=== PATIENT | female | born 1970 | race Caucasian/White ===

== ENCOUNTER 2024-05-03 13:32 | Outpatient (REF) | payer BC, SELFPAY ==
[2024-05-03 13:59] LABS: Internal Control Within Normal Limits; SARS-CoV-2 Ag POSITIVE (NEGATIVE)
== END 2024-05-03 13:33 | disposition home or self-care (01) ==
LOC: LAB 13:32
PROVIDERS: PCP Nurse Practitioner Family; Visit Provider Nurse Practitioner Family
DX: B34.9 Viral infection, unspecified (principal)
CPT/HCPCS: 87811

== ENCOUNTER 2025-07-26 11:32 | Outpatient (OUT) | payer BC, SELFPAY ==
--- OUTSIDE RECORDS SUMMARY | 2024-06-18 10:45 | XMS_ITS ---
Author Organization The [facility] in [place] Address [address] [place] [address] Care Team Providers Care Pneumatic Drum Sander Name Role Phone Patricia Burton Primary Care Provider [phone] REASON FOR VISIT Annual Wellness Encounters Encounter Location Date Provider Diagnosis [facility] [address] [facility] [place] [address] 06/18/2024 Patricia Burton Plan Of Treatment No Information Progress Notes * Ana Rosa CARRILLO LDOB:05/1970 (55 yo F)Acc No.[id number]:06/18/2024 UNLOCKED PROGRESS NOTE Progress Note Patient: Ele MCGOVERNnntriny Stroud :?Patricia Burton (TTC) CNPDOB:1970 ???Age:53 Y???Sex:FemaleDate:4Phone:[phone]:[address] [id number] Subjective: * Chief Complaints: * 1 . Annual Wellness. * Medical History: Objective: * Vitals: Assessment: Plan: * Treatment: * * Electronic signature of Patricia Burton NP, WORKS MANAGER.ASMITA.[id number] on 07/26/2025 at 11:35 AM EDTSign off status: PendingVisit Status:?N/S N/C (No Show/No Charge) * Provider: Wanda SAUCEDO), RIPPLER Date: 0 06/18/2024 Generated for Printing/Faxing/eTransmitting on:?07/26/2025 11:35 AM EDT
--- OUTSIDE RECORDS SUMMARY | 2024-06-18 10:45 | XMS_ITS ---
Author Organization The [facility] in [place] Address [address] [place] [address] Care Team Providers Care Loss Prevention Agent Name Role Phone Patricia Burton Primary Care Provider REASON FOR VISIT Annual Wellness Encounters Encounter Location Date Provider Diagnosis [facility] [address] [facility] [place] [address] 06/18/2024 Patricia Burton Plan Of Treatment No Information Progress Notes * Ana Rosa CARRILLO LDOB:05/1970 (55 yo F)Acc No.[id number]:06/18/2024 UNLOCKED PROGRESS NOTE Progress Note Patient: Ele MCGOVERNnntriny Stroud :?Patricia Burton (TTC) CNPDOB:1970 ???Age:53 Y???Sex:FemaleDate:4Phone:[phone]:[address] [id number] Subjective: * Chief Complaints: * 1 . Annual Wellness. * Medical History: Objective: * Vitals: Assessment: Plan: * Treatment: * * Electronic signature of Patricia Burton NP, RN REVIEW.[id number] on 07/25/2025 at 02:36 PM EDTSign off status: PendingVisit Status:?N/S N/C (No Show/No Charge) * Provider: Wanda SAUCEDO), SYRUP MIXER HELPER Date: 0 06/18/2024 Generated for Printing/Faxing/eTransmitting on:?07/25/2025 02:36 PM EDT
--- OUTSIDE RECORDS SUMMARY | 2025-07-18 10:00 | XMS_ITS ---
Author Organization The [facility] in [place] Address [address] [place] [address] Care Team Providers Care Conservation Worker Name Role Phone Patricia Burton Primary Care Provider Allergies No Known Allergies REASON FOR VISIT BP Issues- has been high over the past two weeks- monitoring at home as well and high there, First BP left arm 122/80, second BP right arm 122/84, Patient stopped all meds- also address PHQ Medications Medication SIG (Take, Route, Frequency, Duration) Notes Start Date End Date Status Effexor XR 37.5 MG 1 capsule with food Orally On ce a day; Duration: 30 days 01/09/2023ctiveStiolto Respimat 2.5-2.5 MCG/ACT2 puffs Inhalation Once a day; Duration: 30 days03/02/2023ctive Social History Tobacco Use: Social History Observation Description Date Details (start date - stop date) Current Smoker NA - NA Tobacco Use/Smoking Question Answer Notes Patient is a current every day smoker Vital Signs Weight 100.4 lbs 07/18/2025 Height 58.5 in 07/18/2025 Blood pressure systolic 122 mm Hg 07/18/20 25 Blood pressure diastolic 84 mm Hg 025 BMI 20.62 kg/m2 07/18/2025 Encounters Encounter Location Date Provider Diagnosis [facility] [address] [facility] [place] [address] 07/18/2025 Patricia Burton Depression with anxiety F41.8 and Current smoker F17.200 Assessments Encounter Date Diagnosis (ICD Code) Assessment Notes Treatment Notes Treatment Clinical Notes Section Notes 07/18/2025 Depression with anxiety (ICD-10 - F41.8) job stress working 70 hrs week moved into parents house, finances better 07/18/2025urrent smoker (ICD-10 - F17.200)encouraged lmyjysbwm51/17/2025Other continue monitor bp, can stop here for bp check if needed Plan Of Treatment Medication Medication Name Sig Start Date Stop Date Notes Effexor XR 37.5 MG 1 capsule with food Orally Once a day; Duration: 30 days 01/09/2023 Stiolto Respimat 2.5-2.5 MCG/ACT2 puffs Inhalation Once a day; Duration: 30 days 03/02/2023Treatment Notes Assessment Notes Depression with anxiety job stress working 70 hrs week moved into parents house, finances better Current smoker encouraged cessation Other continue monitor bp, can stop here for bp check if needed Next Appt Details Follow Up: prn,6 Months, Alethea son: Progress Notes * Ana Rosa CARRILLO LDOB:05/1970 (55 yo F)Acc No.[id number]:07/18/2025 Progress Note Patient: Tod Ana Rosa RUBIO Luanne :?Patricia Burton ([facility]), CNPDOB:1970 ???Age:55 Y???Sex:FemaleDate:07/18/2025Phone:[phone]:[address], [place], [id number] In:01:44 PM ESTCheck Out:02:08 PM EST Subjective: * Chief Complaints: * 1 . BP Issues- has been high over the past two weeks- monitoring at home as well and high there. 2. First BP left arm 122/80, second BP right arm 122/84. 3. Patient stopped all meds- also address PHQ. * HPI: ???Depression Screening:?PHQ-9?Little interest or pleasure in doing things Nearly every day ?Feeling down, depressed, or hopeless?More than half the days ?Trouble falling or staying asleep, or sleeping too much?Nearly every day ?Feeling tired or having little energy?Nearly every day ?Poor appetite or overeating?Several days ?Feeling bad about yourself or that you are a failure, or have let yourself or your family down?Several days ?Trouble concentrating on things, such as reading the newspaper or watching television?More than half the days ?Moving or speaking so slowly that other people could have noticed; or the opposite, being so fidgety or restless that you have been moving arounda lot more than usual?More than half the days ?Thoughts that you would be better off orof hurting yourself in some way?Several days (Consider Suicide Assessment Risk) ?Total Score?18 ?Interpretation?Moderately Severe Depression ???General:?taking inhaler thats all anxiety and depression admits to worried about bp watch was alarming that Bp high has been under a lot stress at work no other concerns. * ROS: ???General/Constitutional:?Anxiety?admits.?Depression?admits.?Fever?denies.?Headache?denies.?Weight loss?denies.?Ophthalmologic:?Discharge?denies.?Eye Pain?denies.?Itching and redness?denies.?ENT:?Nasal discharge?denies.?Nasal congestion?denies. Sore throat?denies.?Cardiovascular:?Chest tightness/ heavy pressure?denies.?Rapid heart rate?denies.?Swelling of extremities?denies.?Chest pain?denies.?Respiratory:?Productive cough?denies.?Chest pain?denies.?Cough?denies.?Shortness of breath?admits, with activity, chronic.?Wheezing?denies.?Gastrointestinal:?Abdominal pain?denies.?Constipation?denies.?Decreased appetite?denies.?Diarrhea?denies.?Nausea?denies.?Vomiting denies.?Genitourinary:?Urinary incontinence?denies.?Painful urination?denies.?Musculoskeletal:?Back pain?denies.?Neck pain?denies.?Muscle aches?denies.?Skin:?Rash?denies.?Skin lesion(s)?denies.? * Active Problem List K31.[address] omach and duodenum Modified On:01/31/2023 Status:kzdpaulxzU76.0Pain in throat Modified On:01/31/2023 Status:movlzkyxoT81.10CAD (coronary artery disease) Modified On:01/31/2023 Status:zzvacwtcdX46.9Anxiety Modified On:01/31/2023 Status:whoazraznP91.09Dyspnea on exertion Modified On:01/31/2023 Status:rwkjoomrcM69.9Hyperglycemia Modified On:01/31/2023 Status:ormhbbnssZ31.90Arthritis Modified On:01/31/2023 Status:cknrjzsieC78.00Insomnia Modified On:01/31/2023 Status:sbehbdcmdU73.9Irritable bowel syndrome Modified On:01/31/2023 Status:edpduwmffR39.8Depression with anxiety Modified On:01/31/2023 Status:ctwwcrhqdJ33.9Flank pain Modified On:01/31/2023 Status:ygqucweluF83.9Tachycardia, paroxysmal Modified On:01/31/2023 Status:wnutnckkeB59.200Current smoker Modified On:01/31/2023 Status:dpxxrsicvX74.1Gastric outlet obstruction Modified On:01/31/2023/U Status:bwewfalllU74.00Wellness examination Modified On:01/31/2023U Status:gjqmhgpymB10.9Gastro-esophageal reflux disease Modified On:01/31/2023U Status:yrwszoypdB43.1Pyloric stricture Modified On:01/31/2023U Status:confirmed * Medical History: F lank pain, Anxiety, Abdominal pain, LLQ, Abdominal pain, RLQ, Pain in throat, Diarrhea, Nausea & vomiting, Otalgia, left, Pharyngitis, Contact with and (suspected) exposure to other viral communicable diseases, Dyspnea on exertion, Cough, unspecified type, Chest congestion, Hyperglycemia, CAD (coronary artery disease), Acute hypoxemic respiratory failure, Depression with anxiety, Other cough, Other diseases of stomach and duodenum, Pneumonia, Tachycardia, paroxysmal, Gastric outlet obstruction, Pyloric stricture, Insomnia, Arthritis, Wellness examination, Irritable bowel syndrome, Current smoker, Gastro-esophageal reflux disease, Constipation. * Surgical History: T onsillectomy , Cholecystectomy , Hernia repar , Hysterectomy , Partial Stomach Removal- Dr. Camarillo 10/22. * Hospitalization/Major Diagno stic Procedure: D enies Past Hospitalization. * Family History: F ather: alive, diagnosed with Heart Disease. M other: alive, CHF, diagnosed with Heart Disease. 1 brother(s) , 1 sister(s) - healthy. . * Social History: ???Tobacco Use:?Tobacco Use/Smoking?Patient is a?current every day smoker * Medications: T aking Stiolto Respimat(Tiotropium [place]-Olodaterol) 2.5-2.5 MCG/ACT Aerosol Solution 2 puffs Inhalation Once a day , Discontinued Atorvastatin Calcium 40 MG Tablet 1 tablet Orally Once a day , Discontinued Azithromycin 250 MG Tablet as directed Orally daily , Notes to Pharmacist: take two tablets po on first day than one tablet po days 2-5, Discontinued Carafate(Sucralfate) 1 GM Tablet 1 tablet on an empty stomach Orally once daily , Discontinued Effexor XR(Venlafaxine HCl ER) 37.5 MG Capsule Extended Release 24 Hour 1 capsule with food Orally Once a day , Discontinued Linzess(linaCLOtide) 145 MCG Capsule 1 capsule at least 30 minutes before the first meal of the day on an empty stomach Orally Once a day as needed , Discontinued Omeprazole 40 MG Capsule Delayed Release 1 capsule 30 minutes before morning meal Orally Once a day , Discontinued predniSONE 20 MG Tablet 2 tablet Orally Once a day , Discontinued Restoril(Temazepam) 7.5 MG Capsule 1 capsule Orally at bedtime , Discontinued Ventolin HFA(Albuterol Sulfate HFA) 108 (90 Base) MCG/ACT Aerosol Solution 1 puff as needed Inhalation every 4 hrs , Medication List reviewed and reconciled with the patient * Allergies: N .K.D.A. Objective: * Vitals: W t:100.4lbs, Ht: 58.5 in, BP: sittin/80 mm Hg,sittin/84mm Hg, BMI:20.62Index, Ht-cm: 148.59 cm, Wt-k.54 kg. * Examination: ???General Examinations: ?GENERAL APPEARANCE:?alert and oriented,?in no acute distress, anxious.?EYES:?conjunctiva normal, sclera non-icteric.?NOSE:?normal external appearance.?LUNGS:?diminished breath sounds in the bases.?CARDIO:?regular rate and rhythm, S1, S2 normal.?MUSCULOSKELETAL:?Gait and station normal.?SKIN:?warm and dry.? Assessment: * Assessment: 1.?Depression with anxiety - F41.8 (Primary)???2.?Current smoker - F17.200& #160;?? Plan: * Treatment: Refill Effexor XR Capsule Extended Release 24 Hour, 37.5 MG, 1 capsule with food, Orally, Once a day, 30 days, 30, Refills 11.?? Notes: job stress working 70 hrs week moved into parents house, finances better??2.?Current smoker? Refill Stiolto Respimat Aerosol Solution, 2.5-2.5 MCG/ACT, 2 puffs, Inhalation, Once a day, 30 days, 1, Refills 11.?? Notes: encouraged cessation??3.?Others? Notes: continue monitor bp, can stop here for bp check if needed?? * Preventive Medicine: ??Screenings/Counseling:?TOBACCO ACTION PLAN?Patient counselled on the dangers of tobacco use and urged to quit.? 07/18/2025 . * Follow Up: p radha,6 Months * * Electronically signed by Patricia Burton NP, PROJECT MANAGEMENT PROFESSOR.HEALTH CARE RECRUITER.[id number] on 07/21/2025 at 02:16 PM EDTSign off status: CompletedVisit Status:?CHK (Check Out) true * Provider: Wanda Burton ([facility]), HEALTH CARE RECRUITER Date: 1 Generated for Printing/FaAcademizeg/eTransmitting on:?07/25/2025 02:36 PM EDT History and Physical Notes * HPI (History of Present Illness) CategorySub-CategoryDetailNotesCategory NotesDepression ScreeningPHQ-9Little interest or pleasure in doing things: Nearly every dayFeeling down, depressed, or hopeless: More than half the daysTrouble falling or staying asleep, or sleeping too much: Nearly every dayFeeling tired or having little energy: Nearly every dayPoor appetite or overeating: Several daysFeeling bad about yourself or that you are a failure, or have let yourself or your family down: Several days Trouble concentrating on things, such as reading the newspaper or watching television: More than half the daysMoving or speaking so slowly that other people could have noticed; or the opposite, being so fidgety or restless that you have been moving around a lot more than usual: More than half the days Thoughts that you would be better off or of hurting yourself in some way: Several days (Consider Suicide Assessment Risk)Total Score: 18Interpretation: Moderately Severe DepressionGeneral taking inhaler thats all anxiety and depression admits to worried about bp watch was alarming that Bp high has been under a lot stress at work no other concerns Examination CategorySub-CategoryDetailNotesCategory NotesGeneral ExaminationsGENERAL APPEARANCE:alert and oriented, in no acute distress, anxiousEYES:conjunctiva normal, sclera non-ictericEARS:NOSE:normal external appearanceTHROAT:CARDIO: regular rate and rhythm, S1, S2 normalLUNGS:diminished breath sounds in the basesABDOMEN:SKIN:warm and dryBACK:MUSCULOSKELETAL:Gait and station normalLYMPH NODES:
--- OUTSIDE RECORDS SUMMARY | 2025-07-18 10:00 | XMS_ITS ---
Author Organization [facility] in [place] Address [address] [place] [address] Care Team Providers Care Lifter/Driver Name Role Phone Patricia Burton Primary Care [...] 07/18/2025 Encounters Encounter Location Date Provider Diagnosis [facility] [address] [facility] [place] [address] 07/18/2025 Patricia Burton Depression with anxiety F41.8 and Current smoker F17.200 Assessments Encounter Date Diagnosis (ICD Code) Assessment Notes Treatment Notes Treatment Clinical Notes Section Notes 07/18/2025 Depression with anxiety (ICD-10 - F41.8) job stress working 70 hrs week moved into parents house, finances better 07/18/2025urrent smoker (ICD-10 - F17.200)encouraged /17/2025Other continue monitor bp, can stop here for [...] Next Appt Details Follow Up: prn,6 Months, Alethae son: Progress Notes * Ana Rosa CARRILLO LDOB:05/1970 (55 yo F)Acc No.[id number]:07/18/2025 Progress Note Patient: Tod Ana Rosa RUBIO Luanne :?Patricia Burton ([facility]), CNPDOB:1970 ???Age:55 Y???Sex:FemaleDate:07/18/2025Phone:[phone]:[address], [place], [id number] In:01:44 PM ESTCheck Out:02:08 PM EST Subjective: [...] of st omach and duodenum Modified On:01/31/2023 Status:gbxehnsaqT35.0Pain in throat Modified On:01/31/2023 Status:tdhmylrgmE69.10CAD (coronary artery disease) Modified On:01/31/2023 Status:qestclvuuF71.9Anxiety Modified On:01/31/2023 Status:xbqpelejgO42.09Dyspnea on exertion Modified On:01/31/2023 Status:ocdiptbujZ80.9Hyperglycemia Modified On:01/31/2023 Status:yjmsqouqtI73.90Arthritis Modified On:01/31/2023 Status:ykoakyqrnX72.00Insomnia Modified On:01/31/2023 Status:tvbyymwxbM22.9Irritable bowel syndrome Modified On:01/31/2023 Status:pnrkrkmwfW41.8Depression with anxiety Modified On:01/31/2023 Status:qurcnwbprN45.9Flank pain Modified On:01/31/2023 Status:ntntqyoivP37.9Tachycardia, paroxysmal Modified On:01/31/2023 Status:jtmtpzwysS16.200Current smoker Modified On:01/31/2023 Status:goxczhqhzN64.1Gastric outlet obstruction Modified On:01/31/2023/U Status:kqigiosjcW52.00Wellness examination Modified On:01/31/2023U Status:tnkxxhkgjA51.9Gastro-esophageal reflux disease Modified On:01/31/2023U Status:lvchubungK81.1Pyloric stricture Modified On:01/31/2023U Status:confirmed * Medical History: [...] smoker * Medications: T aking Stiolto Respimat(Tiotropium [place]-Olodaterol) 2.5-2.5 MCG/ACT Aerosol Solution 2 puffs Inhalation [...] * Electronically signed by Patricia Burton NP, SKIP HOIST OPERATOR.THERAPEUTIC CONSULTANT.[id number] on 07/21/2025 at 02:16 PM EDTSign off status: CompletedVisit Status:?CHK (Check Out) true * Provider: Wanda Burton ([facility]), THERAPEUTIC CONSULTANT Date: 1 Generated for Printing/FaDataRobotg/eTransmitting on:?07/26/2025 11:36 AM EDT History and Physical Notes * HPI [...]
--- OUTSIDE RECORDS SUMMARY | 2025-07-24 11:00 | XMS_ITS ---
Author Organization [facility] in [place] Address [address] [place] [address] Care Team Providers Care Jail Manager Name Role Phone Patricia Burton Primary Care Provider Allergies No Known Allergies Results Component Value Reference Range Notes UA (Urinalysis, Dipstix only - w/o micro) Reviewed date:07/24/2025 03:07:45 PM Interpretation: Performing Lab: Notes/Report: COLOR yellow Yellow - Fern - CLARITYclearClear - ClearGLUCOSE-0 - 133 MG/DLALBUMIN-NEG - NEG MG/DLBILIRUBIN- NEG - NEG MG/DLSPECIFIC GRAVITY1.0151.001 - 1.035KETONES+NEG - NEG MG/DLBLOOD, UR+PH, UR6.05 - 9UROBILNOGEN-0.2 - 1 MG/DLNITRITE-NEG - NEGESTERASE (DAVE)-NEG - NEG MG/DL REASON FOR VISIT BACK PAIN, FEELS LIKE PASSING OUT, tunnwl vision, almost fell at work, bCK Pain lower back Medications Medication SIG (Take, Route, Frequency, Duration) Notes Start Date End Date Status Effexor XR 37.5 MG 1 capsule with food Orally On ce a day; Duration: 30 days 3ActiveCipro 500 MG1 tablet Orally every 12 hrs; Duration: 10 days 5ActiveStiolto Respimat 2.5-2.5 MCG/ACT2 puffs Inhalation Once a day; Duration: 30 daysActive Social History Tobacco Use: Social History Observation Description Date Details (start date - stop date) Current Smoker NA - NA Tobacco Use/Smoking Question Answer Notes Patient is a current every day smoker Vital Signs Weight 95.4 lbs 07/24/2025 Height 58.5 in 07/24/2025 Blood pressure systolic 118 mm Hg 07/24/20 25 Blood pressure diastolic 80 mm Hg 025 BMI 19.6 kg/m2 07/24/2025 Encounters Encounter Location Date Provider Diagnosis [facility] [address] [place] [address] 07/24/2025 Patricia Burton Flank pain R10.9 and Lightheaded R42 Assessments Encounter Date Diagnosis (ICD Code) Assessment Notes Treatment Notes Treatment Clinical Notes Section Notes 07/24/2025 Flank pain (ICD-10 - R10.9) 07/24/2025Lightheaded (ICD-10 - R42) increase fluids, electrolytes rest Plan Of Treatment Medication Medication Name Sig Start Date Stop Date Notes Cipro 500 MG 1 tablet Orally every 12 hrs; Duration: 1 0 days 07/24/2025 Treatment Notes Assessment Notes Lightheaded increase fluids, electrolytes rest Pending Test Test Name Order Date UA (URINALYSIS, COMPLETE) 07/24/2025 HEMOGLOBIN A1C (GLYCO) 07/24/2025 IRON, TOTAL 07/24/2025 LIPID PANEL (CHOL/TRIG/HDL/LDL) 07/24/20 25 VITAMIN D, 25 LEVEL (TOTAL) 07/24/2025 Urine Culture 07/24/2025 Insulin Level 07/24/2025 THYROID PANEL (T4/TSH/FREE T3) CMP (COMP MET CABRERA) w/eGFR CKD-EPI 2024 CBC WITH DIFF 07/24/2025 Next Appt Details Follow Up: prn, Reason: Progress Notes * Ana Rosa CARRILLO LDOB:05/1970 (55 yo F)Acc No.[id number]:07/24/2025 UNLOCKED PROGRESS NOTE Progress Note Patient: Tod JOANNE Ana Rosa Stroud :?Patricia Baron Josephine ([facility]), CNPDOB:1970 ???Age:55 Y???Sex:FemaleDate:07/24/2025Phone:[phone]:[address], [place], [id number] In:02:35 PM ESTCheck Out:03:10 PM EST Subjective: * Chief Complaints: * 1 . BACK PAIN, FEELS LIKE PASSING OUT. 2. Tunnwl vision. 3. Almost fell at work. 4. bCK Pain lower back. * HPI: ???General:? urgency with urination couple weeks back pain for couple weeks some chills feels like when urine backing up into kidneys in past had sx on ureters hx kidney stone, doesnt feel like this. * ROS: ???General/Constitutional:?Dizziness?Admits.?Feeling Poorly?admits .?Fever?denies.?Headache?denies.?Weight loss?denies.?Ophthalmologic:?Discharge?denies.?Eye Pain?denies.?Itching and redness?denies.?ENT:?Nasal discharge?denies.?Nasal congestion?denies. Sore throat?denies.?Cardiovascular:?Chest tightness/ heavy pressure?denies.?Rapid heart rate?denies.?Swelling of extremities?denies.?Chest pain?denies.?Respiratory:?Productive cough?denies.?Chest pain?denies.?Cough?denies.?Shortness of breath?denies.?Wheezing?denies.?Gastrointestinal:?Abdominal pain?denies.?Constipation?denies.?Decreased appetite?denies.?Diarrhea?denies.?Nausea?denies.?Vomiting denies.?Genitourinary:?Urinary incontinence?denies.?Flank Pain?admits and urgency.?Painful urination?denies.?Musculoskeletal:?Back pain?denies.?Neck pain?denies.?Muscle aches?denies.?Skin:?Rash?denies.?Skin lesion(s)?denies.? * Medical History: F lank pain, Anxiety, [...] [place] 10/22. * Hospitalization/Major Diagno stic Procedure: Eveline raymundo Past Hospitalization. * Family History: F ather: alive, diagnosed with Heart Disease. M other: alive, CHF, diagnosed with Heart Disease. 1 brother(s) , 1 sister(s) - healthy. . * Social History: ???Tobacco Use:?Tobacco Use/Smoking?Patient is a?current every day smoker * Medications: T aking Effexor XR(Venlafaxine HCl ER) 37.5 MG Capsule Extended Release 24 Hour 1 capsule with food Orally Once a day , Taking Stiolto Respimat(Tiotropium [place]-Olodaterol) 2.5-2.5 MCG/ACT Aerosol Solution 2 puffs Inhalation Once a day , Medication List reviewed and reconciled with the patient * Allergies: N .K.D.A. Objective: * Vitals: W t:95.4lbs, Ht: 58.5 in, BP:118/80mm Hg, BMI:19.6Index, Ht-cm: 148.59 cm, Wt-k.27 kg. * Examination: ???General Examinations: ?GENERAL APPEARANCE:?alert and oriented,?in no acute distress, appears stressed.?EYES:?conjunctiva normal, sclera non-icteric.?NOSE:?normal external appearance.?LUNGS:?diminished breath sounds in the bases.?CARDIO:?regular rate and rhythm, S1, S2 normal.?ABDOMEN:?soft, nontender.?MUSCULOSKELETAL:?Gait and station normal, CVA tenderness BL.?SKIN:?warm and dry.? Assessment: * Assessment: 1.?Flank pain - R10.9 (Primary)???2.?Lightheaded - R42??? Plan: * Treatment: Start Cipro Tablet, 500 MG, 1 tablet, Orally, every 12 hrs, 10 days, 20 Tablet, Refills 0.?LAB: UA (URINALYSIS, COMPLETE) ?LAB: Urine Culture ?LAB: UA (Urinalysis, Dipstix only - w/o micro) (Collection Date & Time - 07/24/2025)2.?Lightheaded?LAB: HEMOGLOBIN A1C (GLYCO) ?LAB: IRON, TOTAL ?LAB: LIPID PANEL (CHOL/TRIG/HDL/LDL) ?LAB: VITAMIN D, 25 LEVEL (TOTAL) ?LAB: Insulin Level ?LAB: THYROID PANEL (T4/TSH/FREE T3) ?LAB: CMP (COMP MET CABRERA) w/eGFR CKD-EPI ?LAB: CBC WITH DIFF Notes: increase fluids, electrolytes rest?? * Labs: * L ab: UA (Urinalysis, Dipstix only - w/o micro) (Collection Date & Time - 07/24/2025) ?ValueReference Range?COLORyellowYellow - Fern - * C LARITY clear Clear - Clear * G LUCOSE - 0 - 133 MG/DL * A LBUMIN - NEG - NEG MG/DL * B ILIRUBIN - NEG - NEG MG/DL * S PECIFIC GRAVITY 1.015 1.001 - 1.035 * K ETONES + NEG - NEG MG/DL * B LOOD, UR + * P H, UR 6.0 5 - 9 * U ROBILNOGEN - 0.2 - 1 MG/DL * N ITRITE - NEG - NEG * E STERASE (DAVE) - NEG - NEG MG/DL * Procedure Codes: 8 1002 URINALYSIS WO MICRO * Preventive Medicine: ??Screenings/Counseling:?TOBACCO ACTION PLAN?Patient counselled on the dangers of tobacco use and urged to quit.? 07/24/2025 . ?BMI ACTION PLAN?Below Normal BMI Follow-up?Dietary management education, guidance, and counseling * Follow Up: p rn * * Electronic signature of Patricia Burton NP, MATRIX WORKER.ALMOND CUTTING MACHINE TENDER.[id number] on 07/25/2025 at 02:37 PM EDTSign off status: PendingVisit Status:?CHK (Check Out) * Provider: Wanda Burton ([facility]), ALMOND CUTTING MACHINE TENDER Date: Generated for Printing/Faxing/eTransmitting on:?07/25/2025 02:37 PM EDT History and Physical Notes * HPI (History of Present Illness) CategorySub-CategoryDetailNotesCategory NotesGeneral urgency with urination couple weeks back pain for couple weeks some chills feels like when urine backing up into kidneys in past had sx on ureters hx kidney stone, doesnt feel like this Examination CategorySub-CategoryDetailNotesCategory NotesGeneral ExaminationsGENERAL APPEARANCE:alert and oriented, in no acute distress, appears stressedEYES: conjunctiva normal, sclera non-ictericEARS:NOSE:normal external appearance THROAT:CARDIO:regular rate and rhythm, S1, S2 normalLUNGS:diminished breath sounds in the basesABDOMEN:soft, nontenderSKIN:warm and dryBACK:MUSCULOSKELETAL: Gait and station normal, CVA tenderness BLLYMPH NODES:
--- OUTSIDE RECORDS SUMMARY | 2025-07-24 11:00 | XMS_ITS ---
Author Organization [facility] in [place] Address [address] [place] [address] Care Team Providers Care Info Print Press Operator Name Role Phone Patricia Burton Primary Care [...] 07/24/2025 Encounters Encounter Location Date Provider Diagnosis [facility] [address] [place] [address] 07/24/2025 Patricia Burton Flank pain R10.9 and [...] Ana Rosa CARRILLO LDOB:05/1970 (55 yo F)Acc No.[id number]:07/24/2025 UNLOCKED PROGRESS NOTE Progress Note Patient: Tod JOANNE Ana Rosa Stroud :?Patricia Baron Josephine ([facility]), CNPDOB:1970 ???Age:55 Y???Sex:FemaleDate:07/24/2025Phone:[phone]:[address], [place], [id number] In:02:35 PM ESTCheck Out:03:10 PM EST Subjective: [...] , Hysterectomy , Partial Stomach Removal- Dr. Camarilol 10/22. * Hospitalization/Major Diagno stic Procedure: Eveline [...] Once a day , Taking Stiolto Respimat(Tiotropium [place]-Olodaterol) 2.5-2.5 MCG/ACT Aerosol Solution 2 puffs Inhalation [...] * Electronic signature of Patricia Burton NP, RETAIL GREETER.LATHE SET UP PERSON.[id number] on 07/26/2025 at 11:36 AM EDTSign off status: PendingVisit Status:?CHK (Check Out) * Provider: Wanda Burton ([facility]), LATHE SET UP PERSON Date: Generated for Printing/Faxing/eTransmitting on:?07/26/2025 11:36 AM EDT History and Physical [...]
--- OUTSIDE RECORDS SUMMARY | 2025-07-25 14:36 | XMS_ITS | Clinical Summary ---
Author Organization The [facility] Address [address] [place] [address] Care Team Providers Care Journalism Instructor Name Role Phone Unavailable Primary Care Provider Unavailabl e Social History Tobacco UseTypesPacks/DayYears UsedDateSmoking Tobacco: Never AssessedUT Safety & EnvironmentAnswerDate RecordedFear of Current or Ex-PartnerNot on file 11/23/2023Emotionally AbusedNot on file11/23/2023hysically AbusedNot on file 11/23/2023Sexually AbusedNot on file11/23/2023hysically or Sexually AbusedNot on file11/23/2023CommentsUnknownSex and Gender InformationValueDate RecordedSex Assigned at BirthNot on fileLegal ZjnXmngbp85/29/2022 10:13 PM EDT Gender IdentityNot on fileSexual OrientationNot on file Last Filed Vital Signs Vital SignReadingTime TakenCommentsBlood Whzjpqfm031/8406 2:07 PM EDT Esszg621503/16/2022 2:07 PM IDLWlssczpufve96 ??C (98.6 ??F)03/16/2022 2:06 PM EDT Respiratory Xwav602611/09/2019 3:12 PM ESTOxygen Vexqddxhyj05%04/19/2021 3:02 PM EDTInhaled Oxygen Concentration--Zxequz91 kg (101 lb 6.4 oz)03/16/2022 2:03 PM CKFYuwyzt261.3 cm (4' 10 )03/16/2022 2:02 PM EDTBody Mass Index21.19003/16/2022 2:02 PM EDT Plan of Treatment Health MaintenanceDue DateLast DoneCommentsCT Dxwpqsryexro1970Colonoscopy 1970Colorectal Cancer Zfnogrroq1970FIT-DNA1970FIT1970 FOBT1970 6414Jptkxkqylvuqk1970Depression Cawnjjoew63/08/1982Hepatitis B Vaccines (1 of 3 - 19+ 3-dose series)1989Pap Smear1991Adult Tetanus 1992Cervical Cancer Gvbzxhbux47/08/2000HPV/Iknliv2507/09/2000Mammogram 2010Zoster Vaccines (1 of 2)2020Pneumococcal Vaccine: Pediatrics (0 to 5 Years) and At-Risk Patients (6 to 64 Years) (2 of 2 - PCV)10/10/2021 10/10/2020OVID-19 Vaccine (1 - 2024- season)2025Influenza Vaccine (#1) 501/06/2021HIB VaccinesAged OutNo longer eligible based on patient's age to complete this topicHPV VaccinesAged OutNo longer eligible based on patient's age to complete this topicIPV VaccinesAged OutNo longer eligible based on patient's age to complete this topicMeningococcal B VaccineAged OutNo longer eligible based on patient's age to complete this topicMeningococcal VaccineAged OutNo longer eligible based on patient's age to complete this topicRotavirus VaccinesAged OutNo longer eligible based on patient's age to complete this topic Insurance
--- OUTSIDE RECORDS SUMMARY | 2025-07-25 14:36 | XMS_ITS | Patient Health Record ---
Author Organization [facility] in [place] Address [address] [place] [address] Care Team Providers Care Nanofabrication Specialist Name Role Phone Patricia Burton Primary Care [...] 1 MG/DLNITRITE-NEG - NEGESTERASE (DAVE)-NEG - NEG MG/DLCOVID-19, Flu A+B IH Reviewed date:11/22/2024 11:42:02 AM Interpretation: Performing Lab: Notes/Report: COVID-FLU A-FLU B-Control+ Reason For Referral No Information Medications Medication SIG (Take, Route, Frequency, Duration) [...] Patient is a current every day smoker Problems Problem Type SNOMED Code ICD Code Onset Dates Problem Status W/U Status Risk Notes Problem disorder of stomach (31491696) O ther diseases of stomach and duodenum (K31.89) ActiveconfirmedProblemPain in throat (365658956)Pain in throat (R07.0)Active confirmedProblemCoronary artery disease (79862283)CAD (coronary artery disease) (I25.10)ActiveconfirmedProblemAnxiety (98957654)Anxiety (F41.9)Activeconfirmed ProblemDyspnea on exertion (93598109)Dyspnea on exertion (R06.09)Activeconfirmed ProblemHyperglycemia (80510403)Hyperglycemia (R73.9)ActiveconfirmedProblem Arthritis (3497127)Arthritis (M19.90)ActiveconfirmedProblemInsomnia (658265648) Insomnia (G47.00)ActiveconfirmedProblemIrritable bowel syndrome (76225982) Irritable bowel syndrome (K58.9)ActiveconfirmedProblemMixed anxiety and depressive disorder (290726580)Depression with anxiety (F41.8)Activeconfirmed ProblemFlank pain (026764476)Flank pain (R10.9)ActiveconfirmedProblemParoxysmal tachycardia (26405036)Tachycardia, paroxysmal (I47.9)ActiveconfirmedProblem Current smoker (10570311)Current smoker (F17.200)ActiveconfirmedProblemAcquired hypertrophic pyloric stenosis (45897827)Gastric outlet obstruction (K31.1)Active confirmedProblemAnnual wellness visit (337588236867953)Wellness examination (Z00.00)ActiveconfirmedProblemGastro-esophageal reflux disease (525072430) Gastro-esophageal reflux disease (K21.9)ActiveconfirmedProblemAcquired hypertrophic pyloric stenosis (64937993)Pyloric stricture (K31.1)Activeconfirmed Vital Signs Heart Rate 100 /min 11/22/2024 Lhpecbxjkgu93.3 degrees Renjeekjdi90/21/0689Svloqztv29 %11/22/2024lood pressure opuolblwr43 mm Hg07/24/20253690Kayeit97.5 in07/24/2025lood pressure lclydocm291 mm Hg07/24/20251391Xwjblg38.4 lbs1MI19.6 kg/m207/24/2025 Encounters Encounter Location Date Provider Diagnosis [address] [address] 11/22/2024 Patricia Burton Viral illness B34.9 [facility] [address] [place] [address] 11/22/2024 Patricia Burton [address] [address] 01/15/2025Pafarideha Josephine[address] [address]/21/2025Pamela CramerCough R05.9 and Wellness examination Z00.[address] [address]/17/2025Pamela CramerDepression with anxiety F41.8 and Current smoker F17.[address] [address]/23/2025Pamela CramerFlank pain R10.9 and Lightheaded R42 Assessments Encounter Date Diagnosis (ICD Code) Assessment Notes Treatment Notes Treatment Clinical Notes Section Notes 11/22/2024 Cough (ICD-10 - R05.9) COVID and flu neg smoker 11/22/2024Wellness examination (ICD-10 - Z00.00)resarting meds including effexor for mood07/18/2025Depression with anxiety (ICD-10 - F41.8) job stress working 70 hrs week moved into [facility], finances better 07/24/2025Flank pain (ICD-10 - R10.9)07/24/2025Lightheaded (ICD-10 - R42) increase fluids, electrolytes rest 11/22/2024Viral illness (ICD-10 - B34.9)07/18/2025urrent smoker (ICD-10 - F17.200)encouraged xgyupxbpw01/17/2025Othercontinue monitor bp, can stop here for bp check if needed Plan Of Treatment Pending Test Test Name Order Date UA (URINALYSIS, COMPLETE) 07/24/2025 HEMOGLOBIN A1C (GLYCO) 07/24/2025 HEMOGLOBIN A1C (GLYCO) 11/22/2024 IRON, TOTAL 11/22/2024 IRON, TOTAL 07/24/2025 LIPID PANEL (CHOL/TRIG/HDL/LDL) 07/24/20 25 LIPID PANEL (CHOL/TRIG/HDL/LDL) 11/22/19 25 CBC WITH DIFF 11/22/2024 VITAMIN D, 25 LEVEL (TOTAL) 07/24/2025 VITAMIN D, 25 LEVEL (TOTAL) 11/22/2024 Urine Culture 07/24/2025 Insulin Level 11/22/2024 Insulin Level 07/24/2025 Covid-19 PCR (CVDTBH) 05/03/2024 THYROID PANEL (T4/TSH/FREE T3) THYROID PANEL (T4/TSH/FREE T3) CMP (COMP MET CABRERA) w/eGFR CKD-EPI 2024 CMP (COMP MET CABRERA) w/eGFR CKD-EPI 2024 CBC WITH DIFF 07/24/2025 Insurance Providers Payer Name Payer Address Payer Phone Subscriber Number Group Number Insured Name Patient Relationship to Insured Coverage Start Date Coverage End Date [employer] PPO PLUS LOCAL PLAN [address] [place] [address] [id number] Ana Rosa Brito Self - patient is the insured Medical (General) History Medical History History ICD Code Flank pain R10.9 Anxiety F41.9 Abdominal pain, LLQ R10.32 Abdominal pain, RLQ R10.31 Pain in throat R07.0 Diarrhea R19.7 Nausea & vomiting R11.2 Otalgia, left H92.02 Pharyngitis J02.9 Contact with and (suspected) exposure to other viral communicable diseases Z20.828 Dyspnea on exertion R06.09 Cough, unspecified type R05.9 Chest congestion R09.89 Hyperglycemia R73.9 CAD (coronary artery disease) I25.10 Acute hypoxemic respiratory failure J96. 01 Depression with anxiety F41.8 Other cough R05.8 Other diseases of stomach and duodenum K 31.89 Pneumonia J18.9 Tachycardia, paroxysmal I47.9 Gastric outlet obstruction K31.1 Pyloric stricture K31.1 Insomnia G47.00 Arthritis M19.90 Wellness examination Z00.00 Irritable bowel syndrome K58.9 Current smoker F17.200 Gastro-esophageal reflux disease K21.9 Constipation K59.00 Surgical History Surgery Date(Month/Year) Partial Stomach Removal- Dr. Camarillo 10/22 Hysterectomy TonsillectomyCholecystectomyHernia repar
--- OUTSIDE RECORDS SUMMARY | 2025-07-25 14:36 | XMS_ITS | CCD ---
Author Organization [facility] Care Team Providers Care Window Trimmer Apprentice Name Role Phone TRINIDAD ERNSTN C Unavailable Unavailable HOUSE SR, DEONTE RIVERA Unavailable Freddie Mcfarlane Unavailable Unavailable BRITTANIE, SEMAJ C Unavailable Unavailable HOY, YEU Primary Care Unavailable HOY, YUE Referring Unavailable REN JIANLIN Admitting Unavailable REN JIANLIN Attending Unavailable VT Procedure Practitioner Unavailab le REN JIANLIN Surgeon Unavailable AMAN VEGAS Admitting Unavailable VT Procedure Practitioner Unavailab le HOY, YUE Primary Care Unavailable ABEL HUTCHINSONB Attending Unavailable PIEDAD Referring Unavailable ELTATRACY MATOS Surgeon Unavailable VT Procedure Practitioner Unavailab le UNKNOWN, PROVIDER Surgeon Unavailable [place] Procedure Practitioner Unavailab EDWIN Garcia Surgeon Unavailable VT Procedure Practitioner Unavailab LILA Mancia Surgeon Unavailable VT Procedure Practitioner Unavailab le GUMARO HUTCHINSONHAIB Surgeon Unavailable MCCLURE, JIANLIN Admitting Unavailable HOY, YUE Primary Care Unavailable SELF, REFERRED Referring Unavailable REN JIANLIN Attending Unavailable VT Procedure Practitioner Unavailab le REN JIANLIN Surgeon Unavailable JADA RICHMOND Surgeon Unavailable VT Procedure Practitioner Unavailab le DEEPIKA MOON Admitting Unavailable DEEPIKA, MOON Primary Care Unavailable DR KEVEN CHAU Consulting Unavailable MOON POE Attending Unavailable DEEPIKA MOON Consulting Unavailable DEEPIKA, MOON Attending Unavailable DEEPIKA, MOON Admitting Unavailable DEEPIKA, MOON Primary Care Unavailable DEEPIKA, MOON Admitting Unavailable DEEPIKA, MOON Primary Care Unavailable DEEPIKA, MOON Attending Unavailable DEEPIKA, MOON Attending Unavailable DEEPIKA, MOON Admitting Unavailable DEEPIKA, MONO Primary Care Unavailable DEEPIKA, MOON Consulting Unavailable DEEPIKA, MOON Admitting Unavailable DEEPIKA, MOON Primary Care Unavailable DR KEVEN CHAU Consulting Unavailable MOON POE Attending Unavailable MOON POE Consulting Unavailable Problems Active Problems Problem ClassificationProblemDateDocumented DateEpisodic/ChronicAbdominal pain (9 sources)Unspecified abdominal pain; Translations: [Left lower quadrant pain] Onset: 04-96-7238VhbkfbtgLhqbqxnvykgb (1 source)Unknown / UNK(Unknown)Onset: 07-61-7472Ygjqgdllophb (1 source)CONTACT W/AND (SUSP) EXPOS COVID-19; Translations: [CONTACT W/AND (SUSP) EXPOS COVID-19]Onset: 01-17-2022 Past or Other Problems Problem ClassificationProblemDateDocumented DateEpisodic/ChronicNausea and vomiting (4 sources)Nausea with vomiting, unspecified; Translations: [NAUSEA WITH VOMITING UNSPECIFIED]Onset: 95-66-5611XidtvyvePaemk ear and sense organ disorders (1 source)Otalgia, left ear; Translations: [OTALGIA LEFT EAR]Onset: 01-17-2022 EpisodicOther upper respiratory infections (1 source)Acute pharyngitis, unspecified; Translations: [ACUTE PHARYNGITIS UNSPECIFIED]Onset: 29-03-3059Rexmkrzd Results Test NameValueInterpretationReference RangeFacilityCULTURE URINEon 12-09-2022 CULTURE URINECulture Observations: LIGHT GROWTH OF MIXED GENITAL MYKE. NO POTENTIAL PATHOGENS SEEN.NormalJoint Township District Memorial HospitalComment on above:Performed By: #### URCX #### [facility] [address] [address] [address] Jed Carrera RANDOM W/MICROSCOPICon [id number] SEENNormalNONE SEENJoint Township District Memorial HospitalComment on above:Performed By: #### UAMIC #### [facility] [address] [address] [address] Jed Gabrielirubin Ql (U)NegativeNormalNEGATIVEThe [facility] Comment on above:Performed By: #### UAMIC #### [facility] [address] [address] [address] Jed LeoCASTNONE SEENNormalNONE SEENJoint Township District Memorial HospitalComment on above:Performed By: #### UAMIC #### [facility] [address] [address] [address] Jed LeoClarity (U)CLEARNormalCLEARJoint Township District Memorial HospitalComscheurer hospital on above: Performed By: #### UAMIC #### [facility] [address] [address] [address] Jed Bearlor (U)YELLOWNormalYELLOWJoint Township District Memorial HospitalComment on above: Performed By: #### UAMIC #### [facility] [address] [address] [address] Jed LeoCrystals LM Nom (Urine sed)NONE SEENNormalNONE SEENJoint Township District Memorial HospitalComscheurer hospital on above:Performed By: #### UAMIC #### [facility] [address] [place] [address] Dr. Jed De La Torrepithelial cells LM Ql (Urine sed)MODERATEAbnormalNONE SEEN /RARE The [facility] HospitalComscheurer hospital on above:Performed By: #### UAMIC #### [facility] [address] [address] [address] Jed LeoGlucose Ql (U)NegativeNormalNEGATIVEJoint Township District Memorial HospitalComscheurer hospital on above:Performed By: #### UAMIC #### [facility] [address] [place] [address] Dr. Jed LeoHemoglobin Ql (U)TRACE-INTACTAbnormalNEGATIVEJoint Township District Memorial HospitalComscheurer hospital on above:Performed By: #### UAMIC #### [facility] [address] [address] [address] Jed LeoKetones Ql (U)NegativeNormalNEGATIVEJoint Township District Memorial HospitalComscheurer hospital on above:Performed By: #### UAMIC #### [facility] [address] [place] [address] Dr. Jed LeoLEUKOCYTESNegativeNormalNEGATIVEJoint Township District Memorial HospitalComscheurer hospital on above:Performed By: #### UAMIC #### [facility] [address] [address] [address] Jed LeoMUCOUSNONE SEENNormalNONE SEENThe [facility] HospitalComment on above:Performed By: #### UAMIC #### [facility] [address] [place] [address] Dr. Jed Duncan Ql (U)NegativeNormalNEGATIVEThe [facility] HospitalComment on above:Performed By: #### UAMIC #### [facility] [address] [place] [address] Dr. Jed LeopH (U)5.0 [pH]Normal5-9The [facility] HospitalComment on above: Performed By: #### UAMIC #### [facility] [address] [place] [address] Dr. Jde LeoQixpmWAP6-6Nntftrys3-0Kcl [facility] HospitalComment on above:Performed By: #### UAMIC #### [facility] [address] [place] [address] Dr. Jed LeoSPEC GRAVITY>=1.832Fxsulalw6.005-<=1.025The [facility] Comment on above:Performed By: #### UAMIC #### [facility] [address] [place] [address] Dr. Jed LeoUA PROTEINNegativeNormalNEGATIVE/ TRACEThe [facility] Comment on above:Performed By: #### UAMIC #### [facility] [address] [place] [address] Dr. Jed Frostbilbhaskar Qn (U)0.2 {Issac'U}/dLNormal0.2 - 1.0The [facility] HospitalComment on above:Performed By: #### UAMIC #### [facility] [address] [place] [address] Dr. Jed LeoWBCNONE SEENNormalNONE SEENJoint Township District Memorial HospitalComment on above: Performed By: #### UAMIC #### [facility] [address] [place] [address] Dr. Jed LeoXR KUB 1 VIEWon [id number] KUB 1 VIEWEXAMINATION: XR KUB 1 VIEW HISTORY: Right flank pain COMPARISON: CT abdomen pelvis 03/17/2022 FINDINGS: KIDNEY/URETER - RIGHT: No visible renal or ureteral calcifications. KIDNEY/URETER - LEFT: No visible renal or ureteral calcifications. PELVIS: Numerous pelvic calcifications favoring phleboliths. BOWEL: Prior gastric surgery. No bowel obstruction. BONES: No acute abnormality. OTHER: Right upper quadrant surgical clips and numerous surgical anchors projecting over midline upper pelvis. IMPRESSION: 1. No appreciable urinary tract calculi. Evaluation is limited by dense overlying bowel content. Electronically authenticated by: KEVEN CHAU Date: 2022-12-09 13:05[facility] HospitalCT ABD/PELV W CONon [id number] ABD/PELV W CONEXAMINATION: CT ABD/PELV W CON HISTORY: Left lower quadrant pain , acute right upper quadrant pain COMPARISON: CT abdomen and pelvis 11/06/2020 TECHNIQUE: Axial, Coronal, and Sagittal images were created with IV contrast. Dose reduction techniques were achieved by using automated exposure control and/or adjustment of mA and/or kV according to patient size and/or use of iterative reconstruction technique. FINDINGS: LUNG BASES: No visible pulmonary or pleural disease. LIVER: No enlargement, atrophy, suspicious density, or significant focal lesion. BILIARY: Cholecystectomy. PANCREAS: No lesion, fluid collection, or abnormal duct dilatation. SPLEEN: No enlargement or focal lesion. ADRENALS: No mass or enlargement. KIDNEYS: Nonobstructing 2 mm stone within right and left kidney. Unremarkable ureters. BOWEL/MESENTERY: Prior gastric surgery. No visible mass, obstruction, or bowel wall thickening. AORTA/VASCULAR: No aneurysm or dissection. RETROPERITONEUM: No mass or adenopathy. LYMPH NODES: No adenopathy. URINARY BLADDER: No visible focal wall thickening, lesion, or calculus. PELVIC ORGANS: Hysterectomy. ABDOMINAL WALL: Multiple surgical anchors within the anterior abdominal wall from prior surgery. Mild eventration of the paraumbilical midline abdominal wall; no significant hernia. BONES: No bony lesion or fracture. OTHER: Negative. IMPRESSION: 1. No acute or suspicious findings to account for patient's symptoms. 2. Nonobstructing bilateral nephrolithiasis. 3. Prior gastric surgery; no acute findings. Electronically authenticated by: KEVEN CHAU Date: 2022-03-17 16:58[facility] HospitalCovid-19 PCR (CVDTB)on [id number]-CoV-2 (COVID-19) RNA KYLEIGH+probe Ql (Unsp spec)Not detectedNormalNOT DETECTEDThe [facility] Comment on above:Result Comment: This test is not yet approved or cleared by the [place] FDA. When there are no FDA-approved or cleared tests available, and other criteria are met, FDA can make tests available under an emergency access mechanism called an Emergency Use Authorization (EUA). The EUA for this test is supported by the [place] of Health and Human Service's (HHS's) declaration that circumstances exist to justify the emergency use of in vitro diagnostics for the detection and/or diagnosis of the virus that causes COVID- 19. This EUA will remain in effect (meaning this test can be used) for the duration of the COVID-19 declaration justifying emergency of IVDs, unless it is terminated or revoked by FDA (after which the test may no longer be used). When diagnostic testing is negative, the possibility of a false negative should be considered in the context of a patient's recent exposures and the presence of clinical signs and symptoms consistent with SARS-CoV-2.Performed By: #### CVDTBH #### [facility] [address] [place] [address] Dr. Jed LeoGROUP A STREP CULTUREon 01-12-2022. pyogenes Ag Ql (Unsp spec) Culture Observations: NEGATIVE FOR GROUP A STREPTOCOCCUS.NormalJoint Township District Memorial HospitalComment on above: Performed By: #### SSCRN, GRASTCX #### [facility] [address] [place] [address] Dr. Jed LeoINFLUENZA A AND B AGon [id number] BELOWMemorial Health System Marietta Memorial HospitalComment on above:Result Comment: Negative for Flu A protein angiten. Infection due to Flu A cannot be ruled out. FluA angiten in the sample may be below the detection limit of the test.Performed By: #### INFLUAB #### [facility] [address] [place] [address] Dr. Jed LeoINFLUBNEGHSEE Memorial Health SystemComment on above: Result Comment: Negative for Flu B protein antigen. Infection due to Flu B cannot be ruled out. FluB antigen in the sample may be below the detection limit of the test.Performed By: #### INFLUAB #### [facility] [address] [place] [address] Dr. Jed Whipple AGNegativeNormalNEGATIVE SEE COMMENTThe [facility] HospitalComment on above:Performed By: #### INFLUAB #### [facility] [address] [place] [address] Dr. Jed Carmona AGNegativeNormalNEGATIVE SEE COMMENTThe [facility] HospitalComment on above:Performed By: #### INFLUAB #### [facility] [address] [place] [address] Dr. Jed LeoINTERNAL CONTROLSWithin Normal LimitsNormalWithin Normal Limits The [facility] HospitalComment on above:Performed By: #### INFLUAB #### [facility] [address] [place] [address] Dr. Jed Aguilera SCREENon [id number] SCREEN ANegativeNormalNEGATIVEThe [facility] HospitalComment on above:Performed By: #### SSCRN, GRASTCX #### [facility] [address] [place] [address] Dr. Jed Jerome PNEU I - [id number] 01-26-2021 FUMIGATUS #1AB, PRECIPITIN Not detectedNormalNone DetectedThe Good Samaritan HospitalComment on above:Order Comment: Yes: Add to Previous draw if ableResult Comment: Performed By: [facility] [address] [place], [place] [address]L FUMIGATUS #6 AB, PRECIPITINNot detectedNormalNone DetectedThe [facility]aritan HospitalComment on above:Order Comment: Yes: Add to Previous draw if ableResult Comment: Performed By: [facility] [address] [place], [place] [address]C PULLULANS AB, PRECIPITINNot detectedNormalNone DetectedThe [facility]aritan HospitalComment on above:Order Comment: Yes: Add to Previous draw if ableResult Comment: Performed By: [facility] [address] [facility], [place] [address]Z FAENI AB, PRECIPITINNot detectedNormalNone DetectedThe [facility]aritan HospitalComment on above:Order Comment: Yes: Add to Previous draw if ableResult Comment: Performed By: [facility] [address] [facility], [place] [address]FWJNLI SERUM AB, PRECIPITINNot detectedNormalNone DetectedThe [facility]itan HospitalComscheurer hospital on above:Order Comment: Yes: Add to Previous draw if ableResult Comment: Performed By: [facility] [address] [facility], [place] [address]I VULGARIS #1 AB, PRECIPITINNot detectedNormalNone DetectedThe [facility]itan HospitalComscheurer hospital on above:Order Comment: Yes: Add to Previous draw if ableResult Comment: Testing includes antibodies directed at Aureobasidium pullulans, Aspergillus fumigatus #1, Aspergillus fumigatus #6, Micropolyspora faeni, Phillips Serum and Thermoactinomyces vulgaris #1. Performed By: [address] [address]SAMGWOHME EU 2 - [id number] 01-26-2021 FLAVUS AB, PRECIPITINNot detectedNormalNone DetectedThe [facility] Comment on above:Order Comment: Yes: Add to Previous draw if ableResult Comment: Performed By: [facility] [address] [facility], [place] [address]J FUMIGATUS #2 AB, PRECIPITINNot detectedNormalNone DetectedThe [facility]aritan HospitalComscheurer hospital on above:Order Comment: Yes: Add to Previous draw if ableResult Comment: Performed By: [facility] [address] [place], [place] [address] FUMIGATUS #3 AB, PRECIPITINNot detectedNormalNone DetectedThe [facility]itan HospitalComscheurer hospital on above:Order Comment: Yes: Add to Previous draw if ableResult Comment: Performed By: [facility] [address] [facility], [place] [address]Q VIRIDIS AB, PRECIPITINNot detectedNormalNone Detected The [facility] HospitalComscheurer hospital on above:Order Comment: Yes: Add to Previous draw if ableResult Comment: Performed By: [facility] [address] [facility], [place] [address]N CANDIDUS AB, PRECIPITINNot detectedNormalNone Detected The [facility] HospitalComscheurer hospital on above:Order Comment: Yes: Add to Previous draw if ableResult Comment: Testing includes antibodies directed at Aspergillus flavus, Aspergillus fumigatus #2, Aspergillus fumigatus #3, Saccharomonospora viridis, and Thermoactinomyces candidus. Performed By: [facility] [address] [place], [place] [address]ZIRPX CELL COUNTon [id number]/100 WBC (Bld)2 %NormalThe [facility]aritan HospitalComment on above:Order Comment: RMLPerformed By: #### [id number] ####[facility] [facility] [place] [address], [id number] %NormalThe [facility]itan HospitalComment on above:Order Comment: RMLPerformed By: #### [id number] ####[facility] [facility] [place] [address], [facility] OTHER F1Diff done by [facility] Comment on above:Order Comment: RMLPerformed By: #### [id number] ####[facility] [facility] [place] [address], [facility]ASOTHER E3Ncjvpcc by Kirera Gan M.D.NormalCleveland Clinic Children's Hospital for RehabilitationComment on above:Order Comment: RMLResult Comment: Result changed by JAQUELIN on 01/27/2021 07:06. The previous value was Preliminary report; verified report to follow.Performed By: #### [id number] ####[facility] [facility] [place] [address], [facility] RBC9 RBC/[facility] Medical CenterComment on above:Order Comment: RMLPerformed By: #### [id number] ####[facility] [facility] [place] [address], [facility] AT L[facility]ASSEGS3 %NormalThe [facility]itan HospitalComment on above:Order Comment: RMLPerformed By: #### [id number] ####[facility] [facility] [place] [address], [facility] SOURCEBAL - RMLNormalCleveland Clinic Children's Hospital for RehabilitationComment on above: Order Comment: RMLPerformed By: #### [id number] ####[facility] [place] [place] [address], USATOTAL [id number] mLNormalCleveland Clinic Children's Hospital for RehabilitationComment on above:Order Comment: RMLPerformed By: #### [id number] ####[facility]ITAL[address] [place] [address], [id number] WBC/[facility] Medical CenterComment on above:Order Comment: RMLResult Comment: Some reference interval(s) and other method performance specifications have not been established for analytes on this body fluid. The test result must be integrated into the clinical context for interpretation.Performed By: #### [id number] ####[facility] [facility]ITAL[address] [place] [address], USAFLUORO FOR BRONCHOSCOPYon [id number] FOR BRONCHOSCOPYUnUniversity Hospitals [facility] Department of Radiology [address] [place] [id number] Patient Name: SHELIA BRITO : 1970 Sex: F Age: Race: White Pt. Location: [address] [place] [address] Patient Status: I Ordered Date: 01/25/2021 10:05:00 AM Completed Date: 01/25/2021 04:21 PM Requesting Provider: JAZZ REYNOLDS Attending Provider: BLANCA HUTCHINSON Report Copy To: Signs & Symptoms: Bronchoscopy with cryobiopsy History: Comments: Bronchoscopy with cryobiopsy Exam: FLUORO FOR BRONCHOSCOPY FLUORO FOR BRONCHOSCOPY 01/25/2021 4:21 PM CLINICAL INDICATIONS: Bronchoscopy with cryobiopsy TECHNOLOGIST COMMENTS: Intra op. Right Sided Bronchoscopy. Dr Kirby used 6 min 10 sec of fluoro. IMPRESSION: Intraoperative fluoroscopy provided for the clinical service during bronchoscopy. 2 images acquired. 6 minutes 10 seconds fluoroscopy time used. Electronically signed: Nicholas Navarro. Transcribed by: [email or web address], User Resident: Electronically Signed by: NICHOLAS NAVARRO @ 01/25/2021 11:22 PMNormalThe [facility]itan HospitalComment on above:Order Comment: Yes: Add to Previous draw if ableOperative Reporton [id number] ReportMR#: [id number] I [facility] Pt. Name: Shelia Brito Room #: 3AB [id number] Discharge Date: Birthdate: 1970 OPERATIVE REPORT DATE OF SURGERY: 01/25/2021 SURGEON: Lila Kirby MD PROCEDURE: Rigid bronchoscopy + RML BAL + Transbronchial Cryobiopsy OPERTAOR: Lila Kirby MD FELLOW: Joanne Rebolledo MD PREPROCEDURE DIAGNOSIS: Acute respiratory failure/multifocal infiltrates noted on CT chest/concern for ILD POSTOPERATIVE DIAGNOSIS: Acute respiratory failure/multifocal infiltrates noted on CT chest/concern for ILD INDICATION: Acute respiratory failure/multifocal infiltrates noted on CT chest/concern for ILD CONSENT: Consent was obtained from patient after discussing risks, benefits, side effects, complications and alternatives in detail. ANESTHESIA: General anesthesia per anesthesia team TIME-OUT: Time-out was called and correct patient procedure identified. PROCEDURE IN DETAIL: Procedure was performed in OR. Time-out was called. The correct patient was identified. The patient was placed in appropriate position. She was continuously monitored by nursing staff. The procedure was verified as Rigid bronchoscopy + BAL + Airway survey+ Cryobiopsy . Initially patient was intubated using a STORZ 12mm rigid tracheal scope. Following rigid bronchoscopy a flexible bronchoscope was inserted through the rigid scope and advanced into the trachea. Trachea appeared normal. Subsequently scope was advanced to the gabriela.Gabriela appeared sharp and normal. No mucopurulent secretions noted. Subsequently, the bronchoscope was advanced into the right side and a complete examination was done on the right side. There were no endobronchial lesions, no extrinsic or intrinsic compression noted .Airways were patent .Subsequently, the bronchoscope was withdrawn back and advanced into the Left mainstem. Complete examination of the Left side was done. There were no endobronchial lesions, no extrinsic or intrinsic compression noted. Airways were patent .No mucopurulent secretions noted. RML BAL was done, 90 cc instilled and 25 cc retrieved. Bronchoscope was withdrawn out . Following this using cryoprobe 1.1mm, 5 Transbronchial cryobiopsies were performed in the right lower lobe under fluoroscopy guidance. Balloon of the keith was prophylactically inflated in between biopsies. Rigid bronchoscope was removed and patient was moved to recovery. COMPLICATIONS: No immediate complications noted. Postprocedure chest x-ray ordered and is pending at the moment of this dictation. ESTIMATED BLOOD LOSS: Minimal. Recommendations: Can be discharged tomorrow on prednisone. To follow up with Dr. [facility] for the Biopsy results. Lila Kirby MD Interventional Pulmonary Medicine Electronically Signed by: Lila Kirby MD 01/25/2021 05:02 P Llia Kirby MD I was present for the entire procedure. Date Dict: 01/25/2021/04:35 P/Joanne Rebolledo MD Date Trans: 01/25/2021 04:35 P/ ЮЛИЯ_JN:[id number] cc: Yue Funez M.D. [id number] [facility] [place] [id number] Health Defiance Hospital SARS COV2 ANTIGEN NEGATIVEon [id number] SARS COV2 ANTIGEN NEGNegativeNormalNEGATIVEThe [facility]itan HospitalComment on above:Result Comment: Negative Results are presumptive and confirmation with a molecular assay, if necessary, for patient management may be performed. Negative results do not rule out SARS-CoV-2 infection and should not be used as the sole basis for treatment or patient management decisions, including infection control decisions. Negative results should be considered in the context of a patient?s recent exposures, history and the presence of clinical signs and symptoms consistent with COVID-19. The [employer] COVID-19 Antigen test is a lateral flow immunochromatographic assay intended for the qualitative detection of the nucleocapsid protein antigen from SARS-CoV-2 in nasopharyngeal or anterior nasal swab specimens directly collected from individuals suspected of COVID-19 by their healthcare provider within five days of symptom onset. Testing is limited to laboratories certified under the Clinical Laboratory Improvement Amendments of 1988 (CLIA), 42 U.S.C. ???262a, that meet the requirements to perform moderate, high or waved complexity tests. This test is authorized for use at the Point of Care (POC), i.e., in patient care settings operating under a CLIA Certificate of Waiver, Certificate of Compliance, or Certificate of Accreditation.Performed By: #### [id number], [id number], 55752, 04715, 89621 #### [address] [place] [address], USAPORTABLE CHEST 1 VIEWon [id number] CHEST 1 VIEW [facility] Department of Radiology [address] [place] [id number] Patient Name: SHELIA BRITO : 1970 Sex: F Age: Race: White Pt. Location: [id number] Patient Status: I Ordered Date: 01/25/2021 4:30:00 PM Completed Date: 01/25/2021 04:56 PM Requesting Provider: LILA KIRBY Attending Provider: BLANCA HUTCHINSON Report Copy To: Signs & Symptoms: Pneumo Thorax History: Comments: Evaluate for Pneumothorax Exam: PORTABLE CHEST 1 VIEW PORTABLE CHEST 1 VIEW 01/25/2021 4:56 PM CLINICAL INDICATIONS: Pneumo Thorax TECHNOLOGIST COMMENTS: shortness of breath and cough. s/p bronch QUESTION FOR THE RADIOLOGIST: Evaluate for Pneumothorax PROTOCOL: AP(PA) view was obtained. COMPARISON: January 25 at 721 FINDINGS: Current film is 1627 Lung volumes looks slightly decreased The heart size looks prominent Vessels look congested There is increased granular and interstitial opacity bilaterally There is asymmetric right perihilar and peripheral right basilar opacity without lobar consolidation There is no significant pleural effusion There is no apical pneumothorax or cavitary process IMPRESSION: Decreased lung volumes with increased bilateral granular opacities and more confluent patchy opacities in the right perihilar and lung base region Pattern could be seen with edema, aspiration pneumonitis, hemorrhage or infection including possible Covid infection Recommend close clinical follow-up and progress imaging to document clearing and normalization when appropriate Electronically signed: Cristine Armenta. Transcribed by: [id number], User Resident: Electronically Signed by: CRISTINE ARMENTA @ 01/25/2021 05:03 PMNormalThe Good Samaritan HospitalComment on above:Order Comment: Yes: Add to Previous draw if ablePORTABLE CHEST 1 VIEWUnUniversity [facility]als [facility] Department of Radiology [address] [place] [id number] Patient Name: SHELIA BRITO : 1970 Sex: F Age: Race: White Pt. Location: [id number] Patient Status: I Ordered Date: 01/25/2021 7:00:00 AM Completed Date: 01/25/2021 07:34 AM Requesting Provider: JAZZ REYNOLDS Attending Provider: BLANCA HUTCHINSON Report Copy To: Signs & Symptoms: O2 Desaturation History: Comments: evaluate for Pulmonary Edema Exam: PORTABLE CHEST 1 VIEW PORTABLE CHEST 1 VIEW 01/25/2021 7:34 AM CLINICAL INDICATIONS: O2 Desaturation TECHNOLOGIST COMMENTS: shortness of breath QUESTION FOR THE RADIOLOGIST: evaluate for Pulmonary Edema PROTOCOL: AP(PA) view was obtained. COMPARISON: None FINDINGS: Diffuse bilateral lung opacity present on prior studies shows significant interval improvement. No effusion or pneumothorax is identified. The heart and mediastinum appear within normal limits. The trachea is in midline. IMPRESSION: Significant interval improvement of previously described bilateral lung opacities. Electronically signed: Agnes Littlejohn. Transcribed by: [id number], User Resident: Electronically Signed by: AGNES LITTLEJOHN @ 01/25/2021 08:00 AMNormalThe Good Samaritan HospitalComment on above:Order Comment: Yes: Add to Previous draw if ablePROTHROMBIN TIMEon 97-53-1853MKL Coag (PPP) [Relative time] 0.95 {INR}Normal0.91-1.16The [facility] Samaritan HospitalComment on above:Order Comment: No: Do not add to previous drawResult Comment: ACCCP RECOMMENDED INR FOR WARFARIN THERAPY ------- CONDITION INR PROPHYLAXIS OF VENOUS THROMBOSIS 2-3 (HIGH-RISK SURGERY) TREATMENT OF VENOUS THROMBOSIS 2-3 TREATMENT OF PULMONARY EMBOLISM 2-3 PREVENTION OF SYSTEMIC EMBOLISM: 2-3 ACUTE MYOCARDIAL INFARCTION TISSUE HEART VALVES VALVULAR HEART DISEASE ATRIAL FIBRILLATION RECURRENT SYSTEMIC EMBOLISM MECHANICAL HEART VALVE 2.5-3.5 FROM: ORAL ANTICOAGULANTS. MECHANISM OF ACTION, CLINICAL EFFECTIVENESS, AND OPTIMAL THERAPEUTIC RANGE. CHEST 1995;108:231S-246S.Performed By: #### [id number] ####[facility] [place] [address], USAPT Coag (PPP) [Time]12.7 sNormal 12.3-14.8The Good Samaritan HospitalComment on above:Order Comment: No: Do not add to previous drawResult Comment: ALL RESULTS MUST BE INTERPRETED WITH RESPECT TO BLOOD DRAWING ARTIFACT OR DILUTION ERROR OF ANTICOAGULANT AT THE TIME OF SAMPLING.Performed By: #### [id number] ####[facility] [place] [address], USABASIC METABOLIC PANELon 15-32-0881Jbtcyko [Mass/Vol]8.3 mg/dLLow 8.6-10.3The [facility] Samaritan HospitalComment on above:Order Comment: PT NOT IN ROOM YETPerformed By: #### [id number] #### [facility] [address] [place] [address], USAChloride [Moles/Vol]103 mmol/KMhmvjs86-975Nsu [facility]itan HospitalComment on above:Order Comment: PT NOT IN ROOM YET Performed By: #### [id number] #### [facility] [address] [place] [address], USACO2 [Moles/Vol]29 mmol/FQbricl94-49Eby [facility] HospitalComment on above:Order Comment: PT NOT IN ROOM YETPerformed By: #### [id number] #### [facility] [address] [place] [address], USACreatinine [Mass/Vol]0.45 mg/dLLow0.60-1.20The [facility]itan HospitalComment on above:Order Comment: PT NOT IN ROOM YET Performed By: #### [id number] #### [facility] [address] [place] [address], USAGFR/1.73 sq M.predicted among blacks MDRD (S/P/Bld) [Vol rate/Area]mL/min/{1.73_m2}Normal>60The [facility] Comment on above:Order Comment: PT NOT IN ROOM YETPerformed By: #### [id number] #### [facility] [address] [place] [address], USAGFR/1.73 sq M.predicted among non-blacks MDRD (S/P/Bld) [Vol rate/Area]mL/min/{1.73_m2}Normal>60The [facility] Comment on above:Order Comment: PT NOT IN ROOM YETPerformed By: #### [id number] #### [facility] [address] [place] [address], USAGlucose [Mass/Vol]89 mg/mUXgsjla22-259Bgu [facility]itan HospitalComment on above:Order Comment: PT NOT IN ROOM YETPerformed By: #### [id number] #### [facility] [address] [place] [address], USAPotassium [Moles/Vol]3.6 mmol/LNormal3.5-5.1The [facility]aritan HospitalComment on above:Order Comment: PT NOT IN ROOM YET Performed By: #### [id number] #### [facility] [address] [place] [address], USASodium [Moles/Vol]140 mmol/ZWghboj433-097Mlh [facility] HospitalComment on above:Order Comment: PT NOT IN ROOM YETPerformed By: #### [id number] #### [facility] [address] [place] [address], USAUrea nitrogen [Mass/Vol]14 mg/dLNormal7-25The [facility]aritan HospitalComment on above:Order Comment: PT NOT IN ROOM YET Performed By: #### [id number] #### [facility] [address] [facility] [place] [address], USACBC COMPLETE BLOOD COUNTon 90-77-7823Iyimgfoneku distribution width (RBC) [Ratio]17.8 %High11.5-15.0The [facility] Samaritan HospitalComment on above:Order Comment: No: Do not add to previous draw Performed By: #### [id number] ####[facility] [facility] [place] [address], [facility]STITUTE AT LAS VEGASHematocrit (Bld) [Volume fraction]31.8 %Low36.0-45.0The [facility] Samaritan HospitalComment on above:Order Comment: No: Do not add to previous drawPerformed By: #### [id number] ####[facility] [facility] [place] [address], [facility] AT L[facility] VEGASHemoglobin (Bld) [Mass/Vol]9.5 g/dLLow12.0-15.0The [facility]itan HospitalComment on above:Order Comment: No: Do not add to previous drawPerformed By: #### [id number] ####[facility] [facility] [place] [address], [facility]STITUTE AT LAS VEGASMCH (RBC) [Entitic mass]24.8 pgLow27.0-33.0The [facility]aritan HospitalComment on above:Order Comment: No: Do not add to previous drawPerformed By: #### [id number] ####[facility] [facility] [place] [address], [place] MCHC (RBC) [Mass/Vol]29.9 g/dLLow32.0-35.0The [facility]itan HospitalComment on above:Order Comment: No: Do not add to previous drawPerformed By: #### [id number] ####[facility] [facility] [place] [address], [facility] INSTITUTE AT L[facility] VEGASMCV (RBC) [Entitic vol]83.0 eURqbgax37.0-98.0The [facility] HospitalComment on above:Order Comment: No: Do not add to previous drawPerformed By: #### [id number] ####[facility] [place] [address], [facility]STITUTE AT LAS VEGASNucleated RBC/100 WBC (Bld) [Ratio]0 %Normal 0-0The [facility]itan HospitalComment on above:Order Comment: No: Do not add to previous drawPerformed By: #### [id number] ####[facility] [facility] [place] [address], USAPLAT PAO238 10*3/uLHigh 150-400The [facility]itan HospitalComment on above:Order Comment: No: Do not add to previous drawPerformed By: #### [id number] ####[facility] [facility] [place] [address], [facility]ALTH INSTITUTE AT LAS VEGASRBC (Bld) [#/Vol]3.83 10*6/uLNormal3.80-5.00The [facility]itan HospitalComment on above: Order Comment: No: Do not add to previous drawPerformed By: #### [id number] ####[facility] [facility] [place] [address], [facility] WBC (Bld) [#/Vol]7.94 10*3/uLNormal4.00-10.60The [facility] HospitalComment on above:Order Comment: No: Do not add to previous drawPerformed By: #### 31408 ####[facility] [facility] [place] [address], [facility] AT L[facility] VEGASMAGNESIUM BLOODon 89-68-9250Axaijfofy [Mass/Vol]2.0 mg/dLNormal 1.9-2.7The [facility]itan HospitalComment on above:Order Comment: PT NOT IN ROOM YETPerformed By: #### 31056 #### [facility] [address] [place] [address], [place]*[employer], URINEon 92-57-5194LZMwnvweCcpKettering Health MiamisburgComment on above:Order Comment: No: Do not add to previous drawResult Comment: Test Performed by [employer] [address] [place] [id number] - Durrosft 01/22/2021 06:23LEGIONELLA AG, [facility] HospitalComment on above:Order Comment: No: Do not add to previous drawResult Comment: NEGATIVE L. pneumophila serogroup 1 antigen not detected. A negative result does not exclude infection with Leginella pnemophila serogroup 1 nor does it rule out other microbial-caused respiratory infections of disease caused by other serogroups of Legionella pneumophila.BASIC METABOLIC PANELon 64-35-9976Rnnlxbv [Mass/Vol]8.0 mg/dLLow 8.6-10.3The [facility]itan HospitalComment on above:Order Comment: No: Do not add to previous drawPerformed By: #### 72029 #### [facility] [address] [place] [address], USAChloride [Moles/Vol]103 mmol/UMnwbjv73-922Gsx [facility] HospitalComment on above:Order Comment: No: Do not add to previous drawPerformed By: #### 96400 #### [facility] [address] [place] [address], USACO2 [Moles/Vol]27 mmol/CIhpnrv89-68Plh [facility] HospitalComment on above:Order Comment: No: Do not add to previous draw Performed By: #### 21274 #### [facility] [address] [place] [address], USACreatinine [Mass/Vol]0.42 mg/dLLow0.60-1.20The [facility] HospitalComment on above:Order Comment: No: Do not add to previous drawPerformed By: #### 50911 #### [facility] [address] [place] [address], USAGFR/1.73 sq M.predicted among blacks MDRD (S/P/Bld) [Vol rate/Area]mL/min/{1.73_m2}Normal>60The [facility] Comment on above:Order Comment: No: Do not add to previous drawPerformed By: #### 50117 #### [facility] [address] [place] [address], USAGFR/1.73 sq M.predicted among non-blacks MDRD (S/P/Bld) [Vol rate/Area]mL/min/{1.73_m2}Normal>60The [facility] Comment on above:Order Comment: No: Do not add to previous drawPerformed By: #### 12111 #### [facility] [address] [place] [address], USAGlucose [Mass/Vol]107 mg/eXAeuk46-987Fzx [facility] HospitalComment on above:Order Comment: No: Do not add to previous drawPerformed By: #### 33359 #### [facility] [address] [place] [address], USAPotassium [Moles/Vol]3.8 mmol/LNormal3.5-5.1The [facility] HospitalComment on above:Order Comment: No: Do not add to previous drawPerformed By: #### 40977 #### [facility] [address] [place] [address], USASodium [Moles/Vol]138 mmol/OEvrpzb046-281Cal [facility] HospitalComment on above:Order Comment: No: Do not add to previous drawPerformed By: #### 09865 #### [facility] [address] [place] [address], USAUrea nitrogen [Mass/Vol]10 mg/dLNormal7-25The [facility] HospitalComment on above:Order Comment: No: Do not add to previous drawPerformed By: #### 39385 #### [facility] [address] [place] [address], [facility] INSTITUTE AT LAS VEGASCBC COMPLETE BLOOD COUNTon 30-03-6763Tumjxhawcxp distribution width (RBC) [Ratio]17.8 %High11.5-15.0The [facility]itan HospitalComment on above:Order Comment: Yes: Add to Previous draw if able Performed By: #### 44791, 90315, 75753, 48971, 59817 #### [facility] [address] [place] [address], USAHematocrit (Bld) [Volume fraction]27.2 %Low36.0-45.0The [facility]itan HospitalComment on above:Order Comment: Yes: Add to Previous draw if ablePerformed By: #### 63528, 70738, 95344, 76398, 42127 #### [facility] [address] [place] [address], [facility] AT L[facility] VEGASHemoglobin (Bld) [Mass/Vol]8.3 g/dLLow12.0-15.0The [facility] HospitalComment on above:Order Comment: Yes: Add to Previous draw if ablePerformed By: #### 74364, 48360, 57478, 19673, 63232 #### [facility] [address] [place] [address], [facility] – CORDELLH (RBC) [Entitic mass]24.9 pgLow27.0-33.0The [facility]itan HospitalComment on above:Order Comment: Yes: Add to Previous draw if ablePerformed By: #### 17611, 21109, 95318, 52590, 46441 #### [facility] [address] [place] [address], [facility] AT L[facility] VEGASMCHC (RBC) [Mass/Vol]30.5 g/dLLow32.0-35.0The [facility] HospitalComment on above:Order Comment: Yes: Add to Previous draw if ablePerformed By: #### 06407, 56544, 64525, 64184, 60224 #### [facility] [address] [place] [address], [facility] INSTITUTE AT L[facility] VEGASMCV (RBC) [Entitic vol]81.4 fLLow82.0-98.0The [facility] HospitalComment on above:Order Comment: Yes: Add to Previous draw if ablePerformed By: #### 80096, 05291, 77591, 72685, 24257 #### [facility] [address] [place] [address], USANucleated RBC/100 WBC (Bld) [Ratio]0 %Normal0-0The [facility]itan HospitalComment on above:Order Comment: Yes: Add to Previous draw if ablePerformed By: #### 89566, 16939, 92972, 64678, 45282 #### [facility] [address] [place] [address], USAPLAT AIG300 10*3/hWVqailo853-793Xrm [facility] HospitalComment on above:Order Comment: Yes: Add to Previous draw if able Performed By: #### 42402, 13050, 61381, 38177, 45333 #### [facility] [address] [place] [address], [facility]ALTH INSTITUTE AT LAS VEGASRBC (Bld) [#/Vol]3.34 10*6/uLLow3.80-5.00The [facility] HospitalComment on above:Order Comment: Yes: Add to Previous draw if ablePerformed By: #### 56339, 95874, 71509, 30859, 86275 #### [facility] [address] [place] [address], USAWBC (Bld) [#/Vol]5.67 10*3/uLNormal4.00-10.60The [facility] HospitalComment on above:Order Comment: Yes: Add to Previous draw if ablePerformed By: #### 50554, 29259, 74185, 99418, 46992 #### [facility] [address] [place] [address], [facility] L[facility] VEGASCardiovascular Lab Reporton [id number] Lab ReportUnSelect Medical [facility] #: [id number] Physician: Abdias Lopez of [facility] Medicine Service Date: 01/20/2021 Division of Birthdate: 1970 Cardiology Room #: 3AB [id number] Adult Cardiovascular Services [facility] [address] [place], [place] [address] Cardiovascular Laboratory Report INDICATION: The patient is a 50-year-old woman who was admitted with elevated troponin and suggestion of ezv-DS-rajcdpn elevation myocardial infarction. Her echocardiogram showed enlarged right ventricle, which is a new finding compared to the study of October 2020. She underwent coronary angiography yesterday that showed mild coronary artery disease. Today she was referred for right heart catheterization and pulmonary angiogram. PROCEDURES: 1. Access into the right internal jugular vein under ultrasound guidance. 2. Right heart catheterization. 3. Bilateral selective pulmonary arteriogram. METHODS: Procedure was explained to the patient with risks and benefits. She signed informed consent. She was brought to label cutter in a fasting state. The right neck area was prepped and draped in usual fashion. Using ultrasound guidance and micropuncture technique, the right internal jugular vein was accessed and a 6-Colombian x 11 cm sheath was placed. A 6-Colombian Camilo catheter was used for right catheterization with measurement of pressures and calculation of cardiac output using the estimated Maetus method. The Camilo catheter was exchanged over wire to a 6-Colombian angled pigtail catheter, which was directed to the right pulmonary artery and right pulmonary arteriogram was performed using power injection of contrast and digital subtraction imaging. The catheter was then retracted and advanced to the left pulmonary artery and left pulmonary arteriogram was performed with digital subtraction imaging and power injection of contrast. Catheter was removed. Procedure was concluded. Access sheath was removed. Manual compression applied for hemostasis. She tolerated the procedure well. She was transferred back to her room. TOTAL FLUORO TIME: 4.37 minutes. TOTAL AIR KERMA: 46 mGy. TOTAL CONTRAST VOLUME: 40 mL. HEMODYNAMICS: RA 5, RV 41/2, 7. PA 42/6, mean 27. Pulmonary capillary wedge pressure 8. Blood pressure 117/78, mean 94. Cardiac output 4.37, cardiac index 3.1. PA sat 63%, AO sat 98%. PULMONARY ANGIOGRAPHY: Right pulmonary angiogram: This showed patent right pulmonary artery with patent lobar branches. There was no evidence of arterial cutoff. There was excellent blush in the parenchyma with no evidence of thrombi or stenosis or occlusion. Left pulmonary angiogram: This showed a patent left pulmonary artery along with its lobar branches and excellent filling of the distal branches with excellent blush in the parenchyma of the lung and no evidence of abrupt cut off, thrombi, stenosis, or occlusion. SUMMARY OF THE FINDINGS: 1. Normal pulmonary angiogram. 2. Normal filling pressures. 3. Mild pulmonary hypertension. 4. Preserved cardiac output and cardiac index. RECOMMENDATIONS: Further recommendations per Inpatient Cardiology Service. Electronically Signed by: Abdias Linda M.D. 01/24/2021 04:06 P Abdias Linda M.D. Date Dict: 01/20/2021/12:14 P/Abdias Linda M.D. Date Trans: 01/21/2021 08:21 Sarabjit/oliva DN_JN:[id number] cc: Yue Funez M.D. [address] [id number] Citizens HospitalHISTOPLASMA AG URINE [id number] AG EIA, URINENot detectedNormMarymount HospitalComment on above:Order Comment: Yes: Add to Previous draw if ableHISTOPLASMA AG, URINENot detectedNormalNot DetectedThe Good Samaritan HospitalComment on above:Order Comment: Yes: Add to Previous draw if ableResult Comment: INTERPRETIVE DATA: Histoplasma Galactomannan Antigen Quantitative by EIA, Urine Less than 0.4 ng/ml = Not Detected 0.4-3.1 ng/mL = Detected (below the limit of quantification) 3.2-20.0 ng/mL = Detected Greater than 20.0 ng/mL = Detected (above the limit of quantification) The quantitative range of this assay is 3.2-20.0 ng/mL. Antigen concentrations between 0.4-3.1 or >20.0 ng/mL fall outside the linear range of the assay and cannot be accurately quantified. This EIA test should be used in conjunction with other diagnostic procedures, including microbiological culture, histological examination of biopsy samples, and/or radiographic evidence, to aid in the diagnosis of histoplasmosis. This test was developed and its performance characteristics determined by [facility]. It has not been cleared or approved by the [place] Food and Drug Administration. This test was performed in a CLIA certified laboratory and is intended for clinical purposes. Performed By: [facility] [address] [place] [address] Reporting Coordinator: Lisa Calero, MDMAGNESIUM BLOODon [id number] [Mass/Vol]1.9 mg/dLNormal1.9-2.7The [facility]aritan HospitalComment on above:Order Comment: No: Do not add to previous drawPerformed By: #### 64541 #### [address] [place] [address], USAPORTABLE CHEST 1 VIEWon [id number] CHEST 1 VIEW [facility] Department of Radiology [address] [place] [id number] Patient Name: SHELIA BRITO : 1970 Sex: F Age: Race: White Pt. Location: [address] [place] [address] Patient Status: I Ordered Date: 01/21/2021 9:20:00 AM Completed Date: 01/21/2021 09:55 AM Requesting Provider: EDWIN SEGURA Attending Provider: BLANCA HUTCHINSON Report Copy To: Signs & Symptoms: O2 Desaturation History: Comments: Bilateral lung infiltrate. Etiology is unclear. Check progress. Exam: PORTABLE CHEST 1 VIEW PORTABLE CHEST 1 VIEW 01/21/2021 9:55 AM CLINICAL INDICATIONS: O2 Desaturation TECHNOLOGIST COMMENTS: sob QUESTION FOR THE RADIOLOGIST: Bilateral lung infiltrate. Etiology is unclear. Check progress. PROTOCOL: AP(PA) view was obtained. COMPARISON: 01/19/2021 FINDINGS: Diffuse bilateral infiltrates showing no significant change from the study of 2 days ago. No new abnormalities displayed IMPRESSION: Unchanged from 2 days ago Electronically signed: Vadim Altamirano. Transcribed by: [id number], User Resident: Electronically Signed by: VADIM ALTAMIRANO @ 01/21/2021 10:36 AMNormalCleveland Clinic Children's Hospital for RehabilitationComment on above:Order Comment: Yes: Add to Previous draw if ableSTREP PNEUMO ANTIGEN URINEon [id number] PNEUMO ANTIGEN URINEClinical Report: (D) Specimen: URINE Collected: 01/21/2021 17:13 Status: Final Last Updated: 01/22/2021 13:48 (1) No: Do not add to previous draw SPN AG (Final) [facility] HospitalComment on above:Order Comment: Yes: Add to Previous draw if ablePerformed By: #### 01280, 67211, 49669, 25762, 96237 #### [facility] [address] [place] [address], [facility]*AFB CULTUREon 01-20-2021*AFB CULTUREClinical Report: (D) Specimen/Source: RESPIRATORY/BRONCHEAL ALVEOLAR LAVAGE Collected: 01/20/2021 16:26 Status: Final Last Updated: 03/05/2021 12:37 (1) Left lingula BAL. AFB (Final) No Acid Fast Bacilli Seen CULT RES (Final) No growth after 42 days of incubationBarberton Citizens HospitalComment on above:Order Comment: Yes: Add to Previous draw if ablePerformed By: #### 04345, 97993, 28508, 47359, 42371 #### [facility] [address] [facility] [place] [address], [facility]*FUNGAL CULTUREon 01-20-2021*FUNGAL CULTUREClinical Report: (D) Specimen/Source: RESPIRATORY/BRONCHEAL ALVEOLAR LAVAGE Collected: 01/20/2021 16:26 Status: Final Last Updated: 02/22/2021 07:54 (1) Left lingula BAL. FS (Final) No Yeast or Fungal Elements Seen CULT RES (Final) Culture negative for fungusNoMedina HospitalComment on above:Order Comment: Yes: Add to Previous draw if ablePerformed By: #### 99921, 96246, 66024, 35909, 66857 #### [facility] [address] [place] [address], [facility]*RESPIRATORY CULTUREon 01-20-2021*RESPIRATORY CULTURE Clinical Report: (D) Specimen/Source: RESPIRATORY/BRONCHEAL ALVEOLAR LAVAGE Collected: 01/20/2021 16:26 Status: Final Last Updated: 01/24/2021 06:17 (1) Left lingula BAL. GRAM (Final) Few Polys Rare Gram Positive Cocci In Chains CYTOSPUN (Final) This Gram Stain was done on a cytocentrifuged specimen ISO (Final) >10,000 Cfu/mL Colonies Consistent with Upper Respiratory FloraNoMedina HospitalComment on above:Order Comment: Yes: Add to Previous draw if able Performed By: #### 78755, 50883, 08542, 60564, 21795 #### [facility] [address] [facility] [place] [address], [facility]ASANAon [id number] SCREEN<1:40Normal<1:40,1:40The Good Samaritan HospitalComment on above:Order Comment: Yes: Add to Previous draw if ablePerformed By: #### 83681, 18620, 89121, 89568, 80714 #### [facility] [address] [place] [address], USAANTI CENTROMERE ABon [id number] CENT ABNegativeNormal NEGATIVEThe Good Samaritan HospitalComment on above:Order Comment: Yes: Add to Previous draw if ablePerformed By: #### 73307, 05133, 48050, 26440, 19620 #### [facility] [address] [place] [address], USAANTI DNAon [id number] DNA<1:10Normal<1:10The Good Samaritan HospitalComment on above:Order Comment: Yes: Add to Previous draw if ablePerformed By: #### 46539, 25578, 74512, 82823, 81137 #### [facility] [address] [place] [address], USABASIC METABOLIC PANELon 87-98-5656Ceikuab [Mass/Vol]8.0 mg/dLLow8.6-10.3The Good Samaritan HospitalComment on above:Order Comment: PT NOT IN ROOM YETPerformed By: #### 67683 #### [facility] [address] [place] [address], USAChloride [Moles/Vol]108 mmol/FJsgu19-690Pxr [facility]itan HospitalComment on above:Order Comment: PT NOT IN ROOM YETPerformed By: #### 63679 #### [facility] [address] [place] [address], USACO2 [Moles/Vol]25 mmol/TAicnxe81-71Cuv [facility]itan HospitalComment on above:Order Comment: PT NOT IN ROOM YETPerformed By: #### 09392 #### [facility] [address] [place] [address], USACreatinine [Mass/Vol]0.49 mg/dLLow0.60-1.20The [facility] Samaritan HospitalComment on above:Order Comment: PT NOT IN ROOM YET Performed By: #### 75628 #### [facility] [address] [place] [address], USAGFR/1.73 sq M.predicted among blacks MDRD (S/P/Bld) [Vol rate/Area]mL/min/{1.73_m2}Normal>60The [facility] Comment on above:Order Comment: PT NOT IN ROOM YETPerformed By: #### 25491 #### [facility] [address] [place] [address], USAGFR/1.73 sq M.predicted among non-blacks MDRD (S/P/Bld) [Vol rate/Area]mL/min/{1.73_m2}Normal>60The [facility] Comment on above:Order Comment: PT NOT IN ROOM YETPerformed By: #### 07642 #### [facility] [address] [place] [address], USAGlucose [Mass/Vol]101 mg/zGQkqu95-286Bfe [facility]itan HospitalComment on above:Order Comment: PT NOT IN ROOM YETPerformed By: #### 04728 #### [facility] [address] [place] [address], USAPotassium [Moles/Vol]3.6 mmol/LNormal3.5-5.1The [facility] Samaritan HospitalComment on above:Order Comment: PT NOT IN ROOM YET Performed By: #### 90142 #### [facility] [address] [place] [address], USASodium [Moles/Vol]142 mmol/ZNvnssi267-005Arj [facility]itan HospitalComment on above:Order Comment: PT NOT IN ROOM YETPerformed By: #### 87475 #### [facility] [address] [place] [address], USAUrea nitrogen [Mass/Vol]9 mg/dLNormal7-25The [facility]aritan HospitalComment on above:Order Comment: PT NOT IN ROOM YETPerformed By: #### 79119 #### [facility] [address] [place] [address], [facility] L[facility]ASBNP (B-TYPE NATRIURETIC PEPTIDE)on 01-85-2205Zlbrzecorqt peptide B (Bld) [Mass/Vol]769 pg/mLHigh0-100The [facility] Samaritan HospitalComment on above:Order Comment: Yes: Add to Previous draw if ableResult Comment: Given the appropriate clinical setting a BNP result of >100 pg/mL indicates congestive heart failure.Performed By: #### 82409, 38652, 69954, 56758, 39217 #### [facility] [address] [address], [facility] REACTIVE PROTEINon 05-85-9839KNY [Mass/Vol]203.0 mg/LHigh 0.0-7.0The [facility] Samaritan HospitalComment on above:Order Comment: Other, s/p antrectomy with gastrojejunostomy. r/o leak or abscess/fluid collection.Performed By: #### 02943, 81510 ####[facility] [place] [address], [facility] AT L[facility] VEGASCBC COMPLETE BLOOD COUNTon 03-83-5494Oczwvvjpqzp distribution width (RBC) [Ratio]18.2 %High11.5-15.0The [facility]aritan HospitalComment on above:Order Comment: Yes: Add to Previous draw if ablePerformed By: #### 92933, 05590, 92207, 11352, 71067 #### [facility] [address] [place] [address], USAHematocrit (Bld) [Volume fraction]29.4 %Low36.0-45.0The Good Samaritan HospitalComment on above:Order Comment: Yes: Add to Previous draw if ablePerformed By: #### 22992, 95554, 69361, 76136, 95014 #### [facility] [address] [place] [address], [facility]ASHemoglobin (Bld) [Mass/Vol]9.0 g/dLLow12.0-15.0The [facility] Samaritan HospitalComment on above:Order Comment: Yes: Add to Previous draw if ablePerformed By: #### 92789, 31945, 32648, 06467, 93409 #### [facility] [address] [place] [id number], [facility]LLH (RBC) [Entitic mass]25.1 pgLow27.0-33.0The [facility] Samaritan HospitalComment on above:Order Comment: Yes: Add to Previous draw if ablePerformed By: #### 31540, 37226, 94289, 01347, 22477 #### [facility] [address] [place] [id number], [facility] CORDELLHC (RBC) [Mass/Vol]30.6 g/dLLow32.0-35.0The [facility]itan HospitalComment on above:Order Comment: Yes: Add to Previous draw if ablePerformed By: #### 11254, 01338, 45517, 63408, 11123 #### [facility] [address] [place] [id number], [facility] CORDELLV (RBC) [Entitic vol]81.9 fLLow82.0-98.0The [facility]itan HospitalComment on above:Order Comment: Yes: Add to Previous draw if ablePerformed By: #### 96105, 47295, 32036, 77360, 64299 #### [facility] [address] [place] [address], [facility] VE[facility]ASNucleated RBC/100 WBC (Bld) [Ratio]0 %Normal0-0The [facility] Samaritan HospitalComment on above:Order Comment: Yes: Add to Previous draw if ablePerformed By: #### 50810, 20454, 83099, 85314, 13320 #### [facility] [address] [place] [id number], [facility]STITUTE AT L[facility] VEGASPLAT [id number] 10*3/uYYyiwby004-869Qal [facility] HospitalComment on above:Order Comment: Yes: Add to Previous draw if able Performed By: #### 50086, 52292, 16672, 18617, 82770 #### [facility] [address] [place] [address], USARBC (Bld) [#/Vol]3.59 10*6/uLLow3.80-5.00The [facility]itan HospitalComment on above:Order Comment: Yes: Add to Previous draw if ablePerformed By: #### 81190, 31471, 17468, 48795, 94839 #### [facility] [address] [place] [address], USAWBC (Bld) [#/Vol]6.58 10*3/uLNormal4.00-10.60The [facility]itan HospitalComment on above:Order Comment: Yes: Add to Previous draw if ablePerformed By: #### 10449, 99963, 65453, 67912, 51350 #### [facility] [address] [place] [address], [place]AC[place]CL[place]RULLINATED [place]PT[place] [address]se 49-16-7620CHIMUY CIT PEP3 UnitsNormal0-19The [facility] Samaritan HospitalComment on above: Order Comment: Other, s/p antrectomy with gastrojejunostomy. r/o leak or abscess/fluid collection.Result Comment: INTERPRETIVE INFORMATION: Cyclic Citrullinated Peptide Antibody, IgG 19 Units or less ................... Negative 20-39 Units ........................ Weak Positive 40-59 Units ........................ Moderate Positive 60 Units or greater ................ Strong Positive Anti-cyclic citrullinated peptide (anti-CCP), IgG antibodies are present in about 69-83 percent of patients with rheumatoid arthritis (RA) and have specificities of 93-95 percent. These autoantibodies may be present in the preclinical phase of disease, are associated with future RA development, and may predict radiographic joint destruction. Patients with weak positive results should be monitored and testing repeated. Performed By: [facility] [address] [place] [address] Reporting Coordinator: DAVE BernardNASE B ANTIBODY 90775te 45-18-9497KSHZW B AB91 U/mLNormal0-260The [facility] Samaritan HospitalComment on above: Order Comment: Other, s/p antrectomy with gastrojejunostomy. r/o leak or abscess/fluid collection.Result Comment: REFERENCE INTERVAL: DNAse B Antibody Access complete set of age- and/or gender-specific reference intervals for this test in the [facility] Test Directory ([employer]). Performed By: [facility] [address] [place] [address] Reporting Coordinator: Lisa Calero MDFLUID CELL COUNTon 01-20-2021 Eosinophils/100 WBC (Bld)8 %NormalThe Good Samaritan HospitalComment on above:Order Comment: Left lingula BAL.Performed By: #### 63305 ####[facility] [facility] [place] [address], [facility] Lymphocytes/100 WBC (Bld)9 %NormalThe Good Samaritan HospitalComment on above:Order Comment: Left lingula BAL.Performed By: #### 92466 ####[facility] [facility] [place] [address], [facility] IARUVWCJNR17 %NormalThe Good Samaritan HospitalComment on above: Order Comment: Left lingula BAL.Performed By: #### 48984 ####[facility] [facility] [place] [address], [facility] VE[facility]ASOTHER F2Diff done by cytosantonietaNoMedina HospitalComment on above:Order Comment: Left lingula BAL.Performed By: #### 07489 ####[facility] [place] [address], [facility]ASOTHER M0Fhuqinm by Kierra Gan M.D.NormalThe Good Samaritan HospitalComment on above: Order Comment: Left lingula BAL.Result Comment: Result changed by CANDE on 01/22/2021 08:23. The previous value was Preliminary report; verified report to follow.Performed By: #### 27342 ####[facility] [facility] [place] [address], [facility] [id number] RBC/[facility] Pike Medical CenterComment on above: Order Comment: Left lingula BAL.Performed By: #### 27854 ####[facility] [facility] [place] [address], PVLJCFS40 %NormalThe Good Samaritan HospitalComment on above:Order Comment: Left lingula BAL.Performed By: #### 59504 ####[facility] [facility] [place] [address], USASOURCEBAL LINGFIRELANDS REGIONAL MEDICAL CENTER SOUTH CAMPUSNoMedina HospitalComment on above:Order Comment: Left lingula BAL.Performed By: #### 42348 ####[facility] [facility] [place] [address], [facility] AT L[facility] VEGASTOTAL GROVIE84 mLNormalThe [facility]itan Hospital Comment on above:Order Comment: Left lingula BAL.Performed By: #### 80182 ####[facility] [facility] [place] [address], [facility] OGU587 WBC/[facility] Pike Medical CenterComment on above:Order Comment: Left lingula BAL.Result Comment: Some reference interval(s) and other method performance specifications have not been established for analytes on this body fluid. The test result must be integrated into the clinical context for interpretation.Performed By: #### 51176 ####[facility] [place] [address], USAJO-1 ANTIBODY IGG 57973gn 29-80-7798QH-1 AB IGG0 AU/mL Normal0-40The [facility] Samaritan HospitalComment on above:Order Comment: Other, s/p antrectomy with gastrojejunostomy. r/o leak or abscess/fluid collection.Result Comment: INTERPRETIVE INFORMATION: Henny-1 Antibody, IgG 29 AU/mL or less.........Negative 30-40 AU/mL..............Equivocal 41 AU/mL or greater......Positive Presence of Henny-1 (antihistidyl transfer RNA [t-RNA] synthetase) antibody is associated with polymyositis and may also be seen in patients with dermatomyositis. Henny-1 antibody is associated with pulmonary involvement (interstitial lung disease), Raynaud phenomenon, arthritis, and sound equipment mechanic's hands (implicated in antisynthetase syndrome). Performed By: [facility] [address] [place] [address] Reporting Coordinator: Lisa Calero, MDMAGNESIUM BLOODon 99-98-2488Oeskcoqie [Mass/Vol]1.9 mg/dLNormal1.9-2.7The [facility]aritan HospitalComment on above:Order Comment: PT NOT IN ROOM YETPerformed By: #### 73316 #### [facility] [address] [facility]. [address]Operative Reporton [id number] ReportMR#: [id number] I [facility] Pt. Name: Shelia Brito Room #: 3AB [id number] Discharge Date: Birthdate: 1970 OPERATIVE REPORT DATE OF SURGERY: 01/20/2021 SURGEON: Edwin Segura MD Bronchoscopy procedure note Patient: Shelia Brito Date: 01/20/2021 Indication: Diagnostic/therapeutic bronchoscopy Procedure Manager Of Supply Chain: Jazz Reynolds MD Supervising Attending: Edwin Segura MD Preoperative diagnosis: Acute respiratory failure with bilateral infiltrates Postoperative diagnosis: Acute respiratory failure with bilateral traits Procedure type: Flexible fiberoptic bronchoscopy with airway inspection and BAL lingula Anesthesia: Cetacaine spray to posterior oropharynx, 10 cc 1% lidocaine Sedation: 10 mg Versed, 100 mcg fentanyl Support: Video support, BP monitor, telemetry, pulse oximetry Timeout: A timeout was called and the correct patient, procedure, and site was confirmed using previously obtained demographic graphic data. Procedure Summary: The patient was adequately sedated as above. The bronchoscope was passed through the mouth to the posterior oropharynx to the glottis which appeared normal. There was normal abduction and movement of the arytenoids and normal movement of the true vocal cords. The glottis was locally anesthetized. The bronchoscope was passed through the cords to the trachea which was normal in appearance. The scope was then advanced to the level of the gabriela which was noted to be sharp, mobile, and normal in appearance. The gabriela and bilateral mainstem bronchi were locally anesthetized with 1% lidocaine. Examination of the left bronchial tree found normal patent airways with normal mucosa, no endobronchial lesions, no intrinsic narrowing, or extrinsic compression in the apicoposterior (LB1+2) and anterior segments (LB3) of the left upper lobe, the superior (LB4) and inferior (LB5) segments of the lingula, and superior (LB6) and basilar segments (LB7-10) of the left lower lobe. There were no mucopurulent secretions noted. Examination of the right bronchial tree found normal patent airways with normal mucosa, no endobronchial lesions, no intrinsic narrowing, or extrinsic compression in the apical (RB1), posterior (RB2), and anterior (RB3) segments of the right upper lobe, the lateral (RB4) and medial (RB5) segments of the right middle lobe, and superior (RB6) and basilar (RB7-10) segments of the right lower lobe. There were no mucopurulent secretions noted. The bronchoscope was then wedged in the lingula and a BAL was obtained. The bronchoscope was removed and the procedure ended. Specimens Collected: BAL lingula Complications: None Impression: Normal airways Electronically Signed by: Edwin Segura MD 01/21/2021 04:08 P Edwin Segura MD I was present for the entire procedure. Date Dict: 01/20/2021/05:00 P/Jazz Reynolds MD Date Trans: 01/20/2021 05:00 P/ ЮЛИЯ_JN:[id number] cc: Yue Funez M.D. [address] [place] [address]CofqdrQbrAccess Hospital DaytonPROCALCITONIN on 85-11-1493BABOVGCVUOXZE0.07 ng/mLNormal0.00-0.10The [facility]aritan HospitalComment on above:Order Comment: Yes: Add to Previous draw if able Result Comment: Suspected Lower Respiratory Tract Infection: 0.1-0.25ng/mL- Low likelihood for bacterial infection;Antibiotics discouraged.* >0.25ng/mL- Increased likelihood bacterial infection;Antibiotics encouraged. Suspected Sepsis: Strongly consider initiating antibiotics in all unstable patients. 0.1-0.5ng/mL- Low likelihood for sepsis; Antibiotics discouraged.* >0.5ng/mL- Increased likelihood sepsis; Antibiotics encouraged. >2.0ng/mL- High risk of sepsis/septic shock; Antibiotics strongly encouraged. *Recommend retesting PCT within 6-12hours if clinically indicated and initial PCT<0.5ng/mLPerformed By: #### 36299, 09176, 69872, 62651, 59701 #### [facility] [address] [place] [place] [address], USARHEUMATOID FACTOR SERUMon 34-11-5357MT<77Cqudqo6-54Ghl [facility]itan HospitalComment on above:Order Comment: Other, s/p antrectomy with gastrojejunostomy. r/o leak or abscess/fluid collection. Performed By: #### 28140, 24032 ####[facility] [place] [address], USARIBOSOMAL P PROTEIN [place] [address]ha 40-18-5684PRTR P PROT AB0 AU/mLNormal0-40The [facility]itan HospitalComment on above:Order Comment: Other, s/p antrectomy with gastrojejunostomy. r/o leak or abscess/fluid collection.Result Comment: INTERPRETIVE INFORMATION: Ribosomal P Protein Ab, IgG 29 AU/mL or Less ............. Negative 30 - 40 AU/mL ................ Equivocal 41 AU/mL or Greater .......... Positive Autoantibodies reacting with cytoplasmic ribosomes are highly specific for systemic lupus erythematosus (SLE). Ribosomal-P antibodies are found in approximately 12% of patients with SLE and in 90% of patients with lupus psychosis; titers often increase more than five fold during and before active phases of psychosis. Performed By: [facility] [address] [place] [address] Reporting Coordinator: WICHO Bernard 70 [id number] [id number] AB (SCL-70)1 AU/mLNormal0-40The [facility]itan HospitalComment on above:Order Comment: Other, s/p antrectomy with gastrojejunostomy. r/o leak or abscess/fluid collection.Result Comment: INTERPRETIVE INFORMATION: Scleroderma (Scl-70) (KRIS) Ab, IgG 29 AU/mL or Less ............. Negative 30 - 40 AU/mL ................ Equivocal 41 AU/mL or Greater .......... Positive The presence of Scl-70 antibodies (also referred to as topoisomerase I, toñito-I or ROSEMARY) is considered diagnostic for systemic sclerosis (SSc). Scl-70 antibodies alone are detected in about 20 percent of SSc patients and are associated with the diffuse form of the disease, which may include specific organ involvement and poor prognosis. Scl-70 antibodies have also been reported in a varying percentage of patients with systemic lupus erythematosus (SLE). Scl-70 (toñito-1) is a DNA binding protein and anti-DNA/DNA complexes in the sera of SLE patients may bind to toñito-I, leading to a false-positive result. The presence of Scl-70 antibody in sera may also be due to contamination of recombinant Scl-70 with DNA derived from cellular material used in immunoassays. Strong clinical correlation is recommended if both Scl-70 and dsDNA antibodies are detected. Negative results do not necessarily rule out the presence of SSc. If clinical suspicion remains, consider further testing for centromere, RNA polymerase III and U3-FIXED WING AIRCRAFT CREW CHIEF, PM/Scl, or Th/To antibodies. Performed By: [facility] [address] [place] [address] Reporting Coordinator: Lisa Calero, MDSEDIMENTATION RATEon [id number] RATE 104 mm/hrHigh0-20The [facility]itan HospitalComment on above:Order Comment: Yes: Add to Previous draw if ablePerformed By: #### 24527 ####[facility] [facility] [place] [address], [facility] SJOGRENS ANTIBODIESon 10-97-6157OX-ANegativeNormalNEG,NEGATIVE,NegThe Good Samaritan HospitalComment on above:Order Comment: Yes: Add to Previous draw if ablePt went for endo at 1329PT AT ENDOPerformed By: #### 57175, 44375, 21813, 65947, 37164 ####[facility] [place] [address], USASS-BNegativeNormalNEG,NEGATIVE,NegThe Good Samaritan HospitalComment on above:Order Comment: Yes: Add to Previous draw if ablePt went for endo at 1329PT AT ENDOPerformed By: #### 61305, 63419, 69094, 55406, 15014 ####[facility] [place] [address], USASMOOTH MUSCLE ABon [id number] MUSC AB1:40AbnormalNONE DETECTEDThe Good Samaritan HospitalComment on above:Order Comment: Yes: Add to Previous draw if ableResult Comment: NONE DETECTED: LESS THAN 1:20 WEAKLY POSITIVE: 1:20 - 1:40 SUGGESTIVE OF CHRONIC HEPATITIS: 1:80 OR GREATER NOTE: FOR WEAKLY POSITIVE RESULTS, TITER MAY BE PRESENT IN ACUTE VIRAL HEPATITIS, INFECTIOUS MONONUCLEOSIS OR MALIGNANCY.Performed By: #### 22737, 93993, 76571, 63027, 29980 #### [facility] [address] [facility] [place] [address], USATISSUE TRANSGLUTAMINASE IGA 88137rm 42-47-4085HMT IGA<2 Normal0-3The [facility] Samaritan HospitalComment on above:Result Comment: INTERPRETIVE INFORMATION: Tissue Transglutaminase (tTG) Antibody, IgA 3 U/mL or less: Negative 4-10 U/mL: Weak Positive 11 U/mL or greater: Positive Presence of the tissue transglutaminase (tTG) IgA antibody is associated with glutensensitive enteropathies such as celiac disease and dermatitis herpetiformis. tTG IgA antibody concentrations greater than 40 U/mL usually correlate with results of duodenal biopsies consistent with a diagnosis of celiac disease. For antibody concentrations greater or equal to 4 U/mL but less than or equal to 40 U/mL, additional testing for endomysial (GARRY) IgA concentrations may improve the positive predictive value for disease. Performed By: [facility] [address] [place] [address] Reporting Coordinator: VITOR Bernard HEPARIN ASSAYon 01-20-2021 UNFRACTIONATED HEPARIN<0.10Critically low0.30-0.70The [facility] Samaritan HospitalComment on above:Result Comment: Rivaroxaban and Apixaban will interfere with the anti Xa assay used to monitor UFH and LMWH. Results called. Accurately read back by Hallie Parada RN at 1344Performed By: #### 07196 ####[facility] [facility] [place] [address], [facility] VE[facility]ASUNFRACTIONATED HEPARIN0.28 IU/mLLow0.30-0.70The [facility] Samaritan HospitalComment on above:Result Comment: Rivaroxaban and Apixaban will interfere with the anti Xa assay used to monitor UFH and LMWH.Performed By: #### 35560 ####[facility] [facility] [place] [address], [place]*SARS-CoV-2 COVID-19on 01-19-2021 SARS-CoV-2 (COVID-19) RNA KYLEIGH+probe Ql (Unsp spec)Not detectedNormalNot Detected The [facility]aritan HospitalComscheurer hospital on above:Order Comment: Yes: Add to Previous draw if ablePerformed By: #### 38414, 61385, 32809, 53950, 85144 #### [facility] [address] [place] [address], [facility] AT L[facility] VE[facility]ASAPTTon [id number] Coag (Bld) [Time]41.6 sHigh25.0-35.0 The [facility]aritan HospitalComment on above:Order Comment: No: Do not add to previous drawResult Comment: ALL RESULTS MUST BE INTERPRETED WITH RESPECT TO BLOOD DRAWING ARTIFACT OR DILUTION ERROR OF ANTICOAGULANT AT THE TIME OF SAMPLING. THE APTT SHOULD NOT BE USED TO MONITOR UNFRACTIONATED HEPARIN THERAPY, THIS LABORATORY NO LONGER HAS AN ESTABLISHED THERAPEUTIC RANGE BASED ON THE APTT. IT IS RECOMMENDED THAT THE UFH - HEPARIN ASSAY (ANTI-XA ACTIVITY) BE USED FOR THIS PURPOSE.Performed By: #### [id number] ####[facility] [place] [address], [facility] L[facility] VEGASaPTT Coag (Bld) [Time]41.2 sHigh25.0-35.0The [facility]itan HospitalComscheurer hospital on above:Order Comment: No: Do not add to previous drawResult Comment: ALL RESULTS MUST BE INTERPRETED WITH RESPECT TO BLOOD DRAWING ARTIFACT OR DILUTION ERROR OF ANTICOAGULANT AT THE TIME OF SAMPLING. THE APTT SHOULD NOT BE USED TO MONITOR UNFRACTIONATED HEPARIN THERAPY, THIS LABORATORY NO LONGER HAS AN ESTABLISHED THERAPEUTIC RANGE BASED ON THE APTT. IT IS RECOMMENDED THAT THE UFH - HEPARIN ASSAY (ANTI-XA ACTIVITY) BE USED FOR THIS PURPOSE.Performed By: #### [id number], [id number] ####[facility] BASIC METABOLIC PANELon 32-77-5170Msaidnc [Mass/Vol]8.2 mg/dLLow8.6-10.3The [facility]aritan HospitalComment on above:Order Comment: PT NOT IN ROOM YETPerformed By: #### 15096 #### [facility] [address] [place] [address], USAChloride [Moles/Vol]104 mmol/FHaulmt00-039Oym [facility] HospitalComment on above:Order Comment: PT NOT IN ROOM YET Performed By: #### 52530 #### [facility] [address] [place] [address], USACO2 [Moles/Vol]29 mmol/YBhbmkg48-25Lzi [facility] HospitalComment on above:Order Comment: PT NOT IN ROOM YETPerformed By: #### 81877 #### [facility] [address] [place] [address], USACreatinine [Mass/Vol]0.50 mg/dLLow0.60-1.20The [facility]itan HospitalComment on above:Order Comment: PT NOT IN ROOM YET Performed By: #### 50386 #### [facility] [address] [place] [address], USAGFR/1.73 sq M.predicted among blacks MDRD (S/P/Bld) [Vol rate/Area]mL/min/{1.73_m2}Normal>60[facility] Comment on above:Order Comment: PT NOT IN ROOM YETPerformed By: #### [id number] #### [facility] [address] [place] [address], USAGFR/1.73 sq M.predicted among non-blacks MDRD (S/P/Bld) [Vol rate/Area]mL/min/{1.73_m2}Normal>60[facility] Comment on above:Order Comment: PT NOT IN ROOM YETPerformed By: #### [id number] #### [facility] [address] [place] [address], USAGlucose [Mass/Vol]89 mg/rOUvejjr66-399Lkx [facility] HospitalComment on above:Order Comment: PT NOT IN ROOM YETPerformed By: #### [id number] #### [facility] [address] [place] [address], USAPotassium [Moles/Vol]3.4 mmol/LLow3.5-5.1The [facility]itan HospitalComment on above:Order Comment: PT NOT IN ROOM YETPerformed By: #### 85778 #### [facility] [address] [place] [address], USASodium [Moles/Vol]141 mmol/QIklmin914-819Bcw [facility] HospitalComment on above:Order Comment: PT NOT IN ROOM YETPerformed By: #### 78749 #### [facility] [address] [place] [address], USAUrea nitrogen [Mass/Vol]10 mg/dLNormal7-25The [facility] HospitalComment on above:Order Comment: PT NOT IN ROOM YET Performed By: #### [id number] #### [facility] [address] [place] [address], USACBC COMPLETE BLOOD COUNTon 25-39-3634Drrauavwqrg distribution width (RBC) [Ratio]18.0 %High11.5-15.0The [facility]itan HospitalComment on above:Order Comment: No: Do not add to previous draw Performed By: #### 90747 ####[facility] [facility] [place] [address], USAHematocrit (Bld) [Volume fraction]28.3 %Low36.0-45.0The [facility]itan HospitalComment on above:Order Comment: No: Do not add to previous drawPerformed By: #### [id number] ####[facility] [place] [address], USAHemoglobin (Bld) [Mass/Vol]8.8 g/dLLow12.0-15.0The [facility]itan HospitalComment on above:Order Comment: No: Do not add to previous drawPerformed By: #### [id number] ####[facility] [place] [place] [address], [facility] L[facility] VEGASMCH (RBC) [Entitic mass]24.9 pgLow27.0-33.0The [facility]itan HospitalComment on above:Order Comment: No: Do not add to previous drawPerformed By: #### 29105 ####[facility] [facility] [place] [address], [facility] MCHC (RBC) [Mass/Vol]31.1 g/dLLow32.0-35.0The [facility] HospitalComment on above:Order Comment: No: Do not add to previous drawPerformed By: #### [id number] ####[facility] [place] [address], [facility] AT L[facility] VEGASMCV (RBC) [Entitic vol]80.2 fLLow82.0-98.0The [facility]itan HospitalComment on above:Order Comment: No: Do not add to previous draw Performed By: #### [id number] ####[facility] [facility] [place] [address], [facility] L[facility] VEGASNucleated RBC/100 WBC (Bld) [Ratio]0 %Normal0-0The [facility]itan HospitalComment on above:Order Comment: No: Do not add to previous drawPerformed By: #### [id number] ####[facility] [facility] [place] [address], USAPLAT SZT247 10*3/fOTqbhzc753-173 The [facility]itan HospitalComment on above:Order Comment: No: Do not add to previous drawPerformed By: #### 86280 ####[facility] [place] [address].[place] [address], [facility] AT L[facility] VEGASRBC (Bld) [#/Vol]3.53 10*6/uLLow3.80-5.00The [facility]itan HospitalComment on above:Order Comment: No: Do not add to previous drawPerformed By: #### 61159 ####[facility] [place] [address], [facility]STITUTE AT L[facility] VEGASWBC (Bld) [#/Vol]8.11 10*3/uLNormal4.00-10.60[facility] Comment on above:Order Comment: No: Do not add to previous drawPerformed By: #### [id number] ####[facility] [place] [address], [facility] AT L[facility] VEGASCardiovascular Lab Reporton [id number] Lab Report [facility] #: [id number] Department of Physician: Keara Toledo M.D. Division of Service Date: 01/19/2021 Cardiology Birthdate: 1970 Adult Cardiovascular Room #: 3AB [id number] [facility] [address] [place] [address] Cardiovascular Laboratory Report FINAL IMPRESSIONS: 1. Mild 2-vessel coronary artery disease. 2. Normal global left ventricular systolic function by noninvasive imaging. RECOMMENDATIONS: 1. Consider alternate etiologies for the patient's chest pain symptoms which appear pleuritic; likely pulmonary in etiology. 2. Aggressive cardiovascular risk factor modification. 3. Optimization of medical management; given mild coronary artery disease; aspirin, high intensity statin therapy, a beta keith, plus or minus an angiotensin-converting enzyme inhibitor. 4. Further recommendations deferred to the Inpatient Services. PROCEDURES: Limited femoral angiography, bilateral selective coronary angiography, placement of a 5-Colombian MynxGrip closure device. METHODS: After risks, benefits, and alternatives were explained, written informed consent was obtained. The patient was prepped and draped in usual sterile fashion over both groins. Using 1% lidocaine solution, local infiltration anesthesia was achieved. Using a modified Seldinger technique and a micropuncture kit and under ultrasound guidance access to the right common femoral artery was obtained. A 5-Colombian x 11 cm sheath was inserted without difficulty. Limited femoral angiography was performed. Bilateral selective coronary angiography was performed using JL4 and JR4 catheters. After reviewing the images, it was elected to conclude the procedure. A 5-Colombian MynxGrip closure device was deployed per protocol achieving optimal hemostasis. Overall, the patient tolerated the procedure well. There were no overt complications. She was to be transferred to her hospital room in stable condition. FINDINGS: Hemodynamics. AO 100/56. LEFT VENTRICULOGRAPHY: This was not performed. Ejection fraction is normal by echocardiography. CORONARY ARTERIES: Left main coronary artery: This arises from the left coronary cusp. It bifurcates into the left anterior descending and left circumflex coronary arteries. It is free of significant stenosis. Left anterior descending coronary artery: This shows luminal irregularities with a mid vessel 30% stenosis. The diagonals are of small caliber. Left circumflex coronary artery: This shows luminal irregularities with no discrete stenoses. 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 There is a long segment 30% stenosis in the midportion of the vessel. Limited femoral angiography: shows mild plaque and anatomy suitable for closure device. INDICATIONS: Chest pain, abnormal EKG. Electronically Signed by: Tracy Keyes M.D. 01/20/2021 11:09 A Tracy Keyes M.D. Date Dict: 01/19/2021/10:33 Sarabjit/Tracy Keyes M.D. Date Trans: 01/19/2021 03:17 P/oliva DN_JN:[id number] cc: Yue Funez M.D. [address] [facility] [address]ZmmhfyDhqBarberton Citizens HospitalLIPID PROFILE on 43-61-4339Xlmuttjbwkw [Mass/Vol]95 mg/gPYhb819-261KnkCleveland Clinic Children's Hospital for RehabilitationComment on above:Order Comment: No: Do not add to previous draw Result Comment: CHOLESTEROL REFERENCE RANGE: 20 YEARS AND OLDER CARDIOVASCULAR RISK Less than 200 mg/dl Low Risk 200 to 239 mg/dl Borderline Risk 240 mg/dl and greater High RiskPerformed By: #### 61616, 06625, 15791 ####[facility] [place] [address], [place] Cholesterol in HDL [Mass/Vol]9 mg/eGMir50-89Nqv [facility] HospitalComment on above:Order Comment: No: Do not add to previous drawResult Comment: Slight variation in normal range could be due to gender and/or age. HDL CHOLESTEROL REFERENCE RANGE: 20 years and older Cardiovascular Risk > or =60 mg/dL Desirable 40 TO 59 mg/dL Low Risk <40 mg/dL High RiskPerformed By: #### 96341, 96967, 41171 ####[facility] [place] [address], USACholesterol in LDL [Mass/Vol]57 mg/dLNormal0-130The [facility] HospitalComment on above:Order Comment: No: Do not add to previous drawResult Comment: LDL IS A CALCULATION LDL IS ONLY VALID IF THE TRIG IS LESS THAN 400.Performed By: #### 42301, 11541, 56948 ####[facility] [place] [address], USACholesterol.total/Cholesterol in HDL [Mass ratio]10.6 {ratio} Critically high0.0-4.5The [facility] HospitalComment on above: Order Comment: No: Do not add to previous drawPerformed By: #### 62795, 64545, 57781 ####[facility] [place] [address], USANON-HDL DZPKUTPWMTH88 mg/dLNormalThe [facility]aritan HospitalComment on above:Order Comment: No: Do not add to previous drawPerformed By: #### 81305, 73923, 98741 ####[facility] [place] [address], USATriglyceride [Mass/Vol]147 mg/qPYpstou30-740 [facility] CenterComment on above:Order Comment: No: Do not add to previous drawResult Comment: TRIGLYCERIDE REFERENCE RANGE: 20 YEARS AND OLDER CARDIOVASCULAR RISK LESS THAN 150 mg/dl LOW RISK 150 TO 199 mg/dl BORDERLINE RISK 200 mg/dl AND GREATER HIGH RISKPerformed By: #### 10398, 07959, 34684 ####[facility] [facility] [place] [address], [facility] VLDL CHOL29 mg/dLNormal0-40The [facility] HospitalComment on above:Order Comment: No: Do not add to previous drawPerformed By: #### 09217, 12357, 33576 ####[facility] [facility] [place] [address], [facility] AT L[facility] VEGASMAGNESIUM BLOODon 71-49-3371Mfxqpczkx [Mass/Vol]1.6 mg/dLLow1.9-2.7 The [facility] HospitalComment on above:Order Comment: if not done in EDNo: Do not add to previous drawPerformed By: #### 25869, 79599, 87212 ####[facility] [facility] [place] [address], [facility] POC SARS COV2 ANTIGEN NEGATIVEon 90-10-3244VYB SARS COV2 ANTIGEN NEGNegative NormalNEGATIVEThe Good Samaritan HospitalComment on above:Result Comment: Negative Results are presumptive and confirmation with a molecular assay, if necessary, for patient management may be performed. Negative results do not rule out SARS-CoV-2 infection and should not be used as the sole basis for treatment or patient management decisions, including infection control decisions. Negative results should be considered in the context of a patient?s recent exposures, history and the presence of clinical signs and symptoms consistent with COVID-19. The CareStart COVID-19 Antigen test is a lateral flow immunochromatographic assay intended for the qualitative detection of the nucleocapsid protein antigen from SARS-CoV-2 in nasopharyngeal or anterior nasal swab specimens directly collected from individuals suspected of COVID-19 by their healthcare provider within five days of symptom onset. Testing is limited to laboratories certified under the Clinical Laboratory Improvement Amendments of 1988 (CLIA), 42 U.S.C. ???262a, that meet the requirements to perform moderate, high or waved complexity tests. This test is authorized for use at the Point of Care (POC), i.e., in patient care settings operating under a CLIA Certificate of Waiver, Certificate of Compliance, or Certificate of Accreditation.Performed By: #### 54203, 31279, 90046, 78438, 01484 #### [address] [place] [address], USAPOC SARS COV2 ANTIGEN NEGNegativeNormalNEGATIVEThe [facility]aritan HospitalComment on above:Result Comment: Negative Results are presumptive and confirmation with a molecular assay, if necessary, for patient management may be performed. Negative results do not rule out SARS-CoV-2 infection and should not be used as the sole basis for treatment or patient management decisions, including infection control decisions. Negative results should be considered in the context of a patient?s recent exposures, history and the presence of clinical signs and symptoms consistent with COVID-19. The CareStTestive COVID-19 Antigen test is a lateral flow immunochromatographic assay intended for the qualitative detection of the nucleocapsid protein antigen from SARS-CoV-2 in nasopharyngeal or anterior nasal swab specimens directly collected from individuals suspected of COVID-19 by their healthcare provider within five days of symptom onset. Testing is limited to laboratories certified under the Clinical Laboratory Improvement Amendments of 1988 (CLIA), 42 U.S.C. ???262a, that meet the requirements to perform moderate, high or waved complexity tests. This test is authorized for use at the Point of Care (POC), i.e., in patient care settings operating under a CLIA Certificate of Waiver, Certificate of Compliance, or Certificate of Accreditation.Performed By: #### 24107, 68494, 80642, 52514, 59780 #### [address] [address], USAPORTABLE CHEST 1 VIEWon 90-11-1377HSQVBREL CHEST 1 VIEW [facility] Department of Radiology [address] [place] [id number] Patient Name: SHELIA BRITO : 1970 Sex: F Age: Race: White Pt. Location: [address] [place] [address] Patient Status: I Ordered Date: 01/19/2021 12:40:00 PM Completed Date: 01/19/2021 01:25 PM Requesting Provider: IAM OLVERA Attending Provider: BLANCA HUTCHINSON Report Copy To: Signs & Symptoms: O2 Desaturation History: Comments: Evaluate for Pneumonia Exam: PORTABLE CHEST 1 VIEW PORTABLE CHEST 1 VIEW 01/19/2021 1:25 PM CLINICAL INDICATIONS: O2 Desaturation TECHNOLOGIST COMMENTS: shortness of breath QUESTION FOR THE RADIOLOGIST: Evaluate for Pneumonia PROTOCOL: AP(PA) view was obtained. COMPARISON: 10/19/2020 FINDINGS: Diffuse bilateral dense airspace disease is redemonstrated, increased in density and confluence on the left since the study of 2 days. No pleural abnormalities are displayed. The left heart border is largely silhouetted but no gross abnormalities of cardiac or mediastinal contours are displayed IMPRESSION: Diffuse bilateral airspace disease with increase on the left since October. Consistent with diffuse pneumonia or airspace edema any etiology but I note that no pleural fluid is suggested on this AP projection Electronically signed: Vadim Altamirano. Transcribed by: [id number], User Resident: Electronically Signed by: VADIM ALTAMIRANO @ 01/19/2021 01:33 [facility] HospitalComment on above:Order Comment: Yes: Add to Previous draw if ableTROPONIN-Ion 60-08-0978Bpwmyqlo I.cardiac [Mass/Vol]0.11 ng/mLCritically high0.00-0.04The [facility] HospitalComment on above:Order Comment: No: Do not add to previous drawResult Comment: M-PREVIOUS CRITICAL RESULT REFERENCE RANGES: 0.00 - 0.04 ng/ml NORMAL 0.05 - 0.50 ng/ml INDETERMINATE > 0.50 ng/ml CONSISTENT WITH AN M.I.Performed By: #### 45171 #### [facility] [address] [place] [address], USATroponin I.cardiac [Mass/Vol]0.19 ng/mLCritically high 0.00-0.04The [facility] HospitalComment on above:Order Comment: PT NOT IN ROOM YETResult Comment: M-PREVIOUS CRITICAL RESULT 0.28 REFERENCE RANGES: 0.00 - 0.04 ng/ml NORMAL 0.05 - 0.50 ng/ml INDETERMINATE > 0.50 ng/ml CONSISTENT WITH AN M.I.Performed By: #### 77710 #### [facility] [address] [place] [address], USATroponin I.cardiac [Mass/Vol]0.28 ng/mLCritically high 0.00-0.04The [facility] HospitalComment on above:Result Comment: M-TROPONIN INITIAL CRITICAL HIGH; RESPUN AND RETESTED M-CRITICAL RESULT(S) REVIEWED, CALLED TO AND READ BACK BY JUNG REBOLLEDO RN @ 0640 REFERENCE RANGES: 0.00 - 0.04 ng/ml NORMAL 0.05 - 0.50 ng/ml INDETERMINATE > 0.50 ng/ml CONSISTENT WITH AN M.I.Performed By: #### 49578, 38266, 67536 ####[facility] [place] [address], [facility] UFH HEPARIN ASSAYon 49-08-2601ZSVMSTYOJELRFB HEPARIN<0.10Critically low0.30-0.70 The [facility]itan HospitalComment on above:Result Comment: Rivaroxaban and Apixaban will interfere with the anti Xa assay used to monitor UFH and LMWH. Results called. Accurately read back by Jung Rebolledo RN, CVU 3A patient's nurse, at 1934, .Performed By: #### 49715 ####[facility] [place] [address], USAUNFRACTIONATED HEPARIN<0.10Critically low0.30-0.70The [facility] Comment on above:Result Comment: Rivaroxaban and Apixaban will interfere with the anti Xa assay used to monitor UFH and LMWH. RESULTS CHECKED AND CALLED. ACCURATELY READ BACK BY JUNG REBOLLEDO RN @ 0443Performed By: #### 94933, 06508 ####[facility] [place] [address], USABASIC METABOLIC PANELon 61-96-6989Qsniiqo [Mass/Vol]8.5 mg/dLLow8.6-10.3The [facility] HospitalComment on above:Order Comment: No: Do not add to previous drawPerformed By: #### 06211 #### [facility] [address] [place] [address], USAChloride [Moles/Vol]105 mmol/VUcrdfu70-692Gmc [facility] HospitalComment on above:Order Comment: No: Do not add to previous drawPerformed By: #### 03402 #### [facility] [address] [place] [address], USACO2 [Moles/Vol]30 mmol/MWvftyi24-96Udh [facility] HospitalComment on above:Order Comment: No: Do not add to previous draw Performed By: #### 21389 #### [facility] [address] [place] [address], USACreatinine [Mass/Vol]0.37 mg/dLLow0.60-1.20The [facility] HospitalComment on above:Order Comment: No: Do not add to previous drawPerformed By: #### 63534 #### [facility] [address] [place] [address], USAGFR/1.73 sq M.predicted among blacks MDRD (S/P/Bld) [Vol rate/Area]mL/min/{1.73_m2}Normal>60The [facility] Comment on above:Order Comment: No: Do not add to previous drawPerformed By: #### 47113 #### [facility] [address] [place] [address], USAGFR/1.73 sq M.predicted among non-blacks MDRD (S/P/Bld) [Vol rate/Area]mL/min/{1.73_m2}Normal>60The [facility] Comment on above:Order Comment: No: Do not add to previous drawPerformed By: #### 82899 #### [facility] [address] [place] [address], USAGlucose [Mass/Vol]95 mg/xFNvvkpl18-259Kgb [facility] HospitalComment on above:Order Comment: No: Do not add to previous drawPerformed By: #### 09667 #### [facility] [address] [facility] [place] [address], USAPotassium [Moles/Vol]3.3 mmol/LLow3.5-5.1The [facility] HospitalComment on above:Order Comment: No: Do not add to previous drawPerformed By: #### 61047 #### [facility] [address] [place] [address], USASodium [Moles/Vol]141 mmol/EFxatll355-242Ntq [facility] HospitalComment on above:Order Comment: No: Do not add to previous drawPerformed By: #### 40352 #### [facility] [address] [place] [address], USAUrea nitrogen [Mass/Vol]6 mg/dLLow7-25The [facility] HospitalComment on above:Order Comment: No: Do not add to previous drawPerformed By: #### 01623 #### [facility] [address] [facility] [place] [address], [facility] COMPLETE BLOOD COUNTon 45-07-4055Tonvvxoyvfg distribution width (RBC) [Ratio]13.4 %Hzxbic93.5-15.0The [facility] HospitalComment on above:Order Comment: No: Do not add to previous draw Performed By: #### 41037 ####[facility] [facility] [address], USAHematocrit (Bld) [Volume fraction]30.8 %Low36.0-45.0The [facility] HospitalComment on above:Order Comment: No: Do not add to previous drawPerformed By: #### 03792 ####[facility] [facility] [place] [address], USAHemoglobin (Bld) [Mass/Vol]9.5 g/dLLow12.0-15.0The [facility] HospitalComment on above:Order Comment: No: Do not add to previous drawPerformed By: #### 03438 ####[facility] [facility] [place] [address], [facility] – CORDELLH (RBC) [Entitic mass]27.9 yrXhcvxu53.0-33.0The [facility] Comment on above:Order Comment: No: Do not add to previous drawPerformed By: #### 21284 ####[facility] [facility] [place] [address], [facility] AT L[facility] VEGASMCHC (RBC) [Mass/Vol]30.8 g/dLLow32.0-35.0The [facility] HospitalComment on above:Order Comment: No: Do not add to previous draw Performed By: #### 12721 ####[facility] [facility] [place] [address], [facility] AT L[facility] VEGASMCV (RBC) [Entitic vol]90.6 zAFghsqj14.0-98.0The [facility] HospitalComment on above:Order Comment: No: Do not add to previous drawPerformed By: #### 04105 ####[facility] [place] [address], USANucleated RBC/100 WBC (Bld) [Ratio]0 %Normal0-0The [facility]aritan HospitalComment on above:Order Comment: No: Do not add to previous drawPerformed By: #### [id number] ####[facility] [place] [address], USAPLAT SEU978 10*3/iNTrqn373-156Dqp [facility] HospitalComment on above:Order Comment: No: Do not add to previous drawPerformed By: #### [id number] ####[facility] [place] [address], USARBC (Bld) [#/Vol]3.40 10*6/uLLow3.80-5.00The [facility]itan HospitalComment on above:Order Comment: No: Do not add to previous drawPerformed By: #### 55890 ####[facility] [place] [address], [facility] WBC (Bld) [#/Vol]8.46 10*3/uLNormal4.00-10.60The [facility]itan HospitalComment on above:Order Comment: No: Do not add to previous drawPerformed By: #### 64867 ####[facility] [place] [address], [facility] VEGASPOC GLUCOSE LABon 05-90-4433Zsopctg [Mass/Vol]189 mg/kZAbhc43-835 The [facility]itan HospitalComment on above:Performed By: #### 90101 #### [facility] [address] [place] [address], [facility] L[facility] VEGASBASIC METABOLIC PANELon 42-90-3786Obsxvjd [Mass/Vol]8.1 mg/dLLow8.6-10.3The [facility] HospitalComment on above:Order Comment: Yes: Add to Previous draw if ablePerformed By: #### 02576, 37722, 85706, 51071, 64972 #### [facility] [address] [place] [address], USAChloride [Moles/Vol]106 mmol/VCkvbnx85-464Ntw [facility] HospitalComment on above:Order Comment: Yes: Add to Previous draw if ablePerformed By: #### 45444, 50814, 61752, 65497, 95893 #### [facility] [address] [place] [address], USACO2 [Moles/Vol]28 mmol/LTsyqkk44-46Sjw [facility] HospitalComment on above:Order Comment: Yes: Add to Previous draw if able Performed By: #### 48556, 32111, 20111, 30996, 25086 #### [facility] [address] [place] [address], USACreatinine [Mass/Vol]0.40 mg/dLLow0.60-1.20The [facility] HospitalComment on above:Order Comment: Yes: Add to Previous draw if ablePerformed By: #### 20177, 76294, 97651, 17521, 31873 #### [facility] [address] [place] [address], USAGFR/1.73 sq M.predicted among blacks MDRD (S/P/Bld) [Vol rate/Area]mL/min/{1.73_m2}Normal>60The [facility] Comment on above:Order Comment: Yes: Add to Previous draw if ablePerformed By: #### 38068, 45134, 84005, 69662, 29781 #### [facility] [address] [place] [address], USAGFR/1.73 sq M.predicted among non-blacks MDRD (S/P/Bld) [Vol rate/Area]mL/min/{1.73_m2}Normal>60The [facility] Comment on above:Order Comment: Yes: Add to Previous draw if ablePerformed By: #### 88153, 42981, 77490, 84207, 05355 #### [facility] [address] [place] [address], USAGlucose [Mass/Vol]98 mg/bMHikfgy98-250Lde [facility] HospitalComment on above:Order Comment: Yes: Add to Previous draw if ablePerformed By: #### 49128, 18797, 28154, 76633, 84181 #### [facility] [address] [place] [address], USAPotassium [Moles/Vol]3.7 mmol/LNormal3.5-5.1The [facility] HospitalComment on above:Order Comment: Yes: Add to Previous draw if ablePerformed By: #### 40840, 43453, 86183, 49660, 20751 #### [facility] [address] [place] [address], USASodium [Moles/Vol]142 mmol/MEiifxy502-067Aqp [facility] HospitalComment on above:Order Comment: Yes: Add to Previous draw if ablePerformed By: #### 82315, 14718, 10728, 67626, 86732 #### [facility] [address] [place] [address], USAUrea nitrogen [Mass/Vol]mg/dLLow7-25The [facility] HospitalComment on above:Order Comment: Yes: Add to Previous draw if ablePerformed By: #### 45786, 14489, 51543, 48777, 71062 #### [facility] [address] [place] [address], USACBC COMPLETE BLOOD COUNTon 38-49-4927Nghpqhjrnaj distribution width (RBC) [Ratio]13.3 %Vbtntl63.5-15.0The [facility] HospitalComment on above:Order Comment: No: Do not add to previous draw Performed By: #### 79851 ####[facility] [facility] [place] [address], [facility] VEGASHematocrit (Bld) [Volume fraction]28.4 %Low36.0-45.0The [facility] HospitalComment on above:Order Comment: No: Do not add to previous drawPerformed By: #### 83236 ####[facility] [facility] [place] [address], [facility] VE[facility]ASHemoglobin (Bld) [Mass/Vol]8.8 g/dLLow12.0-15.0The [facility] HospitalComment on above:Order Comment: No: Do not add to previous drawPerformed By: #### 42514 ####[facility] [facility] [place] [address], [facility] AT L[facility] VEGASMCH (RBC) [Entitic mass]28.5 lqZzjhko12.0-33.0The [facility] Comment on above:Order Comment: No: Do not add to previous drawPerformed By: #### 00696 ####[facility] [facility] [place] [address], [facility] AT L[facility] VEGASMCHC (RBC) [Mass/Vol]31.0 g/dLLow32.0-35.0The [facility] HospitalComment on above:Order Comment: No: Do not add to previous draw Performed By: #### 73344 ####[facility] [facility] [place] [address], [facility] AT L[facility] VEGASMCV (RBC) [Entitic vol]91.9 lNHjtwtq01.0-98.0The [facility] HospitalComment on above:Order Comment: No: Do not add to previous drawPerformed By: #### 90306 ####[facility] [place] [address].[place] [address], USANucleated RBC/100 WBC (Bld) [Ratio]0 %Normal0-0The [facility] HospitalComment on above:Order Comment: No: Do not add to previous drawPerformed By: #### 69453 ####[facility] [address], [place]APLAT LWQ369 10*3/pJMoeezl676-001Onc [facility] HospitalComment on above: Order Comment: No: Do not add to previous drawPerformed By: #### 41305 ####[facility] [address], [facility] RBC (Bld) [#/Vol]3.09 10*6/uLLow3.80-5.00The [facility] Comment on above:Order Comment: No: Do not add to previous drawPerformed By: #### 02053 ####[facility] [facility] [place]ITAL[place] [address], [facility] INSTITUTE AT L[facility] VEGASWBC (Bld) [#/Vol]9.57 10*3/uLNormal4.00-10.60The [facility] HospitalComment on above:Order Comment: No: Do not add to previous draw Performed By: #### 85742 ####[facility] [address], [facility] L[facility] VEGASMAGNESIUM BLOODon 37-67-5709Fgwxdnhnw [Mass/Vol]2.0 mg/dLNormal1.9-2.7The [facility] HospitalComment on above:Order Comment: Yes: Add to Previous draw if ablePerformed By: #### 00933, 84313, 64093, 37653, 02294 #### [facility] [address] [address], USAPHOSPHORUS BLOODon 69-59-4187Gpgfztdvm [Mass/Vol]2.5 mg/dL Normal2.5-5.0The [facility] HospitalComment on above:Order Comment: Yes: Add to Previous draw if ablePerformed By: #### 29971, 87017, 23245, 20465, 15209 #### [facility] [address] [place] [address], USABASIC METABOLIC PANELon 17-12-2407Lhjccto [Mass/Vol]7.8 mg/dLLow8.6-10.3The [facility] HospitalComment on above:Order Comment: No: Do not add to previous drawPerformed By: #### 64649 ####[facility] [place] [address], USAChloride [Moles/Vol]103 mmol/HEcmbbr57-200Kdu [facility] HospitalComment on above:Order Comment: No: Do not add to previous drawPerformed By: #### 24176 ####[facility] [place] [address], [place] CO2 [Moles/Vol]31 mmol/AZpfuzy82-26Wmw [facility] Comment on above:Order Comment: No: Do not add to previous drawPerformed By: #### 34771 ####[facility] [place] [address], USACreatinine [Mass/Vol]0.35 mg/dLLow0.60-1.20The [facility] HospitalComment on above:Order Comment: No: Do not add to previous draw Performed By: #### 05315 ####[facility] [place] [address], USAGFR/1.73 sq M.predicted among blacks MDRD (S/P/Bld) [Vol rate/Area]mL/min/{1.73_m2}Normal>60The [facility] Comment on above:Order Comment: No: Do not add to previous drawPerformed By: #### 51078 ####[facility] [place] [address], USAGFR/1.73 sq M.predicted among non-blacks MDRD (S/P/Bld) [Vol rate/Area]mL/min/{1.73_m2}Normal>60The [facility] Comment on above:Order Comment: No: Do not add to previous drawPerformed By: #### 67320 ####[facility] [place] [address], USAGlucose [Mass/Vol]105 mg/xJByoj08-354Jke [facility] HospitalComment on above:Order Comment: No: Do not add to previous drawPerformed By: #### 86401 ####[facility] [place] [address], USAPotassium [Moles/Vol]3.4 mmol/LLow3.5-5.1The [facility] HospitalComment on above:Order Comment: No: Do not add to previous draw Performed By: #### 33059 ####[facility] [place] [address], USASodium [Moles/Vol]141 mmol/NOlnjfl660-598Mxm [facility] HospitalComment on above:Order Comment: No: Do not add to previous drawPerformed By: #### 19577 ####[facility] [place] [address], USAUrea nitrogen [Mass/Vol]2 mg/dLLow 7-e [facility] HospitalComment on above:Order Comment: No: Do not add to previous drawPerformed By: #### 31211 ####[facility] [place] [address], USACBC COMPLETE BLOOD COUNTon 26-62-0787Hdgkrkmvzdx distribution width (RBC) [Ratio]13.2 %Zfxyxx74.5-15.0The [facility] HospitalComment on above:Order Comment: Yes: Add to Previous draw if ablePerformed By: #### 49659, 79105, 32272, 16837, 91265 #### [facility] [address] [place] [address], USAHematocrit (Bld) [Volume fraction]26.6 %Low36.0-45.0The [facility] HospitalComment on above:Order Comment: Yes: Add to Previous draw if ablePerformed By: #### 85737, 04054, 21816, 89855, 71188 #### [facility] [address] [place] [address], [facility] VE[facility]ASHemoglobin (Bld) [Mass/Vol]8.2 g/dLLow12.0-15.0The [facility] HospitalComment on above:Order Comment: Yes: Add to Previous draw if ablePerformed By: #### 95370, 32144, 95061, 61370, 12668 #### [facility] [address] [place] [address], [facility] CORDELLH (RBC) [Entitic mass]27.9 ysEcmxkk98.0-33.0The [facility] HospitalComment on above:Order Comment: Yes: Add to Previous draw if ablePerformed By: #### 90699, 21836, 04176, 78262, 47649 #### [facility] [address] [place] [address], [facility] L[facility] VEGASMCHC (RBC) [Mass/Vol]30.8 g/dLLow32.0-35.0The [facility] HospitalComment on above:Order Comment: Yes: Add to Previous draw if ablePerformed By: #### 55208, 32297, 37424, 34381, 75612 #### [facility] [address] [place] [address], [facility] L[facility] VEGASMCV (RBC) [Entitic vol]90.5 lPLqbbwr93.0-98.0The [facility] HospitalComment on above:Order Comment: Yes: Add to Previous draw if ablePerformed By: #### 66243, 54127, 69835, 89904, 29834 #### [facility] [address] [place] [address], USANucleated RBC/100 WBC (Bld) [Ratio]0 %Normal0-0The [facility] HospitalComment on above:Order Comment: Yes: Add to Previous draw if ablePerformed By: #### 70299, 86840, 73935, 28020, 58827 #### [facility] [address] [place] [address], USAPLAT VRM529 10*3/qWZiozig124-050Lsy [facility] HospitalComment on above:Order Comment: Yes: Add to Previous draw if able Performed By: #### 86003, 83364, 54914, 76385, 23678 #### [facility] [address] [facility] [place] [address], USARBC (Bld) [#/Vol]2.94 10*6/uLLow3.80-5.00The [facility] HospitalComment on above:Order Comment: Yes: Add to Previous draw if ablePerformed By: #### 87411, 44237, 41067, 80412, 99008 #### [facility] [address] [place] [address], USAWBC (Bld) [#/Vol]9.05 10*3/uLNormal4.00-10.60The [facility] HospitalComment on above:Order Comment: Yes: Add to Previous draw if ablePerformed By: #### 60186, 19208, 98566, 86666, 54555 #### [facility] [address] [place] [address], USABASIC METABOLIC PANELon 62-50-9970Snymsyo [Mass/Vol]7.5 mg/dLLow8.6-10.3The [facility] HospitalComment on above:Order Comment: No: Do not add to previous drawPerformed By: #### 74076 #### [facility] [address] [place] [address], USAChloride [Moles/Vol]99 mmol/KGnqrki74-135Fsp [facility] HospitalComment on above:Order Comment: No: Do not add to previous drawPerformed By: #### 34647 #### [facility] [address] [place] [address], USACO2 [Moles/Vol]30 mmol/RDlowgd10-31Apv [facility] HospitalComment on above:Order Comment: No: Do not add to previous draw Performed By: #### 53240 #### [facility] [address] [place] [address], USACreatinine [Mass/Vol]0.40 mg/dLLow0.60-1.20The [facility] HospitalComment on above:Order Comment: No: Do not add to previous drawPerformed By: #### 17487 #### [facility] [address] [place] [address], USAGFR/1.73 sq M.predicted among blacks MDRD (S/P/Bld) [Vol rate/Area]mL/min/{1.73_m2}Normal>60The [facility] Comment on above:Order Comment: No: Do not add to previous drawPerformed By: #### 49490 #### [facility] [address] [place] [address], USAGFR/1.73 sq M.predicted among non-blacks MDRD (S/P/Bld) [Vol rate/Area]mL/min/{1.73_m2}Normal>60The [facility] Comment on above:Order Comment: No: Do not add to previous drawPerformed By: #### 83023 #### [facility] [address] [place] [address], USAGlucose [Mass/Vol]116 mg/vLJbwv49-662Fmz [facility] HospitalComment on above:Order Comment: No: Do not add to previous drawPerformed By: #### 78228 #### [facility] [address] [place] [address], USAPotassium [Moles/Vol]4.2 mmol/LNormal3.5-5.1The [facility] HospitalComment on above:Order Comment: No: Do not add to previous drawPerformed By: #### 72609 #### [facility] [address] [place] [address], USASodium [Moles/Vol]136 mmol/ZRrevye412-393Nsc [facility] HospitalComment on above:Order Comment: No: Do not add to previous drawPerformed By: #### 14572 #### [facility] [address] [place] [address], USAUrea nitrogen [Mass/Vol]3 mg/dLLow7-25The [facility] HospitalComment on above:Order Comment: No: Do not add to previous drawPerformed By: #### 84322 #### [facility] [address] [place] [address], USACBC COMPLETE BLOOD COUNTon 38-21-5498Yebprhzuaaf distribution width (RBC) [Ratio]13.2 %Fayxhi91.5-15.0The [facility] HospitalComment on above:Order Comment: No: Do not add to previous draw Performed By: #### 10418 ####[facility] [place] [address], USAHematocrit (Bld) [Volume fraction]29.7 %Low36.0-45.0The [facility] HospitalComment on above:Order Comment: No: Do not add to previous drawPerformed By: #### 10663 ####[facility] [place] [address], USAHemoglobin (Bld) [Mass/Vol]9.3 g/dLLow12.0-15.0The [facility] HospitalComment on above:Order Comment: No: Do not add to previous drawPerformed By: #### 57881 ####[facility] [place] [address], USAMCH (RBC) [Entitic mass]28.4 yjZnnzrk08.0-33.0The [facility] Comment on above:Order Comment: No: Do not add to previous drawPerformed By: #### 29315 ####[facility] [address], [facility] L[facility] VEGASMCHC (RBC) [Mass/Vol]31.3 g/dLLow32.0-35.0The [facility] HospitalComment on above:Order Comment: No: Do not add to previous draw Performed By: #### 48003 ####[facility] [facility] HOSPITALJos[facility] [place] [address], [facility] L[facility] VEGASMCV (RBC) [Entitic vol]90.8 oOOobmau85.0-98.0The [facility] HospitalComment on above:Order Comment: No: Do not add to previous drawPerformed By: #### 48125 ####[facility] [address], [facility] L[facility] VEGASNucleated RBC/100 WBC (Bld) [Ratio]0 %Normal0-0The [facility] HospitalComment on above:Order Comment: No: Do not add to previous drawPerformed By: #### 30578 ####[facility] [address], USAPLAT [id number] 10*3/aQBufjkz808-901Vch [facility] HospitalComment on above: Order Comment: No: Do not add to previous drawPerformed By: #### 67873 ####[facility] [facility] [place] [address], [facility] RBC (Bld) [#/Vol]3.27 10*6/uLLow3.80-5.00The [facility] Comment on above:Order Comment: No: Do not add to previous drawPerformed By: #### 46256 ####[facility] [facility] [place] [address], [facility] INSTITUTE AT L[facility] VEGASWBC (Bld) [#/Vol]11.56 10*3/uLHigh4.00-10.60The [facility] HospitalComment on above:Order Comment: No: Do not add to previous draw Performed By: #### 97584 ####[facility] [place] [address], USAMAGNESIUM BLOODon 02-76-1138Wcxhbpkes [Mass/Vol]2.0 mg/dLNormal1.9-2.7The [facility] HospitalComment on above:Order Comment: No: Do not add to previous drawPerformed By: #### 97793 #### [facility] [address] [facility] [place] [address], USAPHOSPHORUS BLOODon 63-50-7059Jifogjzlx [Mass/Vol]3.4 mg/dL Normal2.5-5.0The [facility] HospitalComment on above:Order Comment: Other, s/p antrectomy with gastrojejunostomy. r/o leak or abscess/fluid collection.Performed By: #### 77071, 23111, 55075 ####[facility] [facility] [place] [address], USAPORTABLE CHEST 1 VIEWon 68-64-5741NTPPSLKS CHEST 1 VIEWUnUniversity [facility]als [facility] Department of Radiology [address] [place] [address] Patient Name: SHELIA BRITO : 1970 Sex: F Age: Race: White Pt. Location: [place] [address] Patient Status: I Ordered Date: 10/19/2020 11:25:00 AM Completed Date: 10/19/2020 12:18 PM Requesting Provider: MAHSA MILLER Attending Provider: LATONYA MCCLURE Report Copy To: Signs & Symptoms: O2 Desaturation History: See Comments Comments: R/O Atelectasis Exam: PORTABLE CHEST 1 VIEW PORTABLE CHEST 1 VIEW 10/19/2020 12:18 PM CLINICAL INDICATIONS: O2 Desaturation TECHNOLOGIST COMMENTS: sob QUESTION FOR THE RADIOLOGIST: R/O Atelectasis PROTOCOL: AP(PA) view was obtained. COMPARISON: October 16, 2020 FINDINGS: Multiple surgical drainage tubes in the upper abdomen. Nasogastric tube present. Heart unchanged. Patchy bilateral airspace density most likely pneumonia. Slightly improved. Improved small left pleural effusion.decreased since prior study IMPRESSION: Patchy bilateral airspace density most likely pneumonia. Slightly improved. Improved small left pleural effusion. Electronically signed: Uriel Singh. Transcribed by: [id number], User Resident: Electronically Signed by: URIEL SINGH @ 10/19/2020 12:34 PMNormalThe [facility]itan HospitalComment on above:Order Comment: Yes: Add to Previous draw if ableBASIC METABOLIC PANELon 02-93-3604Fukdhoe [Mass/Vol]7.6 mg/dLLow8.6-10.3The [facility] HospitalComment on above:Order Comment: No: Do not add to previous drawPerformed By: #### 85056, 35492 ####[facility] [place] [address], [place] Chloride [Moles/Vol]101 mmol/PEjrksu42-895Zhh [facility] HospitalComment on above:Order Comment: No: Do not add to previous drawPerformed By: #### 56757, 09306 ####[facility] [place] [address], USACO2 [Moles/Vol]29 mmol/IVcfjgb39-36Lmq [facility] HospitalComment on above:Order Comment: No: Do not add to previous drawPerformed By: #### 85190, 60273 ####[facility] [place] [address], USACreatinine [Mass/Vol]0.42 mg/dLLow0.60-1.20 The [facility] HospitalComment on above:Order Comment: No: Do not add to previous drawPerformed By: #### 79357, 93877 ####[facility] [place] [address], USAGFR/1.73 sq M.predicted among blacks MDRD (S/P/Bld) [Vol rate/Area]mL/min/{1.73_m2}Normal>60The [facility] HospitalComment on above:Order Comment: No: Do not add to previous drawPerformed By: #### 87835, 77619 ####[facility] [place] [address], USAGFR/1.73 sq M.predicted among non-blacks MDRD (S/P/Bld) [Vol rate/Area]mL/min/{1.73_m2}Normal>60The [facility] HospitalComment on above:Order Comment: No: Do not add to previous drawPerformed By: #### 24796, 43368 ####[facility] [facility] [address], USAGlucose [Mass/Vol]97 mg/dL Vwhesp09-834Jlo [facility] HospitalComment on above:Order Comment: No: Do not add to previous drawPerformed By: #### 44441, 86742 ####[facility] [facility] [address], [place] Potassium [Moles/Vol]3.8 mmol/LNormal3.5-5.1The [facility] HospitalComment on above:Order Comment: No: Do not add to previous drawPerformed By: #### 24036, 94203 ####[facility] [place] [address], [place] [facility] AT L[facility] VEGASSodium [Moles/Vol]137 mmol/[id number] [facility] HospitalComment on above:Order Comment: No: Do not add to previous drawPerformed By: #### [id number] ####[facility] [place] [address], [place]Urea nitrogen [Mass/Vol]4 mg/dLLow 7-25The [facility] HospitalComment on above:Order Comment: No: Do not add to previous drawPerformed By: #### [id number], [id number] ####[facility] [place] [address], [place] COMPLETE BLOOD COUNTon [id number] distribution width (RBC) [Ratio]13.3 %Normal 11.5-15.0The [facility] HospitalComment on above:Order Comment: No: Do not add to previous drawPerformed By: #### [id number] ####[facility] [place] [address], [place] [facility] AT L[facility] VEGASHematocrit (Bld) [Volume fraction]31.1 %Low36.0-45.0The [facility] HospitalComment on above:Order Comment: No: Do not add to previous drawPerformed By: #### [id number] ####[facility] [place] [address], [place] Hemoglobin (Bld) [Mass/Vol]9.5 g/dLLow12.0-15.0The [facility]itan HospitalComment on above:Order Comment: No: Do not add to previous drawPerformed By: #### [id number] ####[facility] [place] [address], [facility] L[facility] VEGASMCH (RBC) [Entitic mass]28.4 opOnxqqn95.0-33.0The [facility] HospitalComment on above:Order Comment: No: Do not add to previous drawPerformed By: #### [id number] ####[facility] [address], [facility] CORDELLHC (RBC) [Mass/Vol]30.5 g/dLLow32.0-35.0The [facility] HospitalComment on above:Order Comment: No: Do not add to previous drawPerformed By: #### [id number] ####[facility] [id number], [facility] COR[facility]LLV (RBC) [Entitic vol]92.8 fL Dksrij98.0-98.0The [facility] HospitalComment on above:Order Comment: No: Do not add to previous drawPerformed By: #### [id number] ####[facility] [place] [address], [facility] L[facility] VEGASNucleated RBC/100 WBC (Bld) [Ratio]0 %Normal0-0[facility] Comment on above:Order Comment: No: Do not add to previous drawPerformed By: #### 86949 ####[facility] [place] [address], [facility] IN[facility] AT L[facility] VEGASPLAT [id number] 10*3/cPNhdrpm593-232Lue [facility] HospitalComment on above:Order Comment: No: Do not add to previous drawPerformed By: #### [id number] ####[facility] [address], [facility] IN[facility] AT L[facility] VEGASRBC (Bld) [#/Vol]3.35 10*6/uLLow3.80-5.00The [facility] HospitalComment on above:Order Comment: No: Do not add to previous draw Performed By: #### [id number] ####[facility] [id number], [facility]STITUTE AT L[facility] VEGASWBC (Bld) [#/Vol]11.71 10*3/uLHigh4.00-10.60The [facility] HospitalComment on above:Order Comment: No: Do not add to previous drawPerformed By: #### 11030 ####[facility] [place] [address], USAMAGNESIUM BLOODon 10-18-2020 Magnesium [Mass/Vol]1.9 mg/dLNormal1.9-2.7The [facility] HospitalComment on above:Order Comment: No: Do not add to previous drawPerformed By: #### 02858, 38068 ####[facility] [place] [address], USAAMYLASE BLOODon 13-48-9314SYVASNN27 Units/AWzg43-206Fys [facility] HospitalComment on above:Performed By: #### 26641, 08348, 47724, 69139, 83322 ####[facility] [place] [address], USABASIC METABOLIC PANELon 03-39-7080Uugbeqo [Mass/Vol] 7.3 mg/dLLow8.6-10.3The [facility] HospitalComment on above: Order Comment: No: Do not add to previous drawPerformed By: #### 74248, 42669, 91541, 22154, 79980 ####[facility] [place] [address], USAChloride [Moles/Vol]99 mmol/DFsspjt62-478Hlh [facility] HospitalComment on above:Order Comment: No: Do not add to previous drawPerformed By: #### 23857, 76382, 95557, 40670, 66509 ####[facility] [place] [address], USACO2 [Moles/Vol] 30 mmol/UNvetdp28-14Yjt [facility] HospitalComment on above: Order Comment: No: Do not add to previous drawPerformed By: #### 39338, 61767, 24532, 90962, 63308 ####[facility] [place] [address], USACreatinine [Mass/Vol]0.46 mg/dLLow0.60-1.20The [facility] HospitalComment on above:Order Comment: No: Do not add to previous drawPerformed By: #### 02552, 73877, 74053, 28993, 06310 ####[facility] [place] [address], [place] GFR/1.73 sq M.predicted among blacks MDRD (S/P/Bld) [Vol rate/Area] mL/min/{1.73_m2}Normal>60The [facility] HospitalComment on above:Order Comment: No: Do not add to previous drawPerformed By: #### 86316, 21122, 90228, 16736, 28988 ####[facility] [place] [address], USAGFR/1.73 sq M.predicted among non-blacks MDRD (S/P/Bld) [Vol rate/Area]mL/min/{1.73_m2}Normal>60The [facility] Comment on above:Order Comment: No: Do not add to previous drawPerformed By: #### 67791, 75529, 10838, 70406, 91458 ####[facility] [place] [address], USAGlucose [Mass/Vol]122 mg/dLHigh 70-100The [facility] HospitalComment on above:Order Comment: No: Do not add to previous drawPerformed By: #### 81261, 42047, 02431, 56479, 54559 ####[facility] [place] [address], [place] Potassium [Moles/Vol]3.4 mmol/LLow3.5-5.1The [facility] Comment on above:Order Comment: No: Do not add to previous drawPerformed By: #### 84305, 42414, 28951, 09894, 23102 ####[facility] [place] [address], USASodium [Moles/Vol]135 mmol/LLow 136-145The [facility] HospitalComment on above:Order Comment: No: Do not add to previous drawPerformed By: #### 18293, 29549, 48013, 68071, 71535 ####[facility] [place] [address], USAUrea nitrogen [Mass/Vol]5 mg/dLLow7-25The [facility] HospitalComment on above:Order Comment: No: Do not add to previous drawPerformed By: #### 46784, 22380, 06353, 07546, 24193 ####[facility] [place] [address], USACALCIUM IONIZED CBGLon 10-17-2020 IONIZED CALCIUM1.03 mmol/LLow1.12-1.30The [facility] Comment on above:Performed By: #### 07110, 36264, 19515, 75699, 38391 #### [facility] [address] [place] [address], USACBC COMPLETE BLOOD COUNTon 33-56-9633Cavfexkoesj distribution width (RBC) [Ratio]13.5 %Siexac27.5-15.0The [facility] HospitalComment on above:Order Comment: No: Do not add to previous draw Performed By: #### 69685 ####[facility] [place] [address], USAHematocrit (Bld) [Volume fraction]31.4 %Low36.0-45.0The [facility] HospitalComment on above:Order Comment: No: Do not add to previous drawPerformed By: #### 80904 ####[facility] [place] [address], USAHemoglobin (Bld) [Mass/Vol]10.0 g/dLLow12.0-15.0The [facility] HospitalComment on above:Order Comment: No: Do not add to previous drawPerformed By: #### 26804 ####[facility] [place] [address], [facility] CORDELLH (RBC) [Entitic mass]28.7 mcAtigdf31.0-33.0[facility] Comment on above:Order Comment: No: Do not add to previous drawPerformed By: #### 77897 ####[facility] [facility] [place] [address], [facility] CORDELLHC (RBC) [Mass/Vol]31.8 g/dLLow32.0-35.0The [facility] HospitalComment on above:Order Comment: No: Do not add to previous draw Performed By: #### 12055 ####[facility] [facility] [place] [address], [facility]LLV (RBC) [Entitic vol]90.0 dGIdvcjq79.0-98.0The [facility] HospitalComment on above:Order Comment: No: Do not add to previous drawPerformed By: #### 92160 ####[facility] [facility] [place] [address], [facility] L[facility] VEGASNucleated RBC/100 WBC (Bld) [Ratio]0 %Normal0-0The [facility] HospitalComment on above:Order Comment: No: Do not add to previous drawPerformed By: #### 80434 ####[facility] [facility] [place] [address], [facility] IN[facility] AT L[facility] VEGASPLAT BBW572 10*3/pNKlmmjp984-592Cay [facility] HospitalComment on above: Order Comment: No: Do not add to previous drawPerformed By: #### 59293 ####[facility] [facility] [place] [address], [facility] RBC (Bld) [#/Vol]3.49 10*6/uLLow3.80-5.00The [facility] Comment on above:Order Comment: No: Do not add to previous drawPerformed By: #### 03591 ####[facility] [place] [address], USAWBC (Bld) [#/Vol]11.70 10*3/uLHigh4.00-10.60The [facility] HospitalComment on above:Order Comment: No: Do not add to previous draw Performed By: #### 08649 ####[facility] [place] [address], USALIPASE BLOODon 54-35-0153HQAJLL3 Units/XRro91-82Ejh [facility] HospitalComment on above:Performed By: #### 28824, 39214, 28616, 49391, 31079 ####[facility] [place] [address], USAMAGNESIUM BLOODon 00-95-0660Uspysxzah [Mass/Vol]1.8 mg/dLLow1.9-2.7The [facility] HospitalComment on above:Order Comment: No: Do not add to previous drawPerformed By: #### 18262, 06158, 14542, 41566, 04467 ####[facility] [place] [address], USAPHOSPHORUS BLOODon 02-44-1299Tiolnnsgc [Mass/Vol]2.0 mg/dLLow 2.5-5.0The [facility] HospitalComment on above:Order Comment: No: Do not add to previous drawPerformed By: #### 65837, 15218, 35372, 17255, 05006 ####[facility] [place] [address], USABASIC METABOLIC PANELon 09-25-9048Gymygsr [Mass/Vol]7.4 mg/dLLow 8.6-10.3The [facility] HospitalComment on above:Order Comment: No: Do not add to previous drawPerformed By: #### 14943, 37562, 67589 ####[facility] [place] [address], [place] Chloride [Moles/Vol]107 mmol/TMbyyqd28-453Dla [facility] HospitalComment on above:Order Comment: No: Do not add to previous drawPerformed By: #### 30350, 51464, 62116 ####[facility] [place] [address], USACO2 [Moles/Vol]23 mmol/LXpypvj37-54Whs [facility] HospitalComment on above:Order Comment: No: Do not add to previous drawPerformed By: #### 42071, 14256, 15270 ####[facility] [place] [address], USACreatinine [Mass/Vol]0.36 mg/dLLow0.60-1.20The [facility] HospitalComment on above:Order Comment: No: Do not add to previous drawPerformed By: #### 96805, 80301, 66277 ####[facility] [place] [address], USAGFR/1.73 sq M.predicted among blacks MDRD (S/P/Bld) [Vol rate/Area] mL/min/{1.73_m2}Normal>60The [facility] HospitalComment on above:Order Comment: No: Do not add to previous drawPerformed By: #### 58152, 30515, 12924 ####[facility] [place] [address], USAGFR/1.73 sq M.predicted among non-blacks MDRD (S/P/Bld) [Vol rate/Area]mL/min/{1.73_m2}Normal>60The [facility] Comment on above:Order Comment: No: Do not add to previous drawPerformed By: #### 75976, 00656, 50963 ####[facility] [facility] [place] [address], [facility] L[facility] VEGASGlucose [Mass/Vol]161 mg/nLFfty33-239Yrq [facility] HospitalComment on above:Order Comment: No: Do not add to previous drawPerformed By: #### 40233, 15890, 37489 ####[facility] [facility] [place] [address], [facility] L[facility] VEGASPotassium [Moles/Vol]4.1 mmol/L Normal3.5-5.1The [facility] HospitalComment on above:Order Comment: No: Do not add to previous drawPerformed By: #### 86372, 59148, 20444 ####[facility] [facility] [place] [address], [facility] Sodium [Moles/Vol]137 mmol/EEleibk617-733Osl [facility] Comment on above:Order Comment: No: Do not add to previous drawPerformed By: #### 44703, 84718, 75854 ####[facility] [facility] [place] [address], [facility] L[facility] VEGASUrea nitrogen [Mass/Vol]7 mg/dLNormal7-25The [facility] HospitalComment on above:Order Comment: No: Do not add to previous drawPerformed By: #### 87321, 20337, 78483 ####[facility] [place] [address].[place] [address], [facility] L[facility] VEGASCBC W/DIFFon 24-10-9051RHN IMM GRANS0.1 10*3/uLNormal0.0-0.2The [facility] HospitalComment on above:Order Comment: No: Do not add to previous drawPerformed By: #### 53494 ####[facility] [facility] [place] [address], [facility] ABS XZOFEJUBONU43.7 10*3/uLHigh1.6-7.6The [facility] Comment on above:Order Comment: No: Do not add to previous drawPerformed By: #### 27668 ####[facility] [facility] [place] [address], [facility] L[facility] VEGASBasophils (Bld) [#/Vol]0.0 10*3/uLNormal0.0-0.2The [facility] HospitalComment on above:Order Comment: No: Do not add to previous drawPerformed By: #### 22242 ####[facility] [facility] [place] [address], USABasophils/100 WBC (Bld)0.2 %Normal0.0-1.0The [facility] HospitalComment on above:Order Comment: No: Do not add to previous drawPerformed By: #### 04801 ####[facility] [facility] [place] [address], [facility] L[facility] VEGASEosinophils (Bld) [#/Vol]0.0 10*3/uLNormal0.0-0.5The [facility] HospitalComment on above: Order Comment: No: Do not add to previous drawPerformed By: #### 02755 ####[facility] [facility] [place] [address], [place] Eosinophils/100 WBC (Bld)0.0 %Normal0.0-6.0The [facility] HospitalComment on above:Order Comment: No: Do not add to previous drawPerformed By: #### 72676 ####[facility] [facility] [place] [address], USAErythrocyte distribution width (RBC) [Ratio]13.5 %Msrvww76.5-15.0 The [facility] HospitalComment on above:Order Comment: No: Do not add to previous drawPerformed By: #### 42692 ####[facility] [facility] [place] [address], [facility] L[facility] VEGASHematocrit (Bld) [Volume fraction]36.3 %Edcuxx52.0-45.0The [facility] HospitalComment on above:Order Comment: No: Do not add to previous drawPerformed By: #### 79231 ####[facility] [place] [address], [place] Hemoglobin (Bld) [Mass/Vol]11.5 g/dLLow12.0-15.0The [facility] HospitalComment on above:Order Comment: No: Do not add to previous drawPerformed By: #### 19665 ####[facility] [address], USAIMMATURE GRANS0.4 %Normal0.0-1.0The [facility] HospitalComment on above:Order Comment: No: Do not add to previous drawPerformed By: #### 02066 ####[facility] [facility] [place] [address], USALymphocytes (Bld) [#/Vol]1.4 10*3/uLNormal1.2-4.0The [facility] HospitalComment on above:Order Comment: No: Do not add to previous drawPerformed By: #### 24088 ####[facility] [place] [address], [facility] L[facility] VEGASLymphocytes/100 WBC (Bld)8.7 %Low20.0-45.0The [facility] HospitalComment on above:Order Comment: No: Do not add to previous drawPerformed By: #### 03909 ####[facility] [place] [address], [facility] AT L[facility] VEGASMCH (RBC) [Entitic mass]28.6 pg Zqlvjt69.0-33.0The [facility] HospitalComment on above:Order Comment: No: Do not add to previous drawPerformed By: #### 31269 ####[facility] [place] [address], [facility] L[facility] VEGASMCHC (RBC) [Mass/Vol]31.7 g/dLLow32.0-35.0The [facility] HospitalComment on above:Order Comment: No: Do not add to previous drawPerformed By: #### 33590 ####[facility] [place] [address], [place] MCV (RBC) [Entitic vol]90.3 iAYvjczg61.0-98.0The [facility] HospitalComment on above:Order Comment: No: Do not add to previous drawPerformed By: #### 09216 ####[facility] [place] [address], [facility] L[facility] VEGASMonocytes (Bld) [#/Vol]1.2 10*3/uLHigh0.1-1.0The [facility] HospitalComment on above:Order Comment: No: Do not add to previous drawPerformed By: #### 84230 ####[facility] [facility] [place] [address], USAMONOS7.2 %Normal5.0-12.0The [facility] HospitalComment on above:Order Comment: No: Do not add to previous drawPerformed By: #### 76601 ####[facility] [facility] [place] [address], [facility] L[facility] VEGASNeutrophils/100 WBC (Bld)83.5 %High40.0-72.0 The [facility] HospitalComment on above:Order Comment: No: Do not add to previous drawPerformed By: #### 42994 ####[facility] [facility] [place] [address], USANucleated RBC/100 WBC (Bld) [Ratio]0 %Normal0-0The [facility] HospitalComment on above:Order Comment: No: Do not add to previous drawPerformed By: #### 58829 ####[facility] [facility] [address], [place] PLAT IHK582 10*3/mXPwwstp862-869Cjr [facility] HospitalComment on above:Order Comment: No: Do not add to previous drawPerformed By: #### 11169 ####[facility] [place] [address], [facility] RBC (Bld) [#/Vol]4.02 10*6/uLNormal3.80-5.00The [facility] HospitalComment on above:Order Comment: No: Do not add to previous drawPerformed By: #### 94042 ####[facility] [place] [address], [facility] AT L[facility] VEGASWBC (Bld) [#/Vol]16.46 10*3/uLHigh4.00-10.60The [facility] HospitalComment on above:Order Comment: No: Do not add to previous drawPerformed By: #### 42525 ####[facility] [place] [address], USAMAGNESIUM BLOODon 85-70-8186Dlbtzvvpo [Mass/Vol]1.6 mg/dLLow1.9-2.7The [facility] HospitalComment on above:Order Comment: No: Do not add to previous drawPerformed By: #### 38253, 15826, 97378 ####[facility] [address]ITAL[address] [place] [address], USAOUTSIDE CONSULT -CHESTon [id number] CONSULT -CHESTUnUniversity [facility] Department of Radiology [address] [place] [id number] Patient Name: SHELIA BRITO : 1970 Sex: F Age: Race: White Pt. Location: [id number] Patient Status: I Ordered Date: 10/16/2020 7:30:00 AM Completed Date: 10/16/2020 07:30 AM Requesting Provider: JADA BOLAÑOS Attending Provider: LATONYA MCCLURE Report Copy To: YUE FUNEZ Signs & Symptoms: outside consult History: [facility] 10/15/[address] Jada Bolaños rule out duodenal stump leak Comments: Exam: OUTSIDE CONSULT -CHEST OUTSIDE CONSULT -CHEST 10/16/2020 7:31 AM OUTSIDE STUDY: CT angiogram of the chest TECHNIQUE: Outside CT images of the rest obtained from [facility] dated 10/15/2019. Image review with formal consultation was requested by Jada Bolaños. FINDINGS: Pulmonary Angiogram Diagnostic Quality: Diagnostic to segmental level. Pulmonary Arteries: No embolism detected. Normal in caliber. Other vessels: Thoracic aorta is normal in course and caliber. No acute aortic abnormality on this non-gated study. No significant coronary artery calcification. LUNG/PLEURA: Trachea and central airways are patent. Multifocal areas of segmental volume loss with internal air bronchograms, including the right middle lobe and lower lobes. Patchy groundglass opacities in the upper lobes. Mild interlobular septal thickening. No significant effusion or pneumothorax. HEART: Heart is normal in size. No pericardial effusion. MEDIASTINUM and LYMPH NODES: No enlarged mediastinal or axillary lymph nodes by size criteria. Small hiatal hernia. UPPER ABDOMEN: Refer to separately dictated dedicated CT of the abdomen MUSCULOSKELETAL AND LOWER NECK Visualized thyroid is normal. Small amount of subcutaneous emphysema along the right chest wall. No acute or suspicious osseous abnormality. IMPRESSION: 1. No acute or chronic pulmonary embolism. 2. Multifocal presumed atelectasis with or without superimposed consolidation. 3. Fluid-filled esophagus with small area. Please note: Our interpretation of studies performed at an outside institution is limited by factors, which may include the absence of technical specifics of the image, undisclosed clinical information and the unavailability of the original interpretation. Specialist at the institution that performed the study may have access to information not available to us that could make a difference in this interpretation. All CT scans at this facility use dose modulation, iterative reconstruction, and/or weight based dosing when appropriate to reduce radiation dose to as low as reasonably achievable. Electronically signed: JAZZ EDUARDO. Transcribed by: [email or web address], User Resident: Electronically Signed by: JAZZ EDUARDO @ 10/16/2020 10:34 AMNSt. Vincent HospitalOUTSIDE CONSULT GIGUon [id number] CONSULT GIGUUniMercy Health St[facility] Department of Radiology [address] [place] [address] Patient Name: SHELIA BRITO : 1970 Sex: F Age: Race: White Pt. Location: [address] [place] [address] Patient Status: I Ordered Date: 10/16/2020 7:30:00 AM Completed Date: 10/16/2020 07:31 AM Requesting Provider: JADA BOLAÑOS Attending Provider: LATONYA MCCLURE Report Copy To: YUE FUNEZ Signs & Symptoms: outside consult History: [facility] 10/15/2020 CT abd/pelvis Dr Jada Bolaños rule out duodenal stump leak Comments: Exam: OUTSIDE CONSULT GIGU OUTSIDE CONSULT GIGU 10/16/2020 7:31 AM OUTSIDE STUDY: CT of the abdomen and pelvis with contrast TECHNIQUE: Outside CT images of the abdomen and pelvis without contrast obtained from [facility] dated 10/15/2020. Image review with formal consultation was requested by Jada Bolaños. COMPARISON: CT abdomen and pelvis, 09/15/2020 FINDINGS : LOWER CHEST: There is a volume loss in internal air bronchograms, subsegmental, involving the right middle and bilateral lower lobes. No pericardial effusion. Small hiatal hernia. LIVER AND BILIARY: Normal liver contour. Moderate biliary dilatation. Gallbladder surgically absent. The mid CBD measures up to 12 mm in caliber.. PANCREAS: Mild prominence of the pancreatic duct SPLEEN: Normal ADRENALS: Normal KIDNEYS, URETERS, AND BLADDER: Kidneys enhance symmetrically. No hydronephrosis or urolithiasis. No suspicious lesion. Normal bladder contour. GI TRACT AND PERITONEUM: Postoperative changes of gastric antrectomy. No evidence for postoperative obstruction. Suspect a thin, peripheral enhancing fluid collection anterior to the left liver lobe measuring 1.9 x 0.5 cm. Nonspecific stranding/edema throughout the lesser sac and upper abdomen. No pneumoperitoneum.No abnormal bowel thickening. Small amount of stranding throughout the fat of the lesser sac and greater omentum superiorly. VASCULATURE: No aortic aneurysm. Patent superior mesenteric, splenic, portal veins. LYMPH NODES: No adenopathy by size criteria.. A 1 cm lety hepatic lymph node, potentially reactive, though nonspecific. REPRODUCTIVE ORGANS: Uterus is not visualized. No adnexal mass. MUSCULOSKELETAL: Subcutaneous emphysema along the ventral and right body wall. No acute or suspicious osseous abnormality. Changes of prior hernia repair. No residual/recurrent hernia in the supine position. IMPRESSION: 1. Postoperative changes of gastric antrectomy. Large amount stranding/inflammation throughout the subhepatic space, lesser sac, and right upper quadrant, potential postoperative, though raises suspicion for peritonitis with biliary leak not excluded. Questionable small fluid collection anterior left lower lobe as above Please note: Our interpretation of studies performed at an outside institution is limited by factors, which may include the absence of technical specifics of the image, undisclosed clinical information and the unavailability of the original interpretation. Specialist at the institution that performed the study may have access to information not available to us that could make a difference in this interpretation. All CT scans at this facility use dose modulation, iterative reconstruction, and/or weight based dosing when appropriate to reduce radiation dose to as low as reasonably achievable Electronically signed: JAZZ EDUARDO. Transcribed by: [id number], User Resident: Electronically Signed by: JAZZ EDUARDO @ 10/16/2020 10:28 AMNormalCleveland Clinic Children's Hospital for RehabilitationOperative Reporton [id number] Report MR#: [id number] I [facility] Pt. Name: Shelia Brito Room #: 3AB [id number] Discharge Date: Birthdate: 1970 OPERATIVE REPORT DATE OF SURGERY: 10/15/2020 SURGEON: Latonya Mcclure M.D. PREOPERATIVE DIAGNOSIS: Duodenal stump leak. POSTOPERATIVE DIAGNOSIS: Duodenal stump leak. PROCEDURE PERFORMED: Diagnostic laparoscopy converted to exploratory laparotomy with oversewing of duodenal stump. RESIDENT: Jada Bolaños MD. ESTIMATED BLOOD LOSS: Minimal. IV FLUIDS: 600 of crystalloid. URINE OUTPUT: 18 mL. INDICATION: This is a 50-year-old female with recent robotic assisted laparoscopic antrectomy with truncal vagotomy and gastrojejunostomy. She was discharged in good and stable condition and she presents to the ER with acute abdominal pain and on the clinical exam. CT scan showed free fluid with multiple duodenal stump leak. The plan for a diagnostic laparoscopy with possible laparotomy was discussed with the patient. Risks, benefits, and alternatives explained to her in detail. She agreed to proceed with the operation. PROCEDURE IN DETAIL: The patient was taken to the operating room where a time-out was performed to verify correct patient, procedure, and site. The patient was transferred to the operating table and placed in supine position. Cardiopulmonary monitoring was continued. EPC cuffs were placed in lower extremities bilaterally. Prophylactic antibiotic was administered by anesthesia team and found to be adequate. The patient was then prepped and draped in usual sterile fashion. A left lateral 5 mm incision was made. The peritoneal cavity was accessed in Optiview fashion with 5 mm port. Insufflation on the CO2 gas was obtained and the patient tolerated pneumoperitoneum without any difficulty. The scope was advanced to the peritoneal cavity. No injury upon initial port placement was identified. The peritoneal cavity was explored and we found a lot of bile in the peritoneal cavity, mainly on the right lower quadrant. Decision was made to convert to exploratory laparotomy. The scope was removed and the peritoneal cavity was desufflated. Upper midline incision was made. Dissection was carried down through the skin, subcutaneous tissue all the way to the fascia. The fascia was incised and the peritoneal cavity was accessed without any injury to the abdominal cavity. A Bookwalter retractor was placed. Attention was turned to the right upper quadrant. The duodenal stump was explored and we found a small leak from the mid of the duodenal stump. We examined the rest of the duodenal stump and no other injury was identified beside the mid duodenal stump leak. We explored the gastrojejunal anastomosis and no leak was identified. The decision was made to over-sew the duodenal stump. A 3-0 silk suture was used to over-sew the duodenal stump in gbdumg-jj-xuyyi fashion. Tisseel was applied on top of our repair. Omental flap was placed on top of it. The peritoneal cavity was then irrigated and adequate hemostasis was noticed to be achieved. The NG tube was advanced through the distal small bowel limb. The fascia was closed with 0 Maxon suture. The skin was partially closed and packed with iodoform. Dry dressing was applied. Sponge, lap, and instrument counts were correct x2 at the end of the procedure. The patient tolerated the procedure and transferred to the PACU in good and stable condition. Dr. Mcclure was present for the entire procedure. Electronically Signed by: Latonya Mcclure M.D. 10/18/2020 03:13 P Latonya Mcclure M.D. I was present for the entire procedure. Date Dict: 10/15/2020/07:11 P/Jada Bolaños MD Date Trans: 10/16/2020 02:42 A/oliva DN_[id number] cc: Yue Funez M.D. [address] [place] [id number] Citizens HospitalPHOSPHORUS BLOODon [id number] [Mass/Vol]2.0 mg/dLLow2.5-5.0The [facility]aritan HospitalComment on above:Order Comment: No: Do not add to previous drawPerformed By: #### 47701, 30009, 81601 ####[facility] [facility] [facility] [place] [address], USAPORTABLE CHEST 1 VIEWon 10-16-2020 PORTABLE CHEST 1 VIEWUnUniversity Hospitals [facility] Department of Radiology [address] [place] [address] Patient Name: SHELIA BRITO : 1970 Sex: F Age: Race: White Pt. Location: [address] [place] [address] Patient Status: I Ordered Date: 10/16/2020 4:15:00 PM Completed Date: 10/16/2020 05:08 PM Requesting Provider: SABIHA ONTIVEROS Attending Provider: LATONYA MCCLURE Report Copy To: Signs & Symptoms: O2 Desaturation History: Comments: evaluate for Infiltrates Exam: PORTABLE CHEST 1 VIEW PORTABLE CHEST 1 VIEW 10/16/2020 5:08 PM CLINICAL INDICATIONS: O2 Desaturation TECHNOLOGIST COMMENTS: chest pain and shortness of breath. QUESTION FOR THE RADIOLOGIST: evaluate for Infiltrates PROTOCOL: AP(PA) view was obtained. COMPARISON: None FINDINGS: Nasogastric tube goes to the stomach There are tubes and drains in the upper abdomen with gas in the right chest wall and abdominal wall Low lung volumes Mild cardiomediastinal prominence with congested appearance Bilateral airspace opacities Basilar atelectasis greater on the left Small effusions No visible pneumothorax or cavitary process IMPRESSION: Slightly low lung volumes with congested appearance and bilateral airspace opacities, small effusions Pattern could be seen with pulmonary edema. Other process including aspiration pneumonitis or hemorrhage or atypical infection could have a similar appearance Recommend close clinical follow-up and progress imaging to check for clearing and normalization. Postsurgical changes with gas in the right chest and abdomen wall, tubes and drains in the upper abdomen Electronically signed: Cristine Armenta. Transcribed by: [id number], User Resident: Electronically Signed by: CRISTINE ARMENTA @ 10/16/2020 05:26 PMNormalCleveland Clinic Children's Hospital for RehabilitationComment on above:Order Comment: Yes: Add to Previous draw if able*BLOOD CULTUREon 10-15-2020*BLOOD CULTUREClinical Report: (D) Specimen: BLOOD CULTURE Collected: 10/15/2020 13:58 Status: Final Last Updated: 10/21/2020 07:37 (1) PT NOT IN ROOM YET CULT RES (Final) No Growth Day [address] [place], [place] [address]Comment on above: Order Comment: PT NOT IN ROOM YETPerformed By: #### 38586 #### [facility] [address]*BLOOD CULTUREClinical Report: (D) Specimen: BLOOD CULTURE Collected: 10/15/2020 13:58 Status: Final Last Updated: 10/21/2020 07:37 CULT RES (Final) No Growth Day [address] [place], [place] [address]Comment on above: Performed By: #### 11430, 83657, 72388, 09362, 12175 #### [facility] [address] [place] [address], [facility]*SARS-CoV-2 COVID-19on 51-83-5110KQCM-CoV-2 (COVID-19) RNA KYLEIGH+probe Ql (Unsp spec)Not detectedNormalNot DetectedThe Good Samaritan HospitalComment on above:Order Comment: Yes: Add to Previous draw if able Performed By: #### 89543, 75110, 40281, 07050, 72030 #### [facility] [address] [facility] [place] [address], [facility] AT L[facility] VEGASARTERIAL BLOOD GAS W/COOXon 06-01-1189BDAS EXCESS-1 mmol/L Cnmcok-5-9Qvc [facility] HospitalComment on above:Performed By: #### 46209, 57750, 91500, 62087 ####[place] [address] [place] [address], [facility] AT L[facility] VE[facility]ASCOHB1.2 %Normal0.0-1.5The [facility]itan HospitalComment on above:Performed By: #### 63290, 03772, 99135, 66304 ####[address] [place] [address], [facility] HCO3 (Bld) [Moles/Vol]22 mmol/VMejzok92-55Rrq [facility] HospitalComment on above:Performed By: #### 01290, 43470, 23593, 50985 ####[address] [place] [address], [facility] METHB1.1 %Normal0.0-1.5The [facility] Samaritan HospitalComment on above: Performed By: #### 20492, 82609, 22468, 24683 ####[address] [place] [address], [facility] INSTITUTE AT L[facility] VE[facility]ASO2 VWWSAUJ45 ml/dlNormalThe [facility]itan HospitalComment on above:Performed By: #### 33953, 46856, 36002, 04481 ####[address] [place] [address], [facility] L[facility]ASOxygen (Bld) [Partial pressure]139 mm[Hg]Critically zlno93-557Xti [facility] HospitalComment on above:Performed By: #### 13383, 13759, 26216, 52779 ####[address] [place] [address], [facility] AT L[facility] VE[facility]ASOxygen saturation in Blood97.5 %High94.0-97.0 The [facility] Samaritan HospitalComment on above:Performed By: #### 58454, 66826, 28098, 32363 ####[facility] [place] [address], FGGHEU803 duDmOgt93-91Nyc [facility] HospitalComment on above:Performed By: #### 72342, 79185, 08415, 27066 ####[facility] [place] [address], USApH (Bld)7.45 [pH]Normal7.35-7.45The [facility]itan HospitalComment on above:Performed By: #### 41398, 44351, 20986, 30787 ####[facility] [place] [address], FNEHEN82.8 g/dLLow12.0-16.3The [facility] HospitalComment on above:Performed By: #### 91337, 61177, 50450, 05472 ####[facility] [place] [address], USABASIC METABOLIC PANELon 27-35-2953Mavtfik [Mass/Vol]8.4 mg/dLLow8.6-10.3The [facility] HospitalComment on above: Performed By: #### 73966 #### [facility] [address] [place] [address], USAChloride [Moles/Vol]104 mmol/PCtjiem35-336Ktg [facility] HospitalComment on above:Performed By: #### 65483 #### [facility] [address] [place] [address], USACO2 [Moles/Vol]23 mmol/SVudooy03-92Mkc [facility] HospitalComment on above:Performed By: #### 62804 #### [facility] [address] [place] [address], USACreatinine [Mass/Vol]0.52 mg/dLLow0.60-1.20The [facility] HospitalComment on above:Performed By: #### 22544 #### [facility] [address] [place] [address], USAGFR/1.73 sq M.predicted among blacks MDRD (S/P/Bld) [Vol rate/Area]mL/min/{1.73_m2}Normal>60The [facility] Comment on above:Performed By: #### 93739 #### [facility] [address] [place] [address], USAGFR/1.73 sq M.predicted among non-blacks MDRD (S/P/Bld) [Vol rate/Area]mL/min/{1.73_m2}Normal>60The [facility] Comment on above:Performed By: #### 79161 #### [facility] [address] [place] [address], USAGlucose [Mass/Vol]157 mg/oCYfxc43-465Lel [facility] HospitalComment on above:Performed By: #### 13156 #### [facility] [address] [place] [address], USAPotassium [Moles/Vol]4.0 mmol/LNormal3.5-5.1The [facility] HospitalComment on above:Performed By: #### 99091 #### [facility] [address] [place] [address], USASodium [Moles/Vol]139 mmol/ZCaxsxz708-061Rlw [facility] HospitalComment on above:Performed By: #### 35461 #### [facility] [address] [place] [address], USAUrea nitrogen [Mass/Vol]12 mg/dLNormal7-25The [facility] HospitalComment on above:Performed By: #### 58786 #### [facility] [address] [place] [address], USACALCIUM IONIZED CBGLon 83-04-1367HUORDPV CALCIUM1.13 mmol/L Normal1.13-1.32The [facility] HospitalComment on above:Performed By: #### 49739, 60470, 30823, 87359 ####[facility] [place] [address], [facility] W/DIFFon 88-07-4495EOZ STAOKYVYUDY28.3 10*3/uLHigh1.6-7.6The [facility] HospitalComment on above: Performed By: #### 55880, 89537, 18154, 36114, 12254 #### [facility] [address] [facility] [place] [address], USABasophils (Bld) [#/Vol]0.0 10*3/uLNormal0.0-0.2The [facility] HospitalComment on above:Performed By: #### 86194, 40313, 70169, 25109, 66371 #### [facility] [address] [facility] [place] [address], USABasophils/100 WBC (Bld)0.0 %Normal0.0-1.0The [facility] HospitalComment on above:Performed By: #### 85048, 32742, 51487, 46000, 24054 #### [facility] [address] [facility] [place] [address], USAEosinophils (Bld) [#/Vol]0.0 10*3/uLNormal0.0-0.5The [facility] HospitalComment on above:Performed By: #### 54969, 70377, 06409, 31059, 93914 #### [facility] [address] [facility] [place] [address], USAEosinophils/100 WBC (Bld)0.0 %Normal0.0-6.0The [facility] HospitalComment on above:Performed By: #### 29409, 57715, 47871, 63132, 63600 #### [facility] [address] [facility] [place] [address], USAErythrocyte distribution width (RBC) [Ratio]13.4 %Normal 11.5-15.0The [facility] HospitalComment on above:Performed By: #### 60792, 62049, 67424, 63488, 93169 #### [facility] [address] [facility] [place] [address], USAGIANT PLATELETSPresentNormalThe [facility]itan HospitalComment on above:Performed By: #### 39917, 24342, 38232, 00972, 72396 #### [facility] [address] [facility] [place] [address], USAHematocrit (Bld) [Volume fraction]40.4 %Xfifoe61.0-45.0The [facility] HospitalComment on above:Performed By: #### 19270, 35339, 64880, 23153, 20904 #### [facility] [address] [facility] [place] [address], USAHemoglobin (Bld) [Mass/Vol]13.0 g/rQNxtdbt33.0-15.0The [facility] HospitalComment on above:Performed By: #### 42673, 69419, 90074, 72705, 62973 #### [facility] [address] [facility] [place] [address], USALymphocytes (Bld) [#/Vol]0.4 10*3/uLLow1.2-4.0The [facility] HospitalComment on above:Performed By: #### 62283, 00433, 70300, 65864, 61842 #### [facility] [address] [facility] [place] [address], USALymphocytes/100 WBC (Bld)1.8 %Low20.0-45.0The [facility] HospitalComment on above:Performed By: #### 00665, 24423, 42253, 36310, 74733 #### [facility] [address] [place] [id number], [facility]LLH (RBC) [Entitic mass]28.8 inNvpzjj10.0-33.0The [facility] HospitalComment on above:Performed By: #### 67409, 35059, 73342, 72953, 31764 #### [facility] [address] [place] [id number], [facility] COR[facility]LLHC (RBC) [Mass/Vol]32.2 g/qRLtgadj61.0-35.0The [facility] HospitalComment on above:Performed By: #### 64751, 21033, 01034, 72369, 78113 #### [facility] [address] [place] [id number], [facility]LLV (RBC) [Entitic vol]89.4 zBAbspun42.0-98.0The [facility] HospitalComment on above:Performed By: #### 58932, 25465, 75147, 52837, 18051 #### [facility] [address] [facility] [address], USAMonocytes (Bld) [#/Vol]1.0 10*3/uLNormal0.1-1.0The [facility] HospitalComment on above:Performed By: #### 39593, 87436, 95614, 37044, 10972 #### [facility] [address] [place] [address], USAMONOS4.6 %Low5.0-12.0The [facility] HospitalComment on above:Performed By: #### 47923, 60714, 37785, 80574, 86193 #### [facility] [address] [place] [address], USANeutrophils/100 WBC (Bld)93.6 %High40.0-72.0The [facility] HospitalComment on above:Performed By: #### 74347, 35805, 96041, 64415, 16901 #### [facility] [address] [place] [address], USANucleated RBC/100 WBC (Bld) [Ratio]0 %Normal0-0The [facility] HospitalComment on above:Performed By: #### 00154, 45460, 25578, 15197, 71469 #### [facility] [address] [place] [address], USAPLAT WKR715 10*3/fAInvjom039-245Fki [facility] HospitalComment on above:Performed By: #### 14720, 85522, 66159, 08932, 48961 #### [facility] [address] [place] [address], USARBC (Bld) [#/Vol]4.52 10*6/uLNormal3.80-5.00The [facility] HospitalComment on above:Performed By: #### 12544, 56630, 21775, 93935, 42425 #### [facility] [address] [place] [address], USAWBC (Bld) [#/Vol]21.72 10*3/uLHigh4.00-10.60The [facility] HospitalComment on above:Performed By: #### 14526, 16997, 95372, 25515, 93277 #### [facility] [address] [place] [address], USACT ABDOMEN AND PELVIS W ORAL CONTRASTon 37-21-8112ZF ABDOMEN AND PELVIS W ORAL CONTRASTUnUniversity Hospitals [facility] Department of Radiology [address] [place] [address] Patient Name: SHELIA BRITO : 1970 Sex: F Age: Race: White Pt. Location: [facility] Patient Status: José Luis Ordered Date: 10/15/2020 10:10:00 AM Completed Date: 10/15/2020 11:38 AM Requesting Provider: SABIHA ONTIVEROS Attending Provider: FRANSISCO MATHEW Report Copy To: Signs & Symptoms: Abdominal Pain(specify) History: See Comments Comments: Other, s/p antrectomy with gastrojejunostomy. r/o leak or abscess/fluid collection. Exam: CT ABDOMEN AND PELVIS W ORAL CONTRAST CT ABDOMEN AND PELVIS W ORAL CONTRAST 10/15/2020 11:38 AM CLINICAL INDICATIONS: Abdominal Pain(specify) TECHNOLOGIST COMMENTS: s/p antrectomy with gastrojejunostomy. r/o leak or abscess/fluid collection. QUESTION FOR THE RADIOLOGIST: Other, s/p antrectomy with gastrojejunostomy. r/o leak or abscess/fluid collection. PROTOCOL: Axial CT images of the abdomen and pelvis were obtained without IV contrast. TECHNIQUE: Multidetector CT axial slices of the abdomen pelvis without IV contrast. Multiplanar reformats were performed and viewed on a separate workstation and reviewed to further define anatomy and possible pathology. All CT scans at this facility use dose modulation, iterative reconstruction, and/or weight based dosing when appropriate to reduce radiation dose to as low as reasonably achievable COMPARISON: 09/15/2020 FINDINGS: There are postoperative changes about the stomach from a recent antrectomy and gastrojejunostomy. There is no extravasation of the oral contrast to suggest presence of actively. No abnormal fluid collections are seen to stress presence of abscess formation. There is a small amount ascites adjacent to the liver and spleen is new since previous examination. The amount present is insufficient for paracentesis. Other, mild bilateral intravenous contrast, no gross abnormalities seen within the liver, spleen, adrenal glands, or pancreas. Gallbladder has been surgically removed. No abdominal or retroperitoneal masses or adenopathy are seen. No pelvic masses, adenopathy, or fluid collections are identified. There is contrast within the collecting system of both kidneys. The patient has not had a contrast study at this facility since 09/15/2020 and the etiology of this contrast is uncertain. There is subcutaneous changes emphysema in the right lateral abdominal wall. Limited images of the lung bases show bibasilar atelectasis. IMPRESSION: 1. Postoperative changes about the stomach. No evidence of leak or abscess formation is demonstrated. 2. Contrast material seen within the collecting system of both kidneys, however, the patient has not had a contrast study this facility since 09/15/2020. Relation with any recent examinations at outside facilities is recommended. 3. Bibasilar atelectasis. 4. Subcutaneous changes emphysema in the right lateral abdominal wall most likely postoperative in nature. Electronically signed: Aman Linton. Transcribed by: [id number], User Resident: Electronically Signed by: AMAN LINTON @ 10/15/2020 11:46 AMNormalThe [facility]itan HospitalComment on above:Order Comment: Other, s/p antrectomy with gastrojejunostomy. r/o leak or abscess/fluid collection.LACTATE BLOODon 48-00-4990Vwyzocl [Moles/Vol]1.4 mmol/LNormal0.5-2.2The [facility] HospitalComment on above:Performed By: #### 09500 #### [facility] [address] [place] [address], USALIPASE BLOODon 45-20-6360LOVKCJ211 Units/WPsog04-00Xlu [facility] HospitalComment on above:Performed By: #### 93547 #### [facility] [address] [place] [address], USALIVER BATTERYon 73-30-4473Zhypwxy [Mass/Vol]3.4 g/dLLow 3.5-5.7The [facility] HospitalComment on above:Performed By: #### 63501 #### [facility] [address] [place] [address], USAALKALINE DRPDCV24 IU/VRsshrv77-536Uzi [facility] HospitalComment on above:Performed By: #### 21334 #### [facility] [address] [place] [address], USAALT [Catalytic activity/Vol]13 U/LNormal7-52The [facility] HospitalComment on above:Performed By: #### 68698 #### [facility] [address] [place] [address], USAAST [Catalytic activity/Vol]9 U/PZhg69-65Lbm [facility] HospitalComment on above:Performed By: #### 83129 #### [facility] [address] [place] [address], USABilirubin [Mass/Vol]0.7 mg/dLNormal0.3-1.0The [facility] HospitalComment on above:Performed By: #### 52041 #### [facility] [address] [place] [address], USABilirubin.direct [Mass/Vol]0.4 mg/dLHigh0.0-0.2The [facility] HospitalComment on above:Performed By: #### 74871 #### [facility] [address] [place] [address], USAProtein [Mass/Vol]6.2 g/dLNormal6.0-8.3The [facility] HospitalComment on above:Performed By: #### 23763 #### [facility] [address] [place] [address], USAPOC GLUCOSE LABon 66-63-5029Xbiolsz [Mass/Vol]182 mg/dLHigh 70-100The [facility] HospitalComment on above:Performed By: #### 93625, 58376, 78731, 67377, 74039 #### [facility] [address] [place] [address], USAPOC SARS COV2 ANTIGEN NEGATIVEon 08-00-7610ZAM SARS COV2 ANTIGEN NNegativeNormalNEGATIVEThe [facility]itan HospitalComment on above:Result Comment: Test performed on [employer] Veritor System for rapid detection of SARS-CoV-2. Negative results are presumptive. Negative test results do not preclude infection and should not be used as sole basis for treatment or other patient management decisions, including infection control decisions, particularly in the presence of clinical signs and symptoms consistent with COVID-19, or in those who have been in contact with the virus. It is recommended that these results be confirmed by a molecular testing method, if necessary, for patient management.Performed By: #### 39905, 31839, 63955, 36581, 95855 #### [facility] [address] [place] [address], [facility] AT L[facility] VEGASPOTASSIUM WHOLE BLOOD CBGLon 28-21-1795Pegtucpew [Moles/Vol]4.1 mmol/LNormal3.4-5.2The [facility]itan HospitalComment on above:Performed By: #### 73359, 10949, 45759, 34746 ####[facility] [place] [address], [facility] L[facility] VEGASPROTHROMBIN TIMEon [id number] Coag (PPP) [Relative time]1.17 {INR}High0.91-1.16The Good Samaritan HospitalComment on above:Result Comment: ACC RECOMMENDED INR FOR WARFARIN THERAPY ------- CONDITION INR PROPHYLAXIS OF VENOUS THROMBOSIS 2-3 (HIGH-RISK SURGERY) TREATMENT OF VENOUS THROMBOSIS 2-3 TREATMENT OF PULMONARY EMBOLISM 2-3 PREVENTION OF SYSTEMIC EMBOLISM: 2-3 ACUTE MYOCARDIAL INFARCTION TISSUE HEART VALVES VALVULAR HEART DISEASE ATRIAL FIBRILLATION RECURRENT SYSTEMIC EMBOLISM MECHANICAL HEART VALVE 2.5-3.5 FROM: ORAL ANTICOAGULANTS. MECHANISM OF ACTION, CLINICAL EFFECTIVENESS, AND OPTIMAL THERAPEUTIC RANGE. CHEST 1995;108:231S-246S.Performed By: #### [id number] ####[facility] [place] [address], USAPT Coag (PPP) [Time]14.9 sHigh 12.3-14.8The [facility] Samaritan HospitalComment on above:Result Comment: ALL RESULTS MUST BE INTERPRETED WITH RESPECT TO BLOOD DRAWING ARTIFACT OR DILUTION ERROR OF ANTICOAGULANT AT THE TIME OF SAMPLING.Performed By: #### [id number] ####[facility] [place] [address], USASODIUM WHOLE BLOOD CBGLon 35-19-8141Pidweo [Moles/Vol]132.0 mmol/LLow 136.0-146.0The [facility] Samaritan HospitalComment on above:Performed By: #### 71686, 37746, 27475, 21631 ####[facility] [place] [address], USATYPE AND SCREENon 46-34-5450SUB INTERPRETATION ANormalThe Good Samaritan HospitalComment on above:Performed By: #### 26826 ####[facility] [place] [address], USARH INTERPRETATIONPositiveNormMarymount Hospital Comment on above:Performed By: #### 39513 ####[facility] [place] [address], USAURINALYSISon 27-55-2596Plhjymfrtj (U)CLEARNormalCLEARThe Good Samaritan HospitalComment on above: Performed By: #### 05491, 81463, 69746, 33796, 66884 #### [facility] [address] [place] [address], USABilirubin Ql (U)NegativeNormalNEGATIVEThe Good Samaritan HospitalComment on above:Performed By: #### 70279, 19879, 39428, 91000, 23681 #### [facility] [address] [place] [address], USAColor (U)YELLOWNormalYELLOWThe Good Samaritan HospitalComment on above:Performed By: #### 83676, 97365, 83728, 38979, 10865 #### [facility] [address] [place] [address], USAEPISOCCNormalFEW,OCC,NONE SEENThe Good Samaritan HospitalComment on above:Performed By: #### 83181, 77315, 82055, 41319, 58278 #### [facility] [address] [place] [address], USAGlucose Ql (U)NegativeNormalNEGATIVEThe Good Samaritan HospitalComment on above:Performed By: #### 03958, 74732, 77782, 87847, 08970 #### [facility] [address] [place] [address], USAHemoglobin Ql (U)SMALLAbnormalNEGATIVEThe Good Samaritan HospitalComment on above:Performed By: #### 03537, 50330, 36538, 02209, 81561 #### [facility] [address] [place] [address], ACXLIMEBQ24 mg/dLAbnormalNEGATIVEThe Good Samaritan HospitalComment on above:Performed By: #### 12266, 98189, 81701, 43521, 69998 #### [facility] [address] [place] [address], USALEUK ESTERNegativeNormalNEGATIVEThe Good Samaritan HospitalComment on above:Performed By: #### 79408, 44477, 85302, 29758, 61138 #### [facility] [address] [place] [address], USAMUCUS THREADSOCCAbnormalNONE SEENThe Good Samaritan HospitalComment on above:Performed By: #### 12857, 67875, 81948, 19441, 77913 #### [facility] [address] [place] [address], USANitrite Ql (U)NegativeNormalNEGATIVEThe Good Samaritan HospitalComment on above:Performed By: #### 81547, 84243, 63054, 93255, 97583 #### [facility] [address] [place] [address], USApH (U)5.0 [pH]Normal5.0-8.0The [facility] Samaritan HospitalComment on above:Performed By: #### 34818, 33604, 49270, 47243, 49606 #### [facility] [address] [place] [address], USAProtein Ql (U)NegativeNormalNEGATIVEThe Good Samaritan HospitalComment on above:Performed By: #### 40570, 89757, 37918, 09127, 37610 #### [facility] [address] [place] [address], USARBC0-2AbnormalNONE SEENThe Good Samaritan HospitalComment on above:Performed By: #### 79050, 04009, 76988, 96128, 50128 #### [facility] [address] [place] [address], USASPEC GRAV1.313Cmcr5.015-1.020The Good Samaritan HospitalComment on above:Performed By: #### 27757, 27428, 91766, 74930, 55468 #### [facility] [address] [place] [address], USAWBC UA0-2AbnormalNONE SEENThe Good Samaritan HospitalComment on above:Performed By: #### 22999, 19690, 72461, 01254, 13400 #### [facility] [address] [facility] [place] [address], USABASIC METABOLIC PANELon 20-44-7883Syaraom [Mass/Vol]8.9 mg/dLNormal8.6-10.3The [facility]aritan HospitalComment on above:Order Comment: No: Do not add to previous drawPerformed By: #### 75198 #### [facility] [address] [place] [address], USAChloride [Moles/Vol]106 mmol/MXgrwgm36-568Jkx [facility]itan HospitalComment on above:Order Comment: No: Do not add to previous drawPerformed By: #### 73945 #### [facility] [address] [place] [address], USACO2 [Moles/Vol]27 mmol/ZUyaoaw34-49Tva [facility] HospitalComment on above:Order Comment: No: Do not add to previous draw Performed By: #### 25775 #### [facility] [address] [place] [address], USACreatinine [Mass/Vol]0.50 mg/dLLow0.60-1.20The [facility]itan HospitalComment on above:Order Comment: No: Do not add to previous drawPerformed By: #### 01926 #### [facility] [address] [place] [address], USAGFR/1.73 sq M.predicted among blacks MDRD (S/P/Bld) [Vol rate/Area]mL/min/{1.73_m2}Normal>60The [facility] Comment on above:Order Comment: No: Do not add to previous drawPerformed By: #### 50057 #### [facility] [address] [place] [address], USAGFR/1.73 sq M.predicted among non-blacks MDRD (S/P/Bld) [Vol rate/Area]mL/min/{1.73_m2}Normal>60The [facility] Comment on above:Order Comment: No: Do not add to previous drawPerformed By: #### 93964 #### [facility] [address] [place] [address], USAGlucose [Mass/Vol]94 mg/kKYkgeos83-566Zsr [facility] HospitalComment on above:Order Comment: No: Do not add to previous drawPerformed By: #### 70552 #### [facility] [address] [place] [address], USAPotassium [Moles/Vol]3.1 mmol/LLow3.5-5.1The [facility]itan HospitalComment on above:Order Comment: No: Do not add to previous drawPerformed By: #### 12641 #### [facility] [address] [place] [address], USASodium [Moles/Vol]142 mmol/UQoewfs588-094Lde [facility] HospitalComment on above:Order Comment: No: Do not add to previous drawPerformed By: #### 71463 #### [facility] [address] [place] [address], USAUrea nitrogen [Mass/Vol]5 mg/dLLow7-25The [facility]itan HospitalComment on above:Order Comment: No: Do not add to previous drawPerformed By: #### 98934 #### [facility] [address] [place] [address], USACBC COMPLETE BLOOD COUNTon 45-89-4957Wjdpvzbdaba distribution width (RBC) [Ratio]13.2 %Noafar78.5-15.0The [facility]itan HospitalComment on above:Order Comment: No: Do not add to previous draw Performed By: #### 90598 ####[facility] [place] [address], USAHematocrit (Bld) [Volume fraction]35.4 %Low36.0-45.0The [facility]itan HospitalComment on above:Order Comment: No: Do not add to previous drawPerformed By: #### 41059 ####[facility] [place] [address], [facility] L[facility] VEGASHemoglobin (Bld) [Mass/Vol]11.3 g/dLLow12.0-15.0The [facility]itan HospitalComment on above:Order Comment: No: Do not add to previous drawPerformed By: #### 22426 ####[facility] [place] [address], [facility] CORDELLH (RBC) [Entitic mass]28.5 otJuztja52.0-33.0The [facility] Comment on above:Order Comment: No: Do not add to previous drawPerformed By: #### 10686 ####[facility] [facility] [place] [address], [facility] CORDELLHC (RBC) [Mass/Vol]31.9 g/dLLow32.0-35.0The [facility]itan HospitalComment on above:Order Comment: No: Do not add to previous draw Performed By: #### 64736 ####[facility] [facility] [place] [address], [facility] CORDELLV (RBC) [Entitic vol]89.2 cKEcmjvw86.0-98.0The [facility]itan HospitalComment on above:Order Comment: No: Do not add to previous drawPerformed By: #### 52862 ####[facility] [place] [address], [facility] L[facility] VEGASNucleated RBC/100 WBC (Bld) [Ratio]0 %Normal0-0The [facility]itan HospitalComment on above:Order Comment: No: Do not add to previous drawPerformed By: #### 49953 ####[facility] [facility] [place] [address], [facility] INSTITUTE AT L[facility] VEGASPLAT [id number] 10*3/pODoxoba936-864Gdr [facility] HospitalComment on above: Order Comment: No: Do not add to previous drawPerformed By: #### 12502 ####[facility] [place] [address], [place] RBC (Bld) [#/Vol]3.97 10*6/uLNormal3.80-5.00The [facility]itan HospitalComment on above:Order Comment: No: Do not add to previous drawPerformed By: #### 12222 ####[facility] [place] [address], USAWBC (Bld) [#/Vol]11.20 10*3/uLHigh4.00-10.60The [facility] HospitalComment on above:Order Comment: No: Do not add to previous drawPerformed By: #### 79579 ####[facility] [place] [address], USABASIC METABOLIC PANELon 64-69-5183Cycttlx [Mass/Vol]8.5 mg/dLLow8.6-10.3The [facility]itan HospitalComment on above:Order Comment: No: Do not add to previous drawPerformed By: #### 07805, 94043, 37210 ####[facility] [place] [address], USAChloride [Moles/Vol]108 mmol/BAxtg91-815Wah [facility] HospitalComment on above:Order Comment: No: Do not add to previous draw Performed By: #### 70747, 00960, 57638 ####[facility] [place] [address], USACO2 [Moles/Vol]24 mmol/LNormal 21-31The [facility]itan HospitalComment on above:Order Comment: No: Do not add to previous drawPerformed By: #### 75951, 49896, 67099 ####[facility] [place] [address], USACreatinine [Mass/Vol]0.46 mg/dLLow0.60-1.20The [facility]itan HospitalComment on above:Order Comment: No: Do not add to previous drawPerformed By: #### 74488, 98282, 35304 ####[facility] [place] [address], USAGFR/1.73 sq M.predicted among blacks MDRD (S/P/Bld) [Vol rate/Area] mL/min/{1.73_m2}Normal>60The [facility]itan HospitalComment on above:Order Comment: No: Do not add to previous drawPerformed By: #### 19936, 24279, 71760 ####[facility] [place] [address], USAGFR/1.73 sq M.predicted among non-blacks MDRD (S/P/Bld) [Vol rate/Area]mL/min/{1.73_m2}Normal>60The [facility] Comment on above:Order Comment: No: Do not add to previous drawPerformed By: #### 32475, 25734, 13246 ####[facility] [place] [address], USAGlucose [Mass/Vol]118 mg/vMAbxa59-497Lwo [facility] HospitalComment on above:Order Comment: No: Do not add to previous drawPerformed By: #### 19547, 28370, 26266 ####[facility] [place] [address], USAPotassium [Moles/Vol]3.5 mmol/L Normal3.5-5.1The [facility]itan HospitalComment on above:Order Comment: No: Do not add to previous drawPerformed By: #### 30045, 81477, 24972 ####[facility] [place] [address], [place] Sodium [Moles/Vol]142 mmol/EZnybim674-600Ikz [facility] Comment on above:Order Comment: No: Do not add to previous drawPerformed By: #### 83879, 42334, 88695 ####[facility] [place] [address], [facility] AT L[facility] VEGASUrea nitrogen [Mass/Vol]5 mg/dLLow7-25The [facility]itan HospitalComment on above:Order Comment: No: Do not add to previous drawPerformed By: #### 12431, 68749, 14631 ####[facility] [place] [address], [facility] AT L[facility] VEGASCBC COMPLETE BLOOD COUNTon 75-83-1078Hkvpmwjzrwb distribution width (RBC) [Ratio]13.2 %Aqzjud08.5-15.0The [facility]itan HospitalComment on above:Order Comment: No: Do not add to previous drawPerformed By: #### 50203 ####[facility] [place] [address], [facility] AT L[facility] VEGASHematocrit (Bld) [Volume fraction] 37.9 %Vcnesz48.0-45.0The [facility]itan HospitalComment on above: Order Comment: No: Do not add to previous drawPerformed By: #### 17092 ####[facility] [facility] [place] [address], [facility] Hemoglobin (Bld) [Mass/Vol]12.1 g/wXEejopj24.0-15.0The [facility] HospitalComment on above:Order Comment: No: Do not add to previous draw Performed By: #### 42974 ####[facility] [facility] [place] [address], [facility] AT L[facility] VEGASMCH (RBC) [Entitic mass]28.4 evPcrfzn97.0-33.0The [facility]itan HospitalComment on above:Order Comment: No: Do not add to previous drawPerformed By: #### [id number] ####[facility] [place] [address], [facility] – CORDELLHC (RBC) [Mass/Vol]31.9 g/dLLow 32.0-35.0The [facility] HospitalComment on above:Order Comment: No: Do not add to previous drawPerformed By: #### 10481 ####[facility] [facility] [place] [address], [facility] AT L[facility] VEGASMCV (RBC) [Entitic vol] 89.0 kETvjels67.0-98.0The [facility]itan HospitalComment on above: Order Comment: No: Do not add to previous drawPerformed By: #### 57950 ####[facility] [facility] [place] [address], [facility] Nucleated RBC/100 WBC (Bld) [Ratio]0 %Normal0-0The [facility]itan HospitalComment on above:Order Comment: No: Do not add to previous drawPerformed By: #### 02409 ####[facility] [facility] [place] [address], [facility] BE[facility]ALTH INSTITUTE AT LAS VEGASPLAT KRL710 10*3/cILrzrdd966-692Xze [facility] HospitalComment on above:Order Comment: No: Do not add to previous drawPerformed By: #### 37072 ####[place] [address] [facility] [place] [address], [facility] INSTITUTE AT L[facility] VEGASRBC (Bld) [#/Vol]4.26 10*6/uLNormal3.80-5.00The [facility] HospitalComment on above:Order Comment: No: Do not add to previous drawPerformed By: #### 50119 ####[facility] [place] [address].[place] [address], [facility] INSTITUTE AT L[facility] VEGASWBC (Bld) [#/Vol]8.68 10*3/uLNormal4.00-10.60 The [facility]itan HospitalComment on above:Order Comment: No: Do not add to previous drawPerformed By: #### 03884 ####[address] [place] [address], USAMAGNESIUM BLOODon 51-09-6721Kntstlkxm [Mass/Vol]1.8 mg/dLLow1.9-2.7The [facility]itan HospitalComment on above:Order Comment: No: Do not add to previous draw Performed By: #### 81474, 56982, 36075 ####[facility] [place] [address], USAPHOSPHORUS BLOODon 10-13-2020 Phosphate [Mass/Vol]3.5 mg/dLNormal2.5-5.0The [facility]itan HospitalComment on above:Order Comment: No: Do not add to previous drawPerformed By: #### 48000, 62474, 91490 ####[facility] [place] [address], USABASIC METABOLIC PANELon 75-02-3391Tkqipsq [Mass/Vol]8.5 mg/dLLow8.6-10.3The [facility]itan HospitalComment on above:Order Comment: No: Do not add to previous drawPerformed By: #### 24488 #### [facility] [address] [place] [address], USAChloride [Moles/Vol]107 mmol/PUbopnk89-629Ijm [facility] HospitalComment on above:Order Comment: No: Do not add to previous drawPerformed By: #### 63627 #### [facility] [address] [place] [address], USACO2 [Moles/Vol]26 mmol/MCfyxsq61-97Sga [facility] HospitalComment on above:Order Comment: No: Do not add to previous draw Performed By: #### 88816 #### [facility] [address] [place] [address], USACreatinine [Mass/Vol]0.40 mg/dLLow0.60-1.20The [facility] HospitalComment on above:Order Comment: No: Do not add to previous drawPerformed By: #### 41930 #### [facility] [address] [place] [address], USAGFR/1.73 sq M.predicted among blacks MDRD (S/P/Bld) [Vol rate/Area]mL/min/{1.73_m2}Normal>60The [facility] Comment on above:Order Comment: No: Do not add to previous drawPerformed By: #### 12394 #### [facility] [address] [place] [address], USAGFR/1.73 sq M.predicted among non-blacks MDRD (S/P/Bld) [Vol rate/Area]mL/min/{1.73_m2}Normal>60The [facility] Comment on above:Order Comment: No: Do not add to previous drawPerformed By: #### 97552 #### [facility] [address] [place] [address], USAGlucose [Mass/Vol]118 mg/rHTjxf02-305Emt [facility] HospitalComment on above:Order Comment: No: Do not add to previous drawPerformed By: #### 35973 #### [facility] [address] [place] [address], USAPotassium [Moles/Vol]3.3 mmol/LLow3.5-5.1The [facility] HospitalComment on above:Order Comment: No: Do not add to previous drawPerformed By: #### 47454 #### [facility] [address] [place] [address], USASodium [Moles/Vol]139 mmol/PUrsvme141-017Tvf [facility] HospitalComment on above:Order Comment: No: Do not add to previous drawPerformed By: #### 40604 #### [facility] [address] [place] [address], USAUrea nitrogen [Mass/Vol]6 mg/dLLow7-25The [facility]itan HospitalComment on above:Order Comment: No: Do not add to previous drawPerformed By: #### 11352 #### [facility] [address] [facility] [place] [address], [facility] AT L[facility] VEGASCBC W/DIFFon 99-04-1562IYH IMM GRANS0.0 10*3/uLNormal 0.0-0.2The [facility]itan HospitalComment on above:Order Comment: No: Do not add to previous drawPerformed By: #### 42389 ####[facility] [facility] [place] [address], USAABS NEUTROPHILS6.3 10*3/uLNormal1.6-7.6The [facility]itan HospitalComment on above: Order Comment: No: Do not add to previous drawPerformed By: #### 55242 ####[facility] [facility] [place] [address], [place] Basophils (Bld) [#/Vol]0.1 10*3/uLNormal0.0-0.2The [facility]itan HospitalComment on above:Order Comment: No: Do not add to previous drawPerformed By: #### 92064 ####[facility] [facility] [place] [address], [facility] L[facility] VEGASBasophils/100 WBC (Bld)0.8 %Normal0.0-1.0The [facility]itan HospitalComment on above:Order Comment: No: Do not add to previous draw Performed By: #### 56781 ####[facility] [facility] [place] [address], USAEosinophils (Bld) [#/Vol]0.1 10*3/uLNormal0.0-0.5The [facility]itan HospitalComment on above:Order Comment: No: Do not add to previous drawPerformed By: #### 19496 ####[facility] [facility] [place] [address], USAEosinophils/100 WBC (Bld)1.3 % Normal0.0-6.0The [facility]aritan HospitalComment on above:Order Comment: No: Do not add to previous drawPerformed By: #### 82124 ####[facility] [facility] [place] [address], USAErythrocyte distribution width (RBC) [Ratio]13.2 %Gfcwvb57.5-15.0The [facility]itan HospitalComment on above:Order Comment: No: Do not add to previous draw Performed By: #### 31420 ####[facility] [place] [address].[place] [address], [facility] AT L[facility] VEGASHematocrit (Bld) [Volume fraction]37.0 %Oqsjcj49.0-45.0 The [facility]aritan HospitalComment on above:Order Comment: No: Do not add to previous drawPerformed By: #### 82566 ####[facility] [facility] [place] [address], [facility] L[facility] VEGASHemoglobin (Bld) [Mass/Vol]11.9 g/dLLow12.0-15.0The [facility]itan HospitalComment on above:Order Comment: No: Do not add to previous drawPerformed By: #### 92683 ####[facility] [facility] [place] [address], [place] IMMATURE GRANS0.3 %Normal0.0-1.0The [facility]aritan HospitalComment on above:Order Comment: No: Do not add to previous drawPerformed By: #### 07714 ####[facility] [place] [address].[place] [address], [facility] Lymphocytes (Bld) [#/Vol]2.3 10*3/uLNormal1.2-4.0The [facility]aritan HospitalComment on above:Order Comment: No: Do not add to previous draw Performed By: #### [id number] ####[facility] [facility] [place] [address], [facility] AT L[facility] VEGASLymphocytes/100 WBC (Bld)23.9 %Aftjdl21.0-45.0The [facility]itan HospitalComment on above:Order Comment: No: Do not add to previous drawPerformed By: #### [id number] ####[facility] [facility] [place] [address], [facility]LLH (RBC) [Entitic mass]28.4 pg Lqslap96.0-33.0[facility] HospitalComment on above:Order Comment: No: Do not add to previous drawPerformed By: #### [id number] ####[facility] [place] [address], [facility] L[facility] VEGASMCHC (RBC) [Mass/Vol]32.2 g/yQUzbaus76.0-35.0[facility] HospitalComment on above:Order Comment: No: Do not add to previous drawPerformed By: #### [id number] ####[facility] [place] [address], [facility] MCV (RBC) [Entitic vol]88.3 rGIrqwlp74.0-98.0[facility] HospitalComment on above:Order Comment: No: Do not add to previous drawPerformed By: #### [id number] ####[facility] [facility] [place] [address], [facility] L[facility] VEGASMonocytes (Bld) [#/Vol]0.9 10*3/uLNormal0.1-1.0The [facility] HospitalComment on above:Order Comment: No: Do not add to previous drawPerformed By: #### [id number] ####[facility] [place] [address], [facility] AT L[facility] VEGASMONOS8.7 %Normal5.0-12.0[facility] HospitalComment on above:Order Comment: No: Do not add to previous drawPerformed By: #### [id number] ####[facility] [facility] [place] [address], [facility] VEGASNeutrophils/100 WBC (Bld)65.0 %Normal 40.0-72.0The [facility]aritan HospitalComment on above:Order Comment: No: Do not add to previous drawPerformed By: #### [id number] ####[facility] [id number], USANucleated RBC/100 WBC (Bld) [Ratio]0 %Normal0-0The [facility] Samaritan HospitalComment on above:Order Comment: No: Do not add to previous drawPerformed By: #### 84464 ####[facility] [facility]ITAL[address] [address].[place] [id number], [facility] PLAT FOH020 10*3/rDVosfod327-196Kzt [facility] HospitalComment on above:Order Comment: No: Do not add to previous drawPerformed By: #### [id number] ####[facility] [facility] [place] [address], [facility] RBC (Bld) [#/Vol]4.19 10*6/uLNormal3.80-5.00The [facility]itan HospitalComment on above:Order Comment: No: Do not add to previous drawPerformed By: #### 62912 ####[facility] [facility] [place] [address], [facility] L[facility] VEGASWBC (Bld) [#/Vol]9.75 10*3/uLNormal4.00-10.60The [facility] HospitalComment on above:Order Comment: No: Do not add to previous drawPerformed By: #### 75734 ####[facility] [facility] [place] [address], [facility] L[facility] VEGASMAGNESIUM BLOODon 12-94-6591Lmwwkyhur [Mass/Vol]1.8 mg/dLLow1.9-2.7The [facility]itan HospitalComment on above:Order Comment: PT NOT IN ROOM YETPerformed By: #### 93912 #### [facility] [address] [place] [address], USAPHOSPHORUS BLOODon 06-29-0519Luebrxblu [Mass/Vol]2.3 mg/dL Low2.5-5.0The [facility]itan HospitalComment on above:Order Comment: No: Do not add to previous drawPerformed By: #### 85601 #### [facility] [address] [place] [address], USABASIC METABOLIC PANELon 47-26-2364Biqljpr [Mass/Vol]8.0 mg/dLLow8.6-10.3The [facility] HospitalComment on above:Order Comment: No: Do not add to previous drawPerformed By: #### 90252, 85549, 94190 ####[facility] [place] [address], [place] Chloride [Moles/Vol]104 mmol/QTihbhl01-077Mxj [facility] HospitalComment on above:Order Comment: No: Do not add to previous drawPerformed By: #### 39846, 38521, 79216 ####[facility] [place] [address], USACO2 [Moles/Vol]28 mmol/WVvqytx25-48Lsd [facility] HospitalComment on above:Order Comment: No: Do not add to previous drawPerformed By: #### 35465, 69681, 28906 ####[facility] [place] [address], USACreatinine [Mass/Vol]0.43 mg/dLLow0.60-1.20The [facility] HospitalComment on above:Order Comment: No: Do not add to previous drawPerformed By: #### 32999, 07922, 79864 ####[facility] [place] [address], USAGFR/1.73 sq M.predicted among blacks MDRD (S/P/Bld) [Vol rate/Area] mL/min/{1.73_m2}Normal>60The [facility] HospitalComment on above:Order Comment: No: Do not add to previous drawPerformed By: #### 72462, 09700, 02098 ####[facility] [place] [address], USAGFR/1.73 sq M.predicted among non-blacks MDRD (S/P/Bld) [Vol rate/Area]mL/min/{1.73_m2}Normal>60The [facility] Comment on above:Order Comment: No: Do not add to previous drawPerformed By: #### 67406, 38148, 97269 ####[facility] [place] [address], USAGlucose [Mass/Vol]113 mg/mVVxzc21-764Ixd [facility] HospitalComment on above:Order Comment: No: Do not add to previous drawPerformed By: #### 31099, 46594, 59964 ####[facility] [place] [address], USAPotassium [Moles/Vol]3.5 mmol/L Normal3.5-5.1The [facility] HospitalComment on above:Order Comment: No: Do not add to previous drawPerformed By: #### 64589, 82724, 50766 ####[facility] [place] [address], [place] Sodium [Moles/Vol]139 mmol/QDuotyh540-002Seo [facility] Comment on above:Order Comment: No: Do not add to previous drawPerformed By: #### 01414, 09602, 04172 ####[facility] [place] [address], USAUrea nitrogen [Mass/Vol]13 mg/dLNormal7-25The [facility] of [place] Medical CenterComment on above:Order Comment: No: Do not add to previous drawPerformed By: #### 55099, 15593, 88265 ####[facility] [facility] [place] [address], [facility] L[facility] VEGASCBC COMPLETE BLOOD COUNTon 26-05-2496Avibabqjoet distribution width (RBC) [Ratio]13.3 %Normal 11.5-15.0The [facility] HospitalComment on above:Order Comment: No: Do not add to previous drawPerformed By: #### 34992 ####[facility] [facility] [place] [address], [facility] L[facility] VEGASHematocrit (Bld) [Volume fraction]38.7 %Pzrudb96.0-45.0The [facility] HospitalComment on above:Order Comment: No: Do not add to previous drawPerformed By: #### 89457 ####[facility] [facility] [place] [address], [facility] Hemoglobin (Bld) [Mass/Vol]12.2 g/bJEjufie74.0-15.0The [facility] HospitalComment on above:Order Comment: No: Do not add to previous draw Performed By: #### 99872 ####[facility] [address], [facility] CORDELLH (RBC) [Entitic mass]28.6 baInzgsl02.0-33.0The [facility] HospitalComment on above:Order Comment: No: Do not add to previous drawPerformed By: #### 69569 ####[facility] [facility] [place] [address], [facility] AT L[facility] VEGASMCHC (RBC) [Mass/Vol]31.5 g/dLLow 32.0-35.0The [facility] HospitalComment on above:Order Comment: No: Do not add to previous drawPerformed By: #### 33987 ####[facility] [facility] [place] [address], [facility] L[facility] VEGASMCV (RBC) [Entitic vol] 90.8 tRRifwld38.0-98.0The [facility] HospitalComment on above: Order Comment: No: Do not add to previous drawPerformed By: #### 32616 ####[facility] [place] [address], [facility] Nucleated RBC/100 WBC (Bld) [Ratio]0 %Normal0-0The [facility] HospitalComment on above:Order Comment: No: Do not add to previous drawPerformed By: #### 15456 ####[facility] [place] [address], USAPLAT BWP025 10*3/kTKmsalh308-438Tok [facility] HospitalComment on above:Order Comment: No: Do not add to previous drawPerformed By: #### 38522 ####[facility] [facility] [place] [address], [facility] AT L[facility] VE[facility]ASRBC (Bld) [#/Vol]4.26 10*6/uLNormal3.80-5.00The [facility] HospitalComment on above:Order Comment: No: Do not add to previous drawPerformed By: #### 13372 ####[facility] [place] [address], [facility] AT L[facility] VEGASWBC (Bld) [#/Vol]11.47 10*3/uLHigh4.00-10.60 The [facility] HospitalComment on above:Order Comment: No: Do not add to previous drawPerformed By: #### 98571 ####[facility] [place] [address], USAMAGNESIUM BLOODon 62-34-2472Mqxwliblz [Mass/Vol]1.8 mg/dLLow1.9-2.7The [facility] HospitalComment on above:Order Comment: No: Do not add to previous draw Performed By: #### 96125, 54966, 79986 ####[facility] [place] [address], USAPHOSPHORUS BLOODon 10-11-2020 Phosphate [Mass/Vol]1.3 mg/dLLow2.5-5.0The [facility] Comment on above:Order Comment: No: Do not add to previous drawPerformed By: #### 58500, 12731, 78136 ####[facility] [place] [address], USABASIC METABOLIC PANELon 89-70-1499Jlhmvze [Mass/Vol]8.0 mg/dLLow8.6-10.3The [facility] HospitalComment on above:Order Comment: No: Do not add to previous drawPerformed By: #### 43966, 57922, 36706, 67125, 74300 ####[facility] [place] [address], USAChloride [Moles/Vol]106 mmol/LFhmmkq97-387Tky [facility] HospitalComment on above:Order Comment: No: Do not add to previous draw Performed By: #### 40863, 53809, 29468, 44630, 98288 ####[facility] [place] [address], USACO2 [Moles/Vol]26 mmol/L Yhkcpn62-15Poo [facility] HospitalComment on above:Order Comment: No: Do not add to previous drawPerformed By: #### 23620, 66978, 28700, 63590, 82934 ####[facility] [place] [address], USACreatinine [Mass/Vol]0.54 mg/dLLow0.60-1.20The [facility] HospitalComment on above:Order Comment: No: Do not add to previous draw Performed By: #### 48512, 86908, 74111, 48649, 59463 ####[facility] [place] [address], USAGFR/1.73 sq M.predicted among blacks MDRD (S/P/Bld) [Vol rate/Area]mL/min/{1.73_m2}Normal>60The [facility] HospitalComment on above:Order Comment: No: Do not add to previous drawPerformed By: #### 54229, 50377, 74696, 20923, 87075 ####[facility] [place] [address], [place] GFR/1.73 sq M.predicted among non-blacks MDRD (S/P/Bld) [Vol rate/Area] mL/min/{1.73_m2}Normal>60The [facility] HospitalComment on above:Order Comment: No: Do not add to previous drawPerformed By: #### 17793, 50516, 55723, 94885, 86955 ####[facility] [place] [address], USAGlucose [Mass/Vol]157 mg/uGFbyw95-184Zky [facility] HospitalComment on above:Order Comment: No: Do not add to previous drawPerformed By: #### 48876, 07202, 90691, 81851, 32468 ####[facility] [place] [address], USAPotassium [Moles/Vol]3.8 mmol/LNormal3.5-5.1The [facility] HospitalComment on above:Order Comment: No: Do not add to previous drawPerformed By: #### 20213, 06881, 19083, 66092, 05667 ####[facility] [place] [address], USASodium [Moles/Vol]138 mmol/BRkzfhk185-911Xua [facility] HospitalComment on above:Order Comment: No: Do not add to previous drawPerformed By: #### 74072, 90892, 83852, 57360, 74744 ####[facility] [place] [address], [place] Urea nitrogen [Mass/Vol]10 mg/dLNormal7-25The [facility] HospitalComment on above:Order Comment: No: Do not add to previous drawPerformed By: #### 80051, 89521, 57106, 25758, 04090 ####[facility] [place] [address], [facility] L[facility] VEGASCBC COMPLETE BLOOD COUNTon 10-71-4892Jztagavrtbt distribution width (RBC) [Ratio]13.6 %Grtkjd26.5-15.0The [facility] HospitalComment on above:Order Comment: Yes: Add to Previous draw if ablePerformed By: #### 37647, 98759, 98146, 44922, 01054 #### [facility] [address] [place] [address], [facility] L[facility] VEGASHematocrit (Bld) [Volume fraction]39.3 %Bbohpy50.0-45.0The [facility] HospitalComment on above:Order Comment: Yes: Add to Previous draw if ablePerformed By: #### 83307, 16374, 31809, 76648, 35512 #### [facility] [address] [place] [address], [facility] VEGASHemoglobin (Bld) [Mass/Vol]12.6 g/xXQaitbo15.0-15.0The [facility] HospitalComment on above:Order Comment: Yes: Add to Previous draw if ablePerformed By: #### 12135, 05714, 59533, 71156, 34655 #### [facility] [address] [place] [address], [facility] CORDELLH (RBC) [Entitic mass]28.4 ehOsmpgz18.0-33.0The [facility] HospitalComment on above:Order Comment: Yes: Add to Previous draw if ablePerformed By: #### 27530, 08503, 63578, 10078, 18270 #### [facility] [address] [place] [address], USAMCHC (RBC) [Mass/Vol]32.1 g/eTBmjosx43.0-35.0The [facility] HospitalComment on above:Order Comment: Yes: Add to Previous draw if ablePerformed By: #### 66958, 84427, 89913, 92235, 66359 #### [facility] [address] [place] [id number], [facility] CORDELLV (RBC) [Entitic vol]88.7 dUCqoooj68.0-98.0The [facility] HospitalComment on above:Order Comment: Yes: Add to Previous draw if ablePerformed By: #### 27249, 37359, 91140, 28934, 30741 #### [facility] [address] [place] [address], USANucleated RBC/100 WBC (Bld) [Ratio]0 %Normal0-0The [facility] HospitalComment on above:Order Comment: Yes: Add to Previous draw if ablePerformed By: #### 25089, 62098, 12880, 83014, 00604 #### [facility] [address] [place] [id number], USAPLAT NWV693 10*3/cUPiwbrg752-767Lul [facility] HospitalComment on above:Order Comment: Yes: Add to Previous draw if able Performed By: #### 55744, 91905, 13266, 58133, 48514 #### [facility] [address] [place] [id number], USARBC (Bld) [#/Vol]4.43 10*6/uLNormal3.80-5.00The [facility] HospitalComment on above:Order Comment: Yes: Add to Previous draw if ablePerformed By: #### 63897, 85902, 96183, 53131, 50542 #### [facility] [address] [place] [address], USAWBC (Bld) [#/Vol]10.36 10*3/uLNormal4.00-10.60The [facility] HospitalComment on above:Order Comment: Yes: Add to Previous draw if ablePerformed By: #### 74582, 01823, 19923, 18128, 07303 #### [facility] [address] [place] [address], USALIVER BATTERYon 63-91-5658Qgrlxzt [Mass/Vol]3.6 g/dLNormal 3.5-5.7The [facility] HospitalComment on above:Order Comment: No: Do not add to previous drawPerformed By: #### 16108, 93824, 58502, 63603, 69211 ####[facility] [place] [address], USAALKALINE PSJRFJ12 IU/XXshxbv10-045Hvz [facility] HospitalComment on above:Order Comment: No: Do not add to previous drawPerformed By: #### 02340, 79838, 12536, 96405, 04643 ####[facility] [place] [address], USAALT [Catalytic activity/Vol]20 U/L Normal7-52The [facility] HospitalComment on above:Order Comment: No: Do not add to previous drawPerformed By: #### 47591, 52212, 00713, 16789, 05796 ####[facility] [place] [address], USAAST [Catalytic activity/Vol]30 U/TIwvttj91-65Lrq [facility] HospitalComment on above:Order Comment: No: Do not add to previous draw Performed By: #### 87351, 29629, 66957, 67271, 16644 ####[facility] [place] [address], USABilirubin [Mass/Vol]0.4 mg/dLNormal0.3-1.0The [facility] HospitalComment on above:Order Comment: No: Do not add to previous drawPerformed By: #### 81665, 79865, 72886, 09680, 35002 ####[facility] [place] [address], USABilirubin.direct [Mass/Vol]0.1 mg/dLNormal0.0-0.2The [facility] HospitalComment on above:Order Comment: No: Do not add to previous drawPerformed By: #### 52582, 67458, 07609, 17917, 63208 ####[facility] [facility] [place] [address], [facility] L[facility] VEGASProtein [Mass/Vol] 5.9 g/dLLow6.0-8.3The [facility] HospitalComment on above:Order Comment: No: Do not add to previous drawPerformed By: #### 85613, 01087, 18347, 01109, 55259 ####[facility] [facility] [place] [address], [facility] L[facility] VEGASMAGNESIUM BLOODon 40-11-7163Ouswlkjzr [Mass/Vol]1.6 mg/dLLow1.9-2.7 The [facility] HospitalComment on above:Order Comment: No: Do not add to previous drawPerformed By: #### 24015, 77686, 50149, 68373, 39022 ####[facility] [facility] [place] [address], [facility] Operative Reporton 71-70-2735Hiwwjmvzv ReportMR#: [id number] I [facility] Pt. Name: Shelia Brito Room #: 5AB [id number] Discharge Date: Birthdate: 1970 OPERATIVE REPORT DATE OF SURGERY: 10/09/2020 SURGEON: Latonya Mcclure M.D. PREOPERATIVE DIAGNOSIS: Peptic ulcer disease causing a gastric outlet obstruction. POSTOPERATIVE DIAGNOSIS: Peptic ulcer disease causing a gastric outlet obstruction. PROCEDURE PERFORMED: 1. Laparoscopic-assisted robotic truncal vagotomy. 2. Laparoscopic-assisted robotic antrectomy with gastrojejunostomy. 3. Intraoperative upper endoscopy. RESIDENT: Jada Bolaños MD ANESTHESIA: General endotracheal anesthesia. ESTIMATED BLOOD LOSS: 50 mL. IV FLUID: 2000 of crystalloid. URINE OUTPUT: 140 mL. INDICATION: This is a 50-year-old female, who had peptic ulcer disease that causing gastric outlet obstruction and failed medical management. The plan for truncal vagotomy with antrectomy and gastrojejunostomy was discussed with the patient. Risks, benefits, and alternatives explained to her in detail. She agreed to proceed with the operation. PROCEDURE IN DETAIL: The patient was taken to the operating room where a time-out was performed to verify correct patient, procedure, and site. The patient was transferred to the operating table and placed in supine position. Cardiopulmonary monitoring was continued. EPC cuffs were placed in lower extremities bilaterally. Prophylactic antibiotic was administered by anesthesia team and found to be adequate. The patient was then prepped and draped in usual sterile fashion. Left upper quadrant skin incision was made and the peritoneal abdominal cavity was accessed in Optiview fashion using 5 mm port. The abdominal cavity was insufflated with CO2 gas and the patient tolerated pneumoperitoneum without any difficulty. The laparoscope was introduced to the peritoneal cavity and the abdominal cavity was inspected and no injury upon initial port placement. Lysis of adhesion was performed with sharp and blunt dissection. After that, 4 robotic ports were placed at the mid abdomen, 3 of them were 8 mm ports and 1 was a 12 mm port, 9 cm from each others. All of them were placed under direct supervision. No injury to the abdominal cavity upon port placement. The Da Chelsie Xi robotic machine was docked and attention was turned to perform a truncal vagotomy. The gastrohepatic ligament was taken down with Harmonic device. We continue our dissection cephalad all the way to the hiatus and the phrenoesophageal ligament and gastrohepatic ligament were taken down and dissection was extended all the way to the level of both the right and left crura. The anterior and posterior vagus nerve were both identified and transected for a piece of at least 1 cm and sent to the pathology. Attention was then turned to perform the antrectomy. The gastrohepatic ligament was taken down all the way distally to the D1. Attention was then turned to the gastrocolic ligament, which was also taken down from the collateral between right gastroepiploic artery. The Body of the stomach was transected using the blue load robotic stapler(3.5 mm). Attention was then turned to transect the duodenum with white robotic stapler(4.3 mm). This was under the guidance of intraoperative upper endoscopy. Afterwards, the small bowel was run from ligament of Treitz for about 20 cm. The small bowel was marked and tacked to the proximal stomach with 3-0 silk suture. The robotic machine was undocked and left upper quadrant port site was extended for approximately 7 cm and dissection was carried on through the skin, subcutaneous tissue, and the fascia. Jeanine Wound retractor was inserted to protect the wound. The specimen was extracted from the incision. Attention was then turned to perform the gastrojejunostomy. An enterotomy and gastrotomy were performed with Bovie electrocautery. The anastomosis was performed with a purple load of 60 mm Endo RADHA stapler. The common channel was closed in 2 layers using 3-0 Vicryl running [place] suture followed by Lembert 3-0 silk suture. The staple line was reinforced with multiple Lembert 3-0 silk suture. The area was irrigated and the NG tube was placed under EGD visualization. The fascia was closed with #1 PDS interrupted qaaufd-hy-spxnj sutures. The skin was closed with 3-0 Vicryl interrupted deep dermal sutures and 4-0 Vicryl running subcuticular sutures. Steri-Strips and surgical glue was applied. The patient tolerated the procedure very well without any complication and transferred to the PACU in good and stable condition. Sponge, lap, and instrument count were correct x2 at the end of the procedure. Dr. Mcclure was present for the entire procedure. Minimal blood loss. Electronically Signed by: Latonya Mcclure M.D. 10/18/2020 03:13 P Latonya Mcclure M.D. I was present for the entire procedure. D (more content not included)...NormalThe [facility] PHOSPHORUS BLOODon 67-91-8577Tpvpzjeap [Mass/Vol]3.1 mg/dLNormal2.5-5.0The [facility] HospitalComment on above:Order Comment: No: Do not add to previous drawPerformed By: #### 87728, 85957, 50505, 34102, 44008 ####[facility] [facility] [place] [address], [facility] PREALBUMINon 77-80-4021Kwybopkxqc [Mass/Vol]15.7 mg/dLLow17.0-34.0The [facility] HospitalComment on above:Order Comment: No: Do not add to previous drawPerformed By: #### 88587, 65991, 76755, 77643, 24247 ####[facility] [place] [address], [facility] L[facility] VEGASPOC GLUCOSE LAB on 60-47-7548Foerbov [Mass/Vol]85 mg/zTFykdlc88-336Yvj [facility] HospitalComment on above:Performed By: #### 68848, 71177, 79107, 55753, 58209 #### [facility] [address]*SARS-CoV-2 COVID-19on 31-90-8953CIRQ-CoV-2 (COVID-19) RNA KYLEIGH+probe Ql (Unsp spec)Not detectedNormalNot DetectedThe [facility] Samaritan HospitalComment on above:Order Comment: Yes: Add to Previous draw if able Performed By: #### 60864, 09546, 29875, 75111, 04375 #### [facility] [address] [place] [address], [facility] VE[facility]ASOperative Reporton [id number] Report [id number]#1.00CD:127NormalCritical Access Hospitaler [facility] HospitalLab Reportson 62-72-0944Vhq Reports [id number]#[id number]:127NormalOhiohealth Mansfield HospitalHistorical Records Officeon 39-54-0729Byzshdfvhl Records Office [id number]#1.00CD:127NormalOhiohealth Mansfield HospitalProvider Letter FTMCon 80-82-1581Npkovveu Letter [facility], [address] [place] [address] Re: SHELIA BRITO Date of : 1970 Thank you for your referral of Shelia Brito who was seen on consultation on 07/29/2020, for decrease in appetite, nausea and vomiting. A future EGD is planned. I have enclosed my consultation notes for your review and will be happy to follow Shelia should her symptoms persist. 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 Saw Dr. Perez in 2015 and EGD was performed. Placed on Protonix 40mg BID and Carafate, both were helpful, however insurance stopped paying. Currently taking Omeprazole, unclear if this helpful. History of Present Illness 50 yo female with h/o COPD, GERD, now with early satiety, bloating, postprandial vomiting after eating only several bites; some epigastric pain, emesis just of mucous and food, no blood; no bowel changes, some chronic constipation; no wt loss, h/o antral and duodenal bulb ulcers, last EGD [address] Perez, treated with Protonix bid and Carafate wit improvement; insurance then stopped covering medications, was off PPI for several years, taking only tums, antacids; recently started on omeprazole and Carafate; abdominal operations significant for LS cholecystectomy, umbilical and inguinal herniarepairs, JACK with BSO, last colonoscopy in 2015, wnl. patient denies asa or NSAID use, unsure of etiology of ulcer disease in past; smokes 1 ppd. fmhx of gastric cancer in her grandfather, no fmhx ofIBD. Review of Systems PHQ Score Initial Depression Screen Score: 0 ROS - Provider Constitutional: no fever, no sweats, no weight loss. Eyes: no glasses, no blurred vision, no visual loss. ENMT: no dentures, no hoarseness, no swallowing difficulties, no hearing loss, no ear infection(s),no nose bleeds. Cardiovascular: normal blood pressure, no chest pain, regular heartbeat, no heart murmur. Respiratory: no shortness of breath, mild cough, no asthma, yes wheezing. Gastrointestinal: yes nausea, yes vomiting, no diarrhea, mild constipation, no blood in stool, no change in bowel habits, mild abdominal pain, no hepatitis. Genitourinary: no kidney stones, no urine infection, no dysuria. Musculoskeletal: no pain, no weakness. Skin: no changing moles, no rash, no skin lumps. Neurologic: no seizures, no epilepsy, no headache. Psychiatric: no emotional or psychiatric problem. Heme/Lymph: no bleeding problems, no anemia, no blood clots, no transfusions. Allergy/Immunologic: no swollen lymph nodes/glands, no IV drug abuse. Other: Additional ROS info: Except as noted in the above Review of Systems and in the History of Present Illness, all other systems have been reviewed and are negative or noncontributory. Physical Exam Vitals & Measurements T: 36.8 ?C (Tympanic) HR: 70(Peripheral) RR: 16 BP: 124/86 HT: 148.59 cm HT: 148.6 cm WT: 55.7 kg WT: 55.7 kg BMI: 25.23 HEENT: normal conjunctiva, sclera clear, no scleral icterus, EOM intact, PERRLA. oral mucosa moist without lesions Neck: trachea midline , no mass, symmetric, no thyromegaly or nodules. no adenopathy Respiratory: lungs expiratory wheezes, respirations non labored. Cardiovascular: regular rate and rhythm, no murmur, , no pedal edema or varicosities. Gastrointestinal: soft, non distended, mild tenderness, epigastrium and RUQ, no peritoneal signs; no masses, no palpable hernias, diastasis recti no, no hepatosplenomegaly. normal bs Lymphatic: no cervical adenopathy, no axillary adenopathy, Musculoskeletal: normalgait, digits and nails without infection, nodes, cyanosis, clubbing. Skin: no rashes, no lesions, no ulcers, no subcutaneous nodules, induration. Psychiatric/Neuro: oriented to time, place, person, judgement normal, affect appropriate for age, insight intact, no focal deficits. Tests:review of old records completed, Discussed surgical options, risks, and possible complications with patient. Assessment/Plan 1. Postprandial vomiting (R11.10: Vomiting, unspecified) plan EGD with anesthesia for further evaluation, informed consent obtained. patient understands therisks associated with COVID-19, and the need for preoperative testing with self-isolation until theprocedure. 2. Early satiety (R68.81: Early satiety) see # 1 3. GERD (gastroesophageal reflux disease) (K21.9: Gastro-esophageal reflux disease without esophagitis) see # 1 4. History of gastric ulcer (Z87.19: Personal history of other diseases of the digestive system) see # 1 5. Smoker (F17.200: Nicotine dependence, unspecified, uncomplicated) We strongly recommend to quit tobacco use. Cigarette smoking harms nearly every organ of the body, causes many diseases, and reduces the health of smokers in general. Quitting smoking lowers your risk for smoking-related diseases and can add years to your life. We encourage you to visit www.smokefree.gov access to helpful resources including free telephone support. If you decide on prescription treatment to help you quit, your family doctor would be happy to provide these. Follow-up No qualifying data available Patient Education Esophagogastroduodenoscopy Problem List/Past Medical History Ongoing Chronic obstructive pulmonary disease Constipated Early satiety GERD (gastroesophageal reflux disease) History of gastric ulcer IBS (irritable bowel syndrome) Insomnia Postprandial vomiting Pyloric channel ulcer Smoker Historical No qualifying data Procedure/Surgical History Cholecystectomy, EGD - Esophagogastroduodenoscopy, Repair of right inguinal hernia, Repair of umbilical hernia, JACK BSO - Total abdominal hysterectomy and bilateral salpingo-oophorectomy, Tonsillectomy, Ureter. Medications Carafate 1 gram Tab, 1 gm= 1 tab(s), Oral, QIDACHS lactulose 20 g/30 mL Oral Syrup, 20 gm= 30 mL, Oral, BID, PRN omeprazole 40 mg Cap-DR, 40 mg= 1 cap(s), Oral, Daily traZODONE 100 mg Tab, 100 mg= 1 tab(s), Oral, Once a day (at bedtime), PRN Ventolin HFA 90 mcg/inh Aerosol, 2 puff(s), Inhalation, QID, PRN Allergies No Known Allergies No Known Medication Allergies Social History Alcohol - Denies Alcohol Use, 07/29/2020 Substance Abuse - Denies Substance Abuse, 07/29/2020 Tobacco 10 or more cigarettes (1/2 pack or more)/day in last 30 days Tobacco Use:., 07/29/2020 Family History Acute myocardial infarction: Father. Diabetes mellitus type 2: Father. Heart failure: Mother.[facility]aritan HospitalComment on above:Result Comment: Electronically Signed By: MIREYA DENTON, Jazz Watson\Date and Time Signed: 07/29/20 16:16 EDTHistorical Records Officeon [id number] Records [id number]:127NoJoint Township District Memorial HospitalPatient Educationon [phone] EducationFamily Medicine Esophagogastroduodenoscopy Esophagogastroduodenoscopy (EGD) is a procedure to examine the lining of the esophagus, stomach, and first part of the small intestine (duodenum ). A long, flexible, lighted tube with a camera attached (endoscope ) is inserted down the throat to view these organs. This procedure is done to detect problems or abnormalities, such as inflammation, bleeding, ulcers, or growths, in order to treat them. The procedure lasts about 5?20 minutes. It is usually an outpatient procedure, but it may need to be performed in emergency cases in the hospital. LET YOUR CAREGIVER KNOW ABOUT: ? Allergies to food or medicine. ? All medicines you are taking, including vitamins, herbs, eyedrops, and jjhy-bfi-umbmprw medicinesand creams. ? Use of steroids (by mouth or creams). ? Previous problems you or members of your family have had with the use of anesthetics. ? Any blood disorders you have. ? Previous surgeries you have had. ? Other health problems you have. ? Possibility of , if this applies. RISKS AND COMPLICATIONS Generally, EGD is a safe procedure. However, as with any procedure, complications can occur. Possible complications include: ? Infection. ? Bleeding. ? Tearing (perforation ) of the esophagus, stomach, or duodenum. ? Difficulty breathing or not being able to breath. ? Excessive sweating. ? Spasms of the larynx. ? Slowed heartbeat. ? Low blood pressure. BEFORE THE PROCEDURE ? Do not eat or drink anything for 6?8 hours before the procedure or as directed by your caregiver. ? Ask your caregiver about changing or stopping your regular medicines. ? If you wear dentures, be prepared to remove them before the procedure. ? Arrange for someone to drive you home after the procedure. PROCEDURE ? A vein will be accessed to give medicines and fluids. A medicine to relax you (sedative ) and a pain reliever will be given through that access into the vein. ? A numbing medicine (local anesthetic ) may be sprayed on your throat for comfort and to stop you from gagging or coughing. ? A mouth guard may be placed in your mouth to protect your teeth and to keep you from biting on the endoscope. ? You will be asked to lie on your left side. ? The endoscope is inserted down your throat and into the esophagus, stomach, and duodenum. ? Air is put through the endoscope to allow your caregiver to view the lining of your esophagus clearly. ? The esophagus, stomach, and duodenum is then examined. During the exam, your caregiver may: ? Remove tissue to be examined under a microscope (biopsy ) for inflammation, infection, or other medical problems. ? Remove growths. ? Remove objects (foreign bodies ) that are stuck. ? Treat any bleeding with medicines or other devices that stop tissues from bleeding (hot cauters, clipping devices ). ? Widen (dilate ) or stretch narrowed areas of the esophagus and stomach. ? The endoscope will then be withdrawn. AFTER THE PROCEDURE ? You will be taken to a recovery area to be monitored. You will be able to go home once you are stable and alert. ? Do not eat or drink anything until the local anesthetic and numbing medicines have worn off. You may choke. ? It is normal to feel bloated, have pain with swallowing, or have a sore throat for a short time. This will wear off. ? Your caregiver should be able to discuss his or her findings with you. It will take longer to discuss the test results if any biopsies were taken. Document Released: 01/19/2006 Document Revised: 09/04/2013 Document Reviewed: 08/21/2013 ExitCare? Patient Information ?2013 [employer]itan HospitalProvider Letter FTon [phone] Letter [facility] [place] July 29, 2020 SHELIA BRITO [address] [place] [address] SHELIA BRITO 1970 To Whom It May Concern, Please excuse the above named person from work on 08/18/20-08/19/20. Sincerely, Dr. Jazz Fortune MD General SurgerySamaritan HospitalPhysician Referralon 07-22-2020 Physician [id number]:127[facility] For RehabilitationCNOVon [id number] Visit (GENALFONSO) --------SHELIA BRITO ([id number]) 1970 FDate Time Provider Department05/03/17 11:00 AM Freddie HERNANDEZ During your visit today, we recorded the following information about you:David Thornton MD 05/22/2017 12:26 PM SignedHISTORY AND PHYSICAL EXAMINATIONPLEASE DO NOT REMOVE FROM THE CHART OR MODIFY PRINTED COPYPatient Name: Shelia YorkRN: [id number] CARE PHYSICIAN: SHANTELL Montgomery COMPLAINT: Epigastric pain and emesisHPI: This is a 46 year old female who presents with epigastric pain andintermittent nausea/emesis over the past 2 years. 2 years ago, she wasdiagn osed with peptic ulcer disease (ulcers in the antrum) and was started onPPI therapy without resolution of her symptoms. She was also found to havestricture at/near the pylorus. Unclear whether the ulcers were ever biopsied,she does not think they were. Also does not remember being on antibiotics. LastEGD was in September 2016 and showed 2 gastric antrum ulcers and a duodenalulcers with strictured pylorus that was successfully traversed. CT at the sametime was consistent with gastric outlet obstruction with thick duodenal wall.No personal or family history of GI disorders, including PUD. DeniesusingNSAIDs. Currently smoking 0.5 pack/day. Has lost a significant amount of weightover these past2 years (ANDgt;10%, ~20 pounds in 2017).PAST MEDICAL HISTORY:PAST MEDICAL HISTORYDiagnosis Date- Duodenal ulcer- Reflux of urinePAST SURGICAL HISTORY: PAST SURGICAL HISTORYNo date: CHOLECYSTECTOMY HXComment: lapNo date: HYSTERECTOMY HXNo date: PAST SURGICAL HISTORY OF Comment: tonsilsNo date: PAST SURGICAL HISTORY OF Comment: umbilical hernia repairNo date: PAST SURGICAL HISTORY OF Comment: R inguinal hernia repairNo date: PAST SURGICAL HISTORY OF Comment: ureter surgery for kidney refluxFAMILY HISTORY:FAMILY HISTORY Cancer Maternal GrandfatherSOCIAL HISTORY:Social HistorySubstance Use Topics- Smoking status: Current Every Day Smoker Packs/day: 0.50 Types: Cigarettes- Smokeless tobacco: Not on file- Alcohol use NoMEDICATIONS:Prior to Admission Medications:PANTOPRAZOLE SODIUM (PANTOPRAZOLE ORAL) Take 40 mg by mouth twice daily.SUCRALFATE (CARAFATE ORAL) Take by mouth.iv contrast (radiology procedure) CT ABD/PEL -Inject, intravenously, once for 1dose.No IV access, insert saline lock prior to the beginning of sedation,infusion, injection of imaging exam. Discontinue saline lock post exam. If Pt.has a central line or IVAD, may access for administration according to linespecific nursing protocol. Once exam is complete flush line and de-accessaccording to line specific nursing protocol in the CT contrast administrationguidelines link.enteric contrast (radiology procedure) For CT ABD/PEL W IVCON Routine orderAdminister, As Directed One Time Only, via Oral, Rectal, both Oral and Rectal,Enteric Tube, Stoma or Indwelling Catheter, Enteric Contrast as designated perenteric contrast guidelinesNo current hospital medications on file.ALLERGIES: ALLERGIESNo Known AllergiesCOMPLETE REVIEW OF SYSTEMS: Negative except as in HPIPHYSICAL EXAM:There were no vitals taken for this visit.General appearance: Thin, well appearing, alert, in no acute distressLungs: clear to auscultation, no wheezing or rhonchiHeart: RRR without murmur, gallop, or rubs. No ectopyAbdomen: Abdomen soft, non-tender. Bowel sounds normal. No masses, organomegalyDATA: Radiology:CT Abdomen/Pelvis in SeptemberASSESSMENT AND PLAN:46 year old female presenting with refractory peptic ulcer disease and gastricoutlet obstruction-Repeat EGD with possible dilation and biopsy of the ulcers-CT Abd/Pel with PO and IV cont rast-Smoking cessation discussed with the patient-Serum gastrin-Protein supplementsThe patient understands and agrees with the plan.SIGNATURE:DAVE DawsonATE of SERVICE: 05/03/2017TIME of SERVICE: 12:07 PMReferring Provider: SEMAJ ERNST [[id number]]Allergies As of Date: 05/03/2017(No Known A llergies)Date Reviewed: 05/03/2017Reviewed by: Earlene (Rn) ED Linton - Fully AssessedPrimary Visit Diagnosis:Duodenal stricture [K31.5]Order(s):GASTRIN BLD [SQGAST] Order #: [id number] FUTURE CT ABD/PEL W IVCON [[id number]] Order #: [id number] FUTURE [] iv contrast (radiology procedure)CT ABD/PEL -Inject, intravenously, once for 1 dose.No IV access, insert saline lock prior to the beginning of sedation, infusion, injection of imaging exam. Discontinue saline lock post exam. If Pt. has a central line or IVAD, may access for administration according to line specific nursing protocol. Once exam is complete flush line and de-access according to line specific nursing protocol in the CT contrast administration guidelines link.Disp: 1 EachRfl: 0 [] enteric contrast (radiology procedure)For CT ABD/PEL W IVCON Routine order Administer, As Directed One Time Only, via Oral, Rectal, both Oral and Rectal, Enteric Tube, Stoma or Indwelling Catheter, Enteric Contrast as designated per enteric contrast guidelinesDisp: 1 EachRfl: 0 EGD DILATION GEN ANES [[id number]] Order #: [id number] FUTUREPrescriptions as of 05/03/2017 Sig: PANTOPRAZOLE ORAL Take 40 mg by mouth twice marcela* CARAFATE ORAL Take by mouth. IV CONTRAST (RADIOLOGY PROCED* CT ABD/PEL -Inject, intraveno* ENTERIC CONTRAST (RADIOLOGY P* For CT ABD/PEL W IVCON Routin*Problem List As Of Date: 05/03/2017(None)Prescriptions ordered this encounter Disp Refills Start End IV CONTRAST (RADIOLOGY PROCEDURE) 1 Ea* 0 05/03/2017 05/04/2017 Class: In Office Sig: CT ABD/PEL -Inject, intravenously, once for 1 dose.No IV access, insert saline lock prior to the beginning of sedation, infusion, injection of imaging exam. Discontinue saline lock post exam. If Pt. has a central line or IVAD, may access for administration according to line specific nursing protocol. Once exam is complete flush line and de-access according to line specific nursing protocol in the CT contrast administration guidelines link. ENTERIC CONTRAST (RADIOLOGY PROCEDUR* 1 Ea* 0 05/03/2017 05/04/2017 Class: In Office Sig: For CT ABD/PEL W IVCON Routine order Administer, As Directed One Time Only, via Oral, Rectal, both Oral and Rectal, Enteric Tube, Stoma orIndwelling Catheter, Enteric Contrast as designated per enteric contrast guidelinesEncounter Number: [id number] Status:Closed by Freddie HERNANDEZ MD, FACS on 05/22/17NoMercy Health Springfield Regional Medical Centerice Visit (CORN) --------SHELIA BRITO ([id number]) 1970 FDate Time Provider Department05/03/17 8:40 AM SEMAJ ERNST During your visit today, we recorded the following information about you: Temperature Pulse Blood pressure Weight 98.3 degrees 110/minute 135/87 42.2 kg Height 1.473 Luz Elena Ernst MD FACS 05/03/2017 10:10 AM SignedNew Patient ConsultREASON FOR VISITShelia Brito is a 46 year old female who is scheduled for a consult at [facility] for Consult. My final recommendationswill be communicated back to the requesting physician by the way of the sharedmedical record, fax, or via US MailHistory of Present Illness:For several months she has had a sense of obstruction after eating anddrinking. She originally could not eat bread because of the stomach did notempty and this has progressed to other foods, whereas at the present time sheindicates that most times after eating she has to vomit to evacuate her stomachand feel more comfortable.She has lost about 20 pounds in weight over the last few months.In September 2016. She had upper gastrointestinal endoscopy, which demonstratedan ulcer in her duodenum. We have no records of biopsy. She was treated withCarafate and Pantaprazole , which has not had any noticeable effect.FUNCTIONAL STATUS: Do moderate work lissy und the house such as vacuuming,sweeping floors, or carrying in groceries (3.50 METs)PAST MEDICAL HISTORYDiagnosis Date- Duodenal ulcer- Reflux of urinePAST SURGICAL HISTORYNo date: CHOLECYSTECTOMY HX Comment: lapNo date: HYSTERECTOMY HXNo date: PAST SURGICAL HISTORY OF Comment: tonsilsNo date: PAST SURGICAL HISTORY OF Comment: umbilical hernia repairNo date: PAST SURGICAL HISTORY OF Comment: R inguinal hernia repairNo date: PAST SURGICAL HISTORY OF Comment: ureter surgery for kidney refluxFAMILY HISTORY Cancer Maternal GrandfatherSocial HistorySubstance Use Topics- Smoking status: Current Every Day Smoker Packs/day: 0.50 Types: Cigarettes- Smokeless tobacco: Not on file- Alcohol use NoThe patient has the following:Problem List (None)MEDICATIONSCurrent Outpatient Prescriptions:PANTOPRAZOLE SODIUM (PANTOPRAZOLE ORAL) Take 40 mg by mouth twice daily. Disp:Rfl:SUCRALFATE (CARAFATE ORAL) Take by mouth. Disp: Rfl:No current facility-administered medications for this visit.CURRENT ALLERGIESALLERGIESNo Known AllergiesREVIEW OF [facility] ASSESSMENT:General: + weight losNeuro: No history of TIA's, stroke, CHIEF MECHANICAL ENGINEER tumor, impaired sensorium, hemiplegia,paraplegia or quadraplegia. No neurological symptoms or problems.Respiratory: No history of current cough or dyspnea, or pneumonia in the past 6weeks. No history of respiratory/pulmonary symptoms or problemsCardiovascular: No history of HTN r equiring medication, no history of angina,CHF, [place], cardiac surgery or stents. Denies rest pain, gangrene orrevascularization/amputation for PVD. No history of cardiovascular symptoms orproblems.GI: Positive for duodenal ulcerGU: hx kidney refluxGYN: Negative for abnormal vaginal bleeding, abnormal vaginal discharge. : N/AEndocrine: No history of diabetes. Has not taken steroids within the past 30days. No history of endocrinological symptoms or problems.Hematology: No history of bleeding or clotting disorder. Pt is not takinganti-coagulation or platelet medications. No history of hematological symptomsor problems.Oncology: No history of CA metastasis, chemo within 30 days, or radioth erapywithin 90 days. Has not lost 10% of body wt in 6 months. No history ofoncological symptoms or problems.Psych: No history of psychiatric symptoms or problems.Musculoskeletal: Negative for joint pain or swelling, back pain or muscle pain.Skin: Negative for lesions, rash and itching.Anemia: NoPHYSICAL EXAMINATIONBP 135/87 Pulse 110 Temp (Src) 98.3 (Oral) Ht 4' 10ANDquot; (1.47m) Wt 93lb(42.2kg) SpO2 97% BMI 19.44 kg/(m2).General Appearance: ThinSkin: Skin color, texture, turgor normal, no suspicious rashes or lesionsHead: Normocephalic, no masses, lesions, tenderness or abnormal itiesOropharynx: Lips, mucosa, and tongue normal, teeth and gums normal, oropharynxnormalNeck: Supple, no adenopathy; thyroid symmetric, normal size, no bruitsLungs: Not examinedHeart: RRR without murmur, gallop, or rubs. No ectopy, Not examinedExtremities: No deformities, edema, skin discoloration, clubbing or cyanosis.Good capillary refill.Neuro: Gait normal. Reflexes normal and symmetric. Sensation grossly intact.,DeferredAbdomen: Normal abdominal exam with evidence of weight loss and scars fromprevious surgery.Diagnostic tests reviewed for today's visit:Upper gastrointestinal endoscopy Report . Shows a duodenal ulcer with edema.CT imaging scans from 2014 and September 2016 show a very large stomach withedema and stricturing at the duodenum.AssessmentASSESSMENTThere appears to be a duodenal stricture which from the images appears to bebenign. We have no evidence of any biopsies, and de spite medication. It hasprogressed over the last 12-[address] scan there is no evidence ofstricturing distal to the duodenum.RECOMMENDATIONShould see Dr. Hernandez for his opinion.Semaj Ernst MD FACSDATE: 05/03/17TIME: 8:51 AMReferring Provider: SAVANA PARDO, DEONTE RIVERA [[id number]]AllergiesAs of Date: 05/03/2017(No Known Allergies)Date Reviewed: 05/03/2017Reviewed by: Earlene (Ed) ED Linton - Fully AssessedReason for Visit: Consult [173]Primary Visit Diagnosis:Duodenal stricture [K31.5]Prescriptions as of 05/03/2017 Sig: PANTOPRAZOLE ORAL Take 40 mg by mouth twice marcela* CARAFATE ORAL Take by mouth.Problem List As Of Date: 05/03/2017(None) Status:Closed by SEMAJ ERNST MD, FACS on 05/03/17Normal [facility] HospitalHISTORY PHYSICALon [id number] PHYSICALHNO ID: [id number]: David (Shaka) KaragkounisService: (none)Author Type: ResidentType: HANDPFiled: 05/22/2017 12:26 PMNote Text:HISTORY AND PHYSICAL EXAMINATIONPLEASE DO NOT REMOVE FROM THE CHART OR MODIFY PRINTED COPYPatient Name: Shelia WaymakenziereMRN: [id number] CARE PHYSICIAN: SHANTELL Montgomery COMPLAINT: Epigastric pain and emesisHPI: This is a 46 year old female who presents with epigastric pain andintermittent nausea/emesis over the past 2 years. 2 years ago, she wasdiagnosed with peptic ulcer disease (ulcers in the antrum) and was startedon PPI therapy without resolution of her symptoms. She was also found tohave stricture at/near the pylorus. Unclear whether the ulcers were everbiopsied, she does not think they were. Also does not remember being onantibiotics. Last EGD was in September 2016 and showed 2 gastric antrumulcers and a duodenal ulcers with strictured pylorus that was successfullytraversed. CT at the same time was consistent with gastric outletobstruction with thick duodenal wall. No personal or family history of GIdisorders, including PUD. Denies using NSAIDs. Currently smoking 0.5pack/day. Has lost a significant amount of weight over these past2 years(>10%, ~20 pounds in 2017).PAST MEDICAL HISTORY:PAST MEDICAL HISTORYDiagnosis Date- Duodenal ulcer- Reflux of urinePAST SURGICAL HISTORY: PAST SURGICAL HISTORYNo date: CHOLECYSTECTOMY HX Comment: lapNo date: HYSTERECTOMY HXNo date: PAST SURGICAL HISTORY OF Comment: tonsilsNo date: PAST SURGICAL HISTORY OF Comment: umbilical hernia repairNo date: PAST SURGICAL HISTORY OF Comment: R inguinal hernia repairNo date: PAST SURGICAL HISTORY OF Comment: ureter surgery for kidney refluxFAMILY HISTORY:FAMILY HISTORY Cancer Maternal GrandfatherSOCIAL HISTORY:Social HistorySubstance Use Topics- Smoking status: Current Every Day Smoker Packs/day: 0.50 Types: Cigarettes- Smokeless tobacco: Not on file- Alcohol use NoMEDICATIONS:Prior to Admission Medications:PANTOPRAZOLE SODIUM (PANTOPRAZOLE ORAL) Take 40 mg by mouth twice daily.SUCRALFATE (CARAFATE ORAL) Take by mouth.iv contrast (radiologyprocedure) CT ABD/PEL -Inject, intravenously, oncefor 1 dose.No IV access, insert saline lock priorto the beginning ofsedation, infusion, injection of imaging exam. Discontinue saline lockpost exam.If Pt. has a central line or IVAD, may access foradministration according to line specific nursing protocol. Once exam iscomplete flush line and de-access according to line specific nursingprotocol in the CT contrast administration guidelines link.enteric contrast (radiology procedure) For CT ABD/PEL W IVCON Routineorder Administer, As Directed One Time Only, via Oral, Rectal, both Oraland Rectal, Enteric Tube, Stoma or Indwelling Catheter, Enteric Contrastas designated per enteric contrast guidelinesNo current hospital medications on file.ALLERGIES: ALLERGIESNo Known AllergiesCOMPLETE REVIEWOF SYSTEMS: Negative except as in HPIPHYSICAL EXAM:There were no vitals taken for this visit.General appearance: Thin, well appearing, alert, in no acute distressLungs: clear to auscultation, no wheezing or rhonchiHeart: RRR without murmur, gallop, or rubs. No ectopyAbdomen: Abdomen soft, non-tender. Bowel sounds normal. No masses,organomegalyDATA: Radiology:CT Abdomen/Pelvis in SeptemberASSESSMENT AND PLAN:46 year old female presenting with refractory peptic ulcer disease andgastric outlet obstruction-Repeat EGD with possible dilation and biopsy of the ulcers-CT Abd/Pel with PO and IV contrast- Smoking cessation discussed with the patient-Serum gastrin-Protein supplementsThe patient understands and agrees with the plan.SIGNATURE:DAVE DawsonATE of SERVICE: 05/03/2017TIME of SERVICE: 12:07 PMNormalBlanchard Valley Health System [facility] HospitalTORY PHYSICALHNO ID: [id number]: eSmaj Almonte: (none)Author Type: PhysicianType: HANDPFiled: 05/03/2017 10:10 AMNote Text:New Patient ConsultREASON FOR Cailin rBito is a 46 year old female who is scheduled for a consultat the request of Deonte Mccarty Sr. for Consult. My finalrecommendations will be communicated back to the requesting physician bythe way of the shared medical record, fax, or via US MailHistory of Present Illness:For several months she has had a sense of obstruction after eating anddrinking. She originally could not eat bread because of the stomach didnot empty and this has progressed to other foods, whereas at the presenttime she indicates that most times after eating she has to vomit toevacuate her stomach and feel more comfortable.She has lost about 20 pounds in weight over the last few months.In September 2016. She had upper gastrointestinal endoscopy, w hichdemonstrated an ulcer in her duodenum. We have no records of biopsy. Shewas treated with Carafate and Pantaprazole , which has not had anynoticeable effect.FUNCTIONAL STATUS: Do moderate work around the house such as vacuuming,sweeping floors, or carrying in groceries (3.50 METs)PAST MEDICAL HIS TORYDiagnosis Date- Duodenal ulcer- Reflux of urinePAST SURGICAL HISTORYNo date: CHOLECYSTECTOMY HXComment: lapNo date: HYSTERECTOMY HXNo date: PAST SURGICAL HISTORY OF Comment: tonsilsNo date: PASTSURGICAL HISTORY OF Comment: umbilical hernia repairNo date: PAST SURGICAL HISTORY OF Comment: R inguinal hernia repairNo date: PAST SURGICAL HISTORY OF Comment: ureter surgery for kidney refluxFAMILY HISTORY Cancer Maternal GrandfatherSocial HistorySubstance Use Topics- Smoking status: Current Every Day Smoker Packs/day: 0.50 Types: Cigarettes- Smokeless tobacco: Not on file- Alcohol use NoThe patient has the following:Problem List (None)MEDICATIONSCurrent Outpatient Prescriptions:PANTOPRAZOLESODIUM (PANTOPRAZOLE ORAL) Take 40 mg by mouth twice daily.Disp: Rfl:SUCRALFATE (CARAFATE ORAL) Take by mouth. Disp: Rfl:No current facility-administered medications for this visit.CURRENT ALLERGIESALLERGIESNo Known AllergiesREVIEW OF [facility] ASSESSMENT:General: + weight losNeuro: No history ofTIA's, stroke, CHIEF MECHANICAL ENGINEER tumor, impaired sensorium,hemiplegia, paraplegia or quadraplegia. No neurological symptoms orproblems.Respiratory: No history of current cough or dyspnea, or pneumonia in thepast 6weeks. No history of respiratory/pulmonary symptoms or problemsCardiovascular: No history of HTN req uiring medication, no history ofangina, CHF, IN, cardiac surgery or stents. Denies rest pain, gangrene orrevascularization/amputation for PVD. No history of cardiovascularsymptoms or problems.GI: Positive for duodenal ulcerGU: hx kidney refluxGYN: Negative for abnormal vaginal bleeding, abnormal vaginal discharge. : N/AEndocrine: No history of diabetes. Has not taken steroids within the past30 days. No history of endocrinological symptoms or problems.Hematology: No history of bleeding or clotting disorder. Pt is not takinganti-coagulation or platelet medications. No history of hematologicalsymptoms or problems.Oncology: No history of CA metastasis, chemo within 30 days, orradiotherapy within 90 days. Has not lost 10% of body wt in 6 months. Nohistory of oncological symptoms or problems.Psych: No history of psychiatric symptoms or problems.Musculoskeletal: Negative for joint pain or swelling, back pain or musclepain.Skin: Negative for lesions, rash and itching.Anemia: NoPHYSICAL EXAMINATIONBP 135/87 Pulse 110 Temp (Src) 98.3 (Oral) Ht 4' 10 (1.47m) Wt 93lb (42.2kg) SpO2 97% BMI 19.44 kg/(m2).General Appearance: ThinSkin: Skin color, texture, turgor normal, no suspicious rashes or lesionsHead: Normocephalic, no masses, lesions, tenderness or abnormalitiesOropharynx: Lips, mucosa, and tongue normal, teeth and gums normal,oropharynx normalNeck: Supple, no adenopathy; thyroid symmetric, normal size, no bruitsLungs: Not examinedHeart: RRR without murmur, gallop, or rubs. No ectopy, Not examinedExtremities: No deformities, edema, skin discoloration, clubbing orcyanosis. Good capillary refill.Neuro: Gait normal. Reflexes normal and symmetric. Sensation grosslyintact., DeferredAbdomen: Normal abdominal exam with evidence of weight loss and scars fromprevious surgery.Diagnostic tests reviewed for today's visit:Upper gastrointestinal endoscopy Report . Shows a duodenal ulcer withedema.CT imaging scans from 2014 and September 2016 show a very large stomachwith edema and stricturing at the duodenum.AssessmentASSESSMENTThere appears to be a duodenal stricture which from the images appears sheng benign. We have no evidence of any biopsies, and despite medication. Ithas progressed over the last 12-[address] scan there is noevidence of stricturing distal to the duodenum.RECOMMENDATIONShould see Dr. Hernandez for his opinion.Semaj Ernst MD FACSDATE: 05/03/17TIME: 8:51 AMNormalCleveland Clinic Hillcrest HospitalDX-XR ABD FLAT UP/PA CH IMPORTon 10-76-9196RH-XR ABD FLAT UP/PA CH IMPORTImages were obtained outside of [facility] SystemNormalCMcKitrick [facility] Encounters Encounter DateEncounter TypeCare ProviderFacilityStart: 12-09-2022 End: 34-66-1975uslijvuejnZLNXNF RUSSELLMERFacility:G2Kjrsq: 03-67-7436myylgdbgxo MOON WELLSMERFacility:Q3Ysyux: 03-17-2022 End: 62-07-6676aqwaltzcujEIGGWW RUSSELLMERFacility:L7Uxylb: 97-96-8292igiltnbemg MOON CRAMERFacility:K7Cwpaz: 01-12-2022 End: 86-38-0836cjlinpolelLRZJIZ CRAMERFacility:X0Itcog: 01-19-2021 End: 41-92-8233Fnqiezldmt and management of inpatientDAVID JONESFacility:[facility] Start: 10-15-2020 End: 10-65-0642Axdpbgucsh and management of inpatientJIANLIN TANGFacility:[facility] Start: 10-09-2020 End: 00-76-7306Rixibnwntp and management of inpatientDOUGLAS HOYFacility:[facility] Start: 42-26-4596EvkagfnjbwP MATTHEW WALSHCleveland Clinic Hillcrest HospitalStart: 05-03-2017 End: 10-06-8138AjnxhbcjdbGEL C LAVERYCleveland Clinic Hillcrest Hospital Procedures DateProcedureProcedure DetailPerforming ClinicianStart: 07-91-2960OXXQNGLL OF RIGHT MIDDLE LUNG LOBE, ENDO, DIAGNMOHAMED OMBALLIStart: 19-89-7365CYQYNNMPSR OF RIGHT LOWER LUNG LOBE, ENDO, DIAGNMOHAMED OMBALLIStart: 70-45-3012JXMUASXE OF LUNG LINGULA, ENDO, DIAGNMOHAMMAD TALEBStart: 20-20-5238OPHZAAE OF CARDIAC SAMPL \T\ PRESSURE, R HEART, PERC APPROACHGEORGE V MOUKARBELStart: 01-15-6330UWUFK RADIOGRAPHY OF L PULM ART USING OTH CONTRASTGEORGE V MOUKARBELStart: 01-20-2021 PLAIN RADIOGRAPHY OF R PULM ART USING OTH CONTRASTGEORGE V MOUKARBELStart: 25-26-8529QKOYJ RADIOGRAPHY OF RIGHT HEART USING OTHER CONTRASTGEORGE V MOUKARBELStart: 58-11-9056FWNUDLJSAQYP OF OTHER GAS INTO RESP TRACT, VIA OPENING BLANCA AHMEDStart: 42-29-0843RLURW RADIOGRAPHY OF MULT COR ART USING OTH CONTRASTEHAB A ELTAHAWYStart: 99-64-1894MTXWDBOCUXHCGSE OF RIGHT AND LEFT HEART JADA LOWEOURIStart: 86-79-5402Ofqculnn screenDOUGLAS HOYComment on above: Performed By: #### [id number] ####[facility] [address], USAStart: 36-35-5477SGNFEYTPYC WITH RESPIRATORY VENTILATION, <24 HRS, CPAPLATONYA MCCLUREStart: 45-11-6464MFMQXA DUODENUM, OPEN APPROACHLUCIAASCENSION PROVIDENCE [facility]HE[facility] RENStart: 46-80-0486EIUWLM STOMACH TO JEJUNUM, OPEN APPROACH LATONYA TANGStart: 68-09-9759RNKDCDQE OF VAGUS NERVE, OPEN APPROACHROLLYNORTHERN LIGHT MERCY [facility]OSPITAL MCCLURE Start: 21-32-6395FGPDAFNV OF STOMACH, PYLORUS, OPEN APPROACHLUCIABHARAT BANNER OCOTILLO MEDICAL CENTERStart: 60-88-2144KYTYDJYBLQVY OF NUTRITIONAL INTO UP GI, VIA OPENINGLATONYA MCCLUREStart: 78-72-7098BBQTBZT ASSISTED PROCEDURE OF TRUNK REGION, OPEN APPROACHVILMANORTHERN LIGHT MERCY HOSPITAL MCCLURE Payers DatePayer CategoryPayerPolicy [id number]-[id number] Discharge summary note 01-26-2021 Note Date & XhcdVtdeHhqfjcbc29-88-3771 NoteMR#: [id number] I [facility] Pt. Name: Shelia Brito Admitted: 01/18/2021 Discharged: 01/26/2021 Date of : 1970 Physician: Misael Li MD DISCHARGE SUMMARY DIAGNOSIS AT ADMISSION: Acute hypoxic respiratory failure. DIAGNOSES AT DISCHARGE: 1. Acute hypoxic respiratory failure related to atypical infection, resolved. 2. Non ST elevation myocardial infarction. 3. Nonobstructive coronary artery disease. 4. Irritable bowel syndrome. 5. History of peptic ulcer disease with history of gastrectomy. HOSPITAL COURSE: This is a 50-year-old female, who came to hospital for worsening shortness of breath along with acute hypoxic respiratory failure. COVID-19 was ruled out. She underwent bronchoscopy for the diagnostic and therapeutic purposes, both for acute hypoxic respiratory failure, but the findings did not show any significant etiology. Cultures remain negative. The patient's acute hypoxic respiratory failure kept on improving with systemic steroids. She underwent another bronchoscopy with Pulmonary team yesterday to rule out interstitial lung disease. She will be on a tapering course of steroids. The patient has been off oxygen supplementation. Antibiotics have been completed. No fever or chills. No nausea or vomiting. She was also evaluated by the Cardiology due to echocardiogram shows moderate pulmonary hypertension with right ventricular dilatation. Left heart cath showed nonobstructive coronary artery disease in 2 of the vessels, so she will be continued on aspirin, statins, and beta-blockers. No intervention was performed at this time. The patient did not have any chest pain or shortness of breath or exertion shortness of breath either since then. PHYSICAL EXAMINATION AT THE TIME OF DISCHARGE: VITAL SIGNS: The patient's blood pressure 110/69 mmHg, heart rate 62 per minute, temperature 98 degree Fahrenheit, and respiratory rate 17 per minute. EYES: No pallor or jaundice. ENT: No nasal discharge. RESPIRATORY: Bilateral air entry. CARDIOVASCULAR: S1, S2. ABDOMEN: Soft, nontender. MEDICATION LIST: Reviewed, reconciled. DISCHARGE INSTRUCTIONS: The patient will be discharged to home with a heart healthy diet and follow up with Pulmonary as scheduled for biopsy findings done during bronchoscopy to rule out interstitial lung disease. Continue tapering course of steroids as prescribed along with oral PPI and sucralfate as she already takes due to history of peptic ulcer disease. Physical activity as tolerated. CONDITION ON DISCHARGE: Stable. Time spent discharge process 35 minutes. Electronically Signed by: Misael Li MD 01/27/2021 10:49 A Misael Li MD Date Dict: 01/26/2021/01:13 P/Misael Li MD Date Trans: 01/26/2021 01:35 P/mmo DN_JN:[id number] cc: Yue Funez M.D. [address] [facility] [place] [id number] [facility] Discharge summary note 10-23-2020 Note Date & VrjlHrsuMobmwgnb24-93-6315 NoteMR#: [id number] I [facility] Pt. Name: Shelia Brito Admitted: 10/15/2020 Discharged: 10/22/2020 Date of : 1970 Physician: Latonya Mcclure M.D. DISCHARGE SUMMARY PRINCIPAL DIAGNOSIS: Duodenal stump leak. PROCEDURES AND TREATMENT: Include the following A 50-year-old female with recent robotic assisted laparoscopic antrectomy with truncal vagotomy and gastrojejunostomy. She presented to the emergency department with acute abdominal pain. CT scan revealed free fluid with multiple duodenal stump leak. Decision was made to take the patient for an exploratory laparotomy. In the operating room patient was indeed found to have a duodenal stump leak that was repaired. She was admitted to the ICU postoperatively for close monitoring and eventually step-down. The patient then developed tachycardia and tachypnea. She was given Lasix and placed on BiPAP and transferred back to the ICU. She was given antibiotics and continued to be a diuresis. Eventually, patient was weaned off BiPAP to nasal cannula and sat down again. Today she had home O2 evaluation. Decision was made that the patient did not need home oxygen. Case discussed with Pulmonary team who states the patient did not need further antibiotic coverage and could follow up with a precipitator in her area. Home health was set up for the patient to care for her REAGAN drains as well as the midline incision. She was told to follow up with Dr. Mcclure's in 1 week in the clinic. She verbalized understanding, was agreeable to plan. She was then given a prescription for p.r.n. pain medication and discharged home in stable condition. The patient was seen and examined on day of discharge and this discharge summary is in conjunction with any daily progress note from the day of discharge. Electronically Signed by: Latonya Mcclure M.D. 10/28/2020 12:30 P Latonya Mcclure M.D. I personally saw this patient on the day of the encounter, performed the blum portion(s) of the service and participated in the management and confirm the resident's documentation. Please note there may be an additional personal documentation from me. Date Dict: 10/22/2020/06:40 P/Sabiha Ontiveros [facility] Date Trans: 10/23/2020 03:41 A/oliva [id number]:[id number] cc: Yue Funez M.D. [place] [id number] [facility] [id number] [facility] Discharge summary note 10-14-2020 Note Date & XmfyAsrwFtychvca60-96-5183 NoteMR#: [id number] I [facility] Pt. Name: Shelia Brito Admitted: 10/09/2020 Discharged: 10/14/2020 Date of : 1970 Physician: Latonya Mcclure M.D. DISCHARGE SUMMARY PRINCIPAL DIAGNOSIS: Status post Da Chelsie antrectomy with gastrojejunostomy for gastric outlet obstruction. PROCEDURES AND TREATMENT: Include the following: A 50-year-old female, who had peptic ulcer disease that resulted in gastric outlet obstruction and failed medical management, came in for a planned Da Chelsie antrectomy with gastrojejunostomy for gastric outlet obstruction that was completed on 10/09/2020. She was admitted postoperatively for observation. Once bowel function returned, NG tube was removed and the patient was started on a clear liquid diet. Diet was advanced appropriately. Today the patient was tolerating a fiber restricted diet. The pain is controlled with oral pain medication. The patient stated that she felt ready and safe to discharge home. Followup appointment was scheduled for the patient. Discharge instructions were explained to the patient. She verbalized understanding and is agreeable with the plan. She was then discharged home in stable condition. The patient was seen and examined on day of discharge. This discharge summary is in conjunction with any daily progress note from the day of discharge. Electronically Signed by: Latonya Mcclure M.D. 10/18/2020 03:13 P Latonya Mcclure M.D. I personally saw this patient on the day of the encounter, performed the blum portion(s) of the service and participated in the management and confirm the resident's documentation. Please note there may be an additional personal documentation from me. Date Dict: 10/14/2020/01:52 P/Sabiha Ontiveros CNP Date Trans: 10/14/2020 02:13 P/oliva DN_JN:[id number] cc: Yue Funez M.D. [address], [facility] [id number] Summary Purpose Family History No Family History Records FoundNo Family History Records FoundNo Family History Records FoundNo Family History Records Found Advance Directives No Advanced Directives Records FoundNo Advanced Directives Records FoundNo Advanced Directives Records FoundNo Advanced Directives Records Found Additional Source Comments INFORMATION SOURCE (unrecogn ized section and content) DATE CREATED AUTHOR 03/28/2018 [facility] DATE CREATED AUTHOR AUTHOR'S ORGANIZ ATION 09/09/2020 [facility] DATE CREATED AUTHOR AUTHOR'S ORGANIZ ATION 03/06/2021 [facility] DATE CREATED AUTHOR AUTHOR'S ORGANIZ ATION 12/14/2022 [facility] FOR RECORDS PERTAINING TO PATIENTS WHO ARE OR HAVE BEEN ENROLLED IN A CHEMICAL DEPENDENCY/SUBSTANCEABUSE PROGRAM, SOME INFORMATION MAY BE OMITTED. This clinical summary was aggregated from multiple sources. Caution should be exercised in using it in the provision of clinical care. This summary normalizes information from multiple sources, and as a consequence, information in this document may materially change the coding, format and clinical context of patient data. In addition, data may be omitted in some cases. CLINICAL DECISIONS SHOULD BE BASED ON THE PRIMARY CLINICAL RECORDS. [employer] [facility]. provides no warranty or guarantee of the accuracy or completeness of information in this document.
--- OUTSIDE RECORDS SUMMARY | 2025-07-25 14:36 | XMS_ITS | Clinical Summary ---
Author Organization [facility] Address [address] [place] [address] Care Team Providers Care Abatement Worker Name Role Phone Unavailable Primary Care Provider Unavailabl e Social History Tobacco UseTypesPacks/DayYears UsedDateSmoking Tobacco: Never Assessed CommentsUnknownSex and Gender InformationValueDate RecordedSex Assigned at Not on fileLegal YxdStlpgr57/15/2023 7:23 PM EDTGender IdentityNot on fileSexual OrientationNot on file Plan of Treatment Not on file Insurance
--- OUTSIDE RECORDS SUMMARY | 2025-07-25 14:37 | XMS_ITS | Clinical Summary ---
Author Organization [facility] Address [address] [place], [place] [id number] Care Team Providers Care Software Development Engineer Name Role Phone House Sr., DO Deonte Muñoz Primary Care Provider + Allergies No known active allergies Medications MedicationSigDispense QuantityRefillsLast FilledStart DateEnd DateStatus PANTOPRAZOLE SODIUM (PANTOPRAZOLE ORAL) Take 40 mg by mouth twice daily.Active SUCRALFATE (CARAFATE ORAL) Take by mouth.Active Family History Medical HistoryRelationCommentsCancerMaternal GrandfatherRelationStatusComments Maternal Grandfather Social History Tobacco UseTypesPacks/DayYears UsedDateSmoking Tobacco: Every DayCigarettes Alcohol UseStandard Drinks/WeekCommentsNo0 (1 standard drink = 0.6 oz pure alcohol)CommentsNoSex and Gender InformationValueDate RecordedSex Assigned at BirthNot on fileLegal DxyTbcxwh32/25/2017 5:46 AM EDTGender Identity Not on fileSexual OrientationNot on file Last Filed Vital Signs Vital SignReadingTime TakenCommentsBlood Utkskahs064/8708 8:43 AM EDT Mmtof24418/02/2017 8:43 AM CNVSidtnnkzvxt76.8 ??C (98.3 ??F)05/03/2017 8:43 AM EDTRespiratory Rate--Oxygen Bocccewais69%05/03/2017 8:43 AM EDTInhaled Oxygen Concentration--Huzcit32.2 kg (93 lb)05/03/2017 8:43 AM NMLLiwodw727.3 cm (4' 10 )05/03/2017 8:43 AM EDTBody Mass Index19.4408 8:43 AM EDT Plan of Treatment Health MaintenanceDue DateLast DoneCommentsAnxiety Uhqvxeqqb03/08/1988Depression Mynblyqxo53/08/1988HIV Bvjkwzosq76/08/1988Hepatitis C Rhzgxowrx48/08/1988 DTaP,Tdap,Td Vaccine (1 - Tdap)1989Hepatitis B Vaccine (1 of 3 - 19+ 3- dose series)1989Cervical Cancer Plprrpprk89/08/1991Mammogram Screening 2010CT Jxqnqgarrvid17/08/2015Cologuard (FIT-DNA)2015Colonoscopy 2015Colorectal Cancer Jlwwuguzn36/08/2015Diabetes Znhkbezva05/08/2015Fecal Occult Blood2015Lipid Wthmxnrcd15/08/2242Nreceurnexlmi71/08/2015 Pneumococcal Vaccine: 50+ (1 of 1 - PCV)2020Shingrix Vaccine (1 of 2) 2020Covid-19 Vaccine (1 - 2024- season)2025Influenza Vaccine (#1) 2025 Insurance Care Teams Team MemberRelationshipSpecialtyStart DateEnd Deonte Garcia Sr., DO PCP - GeneralFamily Medicine04/25/17
--- OUTSIDE RECORDS SUMMARY | 2025-07-26 11:35 | XMS_ITS | Clinical Summary ---
Author Organization [facility] Address [address] [place] [address] Care Team Providers Care Supervisor Show Operations Name Role Phone Unavailable Primary Care Provider Unavailabl e Social History Tobacco UseTypesPacks/DayYears UsedDateSmoking Tobacco: Never Assessed CommentsUnknownSex and Gender InformationValueDate RecordedSex Assigned at Not on fileLegal LynSfvkgu79/15/2023 7:23 PM EDTGender IdentityNot on fileSexual OrientationNot on file Plan of Treatment Not on file Insurance
--- OUTSIDE RECORDS SUMMARY | 2025-07-26 11:35 | XMS_ITS | Clinical Summary ---
Author Organization [facility] Address [address] [address] Care Team Providers Care Guard Captain Name Role Phone Unavailable Primary Care Provider Unavailabl e Social History Tobacco UseTypesPacks/DayYears UsedDateSmoking Tobacco: Never AssessedUT Safety & EnvironmentAnswerDate RecordedFear of Current or Ex-PartnerNot on file 11/23/2023Emotionally AbusedNot on file11/23/2023hysically AbusedNot on file 11/23/2023Sexually AbusedNot on file11/23/2023hysically or Sexually AbusedNot on file11/23/2023CommentsUnknownSex and Gender InformationValueDate RecordedSex Assigned at BirthNot on fileLegal CszNahcvy64/29/2022 10:13 PM EDT Gender IdentityNot on fileSexual OrientationNot on file Last Filed Vital Signs Vital SignReadingTime TakenCommentsBlood Wlsblpzm675/8406 2:07 PM EDT Uxclm689603/16/2022 2:07 PM AWMNcivljsohic20 ??C (98.6 ??F)03/16/2022 2:06 PM EDT Respiratory Ypyf951011/09/2019 3:12 PM ESTOxygen Qooycdbrhp86%04/19/2021 3:02 PM EDTInhaled Oxygen Concentration--Idylqi14 kg (101 lb 6.4 oz)03/16/2022 2:03 PM LYVCvtzic976.3 cm (4' 10 )03/16/2022 2:02 PM EDTBody Mass Index21.19003/16/2022 2:02 PM EDT Plan of Treatment Health MaintenanceDue DateLast DoneCommentsCT Imerimjzxona1970Colonoscopy 1970Colorectal Cancer Fzrjjrjvp1970FIT-DNA1970FIT1970 FOBT1970 0980Qostrckwzqcwb1970Depression Bdedkpqpl69/08/1982Hepatitis B Vaccines (1 of 3 - 19+ 3-dose series)1989Pap Smear1991Adult Tetanus 1992Cervical Cancer Kuhxwqemb15/08/2000HPV/Ihpzmc9907/09/2000Mammogram 2010Zoster Vaccines (1 of 2)2020Pneumococcal Vaccine: Pediatrics [...]
--- OUTSIDE RECORDS SUMMARY | 2025-07-26 11:35 | XMS_ITS | CCD ---
Author Organization [facility] Care Team Providers Care Senior Power Scheduler Name Role Phone TRINIDAD ERNSTN C Unavailable Unavailable HOUSE SR, DEONTE RIVERA Unavailable Freddie Mcfarlane Unavailable Unavailable BRITTANIE, SEMAJ C Unavailable Unavailable HOY, YUE Primary Care Unavailable HOY, YUE Referring Unavailable REN JIANLIN Admitting Unavailable REN JIANLIN Attending Unavailable MA Procedure Practitioner Unavailab le REN JIANLIN Surgeon Unavailable AMAN VEGAS Admitting Unavailable MA Procedure Practitioner Unavailab le HOY, YUE Primary Care Unavailable ABEL HUTCHINSONB Attending Unavailable PIEDAD Referring Unavailable ELTATRACY MATOS Surgeon Unavailable MA Procedure Practitioner Unavailab le UNKNOWN, PROVIDER Surgeon Unavailable MA Procedure Practitioner Unavailab EDWIN Garcia Surgeon Unavailable MA Procedure Practitioner Unavailab LILA Mancia Surgeon Unavailable MA Procedure Practitioner Unavailab le GUMARO HUTCHINSONHAIB Surgeon Unavailable MCCLURE, JIANLIN Admitting Unavailable HOY, YUE Primary Care Unavailable SELF, REFERRED Referring Unavailable REN JIANLIN Attending Unavailable MA Procedure Practitioner Unavailab le REN JIANLIN Surgeon Unavailable JADA RICHMOND Surgeon Unavailable MA Procedure Practitioner Unavailab le DEEPIKA MOON Admitting [...] DEEPIKA, MOON Primary Care Unavailable DEEPIKA, MOON Consulting Unavailable DEEPIKA, MOON Admitting Unavailable DEEPIKA, MOON Primary Care Unavailable DR KEVEN CHUA Consulting Unavailable MOON POE Attending Unavailable MOON POE Consulting Unavailable Problems Active Problems Problem ClassificationProblemDateDocumented DateEpisodic/ChronicAbdominal pain (9 sources)Unspecified abdominal pain; Translations: [Left lower quadrant pain] Onset: 89-23-0359RyasdarpUkvlrurixfsz (1 source)Unknown / UNK(Unknown)Onset: 32-22-2643Vzgbpxgzhkeg (1 source)CONTACT W/AND (SUSP) EXPOS COVID-19; Translations: [CONTACT W/AND (SUSP) EXPOS COVID-19]Onset: 01-17-2022 Past or Other Problems Problem ClassificationProblemDateDocumented DateEpisodic/ChronicNausea and vomiting (4 sources)Nausea with vomiting, unspecified; Translations: [NAUSEA WITH VOMITING UNSPECIFIED]Onset: 55-13-0331IwlxusoxGurfy ear and sense organ disorders (1 source)Otalgia, left ear; Translations: [OTALGIA LEFT EAR]Onset: 01-17-2022 EpisodicOther upper respiratory infections (1 source)Acute pharyngitis, unspecified; Translations: [ACUTE PHARYNGITIS UNSPECIFIED]Onset: 36-38-0239Couzhhzw Results Test NameValueInterpretationReference RangeFacilityCULTURE URINEon 12-09-2022 CULTURE URINECulture Observations: LIGHT GROWTH OF MIXED GENITAL MYKE. NO POTENTIAL PATHOGENS SEEN.NormalThe Surgical Hospital At SouthwoodsComment on above:Performed By: #### URCX #### [facility] [address] [address] [address] Jed Carrera RANDOM W/MICROSCOPICon 86-23-4761NVZLNVSEIRJD SEENNormalNONE SEENThe Surgical Hospital At SouthwoodsComment on above:Performed By: #### UAMIC #### [facility] [address] [address] [address] Jed Gabrielirubin Ql (U)NegativeNormalNEGATIVEThe [facility] Comment on above:Performed By: #### UAMIC #### [facility] [address] [address] [address] Jed LeoCASTNONE SEENNormalNONE SEENThe Surgical Hospital At SouthwoodsComment on above:Performed By: #### UAMIC #### [facility] [address] [address] [address] Jed LeoClarity (U)CLEARNormalCLEARThe Surgical Hospital At SouthwoodsCommemorial healthcare on above: Performed By: #### UAMIC #### [facility] [address] [address] [address] Jed Bearlor (U)YELLOWNormalYELLOWThe Surgical Hospital At SouthwoodsComment on above: Performed By: #### UAMIC #### [facility] [address] [address] [address] Jed LeoCrystals LM Nom (Urine sed)NONE SEENNormalNONE SEENThe Surgical Hospital At SouthwoodsCommemorial healthcare on above:Performed By: #### UAMIC #### [facility] [address] [place] [address] Dr. Jed De La Torrepithelial cells LM Ql (Urine sed)MODERATEAbnormalNONE SEEN /RARE The [facility] HealthcareCommemorial healthcare on above:Performed By: #### UAMIC #### [facility] [address] [address] [address] Jed LeoGlucose Ql (U)NegativeNormalNEGATIVEThe Surgical Hospital At SouthwoodsCommemorial healthcare on above:Performed By: #### UAMIC #### [facility] [address] [place] [address] Dr. Jed LeoHemoglobin Ql (U)TRACE-INTACTAbnormalNEGATIVEThe Surgical Hospital At SouthwoodsCommemorial healthcare on above:Performed By: #### UAMIC #### [facility] [address] [address] [address] Jed LeoKetones Ql (U)NegativeNormalNEGATIVEThe Surgical Hospital At SouthwoodsCommemorial healthcare on above:Performed By: #### UAMIC #### [facility] [address] [place] [address] Dr. Jed LeoLEUKOCYTESNegativeNormalNEGATIVEThe [facility] Hospital [facility] SouthwoodsCommemorial healthcare on above:Performed By: #### UAMIC #### [facility] [address] [address] [address] Jed LeoMUCOUSNONE SEENNormalNONE SEENThe [facility] HospitalComment on above:Performed By: #### UAMIC #### [facility] [address] [place] [address] Dr. Jed Duncan Ql (U)NegativeNormalNEGATIVEThe [facility] HealthcareComment on above:Performed By: #### UAMIC #### [facility] [address] [place] [address] Dr. Jed LeopH (U)5.0 [pH]Normal5-9The [facility] HealthcareComment on above: Performed By: #### UAMIC #### [facility] [address] [place] [address] Dr. Jed LeoDrrlfQGZ3-9Vyzifwur4-9Jhz Uk HealthcareComment on above:Performed By: #### UAMIC #### [facility] [address] [place] [address] Dr. Jed LeoSPEC GRAVITY>=1.401Wtcjdmbe8.005-<=1.025The [facility] Comment on above:Performed By: #### UAMIC #### [facility] [address] [place] [address] Dr. Jed LeoUA PROTEINNegativeNormalNEGATIVE/ TRACEThe [facility] Comment on above:Performed By: #### UAMIC #### [facility] [address] [place] [address] Dr. Jed Frostbilbhaskar Qn (U)0.2 {Issac'U}/dLNormal0.2 - 1.0The [facility] HealthcareComment on above:Performed By: #### UAMIC #### [facility] [address] [place] [address] Dr. Jed LeoWBCNONE SEENNormalNONE SEENThe Surgical Hospital At SouthwoodsComment on above: Performed By: #### UAMIC #### [facility] [address] [place] [address] Dr. Jed LeoXR KUB 1 VIEWon 33-08-8272XX KUB 1 VIEWEXAMINATION: XR KUB 1 VIEW [...] Electronically authenticated by: KEVEN CHAU Date: 2022-12-09 13:05[facility] CenterCT A[facility]/PELV W CONon 48-33-2946AI ABD/PELV W CONEXAMINATION: CT ABD/PELV W CON [...] Electronically authenticated by: KEVEN CHAU Date: 2022-03-17 16:58[facility] CenterCovid-19 PCR (CVDTB)on 39-34-8529VZQV-CoV-2 (COVID-19) RNA KYLEIGH+probe Ql (Unsp spec)Not detectedNormalNOT DETECTEDThe [facility] Comment on above:Result Comment: This test is not yet approved or cleared by the [place] FDA. When there are no FDA-approved or cleared tests available, and other criteria are met, FDA can make tests available under an emergency access mechanism called an Emergency Use Authorization (EUA). The EUA for this test is supported by the [place] of Health and Human Service's (HHS's) declaration [...] consistent with SARS-CoV-2.Performed By: #### CVDTBH #### [facility] [address] [place] [address] Dr. Jed LeoGROUP A STREP CULTUREon 01-12-2022. pyogenes Ag Ql (Unsp spec) Culture Observations: NEGATIVE FOR GROUP A STREPTOCOCCUS.NormalThe Surgical Hospital At SouthwoodsComment on above: Performed By: #### SSCRN, GRASTCX #### [facility] [address] [place] [address] Dr. Jed LeoINFLUENZA A AND B AGon 60-28-0893QSCDNGQHPHZTW BELOWSt. Mary's Medical CenterComment on above:Result Comment: Negative for Flu A protein angiten. Infection due to Flu A cannot be ruled out. FluA angiten in the sample may be below the detection limit of the test.Performed By: #### INFLUAB #### [facility] [address] [place] [address] Dr. Jed LeoINFLUBNEGHSEE [facility] Memorial HospitalComment on above: Result Comment: Negative for Flu B protein antigen. Infection due to Flu B cannot be ruled out. FluB antigen in the sample may be below the detection limit of the test.Performed By: #### INFLUAB #### [facility] [address] [place] [address] Dr. Jed Whipple AGNegativeNormalNEGATIVE SEE COMMENTThe [facility] HealthcareComment on above:Performed By: #### INFLUAB #### [facility] [address] [place] [address] Dr. Jed Carmona AGNegativeNormalNEGATIVE SEE COMMENTThe [facility] HealthcareComment on above:Performed By: #### INFLUAB #### [facility] [address] [place] [address] Dr. Jed LeoINTERNAL CONTROLSWithin Normal LimitsNormalWithin Normal Limits The [facility] HealthcareComment on above:Performed By: #### INFLUAB #### [facility] [address] [place] [address] Dr. Jed Aguilera SCREENon 73-67-2993KWCVW SCREEN ANegativeNormalNEGATIVEThe [facility] HealthcareComment on above:Performed By: #### SSCRN, GRASTCX #### [facility] [address] [place] [address] Dr. Jed Jerome PNEU I - [id number] 01-26-2021 FUMIGATUS #1AB, PRECIPITIN Not detectedNormalNone DetectedThe Peoples HospitalComment on above:Order Comment: Yes: Add to Previous draw if ableResult Comment: Performed By: [facility] [address] [place], [place] [address]F FUMIGATUS #6 AB, PRECIPITINNot detectedNormalNone DetectedThe Peoples HospitalComment on above:Order Comment: Yes: Add to Previous draw if ableResult Comment: Performed By: [facility] [address] [place], [place] [address]R PULLULANS AB, PRECIPITINNot detectedNormalNone DetectedThe Peoples HospitalComment on above:Order Comment: Yes: Add to Previous draw if ableResult Comment: Performed By: [facility] [address] [facility], [place] [id number] FAENI AB, PRECIPITINNot detectedNormalNone DetectedThe Peoples HospitalComment on above:Order Comment: Yes: Add to Previous draw if ableResult Comment: Performed By: [facility] [address] [facility], [place] [id number] SERUM AB, PRECIPITINNot detectedNormalNone DetectedThe Peoples HospitalCommemorial healthcare on above:Order Comment: Yes: Add to Previous draw if ableResult Comment: Performed By: [facility] [address] [facility], [place] [id number] VULGARIS #1 AB, PRECIPITINNot detectedNormalNone DetectedThe Pe[facility] HospitalCommemorial healthcare on above:Order Comment: Yes: Add to Previous draw if ableResult Comment: Testing includes antibodies directed at Aureobasidium pullulans, Aspergillus fumigatus #1, Aspergillus fumigatus #6, Micropolyspora faeni, [place] Serum and Thermoactinomyces vulgaris #1. Performed By: [address] [address]CYYKDYUWA EU 2 - 94375wv 01-26-2021 FLAVUS AB, PRECIPITINNot detectedNormalNone DetectedThe [facility] Comment on above:Order Comment: Yes: Add to Previous draw if ableResult Comment: Performed By: [facility] [address] [facility], [place] [id number] FUMIGATUS #2 AB, PRECIPITINNot detectedNormalNone DetectedThe [facility] HospitalCommemorial healthcare on above:Order Comment: Yes: Add to Previous draw if ableResult Comment: Performed By: [facility] [address] [place], [place] [address]N FUMIGATUS #3 AB, PRECIPITINNot detectedNormalNone DetectedThe [facility] HospitalCommemorial healthcare on above:Order Comment: Yes: Add to Previous draw if ableResult Comment: Performed By: [facility] [address] [facility], [place] [id number] VIRIDIS AB, PRECIPITINNot detectedNormalNone Detected The [facility] HospitalCommemorial healthcare on above:Order Comment: Yes: Add to Previous draw if ableResult Comment: Performed By: [facility] [address] [facility], [place] [id number] CANDIDUS AB, PRECIPITINNot detectedNormalNone Detected The [facility] HospitalCommemorial healthcare on above:Order Comment: Yes: Add to Previous draw if ableResult Comment: Testing includes antibodies directed at Aspergillus flavus, Aspergillus fumigatus #2, Aspergillus fumigatus #3, Saccharomonospora viridis, and Thermoactinomyces candidus. Performed By: [facility] [address] [place], [place] [address]JCQSU CELL COUNTon 93-49-7167Gapvvmhptrv/100 WBC (Bld)2 %NormalThe Peoples HospitalComment on above:Order Comment: RMLPerformed By: #### [id number] ####[facility] [place] [address], GSEOZVCFPGRON29 %NormalThe Peoples HospitalComment on above:Order Comment: RMLPerformed By: #### [id number] ####[facility] [place] [address], [facility] OTHER F1Diff done by [facility] Comment on above:Order Comment: RMLPerformed By: #### [id number] ####[facility] [place] [address], [facility] HOSPITALOTHER I6Smxtjsx by Kierra Gan M.D.NormalSelect Medical OhioHealth Rehabilitation Hospital - DublinComment on above:Order Comment: RMLResult Comment: Result changed by JAQUELIN on 01/27/2021 07:06. The previous value was Preliminary report; verified report to follow.Performed By: #### [id number] ####[facility] [place] [address], [facility] RBC9 RBC/[facility] HospitalComment on above:Order Comment: RMLPerformed By: #### 82391 ####[facility] [place] [address], [facility] HOSPITALSEGS3 %NormalThe Peoples HospitalComment on above:Order Comment: RMLPerformed By: #### [id number] ####[facility] [place] [address], [facility] SOURCEBAL - RMLNormalSelect Medical OhioHealth Rehabilitation Hospital - DublinComment on above: Order Comment: RMLPerformed By: #### [id number] ####[facility] [facility] CENTERJosé [place] [address], USATOTAL GXHJVA94 mLNormalSelect Medical OhioHealth Rehabilitation Hospital - DublinComment on above:Order Comment: RMLPerformed By: #### 03866 ####[facility] [facility] [place] [address], GZEPRN23 WBC/[facility] HospitalComment on above:Order Comment: RMLResult Comment: Some reference interval(s) and other method performance specifications have not been established for analytes on this body fluid. The test result must be integrated into the clinical context for interpretation.Performed By: #### [id number] ####[facility] [facility] [place] [address], USAFLUORO FOR BRONCHOSCOPYon 83-83-1809EUQEAZ FOR BRONCHOSCOPYUnMercy Health [facility] Department of Radiology [address] [place] [id number] Patient Name: SHELIA BRITO : 1970 Sex: F Age: Race: White Pt. Location: [address] [place] [address] Patient Status: I Ordered Date: 01/25/2021 10:05:00 [...] 10 seconds fluoroscopy time used. Electronically signed: Nicholsa Navarro. Transcribed by: [email or web address], User Resident: Electronically Signed by: NICHOLAS NAVARRO @ 01/25/2021 11:22 PMNormalThe Peoples HospitalComment on above:Order Comment: Yes: Add to Previous draw if ableOperative Reporton [id number] ReportMR#: [id number] I [facility] Pt. Name: Shelia Brito Room #: [id number] Discharge Date: Birthdate: 1970 OPERATIVE REPORT DATE [...] by: Lila Kirby MD 01/25/2021 05:02 P Lila Kirby MD I was present for the entire procedure. Date Dict: 01/25/2021/04:35 P/Joanne Rebolledo MD Date Trans: 01/25/2021 04:35 P/ ЮЛИЯ_JN:[id number] cc: Yue Funez M.D. [address] [facility] [place] [address]DwbsswTgqOhioHealth [facility] General Hospital SARS COV2 ANTIGEN NEGATIVEon 30-67-6101FUB SARS COV2 ANTIGEN NEGNegativeNormalNEGATIVEThe Peoples HospitalComment on above:Result Comment: Negative Results are [...] Compliance, or Certificate of Accreditation.Performed By: #### [id number], 37875, 10461, 13000, 93573 #### [address] [place] [address], USAPORTABLE CHEST 1 VIEWon 42-85-1051PXXLTNDD CHEST 1 VIEW [facility] Department of Radiology [address] [place] [id number] Patient Name: SHELIA BRITO : 1970 Sex: F Age: Race: White Pt. Location: [id number] Patient Status: I Ordered Date: 01/25/2021 4:30:00 [...] appropriate Electronically signed: Cristine Armenta. Transcribed by: [email or web address], User Resident: Electronically Signed by: CRISTINE ARMENTA @ 01/25/2021 05:03 PMNormalThe Peoples HospitalComment on above:Order Comment: Yes: Add to Previous draw if ablePORTABLE CHEST 1 VIEWUnMercy Health [facility] Department of Radiology [address] [place] [phone] Patient Name: SHELIA BRITO : 1970 Sex: F Age: Race: White Pt. Location: [id number] Patient Status: I Ordered Date: 01/25/2021 7:00:00 [...] opacities. Electronically signed: Agnes Littlejohn. Transcribed by: [email or web address], User Resident: Electronically Signed by: AGNES LITTLEJOHN @ 01/25/2021 08:00 AMNormalThe Peoples HospitalComment on above:Order Comment: Yes: Add to Previous draw if ablePROTHROMBIN TIMEon 16-74-7239ODB Coag (PPP) [Relative time] 0.95 {INR}Normal0.91-1.16The [facility]oples HospitalComment on above:Order Comment: No: Do not [...] OPTIMAL THERAPEUTIC RANGE. CHEST 1995;108:231S-246S.Performed By: #### [id number] ####[facility] [place] [address], USAPT Coag (PPP) [Time]12.7 sNormal 12.3-14.8The Peoples HospitalComment on above:Order Comment: No: Do not add to previous drawResult Comment: ALL RESULTS MUST BE INTERPRETED WITH RESPECT TO BLOOD DRAWING ARTIFACT OR DILUTION ERROR OF ANTICOAGULANT AT THE TIME OF SAMPLING.Performed By: #### 17851 ####[facility] [place] [address], USABASIC METABOLIC PANELon 58-65-1406Kmmljod [Mass/Vol]8.3 mg/dLLow 8.6-10.3The [facility]oples HospitalComment on above:Order Comment: PT NOT IN ROOM YETPerformed By: #### 39154 #### [facility] [address] [place] [address], USAChloride [Moles/Vol]103 mmol/CFgsyzt41-513Mig Peoples HospitalComment on above:Order Comment: PT NOT IN ROOM YET Performed By: #### 86887 #### [facility] [address] [place] [address], USACO2 [Moles/Vol]29 mmol/WAtljfu43-85Yyp [facility] HospitalComment on above:Order Comment: PT NOT IN ROOM YETPerformed By: #### 92073 #### [facility] [address] [place] [address], USACreatinine [Mass/Vol]0.45 mg/dLLow0.60-1.20The [facility] HospitalComment on above:Order Comment: PT NOT IN ROOM YET Performed By: #### 40658 #### [facility] [address] [place] [address], USAGFR/1.73 sq M.predicted among blacks MDRD (S/P/Bld) [Vol rate/Area]mL/min/{1.73_m2}Normal>60The [facility] Comment on above:Order Comment: PT NOT IN ROOM YETPerformed By: #### 33614 #### [facility] [address] [place] [address], USAGFR/1.73 sq M.predicted among non-blacks MDRD (S/P/Bld) [Vol rate/Area]mL/min/{1.73_m2}Normal>60The [facility] Comment on above:Order Comment: PT NOT IN ROOM YETPerformed By: #### 18873 #### [facility] [address] [place] [address], USAGlucose [Mass/Vol]89 mg/lNFetnyq71-830Xbm [facility] HospitalComment on above:Order Comment: PT NOT IN ROOM YETPerformed By: #### 89847 #### [facility] [address] [place] [address], USAPotassium [Moles/Vol]3.6 mmol/LNormal3.5-5.1The [facility] HospitalComment on above:Order Comment: PT NOT IN ROOM YET Performed By: #### 62851 #### [facility] [address] [place] [address], USASodium [Moles/Vol]140 mmol/MXltytb736-181Hhi [facility] HospitalComment on above:Order Comment: PT NOT IN ROOM YETPerformed By: #### 91962 #### [facility] [address] [place] [address], USAUrea nitrogen [Mass/Vol]14 mg/dLNormal7-25The [facility] HospitalComment on above:Order Comment: PT NOT IN ROOM YET Performed By: #### 18841 #### [facility] [address] [place] [address], USACBC COMPLETE BLOOD COUNTon 65-81-6945Trhkdxzwvrg distribution width (RBC) [Ratio]17.8 %High11.5-15.0The Peoples HospitalComment on above:Order Comment: No: Do not add to previous draw Performed By: #### 50933 ####[facility] [place] [address], [facility] HOSPITALHematocrit (Bld) [Volume fraction]31.8 %Low36.0-45.0The [facility] HospitalComment on above:Order Comment: No: Do not add to previous drawPerformed By: #### 17813 ####[facility] [place] [address], [facility] HOSPITALHemoglobin (Bld) [Mass/Vol]9.5 g/dLLow12.0-15.0The [facility] HospitalComment on above:Order Comment: No: Do not add to previous drawPerformed By: #### 30088 ####[facility] [place] [address], [facility] HOSPITALMCH (RBC) [Entitic mass]24.8 pgLow27.0-33.0The Peoples HospitalComment on above:Order Comment: No: Do not add to previous drawPerformed By: #### 72863 ####[facility] [place] [address], [place] MCHC (RBC) [Mass/Vol]29.9 g/dLLow32.0-35.0The [facility] HospitalComment on above:Order Comment: No: Do not add to previous drawPerformed By: #### 95166 ####[facility] [place] [address], [facility] HOSPITALMCV (RBC) [Entitic vol]83.0 bSQirnxq33.0-98.0The [facility] HospitalComment on above:Order Comment: No: Do not add to previous drawPerformed By: #### 83222 ####[facility] [place] [address], [facility] HOSPITALNucleated RBC/100 WBC (Bld) [Ratio]0 %Normal 0-0The [facility] HospitalComment on above:Order Comment: No: Do not add to previous drawPerformed By: #### [id number] ####[facility] [place] [address], USAPLAT LDM990 10*3/uLHigh 150-400The Pe[facility] HospitalComment on above:Order Comment: No: Do not add to previous drawPerformed By: #### 33049 ####[facility] [place] [address], R[facility] HOSPITALRBC (Bld) [#/Vol]3.83 10*6/uLNormal3.80-5.00The [facility] HospitalComment on above: Order Comment: No: Do not add to previous drawPerformed By: #### 32492 ####[facility] [place] [address], [facility] WBC (Bld) [#/Vol]7.94 10*3/uLNormal4.00-10.60The [facility] HospitalComment on above:Order Comment: No: Do not add to previous drawPerformed By: #### 20821 ####[facility] [place] [address], [facility] HOSPITALMAGNESIUM BLOODon 20-28-4023Ghfzhgmoo [Mass/Vol]2.0 mg/dLNormal 1.9-2.7The [facility] HospitalComment on above:Order Comment: PT NOT IN ROOM YETPerformed By: #### 23836 #### [facility] [address] [place] [address], [place]*[employer], URINEon 07-93-2797EXVyvdujBbdTrinity Health System East CampusComment on above:Order Comment: No: Do not add to previous drawResult Comment: Test Performed by [facility] [address] [place] [id number] - Nxeeywwn 01/22/2021 06:23LE[employer]ELL[employer], City HospitalComment on above:Order Comment: No: Do not add to previous drawResult Comment: NEGATIVE L. pneumophila serogroup 1 antigen not detected. A negative result does not exclude infection with Leginella pnemophila serogroup 1 nor does it rule out other microbial-caused respiratory infections of disease caused by other serogroups of Legionella pneumophila.BASIC METABOLIC PANELon 79-85-7719Sextsse [Mass/Vol]8.0 mg/dLLow 8.6-10.3The [facility] HospitalComment on above:Order Comment: No: Do not add to previous drawPerformed By: #### 45535 #### [facility] [address] [place] [address], USAChloride [Moles/Vol]103 mmol/CGgcthn47-474Okt Peoples HospitalComment on above:Order Comment: No: Do not add to previous drawPerformed By: #### [id number] #### [facility] [address] [place] [address], USACO2 [Moles/Vol]27 mmol/QYbtwpy96-54Jxw Peoples HospitalComment on above:Order Comment: No: Do not add to previous draw Performed By: #### 71481 #### [facility] [address] [place] [address], USACreatinine [Mass/Vol]0.42 mg/dLLow0.60-1.20The Peoples HospitalComment on above:Order Comment: No: Do not add to previous drawPerformed By: #### 56666 #### [facility] [address] [place] [address], USAGFR/1.73 sq M.predicted among blacks MDRD (S/P/Bld) [Vol rate/Area]mL/min/{1.73_m2}Normal>60[facility] Comment on above:Order Comment: No: Do not add to previous drawPerformed By: #### 63854 #### [facility] [address] [place] [address], USAGFR/1.73 sq M.predicted among non-blacks MDRD (S/P/Bld) [Vol rate/Area]mL/min/{1.73_m2}Normal>60[facility] Comment on above:Order Comment: No: Do not add to previous drawPerformed By: #### 90989 #### [facility] [address] [place] [address], USAGlucose [Mass/Vol]107 mg/vQNvoj61-501Qth Peoples HospitalComment on above:Order Comment: No: Do not add to previous drawPerformed By: #### 26266 #### [facility] [address] [place] [address], USAPotassium [Moles/Vol]3.8 mmol/LNormal3.5-5.1The Peoples HospitalComment on above:Order Comment: No: Do not add to previous drawPerformed By: #### 70339 #### [facility] [address] [place] [address], USASodium [Moles/Vol]138 mmol/GAygqxy645-585Ueu Peoples HospitalComment on above:Order Comment: No: Do not add to previous drawPerformed By: #### 16414 #### [facility] [address] [place] [address], USAUrea nitrogen [Mass/Vol]10 mg/dLNormal7-25The Peoples HospitalComment on above:Order Comment: No: Do not add to previous drawPerformed By: #### 00105 #### [facility] [address] [place] [address], [facility] HOSPITALCBC COMPLETE BLOOD COUNTon 52-26-0038Lwyvnkiqtqt distribution width (RBC) [Ratio]17.8 %High11.5-15.0The Peoples HospitalComment on above:Order Comment: Yes: Add to Previous draw if able Performed By: #### 10121, 49152, 65875, 22513, 23064 #### [facility] [address] [facility] [address], USAHematocrit (Bld) [Volume fraction]27.2 %Low36.0-45.0The Peoples HospitalComment on above:Order Comment: Yes: Add to Previous draw if ablePerformed By: #### 65171, 08517, 02762, 46067, 24171 #### [facility] [address] [place] [address], [facility] HOSPITALHemoglobin (Bld) [Mass/Vol]8.3 g/dLLow12.0-15.0The Peoples HospitalComment on above:Order Comment: Yes: Add to Previous draw if ablePerformed By: #### 02184, 54439, 43962, 46945, 84174 #### [facility] [address] [facility] [place] [address], [facility] CITYH (RBC) [Entitic mass]24.9 pgLow27.0-33.0The Peoples HospitalComment on above:Order Comment: Yes: Add to Previous draw if ablePerformed By: #### 13764, 48541, 78988, 54611, 07449 #### [facility] [address] [facility] [place] [address], [facility] HOSPITALMCHC (RBC) [Mass/Vol]30.5 g/dLLow32.0-35.0The Peoples HospitalComment on above:Order Comment: Yes: Add to Previous draw if ablePerformed By: #### 34754, 29022, 19221, 94405, 14563 #### [facility] [address] [place] [address], [facility] HOSPITALMCV (RBC) [Entitic vol]81.4 fLLow82.0-98.0The Peoples HospitalComment on above:Order Comment: Yes: Add to Previous draw if ablePerformed By: #### 21348, 95118, 03068, 88898, 27364 #### [facility] [address] [place] [address], USANucleated RBC/100 WBC (Bld) [Ratio]0 %Normal0-0The Peoples HospitalComment on above:Order Comment: Yes: Add to Previous draw if ablePerformed By: #### 94214, 10908, 23004, 48193, 22165 #### [facility] [address] [place] [address], USAPLAT PRX327 10*3/fOIxanli128-502Mqp Peoples HospitalComment on above:Order Comment: Yes: Add to Previous draw if able Performed By: #### 69608, 40814, 24332, 91048, 03114 #### [facility] [address] [place] [address], R[facility] HOSPITALRBC (Bld) [#/Vol]3.34 10*6/uLLow3.80-5.00The Peoples HospitalComment on above:Order Comment: Yes: Add to Previous draw if ablePerformed By: #### 50455, 53337, 13722, 84346, 78341 #### [facility] [address] [place] [address], USAWBC (Bld) [#/Vol]5.67 10*3/uLNormal4.00-10.60The Peoples HospitalComment on above:Order Comment: Yes: Add to Previous draw if ablePerformed By: #### 79368, 95173, 42896, 95368, 21197 #### [facility] [address] [place] [address], [facility] HOSPITALCardiovascular Lab Reporton 61-71-8681Bfmzqyscjbuyvv Lab ReportUnUniversity Hospitals E[facility] MR #: [id number] Physician: Abdias Lopez of [facility] Medicine Service Date: 01/20/2021 Division of Birthdate: 1970 Cardiology Room #: 3AB [id number] Adult Cardiovascular Services [facility] [address] [place], [place] [address] Cardiovascular Laboratory Report INDICATION: The patient is a 50-year-old woman who was admitted with elevated troponin and suggestion of gow-JN-tqsgarc elevation myocardial infarction. Her echocardiogram showed enlarged [...] signed informed consent. 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 The right neck area was prepped and draped in usual fashion. Using ultrasound guidance and micropuncture technique, the right internal jugular vein was accessed and a 6-Armenian x 11 cm sheath was placed. A 6-Armenian Camilo catheter was used for right catheterization with measurement of pressures and calculation of cardiac output using the estimated Mateus method. The Camilo catheter was exchanged over wire to a 6-Armenian angled pigtail catheter, which was directed to [...] Linda M.D. Date Trans: 01/21/2021 08:21 Sarabjit/oliva DN_JN:[id number] cc: Yue Funez M.D. [address] [address]XzpqrgHpuHocking Valley Community HospitalHISTOPLASMA AG URINE [id number] 82-87-2413QFSWVSCDAFO AG EIA, URINENot detectedNormUC Medical CenterComment on above:Order Comment: Yes: Add to Previous draw if ableHISTOPLASMA AG, URINENot detectedNormalNot DetectedThe Peoples HospitalComment on above:Order Comment: Yes: Add to [...] developed and its performance characteristics determined by [facility]. It has not been cleared or approved by the US Food and Drug Administration. This test was performed in a CLIA certified laboratory and is intended for clinical purposes. Performed By: [facility] [address] [place] [address] Director Of Pupil Personnel Program: Lisa Calero, MDMAGNESIUM BLOODon 32-40-5562Jbgqhkmyz [Mass/Vol]1.9 mg/dLNormal1.9-2.7The Peoples HospitalComment on above:Order Comment: No: Do not add to previous drawPerformed By: #### 99891 #### [address] [place] [address], USAPORTABLE CHEST 1 VIEWon 42-87-5440NZIBRSYY CHEST 1 VIEW [facility] Department of Radiology [address] [place] [id number] Patient Name: SHELIA BRITO : 1970 Sex: F Age: Race: White Pt. Location: [address] [place] [address] Patient Status: I Ordered Date: 01/21/2021 9:20:00 [...] ago Electronically signed: Vadim Altamirano. Transcribed by: [email or web address], User Resident: Electronically Signed by: VADIM ALTAMIRANO @ 01/21/2021 10:36 AMNormalSelect Medical [facility]Health Rehabilitation Hospital - DublinComment on above:Order Comment: Yes: Add to Previous draw if ableSTREP PNEUMO ANTIGEN URINEon 62-72-9140JAMXS PNEUMO ANTIGEN URINEClinical Report: (D) Specimen: URINE Collected: 01/21/2021 17:13 Status: Final Last Updated: 01/22/2021 13:48 (1) No: Do not add to previous draw SPN AG (Final) [facility]ermont HospitalComment on above:Order Comment: Yes: Add to Previous draw if ablePerformed By: #### 97561, 36472, 30773, 39897, 13566 #### [facility] [address] [place] [address], [facility]*AFB CULTUREon 01-20-2021*AFB CULTUREClinical Report: (D) Specimen/Source: RESPIRATORY/BRONCHEAL ALVEOLAR LAVAGE Collected: 01/20/2021 16:26 Status: Final Last Updated: 03/05/2021 12:37 (1) Left lingula BAL. AFB (Final) No Acid Fast Bacilli Seen CULT RES (Final) No growth after 42 days of incubationHocking Valley Community HospitalComment on above:Order Comment: Yes: Add to Previous draw if ablePerformed By: #### 31645, 68448, 85004, 03700, 42048 #### [facility] [address] [place] [address], [facility]*FUNGAL CULTUREon 01-20-2021*FUNGAL CULTUREClinical Report: (D) Specimen/Source: RESPIRATORY/BRONCHEAL ALVEOLAR LAVAGE Collected: 01/20/2021 16:26 Status: Final Last Updated: 02/22/2021 07:54 (1) Left lingula BAL. FS (Final) No Yeast or Fungal Elements Seen CULT RES (Final) Culture negative for fungusNoOhio State University Wexner Medical CenterComment on above:Order Comment: Yes: Add to Previous draw if ablePerformed By: #### 52100, 85776, 88527, 62757, 61432 #### [facility] [address] [place] [address], [facility]*RESPIRATORY CULTUREon 01-20-2021*RESPIRATORY CULTURE Clinical Report: (D) Specimen/Source: RESPIRATORY/BRONCHEAL ALVEOLAR LAVAGE Collected: 01/20/2021 16:26 Status: Final Last Updated: 01/24/2021 06:17 (1) Left lingula BAL. GRAM (Final) Few Polys Rare Gram Positive Cocci In Chains CYTOSPUN (Final) This Gram Stain was done on a cytocentrifuged specimen ISO (Final) >10,000 Cfu/mL Colonies Consistent with Upper Respiratory FloraNoOhio State University Wexner Medical CenterComment on above:Order Comment: Yes: Add to Previous draw if able Performed By: #### 22909, 62871, 79148, 82306, 00207 #### [facility] [address] [place] [address], [facility] HOSPITALANAon 17-78-0075YCU SCREEN<1:40Normal<1:40,1:40The Peoples HospitalComment on above:Order Comment: Yes: Add to Previous draw if ablePerformed By: #### 88050, 73555, 70017, 35564, 52175 #### [facility] [address] [place] [address], USAANTI CENTROMERE ABon 87-25-5463UEAA CENT ABNegativeNormal NEGATIVEThe Peoples HospitalComment on above:Order Comment: Yes: Add to Previous draw if ablePerformed By: #### 66381, 82395, 40504, 71420, 84631 #### [facility] [address] [place] [address], USAANTI DNAon 09-03-1728QVKP DNA<1:10Normal<1:10The Peoples HospitalComment on above:Order Comment: Yes: Add to Previous draw if ablePerformed By: #### 86533, 43638, 80595, 59630, 09718 #### [facility] [address] [place] [address], USABASIC METABOLIC PANELon 81-39-0224Bimvijh [Mass/Vol]8.0 mg/dLLow8.6-10.3The Peoples HospitalComment on above:Order Comment: PT NOT IN ROOM YETPerformed By: #### 88577 #### [facility] [address] [place] [address], USAChloride [Moles/Vol]108 mmol/QWbbc96-355Kym Peoples HospitalComment on above:Order Comment: PT NOT IN ROOM YETPerformed By: #### 03600 #### [facility] [address] [place] [address], USACO2 [Moles/Vol]25 mmol/PLrubqp32-76Wih Peoples HospitalComment on above:Order Comment: PT NOT IN ROOM YETPerformed By: #### 73526 #### [facility] [address] [place] [address], USACreatinine [Mass/Vol]0.49 mg/dLLow0.60-1.20The Peoples HospitalComment on above:Order Comment: PT NOT IN ROOM YET Performed By: #### 16857 #### [facility] [address] [place] [address], USAGFR/1.73 sq M.predicted among blacks MDRD (S/P/Bld) [Vol rate/Area]mL/min/{1.73_m2}Normal>60[facility] Comment on above:Order Comment: PT NOT IN ROOM YETPerformed By: #### 86185 #### [facility] [address] [place] [address], USAGFR/1.73 sq M.predicted among non-blacks MDRD (S/P/Bld) [Vol rate/Area]mL/min/{1.73_m2}Normal>60[facility] Comment on above:Order Comment: PT NOT IN ROOM YETPerformed By: #### 46025 #### [facility] [address] [place] [address], USAGlucose [Mass/Vol]101 mg/iKYoep83-202Bdv Peoples HospitalComment on above:Order Comment: PT NOT IN ROOM YETPerformed By: #### 37086 #### [facility] [address] [place] [address], USAPotassium [Moles/Vol]3.6 mmol/LNormal3.5-5.1The Peoples HospitalComment on above:Order Comment: PT NOT IN ROOM YET Performed By: #### 62409 #### [facility] [address] [place] [address], USASodium [Moles/Vol]142 mmol/LAnurah600-644Vbt Peoples HospitalComment on above:Order Comment: PT NOT IN ROOM YETPerformed By: #### 40809 #### [facility] [address] [place] [address], USAUrea nitrogen [Mass/Vol]9 mg/dLNormal7-25The Peoples HospitalComment on above:Order Comment: PT NOT IN ROOM YETPerformed By: #### 47993 #### [facility] [address] [place] [address], [facility] HOSPITALBNP (B-TYPE NATRIURETIC PEPTIDE)on 09-26-5557Xgpbgyiyfjo peptide B (Bld) [Mass/Vol]769 pg/mLHigh0-100The Peoples HospitalComment on above:Order Comment: Yes: Add to Previous draw if ableResult Comment: Given the appropriate clinical setting a BNP result of >100 pg/mL indicates congestive heart failure.Performed By: #### 39314, 95106, 97220, 03774, 90816 #### [facility] [address] [facility] [place] [address], [facility]ACTIVE PROTEINon 05-71-8450GJO [Mass/Vol]203.0 mg/LHigh 0.0-7.0The Peoples HospitalComment on above:Order Comment: Other, s/p antrectomy with gastrojejunostomy. r/o leak or abscess/fluid collection.Performed By: #### 50101, 12216 ####[facility] [facility] [address], [facility] HOSPITALCBC COMPLETE BLOOD COUNTon 61-10-8988Oyjbbysbvxm distribution width (RBC) [Ratio]18.2 %High11.5-15.0The Peoples HospitalComment on above:Order Comment: Yes: Add to Previous draw if ablePerformed By: #### 79412, 10090, 69430, 71233, 11039 #### [facility] [address] [place] [address], USAHematocrit (Bld) [Volume fraction]29.4 %Low36.0-45.0The Peoples HospitalComment on above:Order Comment: Yes: Add to Previous draw if ablePerformed By: #### 12380, 71712, 34411, 54810, 37881 #### [facility] [address] [place] [address], [facility] HOSPITALHemoglobin (Bld) [Mass/Vol]9.0 g/dLLow12.0-15.0The Peoples HospitalComment on above:Order Comment: Yes: Add to Previous draw if ablePerformed By: #### 39950, 89950, 54714, 64156, 24447 #### [facility] [address] [place] [id number], [facility]H (RBC) [Entitic mass]25.1 pgLow27.0-33.0The Peoples HospitalComment on above:Order Comment: Yes: Add to Previous draw if ablePerformed By: #### 09526, 83588, 30109, 63511, 99264 #### [facility] [address] [place] [id number], [facility] CITYHC (RBC) [Mass/Vol]30.6 g/dLLow32.0-35.0The Peoples HospitalComment on above:Order Comment: Yes: Add to Previous draw if ablePerformed By: #### 97054, 52947, 15344, 89013, 91590 #### [facility] [address] [facility] [address] [place] [id number], [place] [facility] CITYV (RBC) [Entitic vol]81.9 fLLow82.0-98.0The Peoples HospitalComment on above:Order Comment: Yes: Add to Previous draw if ablePerformed By: #### 60433, 58673, 79488, 09397, 48485 #### [facility] [address] [place] [address], [facility] HOSPITALNucleated RBC/100 WBC (Bld) [Ratio]0 %Normal0-0The Peoples HospitalComment on above:Order Comment: Yes: Add to Previous draw if ablePerformed By: #### 07887, 57624, 90703, 01668, 64971 #### [facility] [address] [place] [id number], [facility] HOSPITALPLAT [id number] 10*3/gYMflnzl163-716Kvv Peoples HospitalComment on above:Order Comment: Yes: Add to Previous draw if able Performed By: #### 76624, 97697, 38144, 07679, 72946 #### [facility] [address] [place] [address], USARBC (Bld) [#/Vol]3.59 10*6/uLLow3.80-5.00The Peoples HospitalComment on above:Order Comment: Yes: Add to Previous draw if ablePerformed By: #### 85779, 09450, 26176, 02305, 58566 #### [facility] [address] [place] [address], USAWBC (Bld) [#/Vol]6.58 10*3/uLNormal4.00-10.60The Peoples HospitalComment on above:Order Comment: Yes: Add to Previous draw if ablePerformed By: #### 69760, 96628, 89751, 39224, 40826 #### [facility] [address] [place] [address], [place]PT[place] [address]et 22-65-7377TOMHYD CIT PEP3 UnitsNormal0-19The Peoples HospitalComment on above: Order Comment: Other, s/p [...] be monitored and testing repeated. Performed By: [facility] [address] [place] [address] Director Of Pupil Personnel Program: DAVE BernardNASE B ANTIBODY 08250cb 84-47-4529FJXXB B AB91 U/mLNormal0-260The Peoples HospitalComment on above: Order Comment: Other, s/p antrectomy with gastrojejunostomy. r/o leak or abscess/fluid collection.Result Comment: REFERENCE INTERVAL: DNAse B Antibody Access complete set of age- and/or gender-specific reference intervals for this test in the [employer] [facility] Test Directory ([employer]). Performed By: [facility] [address] [place] [address] Director Of Pupil Personnel Program: Lisa Calero MDFLUID CELL COUNTon 01-20-2021 Eosinophils/100 WBC (Bld)8 %NormalThe Peoples HospitalComment on above:Order Comment: Left lingula BAL.Performed By: #### 00889 ####[facility] [place] [address], [facility] Lymphocytes/100 WBC (Bld)9 %NormalThe Peoples HospitalComment on above:Order Comment: Left lingula BAL.Performed By: #### 25114 ####[facility] [place] [address], [facility] BWOJIBKXNP34 %NormalThe Peoples HospitalComment on above: Order Comment: Left lingula BAL.Performed By: #### 05964 ####[facility] [place] [address], [facility] HOSPITALOTHER F2Diff done by cytosantonietaNoOhio State University Wexner Medical CenterComment on above:Order Comment: Left lingula BAL.Performed By: #### 79972 ####[facility] [place] [address], [facility] HOSPITALOTHER V7Ihvvylh by Kierra Gan M.D.NormalThe Peoples HospitalComment on above: Order Comment: Left lingula BAL.Result Comment: Result changed by CANDE on 01/22/2021 08:23. The previous value was Preliminary report; verified report to follow.Performed By: #### 05557 ####[facility] [place] [address], [facility] [id number] RBC/[facility]heltering Arms HospitalComment on above: Order Comment: Left lingula BAL.Performed By: #### 34662 ####[facility] [place] [address], FMIZGNW27 %NormalThe Peoples HospitalComment on above:Order Comment: Left lingula BAL.Performed By: #### 34917 ####[facility] [place] [address], USASOURCEBAL LINGPROMEDICA TOLEDO HOSPITALNoOhio State University Wexner Medical CenterComment on above:Order Comment: Left lingula BAL.Performed By: #### 34924 ####[facility] [place] [address], [facility] HOSPITALTOTAL XVVKCC15 mLNormalThe [facility] Comment on above:Order Comment: Left lingula BAL.Performed By: #### 41412 ####[facility] [place] [address], [facility] [id number] WBC/[facility] HospitalComment on above:Order Comment: Left lingula BAL.Result Comment: Some reference interval(s) and other method performance specifications have not been established for analytes on this body fluid. The test result must be integrated into the clinical context for interpretation.Performed By: #### 34805 ####[facility] [place] [address], USAJO-1 ANTIBODY IGG 43973nf 54-16-0871QA-1 AB IGG0 AU/mL Normal0-40The [facility] HospitalComment on above:Order Comment: Other, s/p antrectomy [...] (interstitial lung disease), Raynaud phenomenon, arthritis, and avionics mechanic's hands (implicated in antisynthetase syndrome). Performed By: [facility] [address] [place] [address] Director Of Pupil Personnel Program: Lisa Calero, MDMAGNESIUM BLOODon 40-92-1017Mvekppoxz [Mass/Vol]1.9 mg/dLNormal1.9-2.7The Peoples HospitalComment on above:Order Comment: PT NOT IN ROOM YETPerformed By: #### 13517 #### [facility] [address] [facility]Operative Reporton 09-77-7237Dozpothyl ReportMR#: [id number] I [facility] Pt. Name: Shelia Brito Room #: 3AB [id number] Discharge Date: Birthdate: 1970 OPERATIVE REPORT DATE OF SURGERY: 01/20/2021 SURGEON: Edwin Segura MD Bronchoscopy procedure note Patient: Shelia Brito Date: 01/20/2021 Indication: Diagnostic/therapeutic bronchoscopy Procedure Business Relations Manager: Jazz Reynolds MD Supervising Attending: Edwin Segura [...] Reynolds MD Date Trans: 01/20/2021 05:00 P/ ЮЛИЯ_JN:[id number] cc: Yue Funez M.D. [address] [place] [address]AopfjxYoqThe Surgical Hospital at SouthwoodsPROCALCITONIN on 54-43-6461CDBXQBUNFOCDG4.07 ng/mLNormal0.00-0.10The Peoples HospitalComment on above:Order Comment: Yes: Add to [...] clinically indicated and initial PCT<0.5ng/mLPerformed By: #### 08226, 95596, 73254, 85168, 27040 #### [facility] [address] [place] [address] [place] [address], USARHEUMATOID FACTOR SERUMon 86-90-2217MV<62Fbfdiz0-44Lnx Peoples HospitalComment on above:Order Comment: Other, s/p antrectomy with gastrojejunostomy. r/o leak or abscess/fluid collection. Performed By: #### 00506, 76399 ####[facility] [place] [address], [place]IB[place]AL [place]IN [place] [address]me 33-29-2460WGYT P PROT AB0 AU/mLNormal0-40The Peoples HospitalComment on above:Order Comment: Other, s/p antrectomy [...] before active phases of psychosis. Performed By: [facility] [address] [place] [address] Director Of Pupil Personnel Program: WICHO Bernard 70 [address]nw 80-89-0740KWJLRUGAOGX AB (SCL-70)1 AU/mLNormal0-40The [facility] HospitalComment on above:Order Comment: Other, s/p antrectomy [...] testing for centromere, RNA polymerase III and U3-STACKER OPERATOR, PM/Scl, or Th/To antibodies. Performed By: [facility] [address] [place] [address] Director Of Pupil Personnel Program: Lisa Calero, MDSEDIMENTATION RATEon 09-53-4481SIB RATE 104 mm/hrHigh0-20The Peoples HospitalComment on above:Order Comment: Yes: Add to Previous draw if ablePerformed By: #### 70768 ####[facility] [facility] [place] [address], [facility] SJOGRENS ANTIBODIESon 28-44-0195BS-ANegativeNormalNEG,NEGATIVE,NegThe Peoples HospitalComment on above:Order Comment: Yes: Add to Previous draw if ablePt went for endo at 1329PT AT ENDOPerformed By: #### 38622, 30364, 57428, 44420, 81052 ####[facility] [place] [address], USASS-BNegativeNormalNEG,NEGATIVE,NegThe Peoples HospitalComment on above:Order Comment: Yes: Add to Previous draw if ablePt went for endo at 1329PT AT ENDOPerformed By: #### 67349, 33071, 77113, 75407, 14506 ####[facility] [place] [address], USASMOOTH MUSCLE ABon [id number] MUSC AB1:40AbnormalNONE DETECTEDThe Peoples HospitalComment on above:Order Comment: Yes: Add to Previous draw if ableResult Comment: NONE DETECTED: LESS THAN 1:20 WEAKLY POSITIVE: 1:20 - 1:40 SUGGESTIVE OF CHRONIC HEPATITIS: 1:80 OR GREATER NOTE: FOR WEAKLY POSITIVE RESULTS, TITER MAY BE PRESENT IN ACUTE VIRAL HEPATITIS, INFECTIOUS MONONUCLEOSIS OR MALIGNANCY.Performed By: #### 68890, 71177, 87865, 26814, 41512 #### [facility] [address] [place] [address], USATISSUE TRANSGLUTAMINASE IGA 52248gz 20-31-4189GQS IGA<2 Normal0-3The Peoples HospitalComment on above:Result Comment: INTERPRETIVE INFORMATION: Tissue [...] positive predictive value for disease. Performed By: [facility] [address] [place] [address] Director Of Pupil Personnel Program: VITOR Bernard HEPARIN ASSAYon 01-20-2021 UNFRACTIONATED HEPARIN<0.10Critically low0.30-0.70The Peoples HospitalComment on above:Result Comment: Rivaroxaban and Apixaban will interfere with the anti Xa assay used to monitor UFH and LMWH. Results called. Accurately read back by Hallie Parada RN at 1344Performed By: #### 18501 ####[facility] [place] [address], [facility] HOSPITALUNFRACTIONATED HEPARIN0.28 IU/mLLow0.30-0.70The Peoples HospitalComment on above:Result Comment: Rivaroxaban and Apixaban will interfere with the anti Xa assay used to monitor UFH and LMWH.Performed By: #### 94843 ####[facility] [place] [address], [place]*SARS-CoV-2 COVID-19on 01-19-2021 SARS-CoV-2 (COVID-19) RNA KYLEIGH+probe Ql (Unsp spec)Not detectedNormalNot Detected The Peoples HospitalCommemorial healthcare on above:Order Comment: Yes: Add to Previous draw if ablePerformed By: #### 20995, 41561, 35058, 44989, 96902 #### [facility] [address] [place] [address], [facility] HOSPITALAPTTon 31-70-9269iYXL Coag (Bld) [Time]41.6 sHigh25.0-35.0 The Peoples HospitalComment on above:Order Comment: No: Do not [...] BE USED FOR THIS PURPOSE.Performed By: #### 02850 ####[facility] [place] [address], [facility] HOSPITALaPTT Coag (Bld) [Time]41.2 sHigh25.0-35.0The Peoples HospitalCommemorial healthcare on above:Order Comment: No: Do not add [...] BE USED FOR THIS PURPOSE.Performed By: #### 77840, 23296 ####[facility] BASIC METABOLIC PANELon 26-64-0849Jbopkez [Mass/Vol]8.2 mg/dLLow8.6-10.3The Peoples HospitalComment on above:Order Comment: PT NOT IN ROOM YETPerformed By: #### 84651 #### [facility] [address] [place] [address], USAChloride [Moles/Vol]104 mmol/SXecnun55-767Err Peoples HospitalComment on above:Order Comment: PT NOT IN ROOM YET Performed By: #### 37029 #### [facility] [address] [place] [address], USACO2 [Moles/Vol]29 mmol/ZRskaig53-75Jfj Peoples HospitalComment on above:Order Comment: PT NOT IN ROOM YETPerformed By: #### 82303 #### [facility] [address] [place] [address], USACreatinine [Mass/Vol]0.50 mg/dLLow0.60-1.20The Peoples HospitalComment on above:Order Comment: PT NOT IN ROOM YET Performed By: #### 26541 #### [facility] [address] [place] [address], USAGFR/1.73 sq M.predicted among blacks MDRD (S/P/Bld) [Vol rate/Area]mL/min/{1.73_m2}Normal>60The [facility] Comment on above:Order Comment: PT NOT IN ROOM YETPerformed By: #### 30734 #### [facility] [address] [place] [address], USAGFR/1.73 sq M.predicted among non-blacks MDRD (S/P/Bld) [Vol rate/Area]mL/min/{1.73_m2}Normal>60The [facility] Comment on above:Order Comment: PT NOT IN ROOM YETPerformed By: #### 96071 #### [facility] [address] [place] [address], USAGlucose [Mass/Vol]89 mg/bJXjngha50-595Vjz Peoples HospitalComment on above:Order Comment: PT NOT IN ROOM YETPerformed By: #### 79662 #### [facility] [address] [place] [address], USAPotassium [Moles/Vol]3.4 mmol/LLow3.5-5.1The Peoples HospitalComment on above:Order Comment: PT NOT IN ROOM YETPerformed By: #### 37230 #### [facility] [address] [place] [address], USASodium [Moles/Vol]141 mmol/WAmiqhh226-733Xyc Peoples HospitalComment on above:Order Comment: PT NOT IN ROOM YETPerformed By: #### 09194 #### [facility] [address] [place] [address], USAUrea nitrogen [Mass/Vol]10 mg/dLNormal7-25The Peoples HospitalComment on above:Order Comment: PT NOT IN ROOM YET Performed By: #### 09435 #### [facility] [address] [place] [address], USACBC COMPLETE BLOOD COUNTon 65-62-3067Wvyjbmpowqu distribution width (RBC) [Ratio]18.0 %High11.5-15.0The Peoples HospitalComment on above:Order Comment: No: Do not add to previous draw Performed By: #### 15566 ####[facility] [facility] [address], USAHematocrit (Bld) [Volume fraction]28.3 %Low36.0-45.0The Peoples HospitalComment on above:Order Comment: No: Do not add to previous drawPerformed By: #### 28554 ####[facility] [place] [address], USAHemoglobin (Bld) [Mass/Vol]8.8 g/dLLow12.0-15.0The Peoples HospitalComment on above:Order Comment: No: Do not add to previous drawPerformed By: #### 18515 ####[facility] [place] [place] [address], [facility] HOSPITALMCH (RBC) [Entitic mass]24.9 pgLow27.0-33.0The Peoples HospitalComment on above:Order Comment: No: Do not add to previous drawPerformed By: #### 13588 ####[facility] [facility] [place] [address], [facility] MCHC (RBC) [Mass/Vol]31.1 g/dLLow32.0-35.0The Peoples HospitalComment on above:Order Comment: No: Do not add to previous drawPerformed By: #### 70679 ####[facility] [place] [address], [facility] HOSPITALMCV (RBC) [Entitic vol]80.2 fLLow82.0-98.0The Peoples HospitalComment on above:Order Comment: No: Do not add to previous draw Performed By: #### 34300 ####[facility] [place] [address], [facility] HOSPITALNucleated RBC/100 WBC (Bld) [Ratio]0 %Normal0-0The Peoples HospitalComment on above:Order Comment: No: Do not add to previous drawPerformed By: #### 93315 ####[facility] [place] [address], USAPLAT GOF968 10*3/oZMpyrde509-960 The Peoples HospitalComment on above:Order Comment: No: Do not add to previous drawPerformed By: #### 84214 ####[facility] [place] [address].[place] [address], [facility] HOSPITALRBC (Bld) [#/Vol]3.53 10*6/uLLow3.80-5.00The Peoples HospitalComment on above:Order Comment: No: Do not add to previous drawPerformed By: #### 14102 ####[facility] [place] [address], [facility] HOSPITALWBC (Bld) [#/Vol]8.11 10*3/uLNormal4.00-10.60The [facility] Comment on above:Order Comment: No: Do not add to previous drawPerformed By: #### 93066 ####[facility] [place] [address], [facility] HOSPITALCardiovascular Lab Reporton 14-29-5471Hwopyevefkzsdm Lab Report [facility] MR #: [id number] Department of Physician: Keara Toledo M.D. Division of Service Date: 01/19/2021 Cardiology Birthdate: 1970 Adult Cardiovascular Room #: 3AB 144997 [facility] [address] [place] [address] Cardiovascular Laboratory Report FINAL IMPRESSIONS: 1. Mild [...] bilateral selective coronary angiography, placement of a 5-Armenian MynxGrip closure device. METHODS: After risks, benefits, and alternatives were explained, written informed consent was obtained. The patient was prepped and draped in usual sterile fashion over both groins. Using 1% lidocaine solution, local infiltration anesthesia was achieved. Using a modified Seldinger technique and a micropuncture kit and under ultrasound guidance access to the right common femoral artery was obtained. A 5-Armenian x 11 cm sheath was inserted without difficulty. Limited femoral angiography was performed. Bilateral selective coronary angiography was performed using JL4 and JR4 catheters. After reviewing the images, it was elected to conclude the procedure. A 5-Armenian MynxGrip closure device was deployed per protocol [...] Keyes M.D. Date Trans: 01/19/2021 03:17 P/oliva DN_JN:[id number] cc: Yue Funez M.D. [address] [facility] [address]XxcngvHxiHocking Valley Community HospitalLIPID PROFILE on 65-40-3982Hrtwlpfqvjo [Mass/Vol]95 mg/eETth592-945KijSelect Medical OhioHealth Rehabilitation Hospital - DublinComment on above:Order Comment: No: Do not add to previous draw Result Comment: CHOLESTEROL REFERENCE RANGE: 20 YEARS AND OLDER CARDIOVASCULAR RISK Less than 200 mg/dl Low Risk 200 to 239 mg/dl Borderline Risk 240 mg/dl and greater High RiskPerformed By: #### 91282, 46106, 01090 ####[facility] [place] [address], [place] Cholesterol in HDL [Mass/Vol]9 mg/fBFmp84-70Ksy Peoples HospitalComment on above:Order Comment: No: Do not add to previous drawResult Comment: Slight variation in normal range could be due to gender and/or age. HDL CHOLESTEROL REFERENCE RANGE: 20 years and older Cardiovascular Risk > or =60 mg/dL Desirable 40 TO 59 mg/dL Low Risk <40 mg/dL High RiskPerformed By: #### 81093, 52092, 52793 ####[facility] [place] [address], USACholesterol in LDL [Mass/Vol]57 mg/dLNormal0-130The Peoples HospitalComment on above:Order Comment: No: Do not add to previous drawResult Comment: LDL IS A CALCULATION LDL IS ONLY VALID IF THE TRIG IS LESS THAN 400.Performed By: #### 91022, 84343, 17618 ####[facility] [place] [address], USACholesterol.total/Cholesterol in HDL [Mass ratio]10.6 {ratio} Critically high0.0-4.5The Peoples HospitalComment on above: Order Comment: No: Do not add to previous drawPerformed By: #### 12083, 11276, 44063 ####[facility] [place] [address], USANON-HDL MZGUBYPAXOB48 mg/dLNormalThe Peoples HospitalComment on above:Order Comment: No: Do not add to previous drawPerformed By: #### 12154, 05132, 51951 ####[facility] [place] [address], USATriglyceride [Mass/Vol]147 mg/iOKbrwny64-922 [facility] CenterComment on above:Order Comment: No: Do not add to previous drawResult Comment: TRIGLYCERIDE REFERENCE RANGE: 20 YEARS AND OLDER CARDIOVASCULAR RISK LESS THAN 150 mg/dl LOW RISK 150 TO 199 mg/dl BORDERLINE RISK 200 mg/dl AND GREATER HIGH RISKPerformed By: #### 84234, 52117, 91981 ####[facility] [place] [address], [facility] VLDL CHOL29 mg/dLNormal0-40The Peoples HospitalComment on above:Order Comment: No: Do not add to previous drawPerformed By: #### 29406, 64302, 57786 ####[facility] [place] [address], [facility] HOSPITALMAGNESIUM BLOODon 51-05-3394Uxooryxhw [Mass/Vol]1.6 mg/dLLow1.9-2.7 The Peoples HospitalComment on above:Order Comment: if not done in EDNo: Do not add to previous drawPerformed By: #### 42696, 39551, 90361 ####[facility] [place] [address], [facility] POC SARS COV2 ANTIGEN NEGATIVEon 28-89-5057LUO SARS COV2 ANTIGEN NEGNegative NormalNEGATIVEThe Peoples HospitalComment on above:Result Comment: Negative Results are [...] Compliance, or Certificate of Accreditation.Performed By: #### 57345, 79308, 33903, 04328, 02229 #### [address] [place] [address], USAPOC SARS COV2 ANTIGEN NEGNegativeNormalNEGATIVEThe Peoples HospitalComment on above:Result Comment: Negative Results are [...] signs and symptoms consistent with COVID-19. The [employer] COVID-19 Antigen test is a lateral flow [...] Compliance, or Certificate of Accreditation.Performed By: #### 14104, 04847, 13519, 29622, 61159 #### [address] [address], USAPORTABLE CHEST 1 VIEWon 31-76-3417UBHBCFYM CHEST 1 VIEW [facility] Department [facility] [address] [place] [id number] Patient Name: SHELIA BRITO : 1970 Sex: F Age: Race: White Pt. Location: [address] [place] [address] Patient Status: I Ordered Date: 01/19/2021 12:40:00 [...] projection Electronically signed: Vadim Altamirano. Transcribed by: [email or web address], User Resident: Electronically Signed by: VADIM ALTAMIRANO @ 01/19/2021 01:33 [facility] CampusComment on above:Order Comment: Yes: Add to Previous draw if ableTROPONIN-Ion 47-21-4311Jfwimdvg I.cardiac [Mass/Vol]0.11 ng/mLCritically high0.00-0.04The Peoples HospitalComment on above:Order Comment: No: Do not add to previous drawResult Comment: M-PREVIOUS CRITICAL RESULT REFERENCE RANGES: 0.00 - 0.04 ng/ml NORMAL 0.05 - 0.50 ng/ml INDETERMINATE > 0.50 ng/ml CONSISTENT WITH AN M.I.Performed By: #### 24430 #### [facility] [address] [place] [address], USATroponin I.cardiac [Mass/Vol]0.19 ng/mLCritically high 0.00-0.04The Peoples HospitalComment on above:Order Comment: PT NOT IN ROOM YETResult Comment: M-PREVIOUS CRITICAL RESULT 0.28 REFERENCE RANGES: 0.00 - 0.04 ng/ml NORMAL 0.05 - 0.50 ng/ml INDETERMINATE > 0.50 ng/ml CONSISTENT WITH AN M.I.Performed By: #### 81492 #### [facility] [address] [place] [address], USATroponin I.cardiac [Mass/Vol]0.28 ng/mLCritically high 0.00-0.04The Peoples HospitalComment on above:Result Comment: M-TROPONIN INITIAL CRITICAL HIGH; RESPUN AND RETESTED M-CRITICAL RESULT(S) REVIEWED, CALLED TO AND READ BACK BY JUNG REBOLLEDO RN @ 0640 REFERENCE RANGES: 0.00 - 0.04 ng/ml NORMAL 0.05 - 0.50 ng/ml INDETERMINATE > 0.50 ng/ml CONSISTENT WITH AN M.I.Performed By: #### 73488, 28781, 04374 ####[facility] [place] [address], [facility] UFH HEPARIN ASSAYon 26-35-2390UMXKDMOCQTAFSO HEPARIN<0.10Critically low0.30-0.70 The Peoples HospitalComment on above:Result Comment: Rivaroxaban and Apixaban will interfere with the anti Xa assay used to monitor UFH and LMWH. Results called. Accurately read back by Jung Rebolledo RN, CVU 3A patient's nurse, at 1934, .Performed By: #### 33695 ####[facility] [place] [address], USAUNFRACTIONATED HEPARIN<0.10Critically low0.30-0.70[facility] Comment on above:Result Comment: Rivaroxaban and Apixaban will interfere with the anti Xa assay used to monitor UFH and LMWH. RESULTS CHECKED AND CALLED. ACCURATELY READ BACK BY JUNG REBOLLEDO RN @ 0443Performed By: #### 10229, 66012 ####[facility] [place] [address], USABASIC METABOLIC PANELon 22-74-5196Rodoche [Mass/Vol]8.5 mg/dLLow8.6-10.3The Peoples HospitalComment on above:Order Comment: No: Do not add to previous drawPerformed By: #### 80971 #### [facility] [address] [place] [address], USAChloride [Moles/Vol]105 mmol/YQkncmy08-850Myo Peoples HospitalComment on above:Order Comment: No: Do not add to previous drawPerformed By: #### 27197 #### [facility] [address] [place] [address], USACO2 [Moles/Vol]30 mmol/VIhpjby99-38Pns Peoples HospitalComment on above:Order Comment: No: Do not add to previous draw Performed By: #### 10285 #### [facility] [address] [place] [address], USACreatinine [Mass/Vol]0.37 mg/dLLow0.60-1.20The Peoples HospitalComment on above:Order Comment: No: Do not add to previous drawPerformed By: #### 28949 #### [facility] [address] [place] [address], USAGFR/1.73 sq M.predicted among blacks MDRD (S/P/Bld) [Vol rate/Area]mL/min/{1.73_m2}Normal>60[facility] Comment on above:Order Comment: No: Do not add to previous drawPerformed By: #### 99618 #### [facility] [address] [place] [address], USAGFR/1.73 sq M.predicted among non-blacks MDRD (S/P/Bld) [Vol rate/Area]mL/min/{1.73_m2}Normal>60[facility] Comment on above:Order Comment: No: Do not add to previous drawPerformed By: #### 17968 #### [facility] [address] [place] [address], USAGlucose [Mass/Vol]95 mg/fGOemxat08-008Faj Peoples HospitalComment on above:Order Comment: No: Do not add to previous drawPerformed By: #### 52691 #### [facility] [address] [facility] [place] [address], USAPotassium [Moles/Vol]3.3 mmol/LLow3.5-5.1The Peoples HospitalComment on above:Order Comment: No: Do not add to previous drawPerformed By: #### 25033 #### [facility] [address] [place] [address], USASodium [Moles/Vol]141 mmol/GKcycxl817-828Vrg Peoples HospitalComment on above:Order Comment: No: Do not add to previous drawPerformed By: #### 72321 #### [facility] [address] [place] [address], USAUrea nitrogen [Mass/Vol]6 mg/dLLow7-25The Peoples HospitalComment on above:Order Comment: No: Do not add to previous drawPerformed By: #### 45646 #### [facility] [address] [facility] [place] [address], [facility] COMPLETE BLOOD COUNTon 54-74-2066Amuvlbxeejf distribution width (RBC) [Ratio]13.4 %Tehrnd84.5-15.0The Peoples HospitalComment on above:Order Comment: No: Do not add to previous draw Performed By: #### 47043 ####[facility] [facility] [place] [address], USAHematocrit (Bld) [Volume fraction]30.8 %Low36.0-45.0The Peoples HospitalComment on above:Order Comment: No: Do not add to previous drawPerformed By: #### 84121 ####[facility] [place] [address], USAHemoglobin (Bld) [Mass/Vol]9.5 g/dLLow12.0-15.0The Peoples HospitalComment on above:Order Comment: No: Do not add to previous drawPerformed By: #### 05799 ####[facility] [place] [address], [facility] CITYH (RBC) [Entitic mass]27.9 shXxogal48.0-33.0[facility] Comment on above:Order Comment: No: Do not add to previous drawPerformed By: #### 29835 ####[facility] [place] [address], [facility] HOSPITALMCHC (RBC) [Mass/Vol]30.8 g/dLLow32.0-35.0The Peoples HospitalComment on above:Order Comment: No: Do not add to previous draw Performed By: #### 74717 ####[facility] [place] [address], [facility] HOSPITALMCV (RBC) [Entitic vol]90.6 mLRvzdoz67.0-98.0The Peoples HospitalComment on above:Order Comment: No: Do not add to previous drawPerformed By: #### 29969 ####[facility] [place] [address], USANucleated RBC/100 WBC (Bld) [Ratio]0 %Normal0-0The Peoples HospitalComment on above:Order Comment: No: Do not add to previous drawPerformed By: #### 83818 ####[facility] [place] [address], USAPLAT ZHZ596 10*3/lMPikw038-343Cte Peoples HospitalComment on above:Order Comment: No: Do not add to previous drawPerformed By: #### 50270 ####[facility] [place] [address], USARBC (Bld) [#/Vol]3.40 10*6/uLLow3.80-5.00The Peoples HospitalComment on above:Order Comment: No: Do not add to previous drawPerformed By: #### 52672 ####[facility] [place] [address], [facility] WBC (Bld) [#/Vol]8.46 10*3/uLNormal4.00-10.60The Pe[facility] HospitalComment on above:Order Comment: No: Do not add to previous drawPerformed By: #### 73765 ####[facility] [address], [facility] HOSPITALPOC GLUCOSE LABon 42-47-1055Iziieuk [Mass/Vol]189 mg/wMFfzm57-237 The Peoples HospitalComment on above:Performed By: #### 73965 #### [facility] [address] [place] [address], [facility] HOSPITALBASIC METABOLIC PANELon 07-63-9396Ejqnlmp [Mass/Vol]8.1 mg/dLLow8.6-10.3The Peoples HospitalComment on above:Order Comment: Yes: Add to Previous draw if ablePerformed By: #### 09427, 63771, 36509, 32825, 38555 #### [facility] [address] [place] [address], USAChloride [Moles/Vol]106 mmol/VSjmvzz96-138Hfo Peoples HospitalComment on above:Order Comment: Yes: Add to Previous draw if ablePerformed By: #### 63944, 07464, 65555, 76605, 09150 #### [facility] [address] [place] [address], USACO2 [Moles/Vol]28 mmol/ZZytmvq82-74Mzm Pe[facility] HospitalComment on above:Order Comment: Yes: Add to Previous draw if able Performed By: #### 80482, 61146, 61226, 26394, 63727 #### [facility] [address] [place] [address], USACreatinine [Mass/Vol]0.40 mg/dLLow0.60-1.20The Peoples HospitalComment on above:Order Comment: Yes: Add to Previous draw if ablePerformed By: #### 60083, 98042, 87302, 99890, 05725 #### [facility] [address] [place] [address], USAGFR/1.73 sq M.predicted among blacks MDRD (S/P/Bld) [Vol rate/Area]mL/min/{1.73_m2}Normal>60The [facility] Comment on above:Order Comment: Yes: Add to Previous draw if ablePerformed By: #### 44376, 01321, 15262, 74976, 78009 #### [facility] [address] [place] [address], USAGFR/1.73 sq M.predicted among non-blacks MDRD (S/P/Bld) [Vol rate/Area]mL/min/{1.73_m2}Normal>60The [facility] Comment on above:Order Comment: Yes: Add to Previous draw if ablePerformed By: #### 72611, 86799, 38818, 20806, 15653 #### [facility] [address] [place] [address], USAGlucose [Mass/Vol]98 mg/vBYbnjen60-809Lei Peoples HospitalComment on above:Order Comment: Yes: Add to Previous draw if ablePerformed By: #### 00734, 69787, 54082, 64280, 33519 #### [facility] [address] [place] [address], USAPotassium [Moles/Vol]3.7 mmol/LNormal3.5-5.1The Peoples HospitalComment on above:Order Comment: Yes: Add to Previous draw if ablePerformed By: #### 79424, 12581, 67566, 31637, 30524 #### [facility] [address] [place] [address], USASodium [Moles/Vol]142 mmol/HJdalfx042-394Fox Peoples HospitalComment on above:Order Comment: Yes: Add to Previous draw if ablePerformed By: #### 58162, 55175, 09434, 16566, 47412 #### [facility] [address] [place] [address], USAUrea nitrogen [Mass/Vol]mg/dLLow7-25The Pe[facility] HospitalComment on above:Order Comment: Yes: Add to Previous draw if ablePerformed By: #### 07455, 05079, 37384, 82672, 59080 #### [facility] [address] [place] [address], USACBC COMPLETE BLOOD COUNTon 82-49-4275Djfvilrcddj distribution width (RBC) [Ratio]13.3 %Zivpjo46.5-15.0The Peoples HospitalComment on above:Order Comment: No: Do not add to previous draw Performed By: #### 09589 ####[facility] [facility] [place] [address], [facility] HOSPITALHematocrit (Bld) [Volume fraction]28.4 %Low36.0-45.0[facility] HospitalComment on above:Order Comment: No: Do not add to previous drawPerformed By: #### [id number] ####[facility] [place] [address], [facility] HOSPITALHemoglobin (Bld) [Mass/Vol]8.8 g/dLLow12.0-15.0[facility] HospitalComment on above:Order Comment: No: Do not add to previous drawPerformed By: #### [id number] ####[facility] [place] [address], [facility] HOSPITALMCH (RBC) [Entitic mass]28.5 zoAtkrvn43.0-33.0[facility] Comment on above:Order Comment: No: Do not add to previous drawPerformed By: #### [id number] ####[facility] [place] [address], [facility] HOSPITALMCHC (RBC) [Mass/Vol]31.0 g/dLLow32.0-35.0The Peoples HospitalComment on above:Order Comment: No: Do not add to previous draw Performed By: #### 62799 ####[facility] [place] [address], [facility] HOSPITALMCV (RBC) [Entitic vol]91.9 sBWcxxhx37.0-98.0The Peoples HospitalComment on above:Order Comment: No: Do not add to previous drawPerformed By: #### 18127 ####[facility] [place] [address].[place] [address], USANucleated RBC/100 WBC (Bld) [Ratio]0 %Normal0-0The Peoples HospitalComment on above:Order Comment: No: Do not add to previous drawPerformed By: #### 02456 ####[facility] [place] [address], USAPLAT [id number] 10*3/dDSmggif728-049Lly Peoples HospitalComment on above: Order Comment: No: Do not add to previous drawPerformed By: #### 41898 ####[facility] [place] [address], [facility] RBC (Bld) [#/Vol]3.09 10*6/uLLow3.80-5.00[facility] Comment on above:Order Comment: No: Do not add to previous drawPerformed By: #### 06631 ####[facility] [facility] [place] [address], [facility] HOSPITALWBC (Bld) [#/Vol]9.57 10*3/uLNormal4.00-10.60The Peoples HospitalComment on above:Order Comment: No: Do not add to previous draw Performed By: #### 24139 ####[facility] [place] [address], [facility] HOSPITALMAGNESIUM BLOODon 58-99-8131Ndymkajie [Mass/Vol]2.0 mg/dLNormal1.9-2.7The Peoples HospitalComment on above:Order Comment: Yes: Add to Previous draw if ablePerformed By: #### 78938, 52520, 28275, 95107, 60778 #### [facility] [address] [place] [address], USAPHOSPHORUS BLOODon 95-77-3768Mmzyqqezf [Mass/Vol]2.5 mg/dL Normal2.5-5.0The Peoples HospitalComment on above:Order Comment: Yes: Add to Previous draw if ablePerformed By: #### 33418, 33721, 80630, 62425, 84117 #### [facility] [address] [place] [address], USABASIC METABOLIC PANELon 43-15-2754Bdfvjlg [Mass/Vol]7.8 mg/dLLow8.6-10.3The Peoples HospitalComment on above:Order Comment: No: Do not add to previous drawPerformed By: #### 94150 ####[facility] [place] [address], USAChloride [Moles/Vol]103 mmol/GAundbl47-354Unz Peoples HospitalComment on above:Order Comment: No: Do not add to previous drawPerformed By: #### 64654 ####[facility] [place] [address], [place] CO2 [Moles/Vol]31 mmol/MRzqaat46-52Riy [facility] Comment on above:Order Comment: No: Do not add to previous drawPerformed By: #### 44369 ####[facility] [place] [address], USACreatinine [Mass/Vol]0.35 mg/dLLow0.60-1.20The Peoples HospitalComment on above:Order Comment: No: Do not add to previous draw Performed By: #### 71576 ####[facility] [place] [address], USAGFR/1.73 sq M.predicted among blacks MDRD (S/P/Bld) [Vol rate/Area]mL/min/{1.73_m2}Normal>60The [facility] Comment on above:Order Comment: No: Do not add to previous drawPerformed By: #### 86202 ####[facility] [place] [address], USAGFR/1.73 sq M.predicted among non-blacks MDRD (S/P/Bld) [Vol rate/Area]mL/min/{1.73_m2}Normal>60[facility] Comment on above:Order Comment: No: Do not add to previous drawPerformed By: #### 82068 ####[facility] [place] [address], USAGlucose [Mass/Vol]105 mg/mUOmoh80-837Ndo Peoples HospitalComment on above:Order Comment: No: Do not add to previous drawPerformed By: #### 71731 ####[facility] [place] [address], USAPotassium [Moles/Vol]3.4 mmol/LLow3.5-5.1The Peoples HospitalComment on above:Order Comment: No: Do not add to previous draw Performed By: #### 14670 ####[facility] [place] [address], USASodium [Moles/Vol]141 mmol/UAtxved163-425Irm Peoples HospitalComment on above:Order Comment: No: Do not add to previous drawPerformed By: #### 22893 ####[facility] [place] [address], USAUrea nitrogen [Mass/Vol]2 mg/dLLow 7-e Peoples HospitalComment on above:Order Comment: No: Do not add to previous drawPerformed By: #### 25255 ####[facility] [place] [address], USACBC COMPLETE BLOOD COUNTon 34-17-0560Vydsieamxjc distribution width (RBC) [Ratio]13.2 %Bakpxt73.5-15.0The Peoples HospitalComment on above:Order Comment: Yes: Add to Previous draw if ablePerformed By: #### 12775, 60328, 78247, 08448, 16121 #### [facility] [address] [place] [address], USAHematocrit (Bld) [Volume fraction]26.6 %Low36.0-45.0The Peoples HospitalComment on above:Order Comment: Yes: Add to Previous draw if ablePerformed By: #### 14646, 89234, 70490, 97697, 95767 #### [facility] [address] [place] [address], [facility] HOSPITALHemoglobin (Bld) [Mass/Vol]8.2 g/dLLow12.0-15.0The Peoples HospitalComment on above:Order Comment: Yes: Add to Previous draw if ablePerformed By: #### 77550, 44726, 05093, 06309, 75897 #### [facility] [address] [facility] [place] [address], [place] [facility] CITYH (RBC) [Entitic mass]27.9 lsAskpwy15.0-33.0The Peoples HospitalComment on above:Order Comment: Yes: Add to Previous draw if ablePerformed By: #### 45733, 55808, 71088, 11228, 90195 #### [facility] [address] [place] [address], [facility] HOSPITALMCHC (RBC) [Mass/Vol]30.8 g/dLLow32.0-35.0The Peoples HospitalComment on above:Order Comment: Yes: Add to Previous draw if ablePerformed By: #### 20927, 03519, 54359, 62548, 24298 #### [facility] [address] [place] [address], [facility] HOSPITALMCV (RBC) [Entitic vol]90.5 kPIdywio01.0-98.0The Peoples HospitalComment on above:Order Comment: Yes: Add to Previous draw if ablePerformed By: #### 69245, 09655, 74722, 68369, 95140 #### [facility] [address] [place] [address], USANucleated RBC/100 WBC (Bld) [Ratio]0 %Normal0-0The Peoples HospitalComment on above:Order Comment: Yes: Add to Previous draw if ablePerformed By: #### 98506, 45275, 28485, 87046, 03566 #### [facility] [address] [place] [address], USAPLAT [id number] 10*3/tOUswrbr102-947Rmk Peoples HospitalComment on above:Order Comment: Yes: Add to Previous draw if able Performed By: #### 33451, 38031, 63894, 52123, 72337 #### [facility] [address] [facility] [place] [address], USARBC (Bld) [#/Vol]2.94 10*6/uLLow3.80-5.00The Peoples HospitalComment on above:Order Comment: Yes: Add to Previous draw if ablePerformed By: #### 08235, 07640, 20356, 50011, 99387 #### [facility] [address] [facility] [place] [address], USAWBC (Bld) [#/Vol]9.05 10*3/uLNormal4.00-10.60The Peoples HospitalComment on above:Order Comment: Yes: Add to Previous draw if ablePerformed By: #### 16039, 25138, 77388, 64586, 33427 #### [facility] [address] [facility] [place] [address], USABASIC METABOLIC PANELon 54-11-7485Uflccof [Mass/Vol]7.5 mg/dLLow8.6-10.3The Peoples HospitalComment on above:Order Comment: No: Do not add to previous drawPerformed By: #### 25959 #### [facility] [address] [place] [address], USAChloride [Moles/Vol]99 mmol/LIhehan58-383Twd Peoples HospitalComment on above:Order Comment: No: Do not add to previous drawPerformed By: #### 49807 #### [facility] [address] [place] [address], USACO2 [Moles/Vol]30 mmol/DYgadxt79-28Xvf Peoples HospitalComment on above:Order Comment: No: Do not add to previous draw Performed By: #### 16544 #### [facility] [address] [place] [address], USACreatinine [Mass/Vol]0.40 mg/dLLow0.60-1.20The Peoples HospitalComment on above:Order Comment: No: Do not add to previous drawPerformed By: #### 52242 #### [facility] [address] [place] [address], USAGFR/1.73 sq M.predicted among blacks MDRD (S/P/Bld) [Vol rate/Area]mL/min/{1.73_m2}Normal>60[facility] Comment on above:Order Comment: No: Do not add to previous drawPerformed By: #### 95527 #### [facility] [address] [place] [address], USAGFR/1.73 sq M.predicted among non-blacks MDRD (S/P/Bld) [Vol rate/Area]mL/min/{1.73_m2}Normal>60[facility] Comment on above:Order Comment: No: Do not add to previous drawPerformed By: #### 10851 #### [facility] [address] [place] [address], USAGlucose [Mass/Vol]116 mg/rTXrmq26-541Qhy Peoples HospitalComment on above:Order Comment: No: Do not add to previous drawPerformed By: #### 34712 #### [facility] [address] [place] [address], USAPotassium [Moles/Vol]4.2 mmol/LNormal3.5-5.1The Peoples HospitalComment on above:Order Comment: No: Do not add to previous drawPerformed By: #### 95082 #### [facility] [address] [place] [address], USASodium [Moles/Vol]136 mmol/SYnmeic449-786Fpo Peoples HospitalComment on above:Order Comment: No: Do not add to previous drawPerformed By: #### 05412 #### [facility] [address] [place] [address], USAUrea nitrogen [Mass/Vol]3 mg/dLLow7-25The Peoples HospitalComment on above:Order Comment: No: Do not add to previous drawPerformed By: #### 88720 #### [facility] [address] [place] [address], USACBC COMPLETE BLOOD COUNTon 98-38-8827Kguzmedkzbp distribution width (RBC) [Ratio]13.2 %Utvtgp89.5-15.0The Peoples HospitalComment on above:Order Comment: No: Do not add to previous draw Performed By: #### 60593 ####[facility] [place] [address], USAHematocrit (Bld) [Volume fraction]29.7 %Low36.0-45.0The Peoples HospitalComment on above:Order Comment: No: Do not add to previous drawPerformed By: #### 97411 ####[facility] [place] [address], USAHemoglobin (Bld) [Mass/Vol]9.3 g/dLLow12.0-15.0The Peoples HospitalComment on above:Order Comment: No: Do not add to previous drawPerformed By: #### 25842 ####[facility] [place] [address], USAMCH (RBC) [Entitic mass]28.4 hzIveulr41.0-33.0[facility] Comment on above:Order Comment: No: Do not add to previous drawPerformed By: #### 43392 ####[facility] [address], [facility] HOSPITALMCHC (RBC) [Mass/Vol]31.3 g/dLLow32.0-35.0The Peoples HospitalComment on above:Order Comment: No: Do not add to previous draw Performed By: #### 40286 ####[facility] [facility] [place] [address], [facility] HOSPITALMCV (RBC) [Entitic vol]90.8 wQZgjjyz81.0-98.0The Peoples HospitalComment on above:Order Comment: No: Do not add to previous drawPerformed By: #### 96809 ####[facility] [place] [address], [facility] HOSPITALNucleated RBC/100 WBC (Bld) [Ratio]0 %Normal0-0The Peoples HospitalComment on above:Order Comment: No: Do not add to previous drawPerformed By: #### 45139 ####[facility] [place] [address], USAPLAT RWV119 10*3/vGUdobfv167-592Wco Peoples HospitalComment on above: Order Comment: No: Do not add to previous drawPerformed By: #### 52472 ####[facility] [facility] [place] [address], [facility] RBC (Bld) [#/Vol]3.27 10*6/uLLow3.80-5.00The [facility] Comment on above:Order Comment: No: Do not add to previous drawPerformed By: #### 64058 ####[facility] [facility] [place] [address], [facility] HOSPITALWBC (Bld) [#/Vol]11.56 10*3/uLHigh4.00-10.60The Peoples HospitalComment on above:Order Comment: No: Do not add to previous draw Performed By: #### 38926 ####[facility] [place] [address], USAMAGNESIUM BLOODon 29-68-6884Lkiahwcfz [Mass/Vol]2.0 mg/dLNormal1.9-2.7The Peoples HospitalComment on above:Order Comment: No: Do not add to previous drawPerformed By: #### 91354 #### [facility] [address] [place] [address], USAPHOSPHORUS BLOODon 69-36-4171Xnpquzmxe [Mass/Vol]3.4 mg/dL Normal2.5-5.0The Peoples HospitalComment on above:Order Comment: Other, s/p antrectomy with gastrojejunostomy. r/o leak or abscess/fluid collection.Performed By: #### 15881, 65801, 80696 ####[facility] [place] [address], USAPORTABLE CHEST 1 VIEWon 21-38-5357MRAXIRLF CHEST 1 VIEWUnMercy [facility] Department of Radiology [address] [place] [address] Patient Name: SHELIA BRITO : 1970 Sex: F Age: Race: White Pt. Location: [place] [address] Patient Status: I Ordered Date: 10/19/2020 11:25:00 [...] effusion. Electronically signed: Uriel Singh. Transcribed by: [email or web address], User Resident: Electronically Signed by: URIEL SINGH @ 10/19/2020 12:34 PMNormalThe Peoples HospitalComment on above:Order Comment: Yes: Add to Previous draw if ableBASIC METABOLIC PANELon 34-50-2071Ubtfytp [Mass/Vol]7.6 mg/dLLow8.6-10.3The Peoples HospitalComment on above:Order Comment: No: Do not add to previous drawPerformed By: #### 37000, 19510 ####[facility] [place] [address], [place] Chloride [Moles/Vol]101 mmol/AMlvbbm83-037Bio Peoples HospitalComment on above:Order Comment: No: Do not add to previous drawPerformed By: #### 27059, 35495 ####[facility] [place] [address], USACO2 [Moles/Vol]29 mmol/TThomqo67-68Hhu Peoples HospitalComment on above:Order Comment: No: Do not add to previous drawPerformed By: #### 51182, 23268 ####[facility] [place] [address], USACreatinine [Mass/Vol]0.42 mg/dLLow0.60-1.20 The Peoples HospitalComment on above:Order Comment: No: Do not add to previous drawPerformed By: #### 59430, 32331 ####[facility] [place] [address], USAGFR/1.73 sq M.predicted among blacks MDRD (S/P/Bld) [Vol rate/Area]mL/min/{1.73_m2}Normal>60The Peoples HospitalComment on above:Order Comment: No: Do not add to previous drawPerformed By: #### 78198, 71243 ####[facility] [place] [address], USAGFR/1.73 sq M.predicted among non-blacks MDRD (S/P/Bld) [Vol rate/Area]mL/min/{1.73_m2}Normal>60The Peoples HospitalComment on above:Order Comment: No: Do not add to previous drawPerformed By: #### 80148, 55367 ####[facility] [facility] [address], USAGlucose [Mass/Vol]97 mg/dL Slamvq52-767Vdr Peoples HospitalComment on above:Order Comment: No: Do not add to previous drawPerformed By: #### 07623, 42803 ####[facility] [facility] [place] [address], [place] Potassium [Moles/Vol]3.8 mmol/LNormal3.5-5.1The Peoples HospitalComment on above:Order Comment: No: Do not add to previous drawPerformed By: #### 29933, 79247 ####[facility] [place] [address], [facility] HOSPITALSodium [Moles/Vol]137 mmol/DNbahoo879-114Bdx Peoples HospitalComment on above:Order Comment: No: Do not add to previous drawPerformed By: #### 25509, 50811 ####[facility] [address], USAUrea nitrogen [Mass/Vol]4 mg/dLLow 7-25The Peoples HospitalComment on above:Order Comment: No: Do not add to previous drawPerformed By: #### 36333, 42982 ####[facility] [place] [address], USACBC COMPLETE BLOOD COUNTon 88-30-2021Tswbkzxqlqq distribution width (RBC) [Ratio]13.3 %Normal 11.5-15.0The Peoples HospitalComment on above:Order Comment: No: Do not add to previous drawPerformed By: #### 28318 ####[facility] [place] [address], [facility] HOSPITALHematocrit (Bld) [Volume fraction]31.1 %Low36.0-45.0The Peoples HospitalComment on above:Order Comment: No: Do not add to previous drawPerformed By: #### 40300 ####[facility] [place] [address], [place] Hemoglobin (Bld) [Mass/Vol]9.5 g/dLLow12.0-15.0The Peoples HospitalComment on above:Order Comment: No: Do not add to previous drawPerformed By: #### 68561 ####[facility] [place] [address], [facility] HOSPITALMCH (RBC) [Entitic mass]28.4 qdIkmtgq34.0-33.0The Peoples HospitalComment on above:Order Comment: No: Do not add to previous drawPerformed By: #### 07107 ####[facility] [place] [address], [place] [facility]HC (RBC) [Mass/Vol]30.5 g/dLLow32.0-35.0The Peoples HospitalComment on above:Order Comment: No: Do not add to previous drawPerformed By: #### 19812 ####[facility] [id number], [facility]V (RBC) [Entitic vol]92.8 fL Cfluad39.0-98.0The Peoples HospitalComment on above:Order Comment: No: Do not add to previous drawPerformed By: #### 30991 ####[facility] [place] [address], [facility] HOSPITALNucleated RBC/100 WBC (Bld) [Ratio]0 %Normal0-0The [facility] Comment on above:Order Comment: No: Do not add to previous drawPerformed By: #### 70379 ####[facility] [place] [address], [facility] HOSPITALPLAT RBI501 10*3/aNPteike607-520Pud Peoples HospitalComment on above:Order Comment: No: Do not add to previous drawPerformed By: #### 24747 ####[facility] [place] [address], [facility] HOSPITALRBC (Bld) [#/Vol]3.35 10*6/uLLow3.80-5.00The Peoples HospitalComment on above:Order Comment: No: Do not add to previous draw Performed By: #### 83842 ####[facility] [id number], [facility] HOSPITALWBC (Bld) [#/Vol]11.71 10*3/uLHigh4.00-10.60The Peoples HospitalComment on above:Order Comment: No: Do not add to previous drawPerformed By: #### 93774 ####[facility] [place] [address], USAMAGNESIUM BLOODon 10-18-2020 Magnesium [Mass/Vol]1.9 mg/dLNormal1.9-2.7The Peoples HospitalComment on above:Order Comment: No: Do not add to previous drawPerformed By: #### 58075, 95255 ####[facility] [place] [address], USAAMYLASE BLOODon 63-36-7910PWSPZFK11 Units/FQhz02-986Iam Peoples HospitalComment on above:Performed By: #### 07211, 49997, 61004, 05535, 85930 ####[facility] [place] [address], USABASIC METABOLIC PANELon 97-85-7854Diwxeyk [Mass/Vol] 7.3 mg/dLLow8.6-10.3The Peoples HospitalComment on above: Order Comment: No: Do not add to previous drawPerformed By: #### 01757, 31890, 17243, 88185, 56101 ####[facility] [place] [address], USAChloride [Moles/Vol]99 mmol/CLvlwbw26-364Utb Peoples HospitalComment on above:Order Comment: No: Do not add to previous drawPerformed By: #### 78996, 52779, 06496, 41933, 84111 ####[facility] [place] [address], USACO2 [Moles/Vol] 30 mmol/KUuhrck60-70Euq Peoples HospitalComment on above: Order Comment: No: Do not add to previous drawPerformed By: #### 65265, 28665, 66842, 00078, 39633 ####[facility] [place] [address], USACreatinine [Mass/Vol]0.46 mg/dLLow0.60-1.20The Peoples HospitalComment on above:Order Comment: No: Do not add to previous drawPerformed By: #### 21139, 33372, 67514, 28506, 98019 ####[facility] [place] [address], [place] GFR/1.73 sq M.predicted among blacks MDRD (S/P/Bld) [Vol rate/Area] mL/min/{1.73_m2}Normal>60The Peoples HospitalComment on above:Order Comment: No: Do not add to previous drawPerformed By: #### 45518, 12013, 33934, 00328, 22229 ####[facility] [place] [address], USAGFR/1.73 sq M.predicted among non-blacks MDRD (S/P/Bld) [Vol rate/Area]mL/min/{1.73_m2}Normal>60The [facility] Comment on above:Order Comment: No: Do not add to previous drawPerformed By: #### 82508, 62566, 22198, 24109, 79522 ####[facility] [place] [address], USAGlucose [Mass/Vol]122 mg/dLHigh 70-100The Peoples HospitalComment on above:Order Comment: No: Do not add to previous drawPerformed By: #### 43785, 40124, 01039, 69780, 86606 ####[facility] [place] [address], [place] Potassium [Moles/Vol]3.4 mmol/LLow3.5-5.1The [facility] Comment on above:Order Comment: No: Do not add to previous drawPerformed By: #### 09993, 37175, 37070, 01543, 46344 ####[facility] [place] [address], USASodium [Moles/Vol]135 mmol/LLow 136-145The Peoples HospitalComment on above:Order Comment: No: Do not add to previous drawPerformed By: #### 18492, 87696, 22733, 70767, 89555 ####[facility] [place] [address], USAUrea nitrogen [Mass/Vol]5 mg/dLLow7-25The Peoples HospitalComment on above:Order Comment: No: Do not add to previous drawPerformed By: #### 57446, 36581, 44873, 57979, 44057 ####[facility] [place] [address], USACALCIUM IONIZED CBGLon 10-17-2020 IONIZED CALCIUM1.03 mmol/LLow1.12-1.30[facility] Comment on above:Performed By: #### [id number], [id number], [id number], [id number], [id number] #### [facility] [address] [place] [address], USACBC COMPLETE BLOOD COUNTon [id number] distribution width (RBC) [Ratio]13.5 %Ueoksl88.5-15.0The Peoples HospitalComment on above:Order Comment: No: Do not add to previous draw Performed By: #### [id number] ####[facility] [place] [address], USAHematocrit (Bld) [Volume fraction]31.4 %Low36.0-45.0The Peoples HospitalComment on above:Order Comment: No: Do not add to previous drawPerformed By: #### [id number] ####[facility] [place] [address], USAHemoglobin (Bld) [Mass/Vol]10.0 g/dLLow12.0-15.0The Peoples HospitalComment on above:Order Comment: No: Do not add to previous drawPerformed By: #### [id number] ####[facility] [place] [address], [place] [facility] [place] (RBC) [Entitic mass]28.7 psTxsvdy11.0-33.0[facility] Comment on above:Order Comment: No: Do not add to previous drawPerformed By: #### [id number] ####[facility] [place] [address], [place] [facility] [place] (RBC) [Mass/Vol]31.8 g/dLLow32.0-35.0The Peoples HospitalComment on above:Order Comment: No: Do not add to previous draw Performed By: #### [id number] ####[facility] [place] [address], [place] [facility] [place] (RBC) [Entitic vol]90.0 gXQnqdsv35.0-98.0The Peoples HospitalComment on above:Order Comment: No: Do not add to previous drawPerformed By: #### 55226 ####[facility] [place] [address], [facility] HOSPITALNucleated RBC/100 WBC (Bld) [Ratio]0 %Normal0-0The Peoples HospitalComment on above:Order Comment: No: Do not add to previous drawPerformed By: #### 52678 ####[facility] [place] [address], [facility] HOSPITALPLAT BXN379 10*3/vHAhzdbh611-720Pkm Peoples HospitalComment on above: Order Comment: No: Do not add to previous drawPerformed By: #### 45457 ####[facility] [place] [address], [facility] RBC (Bld) [#/Vol]3.49 10*6/uLLow3.80-5.00[facility] Comment on above:Order Comment: No: Do not add to previous drawPerformed By: #### 55922 ####[facility] [place] [address], USAWBC (Bld) [#/Vol]11.70 10*3/uLHigh4.00-10.60The Peoples HospitalComment on above:Order Comment: No: Do not add to previous draw Performed By: #### 18389 ####[facility] [place] [address], USALIPASE BLOODon 08-89-1468DJAWIW5 Units/BVuw02-03Jcb Peoples HospitalComment on above:Performed By: #### 86681, 92905, 07473, 55528, 47131 ####[facility] [place] [address], USAMAGNESIUM BLOODon 43-02-4995Zddwrkzui [Mass/Vol]1.8 mg/dLLow1.9-2.7The Peoples HospitalComment on above:Order Comment: No: Do not add to previous drawPerformed By: #### 99747, 70215, 82848, 78863, 44606 ####[facility] [place] [address], USAPHOSPHORUS BLOODon 72-42-6336Dfddnamwa [Mass/Vol]2.0 mg/dLLow 2.5-5.0The Peoples HospitalComment on above:Order Comment: No: Do not add to previous drawPerformed By: #### 52945, 45027, 45250, 93634, 21907 ####[facility] [place] [address], USABASIC METABOLIC PANELon 81-58-8264Ugbqrjm [Mass/Vol]7.4 mg/dLLow 8.6-10.3The Peoples HospitalComment on above:Order Comment: No: Do not add to previous drawPerformed By: #### 01367, 30961, 74482 ####[facility] [place] [address], [place] Chloride [Moles/Vol]107 mmol/RNpezap10-459Crc Peoples HospitalComment on above:Order Comment: No: Do not add to previous drawPerformed By: #### 72962, 74534, 73350 ####[facility] [place] [address], USACO2 [Moles/Vol]23 mmol/FHoxfzg03-71Rel Peoples HospitalComment on above:Order Comment: No: Do not add to previous drawPerformed By: #### 11747, 98109, 58508 ####[facility] [place] [address], USACreatinine [Mass/Vol]0.36 mg/dLLow0.60-1.20The Peoples HospitalComment on above:Order Comment: No: Do not add to previous drawPerformed By: #### 28548, 38992, 90895 ####[facility] [place] [address], USAGFR/1.73 sq M.predicted among blacks MDRD (S/P/Bld) [Vol rate/Area] mL/min/{1.73_m2}Normal>60The Peoples HospitalComment on above:Order Comment: No: Do not add to previous drawPerformed By: #### 74804, 13754, 41930 ####[facility] [place] [address], USAGFR/1.73 sq M.predicted among non-blacks MDRD (S/P/Bld) [Vol rate/Area]mL/min/{1.73_m2}Normal>60The [facility] Comment on above:Order Comment: No: Do not add to previous drawPerformed By: #### 91261, 99827, 04158 ####[facility] [place] [address], [facility] HOSPITALGlucose [Mass/Vol]161 mg/zPVjev95-259Neq Peoples HospitalComment on above:Order Comment: No: Do not add to previous drawPerformed By: #### 37490, 35135, 25062 ####[facility] [place] [address], [facility] HOSPITALPotassium [Moles/Vol]4.1 mmol/L Normal3.5-5.1The Peoples HospitalComment on above:Order Comment: No: Do not add to previous drawPerformed By: #### 28753, 09204, 64940 ####[facility] [place] [address], [facility] Sodium [Moles/Vol]137 mmol/BHrtgzt685-883Flg [facility] Comment on above:Order Comment: No: Do not add to previous drawPerformed By: #### 68912, 66341, 85420 ####[facility] [place] [address], [facility] HOSPITALUrea nitrogen [Mass/Vol]7 mg/dLNormal7-25The Peoples HospitalComment on above:Order Comment: No: Do not add to previous drawPerformed By: #### 64564, 87495, 83812 ####[facility] [place] [address].[place] [address], [facility] HOSPITALCBC W/DIFFon 72-72-3039TOK IMM GRANS0.1 10*3/uLNormal0.0-0.2The Peoples HospitalComment on above:Order Comment: No: Do not add to previous drawPerformed By: #### 69860 ####[facility] [place] [address], [facility] ABS YTTINTTNDBV30.7 10*3/uLHigh1.6-7.6The [facility] Comment on above:Order Comment: No: Do not add to previous drawPerformed By: #### 91544 ####[facility] [place] [address], [facility] HOSPITALBasophils (Bld) [#/Vol]0.0 10*3/uLNormal0.0-0.2The Peoples HospitalComment on above:Order Comment: No: Do not add to previous drawPerformed By: #### 31527 ####[facility] [facility] [address], USABasophils/100 WBC (Bld)0.2 %Normal0.0-1.0The Peoples HospitalComment on above:Order Comment: No: Do not add to previous drawPerformed By: #### 16601 ####[facility] [place] [address], [facility] HOSPITALEosinophils (Bld) [#/Vol]0.0 10*3/uLNormal0.0-0.5The Peoples HospitalComment on above: Order Comment: No: Do not add to previous drawPerformed By: #### 21086 ####[facility] [place] [address], [place] Eosinophils/100 WBC (Bld)0.0 %Normal0.0-6.0The Peoples HospitalComment on above:Order Comment: No: Do not add to previous drawPerformed By: #### 82359 ####[facility] [place] [address], USAErythrocyte distribution width (RBC) [Ratio]13.5 %Rjsuqs39.5-15.0 The Peoples HospitalComment on above:Order Comment: No: Do not add to previous drawPerformed By: #### 73615 ####[facility] [place] [address], [facility] HOSPITALHematocrit (Bld) [Volume fraction]36.3 %Ppigod85.0-45.0The Peoples HospitalComment on above:Order Comment: No: Do not add to previous drawPerformed By: #### 55939 ####[facility] [place] [address], [place] Hemoglobin (Bld) [Mass/Vol]11.5 g/dLLow12.0-15.0The Peoples HospitalComment on above:Order Comment: No: Do not add to previous drawPerformed By: #### 60979 ####[facility] [place] [address], USAIMMATURE GRANS0.4 %Normal0.0-1.0The Peoples HospitalComment on above:Order Comment: No: Do not add to previous drawPerformed By: #### 51947 ####[facility] [facility] [address], USALymphocytes (Bld) [#/Vol]1.4 10*3/uLNormal1.2-4.0The Peoples HospitalComment on above:Order Comment: No: Do not add to previous drawPerformed By: #### 28510 ####[facility] [place] [address], [facility] HOSPITALLymphocytes/100 WBC (Bld)8.7 %Low20.0-45.0The Peoples HospitalComment on above:Order Comment: No: Do not add to previous drawPerformed By: #### 51222 ####[facility] [place] [address], [facility] HOSPITALMCH (RBC) [Entitic mass]28.6 pg Mqqmdp07.0-33.0The Peoples HospitalComment on above:Order Comment: No: Do not add to previous drawPerformed By: #### 57997 ####[facility] [place] [address], [facility] HOSPITALMCHC (RBC) [Mass/Vol]31.7 g/dLLow32.0-35.0The Peoples HospitalComment on above:Order Comment: No: Do not add to previous drawPerformed By: #### 01734 ####[facility] [place] [address], [place] MCV (RBC) [Entitic vol]90.3 bCYwxlog57.0-98.0The Peoples HospitalComment on above:Order Comment: No: Do not add to previous drawPerformed By: #### 64388 ####[facility] [facility] [place] [address], [facility] HOSPITALMonocytes (Bld) [#/Vol]1.2 10*3/uLHigh0.1-1.0The Peoples HospitalComment on above:Order Comment: No: Do not add to previous drawPerformed By: #### 95309 ####[facility] [facility] [place] [address], USAMONOS7.2 %Normal5.0-12.0The Peoples HospitalComment on above:Order Comment: No: Do not add to previous drawPerformed By: #### 21435 ####[facility] [place] [address], [facility] HOSPITALNeutrophils/100 WBC (Bld)83.5 %High40.0-72.0 The Peoples HospitalComment on above:Order Comment: No: Do not add to previous drawPerformed By: #### 71637 ####[facility] [place] [address], USANucleated RBC/100 WBC (Bld) [Ratio]0 %Normal0-0The Peoples HospitalComment on above:Order Comment: No: Do not add to previous drawPerformed By: #### 88311 ####[facility] [facility] [address], [place] PLAT MRX692 10*3/kFPgwzfo126-783Zqq Peoples HospitalComment on above:Order Comment: No: Do not add to previous drawPerformed By: #### 16476 ####[facility] [place] [address], [facility] RBC (Bld) [#/Vol]4.02 10*6/uLNormal3.80-5.00The Peoples HospitalComment on above:Order Comment: No: Do not add to previous drawPerformed By: #### 48704 ####[facility] [place] [address], [facility] HOSPITALWBC (Bld) [#/Vol]16.46 10*3/uLHigh4.00-10.60The Peoples HospitalComment on above:Order Comment: No: Do not add to previous drawPerformed By: #### 40894 ####[facility] [place] [address], USAMAGNESIUM BLOODon 38-25-4763Kxjeuekdh [Mass/Vol]1.6 mg/dLLow1.9-2.7The Peoples HospitalComment on above:Order Comment: No: Do not add to previous drawPerformed By: #### 44022, 22933, 75898 ####[facility] [facility] [place] [address], USAOUTSIDE CONSULT -CHESTon [id number] CONSULT -CHESTUnMer[facility] Department of Radiology [address] [place] [address] Patient Name: SHELIA BRITO : 1970 Sex: F Age: Race: White Pt. Location: [id number] Patient Status: I Ordered Date: 10/16/2020 7:30:00 AM Completed Date: 10/16/2020 07:30 AM Requesting Provider: JADA BOLAÑOS Attending Provider: LATONYA MCCLURE Report Copy To: YUE FUNEZ Signs & Symptoms: outside consult History: [facility] 10/15/[address] Jada Bolaños rule out duodenal stump leak Comments: Exam: OUTSIDE CONSULT -CHEST OUTSIDE CONSULT -CHEST 10/16/2020 7:31 AM OUTSIDE STUDY: CT angiogram of the chest TECHNIQUE: Outside CT images of the rest obtained from [facility] dated 10/15/2019. Image review with formal consultation [...] achievable. Electronically signed: JAZZ EDUARDO. Transcribed by: [email or web address], User Resident: Electronically Signed by: JAZZ EDUARDO @ 10/16/2020 10:34 AMNCorey HospitalOUTSIDE CONSULT GIGUon [id number] CONSULT GIGUUniKettering Health Preble Department of Radiology [address] [place] [address] Patient Name: SHELIA BRITO : 1970 Sex: F Age: Race: White Pt. Location: [address] [place] [address] Patient Status: I Ordered Date: 10/16/2020 7:30:00 AM Completed Date: 10/16/2020 07:31 AM Requesting Provider: JADA BOLAÑOS Attending Provider: LATONYA MCCLURE Report Copy To: YUE FUNEZ Signs & Symptoms: outside consult History: [facility] 10/15/2020 CT abd/pelvis Dr Jada Bolaños rule out duodenal stump leak Comments: Exam: OUTSIDE CONSULT GIGU OUTSIDE CONSULT GIGU 10/16/2020 7:31 AM OUTSIDE STUDY: CT of the abdomen and pelvis with contrast TECHNIQUE: Outside CT images of the abdomen and pelvis without contrast obtained from [facility] dated 10/15/2020. Image review with formal consultation [...] achievable Electronically signed: JAZZ EDUARDO. Transcribed by: [email or web address], User Resident: Electronically Signed by: JAZZ EDUARDO @ 10/16/2020 10:28 AMNormalSelect Medical OhioHealth Rehabilitation Hospital - DublinOperative Reporton [id number] Report MR#: [id number] I [facility] Pt. Name: Shelia Brito Room #: [id number] Discharge Date: Birthdate: 1970 OPERATIVE REPORT DATE OF SURGERY: 10/15/2020 SURGEON: Latonya Mcclure M.D. PREOPERATIVE DIAGNOSIS: Duodenal stump leak. POSTOPERATIVE DIAGNOSIS: Duodenal stump leak. PROCEDURE PERFORMED: Diagnostic laparoscopy converted to exploratory laparotomy with oversewing of duodenal stump. RESIDENT: aJda Bolaños MD. ESTIMATED BLOOD LOSS: Minimal. IV [...] used to over-sew the duodenal stump in duttnb-ti-aljog fashion. Tisseel was applied on top of [...] Bolaños MD Date Trans: 10/16/2020 02:42 A/oliva DN_JN:[id number] cc: Yue Funez M.D. [address] [place] [address]AlrnysGsvHocking Valley Community HospitalPHOSPHORUS BLOODon 01-50-4159Kpsohrnsk [Mass/Vol]2.0 mg/dLLow2.5-5.0The Peoples HospitalComment on above:Order Comment: No: Do not add to previous drawPerformed By: #### 22245, 14724, 60077 ####[facility] [place] [address], USAPORTABLE CHEST 1 VIEWon 10-16-2020 PORTABLE CHEST 1 VIEWUnMercy Health [facility] Department of Radiology [address] [place] [address] Patient Name: SHELIA BRITO : 1970 Sex: F Age: Race: White Pt. Location: [address] [place] [address] Patient Status: I Ordered Date: 10/16/2020 4:15:00 [...] abdomen Electronically signed: Cristine Armenta. Transcribed by: [email or web address], User Resident: Electronically Signed by: CRISTINE ARMENTA @ 10/16/2020 05:26 PMNormalSelect Medical OhioHealth Rehabilitation Hospital - DublinComment on above:Order Comment: Yes: Add to Previous draw if able*BLOOD CULTUREon 10-15-2020*BLOOD CULTUREClinical Report: (D) Specimen: BLOOD CULTURE Collected: 10/15/2020 13:58 Status: Final Last Updated: 10/21/2020 07:37 (1) PT NOT IN ROOM YET CULT RES (Final) No Growth Day [address] [place], [place] [address]Comment on above: Order Comment: PT NOT IN ROOM YETPerformed By: #### 24353 #### [facility] [address]*BLOOD CULTUREClinical Report: (D) Specimen: BLOOD CULTURE Collected: 10/15/2020 13:58 Status: Final Last Updated: 10/21/2020 07:37 CULT RES (Final) No Growth Day [address] [place], [place] [address]Comment on above: Performed By: #### 79437, 68219, 33024, 74252, 98268 #### [facility] [address] [place] [address], [facility]*SARS-CoV-2 COVID-19on 20-20-0418JFRM-CoV-2 (COVID-19) RNA KYLEIGH+probe Ql (Unsp spec)Not detectedNormalNot DetectedThe Peoples HospitalComment on above:Order Comment: Yes: Add to Previous draw if able Performed By: #### 41020, 78124, 90602, 58464, 69215 #### [facility] [address] [place] [address], [facility]AL HOSPITALARTERIAL BLOOD GAS W/COOXon 90-21-8413HWAG EXCESS-1 mmol/L Xowppt-8-4Gjc Peoples HospitalComment on above:Performed By: #### 94281, 78592, 37646, 18091 ####[place] [address] [facility] [place] [address], [facility] HOSPITALCOHB1.2 %Normal0.0-1.5The Peoples HospitalComment on above:Performed By: #### 32850, 16617, 50540, 73689 ####[address] [place] [address], [facility] HCO3 (Bld) [Moles/Vol]22 mmol/BBbebrq83-82Qjf Peoples HospitalComment on above:Performed By: #### 93569, 34145, 32711, 99592 ####[address] [place] [address], [facility] METHB1.1 %Normal0.0-1.5The Peoples HospitalComment on above: Performed By: #### 78107, 05280, 78808, 49375 ####[address] [place] [address], [facility] HOSPITALO2 EBNYMJD69 ml/dlNormalThe Peoples HospitalComment on above:Performed By: #### 40973, 49921, 60344, 20123 ####[address] [place] [address], [facility] HOSPITALOxygen (Bld) [Partial pressure]139 mm[Hg]Critically nycj99-271Ehn Peoples HospitalComment on above:Performed By: #### 34377, 37652, 89848, 83211 ####[address] [place] [address], [facility] HOSPITALOxygen saturation in Blood97.5 %High94.0-97.0 The Peoples HospitalComment on above:Performed By: #### 22745, 16939, 02041, 40950 ####[facility] [place] [address], PBKSLC916 yyVuCec53-96Oml Peoples HospitalComment on above:Performed By: #### 21413, 74429, 45207, 86792 ####[facility] [place] [address], USApH (Bld)7.45 [pH]Normal7.35-7.45The Peoples HospitalComment on above:Performed By: #### 75802, 27487, 87907, 97224 ####[facility] [facility] [place] [address], FILMVN02.8 g/dLLow12.0-16.3The Peoples HospitalComment on above:Performed By: #### 83510, 83867, 77373, 17211 ####[facility] [place] [address], USABASIC METABOLIC PANELon 06-47-3167Yfmyrdo [Mass/Vol]8.4 mg/dLLow8.6-10.3The Peoples HospitalComment on above: Performed By: #### 32309 #### [facility] [address] [place] [address], USAChloride [Moles/Vol]104 mmol/LZiainw79-358Qyg Peoples HospitalComment on above:Performed By: #### 97327 #### [facility] [address] [place] [address], USACO2 [Moles/Vol]23 mmol/XNodlrx09-42Tuj Peoples HospitalComment on above:Performed By: #### 52505 #### [facility] [address] [place] [address], USACreatinine [Mass/Vol]0.52 mg/dLLow0.60-1.20The Peoples HospitalComment on above:Performed By: #### 13971 #### [facility] [address] [place] [address], USAGFR/1.73 sq M.predicted among blacks MDRD (S/P/Bld) [Vol rate/Area]mL/min/{1.73_m2}Normal>60The [facility] Comment on above:Performed By: #### 51457 #### [facility] [address] [place] [address], USAGFR/1.73 sq M.predicted among non-blacks MDRD (S/P/Bld) [Vol rate/Area]mL/min/{1.73_m2}Normal>60The [facility] Comment on above:Performed By: #### 97640 #### [facility] [address] [place] [address], USAGlucose [Mass/Vol]157 mg/uGSomt25-472Hsr Pe[facility] HospitalComment on above:Performed By: #### 68223 #### [facility] [address] [place] [address], USAPotassium [Moles/Vol]4.0 mmol/LNormal3.5-5.1The Peoples HospitalComment on above:Performed By: #### 13436 #### [facility] [address] [place] [address], USASodium [Moles/Vol]139 mmol/WFwyeqw406-353Zqk Pe[facility] HospitalComment on above:Performed By: #### 43758 #### [facility] [address] [place] [address], USAUrea nitrogen [Mass/Vol]12 mg/dLNormal7-25The Peoples HospitalComment on above:Performed By: #### 35601 #### [facility] [address] [place] [address], USACALCIUM IONIZED CBGLon 68-15-7708RPVPLFF CALCIUM1.13 mmol/L Normal1.13-1.32The [facility]oples HospitalComment on above:Performed By: #### 57124, 96825, 55184, 84445 ####[facility] [place] [address], [facility] W/DIFFon 12-36-2541ATX NVIWVILMWUB97.3 10*3/uLHigh1.6-7.6The [facility] HospitalComment on above: Performed By: #### 62057, 47181, 67209, 97340, 83616 #### [facility] [address] [place] [address], USABasophils (Bld) [#/Vol]0.0 10*3/uLNormal0.0-0.2The [facility] HospitalComment on above:Performed By: #### 84100, 31121, 24740, 79096, 72617 #### [facility] [address] [place] [address], USABasophils/100 WBC (Bld)0.0 %Normal0.0-1.0The Peoples HospitalComment on above:Performed By: #### 49232, 42952, 59874, 33341, 43584 #### [facility] [address] [place] [address], USAEosinophils (Bld) [#/Vol]0.0 10*3/uLNormal0.0-0.5The [facility] HospitalComment on above:Performed By: #### 24364, 86896, 61267, 71598, 86559 #### [facility] [address] [place] [address], USAEosinophils/100 WBC (Bld)0.0 %Normal0.0-6.0The [facility]oples HospitalComment on above:Performed By: #### 62950, 67113, 67428, 65106, 54909 #### [facility] [address] [place] [address], USAErythrocyte distribution width (RBC) [Ratio]13.4 %Normal 11.5-15.0The Peoples HospitalComment on above:Performed By: #### 79594, 94428, 28324, 51527, 55293 #### [facility] [address] [place] [address], USAGIANT PLATELETSPresentNormalThe Peoples HospitalComment on above:Performed By: #### 97363, 02037, 47489, 82671, 45948 #### [facility] [address] [place] [address], USAHematocrit (Bld) [Volume fraction]40.4 %Ufvmuq95.0-45.0The Peoples HospitalComment on above:Performed By: #### 89906, 32996, 86907, 17361, 32821 #### [facility] [address] [place] [address], USAHemoglobin (Bld) [Mass/Vol]13.0 g/tCNjgeyw78.0-15.0The [facility]oples HospitalComment on above:Performed By: #### 67471, 37345, 66291, 65392, 53448 #### [facility] [address] [place] [address], USALymphocytes (Bld) [#/Vol]0.4 10*3/uLLow1.2-4.0The [facility] HospitalComment on above:Performed By: #### 92846, 45698, 47512, 20508, 82832 #### [facility] [address] [place] [address], USALymphocytes/100 WBC (Bld)1.8 %Low20.0-45.0The Peoples HospitalComment on above:Performed By: #### 05216, 06453, 46762, 44387, 48523 #### [facility] [address] [place] [id number], [facility] CITYH (RBC) [Entitic mass]28.8 ziErnhzl33.0-33.0The [facility] HospitalComment on above:Performed By: #### 63079, 69237, 14818, 69327, 80135 #### [facility] [address] [place] [id number], [place] [facility] [place] (RBC) [Mass/Vol]32.2 g/qFGnftgl30.0-35.0The Peoples HospitalComment on above:Performed By: #### 47688, 73050, 63484, 05884, 96277 #### [facility] [address] [place] [id number], [place] [facility] [place] (RBC) [Entitic vol]89.4 xNBqizej92.0-98.0The Peoples HospitalComment on above:Performed By: #### 69774, 34624, 33067, 26019, 65385 #### [facility] [address] [facility] [place] [address], USAMonocytes (Bld) [#/Vol]1.0 10*3/uLNormal0.1-1.0The Peoples HospitalComment on above:Performed By: #### 57172, 87398, 82989, 70420, 29674 #### [facility] [address] [place] [address], USAMONOS4.6 %Low5.0-12.0The Peoples HospitalComment on above:Performed By: #### 11000, 02153, 11169, 30666, 53017 #### [facility] [address] [place] [address], USANeutrophils/100 WBC (Bld)93.6 %High40.0-72.0The Peoples HospitalComment on above:Performed By: #### 01817, 72520, 08727, 94214, 66416 #### [facility] [address] [place] [address], USANucleated RBC/100 WBC (Bld) [Ratio]0 %Normal0-0The Peoples HospitalComment on above:Performed By: #### 64914, 33863, 69899, 73216, 33813 #### [facility] [address] [place] [address], [place]APLAT YAI147 10*3/yLEbwvda563-846Wpr Peoples HospitalComment on above:Performed By: #### 84872, 32987, 21374, 63824, 94864 #### [facility] [address] [place] [address], USARBC (Bld) [#/Vol]4.52 10*6/uLNormal3.80-5.00The Peoples HospitalComment on above:Performed By: #### 47425, 86795, 18870, 81608, 93364 #### [facility] [address] [place] [address], USAWBC (Bld) [#/Vol]21.72 10*3/uLHigh4.00-10.60The Peoples HospitalComment on above:Performed By: #### 69004, 46805, 95635, 48452, 44453 #### [facility] [address] [facility], [place] [address], USACT ABDOMEN AND PELVIS W ORAL CONTRASTon 96-47-7430WG ABDOMEN AND PELVIS W ORAL CONTRASTUnMercy Health [facility] Department of Radiology [address] [place] [address] Patient Name: SHELIA BRITO : 1970 Sex: F Age: Race: White Pt. Location: [facility] Patient Status: José Luis Ordered Date: 10/15/2020 [...] nature. Electronically signed: Aman Linton. Transcribed by: [email or web address], User Resident: Electronically Signed by: AMAN LINTON @ 10/15/2020 11:46 AMNormalThe Peoples HospitalComment on above:Order Comment: Other, s/p antrectomy with gastrojejunostomy. r/o leak or abscess/fluid collection.LACTATE BLOODon 59-82-2639Ocxsykx [Moles/Vol]1.4 mmol/LNormal0.5-2.2The Peoples HospitalComment on above:Performed By: #### 70759 #### [facility] [address] [place] [address], USALIPASE BLOODon 15-50-6592ILSRLL635 Units/PAjiu55-72Pdd Peoples HospitalComment on above:Performed By: #### 58386 #### [facility] [address] [place] [address], USALIVER BATTERYon 00-08-3917Oeavaji [Mass/Vol]3.4 g/dLLow 3.5-5.7The Peoples HospitalComment on above:Performed By: #### 91785 #### [facility] [address] [place] [address], USAALKALINE GTBLMD53 IU/ZIresnt68-836Rfp Peoples HospitalComment on above:Performed By: #### 34838 #### [facility] [address] [place] [address], USAALT [Catalytic activity/Vol]13 U/LNormal7-52The Peoples HospitalComment on above:Performed By: #### 11968 #### [facility] [address] [place] [address], USAAST [Catalytic activity/Vol]9 U/NOft58-47Uzz Peoples HospitalComment on above:Performed By: #### 83507 #### [facility] [address] [place] [address], USABilirubin [Mass/Vol]0.7 mg/dLNormal0.3-1.0The Peoples HospitalComment on above:Performed By: #### 83147 #### [facility] [address] [place] [address], USABilirubin.direct [Mass/Vol]0.4 mg/dLHigh0.0-0.2The Peoples HospitalComment on above:Performed By: #### 00485 #### [facility] [address] [place] [address], USAProtein [Mass/Vol]6.2 g/dLNormal6.0-8.3The Peoples HospitalComment on above:Performed By: #### 85172 #### [facility] [address] [place] [address], USAPOC GLUCOSE LABon 27-32-3617Tohwiyk [Mass/Vol]182 mg/dLHigh 70-100The Peoples HospitalComment on above:Performed By: #### 87856, 46922, 74151, 69519, 29487 #### [facility] [address] [place] [address], USAPOC SARS COV2 ANTIGEN NEGATIVEon 33-92-8424WTP SARS COV2 ANTIGEN NNegativeNormalNEGATIVEThe Peoples HospitalComment on above:Result Comment: Test performed on [...] if necessary, for patient management.Performed By: #### 57268, 18376, 69790, 81141, 33721 #### [facility] [address] [place] [address], R[facility] GENERAL HOSPITALPOTASSIUM WHOLE BLOOD CBGLon 36-63-1730Qxeudaesu [Moles/Vol]4.1 mmol/LNormal3.4-5.2The Peoples HospitalComment on above:Performed By: #### 08577, 21442, 15443, 13717 ####[facility] [facility] [place] [address], [facility] GENERAL HOSPITALPROTHROMBIN TIMEon 65-65-3727XZG Coag (PPP) [Relative time]1.17 {INR}High0.91-1.16The Peoples HospitalComment on above:Result Comment: ACC RECOMMENDED INR [...] OPTIMAL THERAPEUTIC RANGE. CHEST 1995;108:231S-246S.Performed By: #### 13892 ####[facility] [place] [address], USAPT Coag (PPP) [Time]14.9 sHigh 12.3-14.8The Peoples HospitalComment on above:Result Comment: ALL RESULTS MUST BE INTERPRETED WITH RESPECT TO BLOOD DRAWING ARTIFACT OR DILUTION ERROR OF ANTICOAGULANT AT THE TIME OF SAMPLING.Performed By: #### 99644 ####[facility] [place] [address], USASODIUM WHOLE BLOOD CBGLon 04-71-7309Elwlss [Moles/Vol]132.0 mmol/LLow 136.0-146.0The Peoples HospitalComment on above:Performed By: #### 93338, 48601, 30646, 21701 ####[facility] [place] [address], USATYPE AND SCREENon 60-55-7082VIJ INTERPRETATION ANormalThe Peoples HospitalComment on above:Performed By: #### 66732 ####[facility] [place] [address], USARH INTERPRETATIONPositiveNormUC Medical Center Comment on above:Performed By: #### 20304 ####[facility] [place] [address], USAURINALYSISon 01-70-5477Nyjxgvepbu (U)CLEARNormalCLEARThe Peoples HospitalComment on above: Performed By: #### 90880, 59890, 41852, 21311, 58672 #### [facility] [address] [place] [address], USABilirubin Ql (U)NegativeNormalNEGATIVEThe Peoples HospitalComment on above:Performed By: #### 41523, 78794, 24165, 38267, 62210 #### [facility] [address] [place] [address], USAColor (U)YELLOWNormalYELLOWThe Peoples HospitalComment on above:Performed By: #### 52976, 01442, 64802, 75940, 05269 #### [facility] [address] [place] [address], USAEPISOCCNormalFEW,OCC,NONE SEENThe Peoples HospitalComment on above:Performed By: #### 82757, 91940, 40237, 16829, 54642 #### [facility] [address] [place] [address], USAGlucose Ql (U)NegativeNormalNEGATIVEThe Peoples HospitalComment on above:Performed By: #### 14687, 28800, 30999, 41789, 59889 #### [facility] [address] [place] [address], USAHemoglobin Ql (U)SMALLAbnormalNEGATIVEThe Peoples HospitalComment on above:Performed By: #### 65141, 89718, 05864, 95141, 07282 #### [facility] [address] [place] [address], USYOWKDXP48 mg/dLAbnormalNEGATIVEThe Peoples HospitalComment on above:Performed By: #### 75000, 31237, 81954, 47022, 05028 #### [facility] [address] [place] [address], USALEUK ESTERNegativeNormalNEGATIVEThe Peoples HospitalComment on above:Performed By: #### 48684, 57612, 43850, 79043, 11051 #### [facility] [address] [place] [address], USAMUCUS THREADSOCCAbnormalNONE SEENThe Peoples HospitalComment on above:Performed By: #### 02380, 06859, 05575, 86747, 46830 #### [facility] [address] [place] [address], USANitrite Ql (U)NegativeNormalNEGATIVEThe Peoples HospitalComment on above:Performed By: #### 87993, 25347, 23540, 86804, 18063 #### [facility] [address] [place] [address], USApH (U)5.0 [pH]Normal5.0-8.0The Peoples HospitalComment on above:Performed By: #### 47260, 42797, 18531, 24057, 12196 #### [facility] [address] [place] [address], USAProtein Ql (U)NegativeNormalNEGATIVEThe Peoples HospitalComment on above:Performed By: #### 71887, 47107, 53930, 44566, 91880 #### [facility] [address] [facility] [place] [address], USARBC0-2AbnormalNONE SEENThe Peoples HospitalComment on above:Performed By: #### 55755, 97423, 87419, 99684, 31359 #### [facility] [address] [facility] [place] [address], USASPEC GRAV1.784Dalz0.015-1.020The Peoples HospitalComment on above:Performed By: #### 70548, 24704, 97809, 09522, 64276 #### [facility] [address] [facility] [place] [address], USAWBC UA0-2AbnormalNONE SEENThe Peoples HospitalComment on above:Performed By: #### 25759, 88940, 96044, 44720, 90175 #### [facility] [address] [place] [address], USABASIC METABOLIC PANELon 77-02-4288Fgplypq [Mass/Vol]8.9 mg/dLNormal8.6-10.3The Peoples HospitalComment on above:Order Comment: No: Do not add to previous drawPerformed By: #### 61292 #### [facility] [address] [place] [address], USAChloride [Moles/Vol]106 mmol/AUlektz93-619Iga Peoples HospitalComment on above:Order Comment: No: Do not add to previous drawPerformed By: #### 61437 #### [facility] [address] [place] [address], USACO2 [Moles/Vol]27 mmol/VCukphj70-70Vif Peoples HospitalComment on above:Order Comment: No: Do not add to previous draw Performed By: #### 99888 #### [facility] [address] [place] [address], USACreatinine [Mass/Vol]0.50 mg/dLLow0.60-1.20The Peoples HospitalComment on above:Order Comment: No: Do not add to previous drawPerformed By: #### 75540 #### [facility] [address] [place] [address], USAGFR/1.73 sq M.predicted among blacks MDRD (S/P/Bld) [Vol rate/Area]mL/min/{1.73_m2}Normal>60The [facility] Comment on above:Order Comment: No: Do not add to previous drawPerformed By: #### 43018 #### [facility] [address] [place] [address], USAGFR/1.73 sq M.predicted among non-blacks MDRD (S/P/Bld) [Vol rate/Area]mL/min/{1.73_m2}Normal>60The [facility] Comment on above:Order Comment: No: Do not add to previous drawPerformed By: #### 88170 #### [facility] [address] [place] [address], USAGlucose [Mass/Vol]94 mg/rKZjmjta32-269Guw Peoples HospitalComment on above:Order Comment: No: Do not add to previous drawPerformed By: #### 77113 #### [facility] [address] [place] [address], USAPotassium [Moles/Vol]3.1 mmol/LLow3.5-5.1The Peoples HospitalComment on above:Order Comment: No: Do not add to previous drawPerformed By: #### 91534 #### [facility] [address] [place] [address], USASodium [Moles/Vol]142 mmol/MJesgnk674-675Rmz Peoples HospitalComment on above:Order Comment: No: Do not add to previous drawPerformed By: #### 00171 #### [facility] [address] [place] [address], USAUrea nitrogen [Mass/Vol]5 mg/dLLow7-25The Peoples HospitalComment on above:Order Comment: No: Do not add to previous drawPerformed By: #### 34400 #### [facility] [address] [place] [address], USACBC COMPLETE BLOOD COUNTon 22-97-2119Qksnnknrxbt distribution width (RBC) [Ratio]13.2 %Xsgkmx03.5-15.0The Peoples HospitalComment on above:Order Comment: No: Do not add to previous draw Performed By: #### 09277 ####[facility] [place] [address], USAHematocrit (Bld) [Volume fraction]35.4 %Low36.0-45.0The Peoples HospitalComment on above:Order Comment: No: Do not add to previous drawPerformed By: #### 80636 ####[facility] [place] [address], R[facility] HOSPITALHemoglobin (Bld) [Mass/Vol]11.3 g/dLLow12.0-15.0The Peoples HospitalComment on above:Order Comment: No: Do not add to previous drawPerformed By: #### 50481 ####[facility] [place] [address], [facility] CITYH (RBC) [Entitic mass]28.5 jgYckmsa63.0-33.0The [facility] Comment on above:Order Comment: No: Do not add to previous drawPerformed By: #### 71889 ####[facility] [facility] [place] [address], [facility] CITYHC (RBC) [Mass/Vol]31.9 g/dLLow32.0-35.0The Peoples HospitalComment on above:Order Comment: No: Do not add to previous draw Performed By: #### 97082 ####[facility] [place] [address], [facility] [place] CITYV (RBC) [Entitic vol]89.2 nSUsgonz87.0-98.0The Peoples HospitalComment on above:Order Comment: No: Do not add to previous drawPerformed By: #### 87621 ####[facility] [place] [address], [facility]AL HOSPITALNucleated RBC/100 WBC (Bld) [Ratio]0 %Normal0-0The Peoples HospitalComment on above:Order Comment: No: Do not add to previous drawPerformed By: #### 42131 ####[facility] [facility] [place] [address], R[facility] GENERAL HOSPITALPLAT BXL908 10*3/iBYvfryh759-138Tzu Peoples HospitalComment on above: Order Comment: No: Do not add to previous drawPerformed By: #### 36398 ####[facility] [place] [address], [place] RBC (Bld) [#/Vol]3.97 10*6/uLNormal3.80-5.00The Peoples HospitalComment on above:Order Comment: No: Do not add to previous drawPerformed By: #### 39415 ####[facility] [place] [address], USAWBC (Bld) [#/Vol]11.20 10*3/uLHigh4.00-10.60The Peoples HospitalComment on above:Order Comment: No: Do not add to previous drawPerformed By: #### 33721 ####[facility] [place] [address], USABASIC METABOLIC PANELon 09-26-1154Bsrsidm [Mass/Vol]8.5 mg/dLLow8.6-10.3The Peoples HospitalComment on above:Order Comment: No: Do not add to previous drawPerformed By: #### 21463, 03116, 29994 ####[facility] [place] [address], USAChloride [Moles/Vol]108 mmol/SAfco82-823Tiu Peoples HospitalComment on above:Order Comment: No: Do not add to previous draw Performed By: #### 31926, 78410, 54294 ####[facility] [place] [address], USACO2 [Moles/Vol]24 mmol/LNormal 21-31The Peoples HospitalComment on above:Order Comment: No: Do not add to previous drawPerformed By: #### 35026, 67105, 23643 ####[facility] [place] [address], USACreatinine [Mass/Vol]0.46 mg/dLLow0.60-1.20The Peoples HospitalComment on above:Order Comment: No: Do not add to previous drawPerformed By: #### 25732, 24280, 70871 ####[facility] [place] [address], USAGFR/1.73 sq M.predicted among blacks MDRD (S/P/Bld) [Vol rate/Area] mL/min/{1.73_m2}Normal>60The Peoples HospitalComment on above:Order Comment: No: Do not add to previous drawPerformed By: #### 91796, 25143, 11963 ####[facility] [place] [address], USAGFR/1.73 sq M.predicted among non-blacks MDRD (S/P/Bld) [Vol rate/Area]mL/min/{1.73_m2}Normal>60The [facility] Comment on above:Order Comment: No: Do not add to previous drawPerformed By: #### 65784, 90177, 04985 ####[facility] [place] [address], USAGlucose [Mass/Vol]118 mg/fUNfwq17-546Vyn Peoples HospitalComment on above:Order Comment: No: Do not add to previous drawPerformed By: #### 66612, 03047, 42179 ####[facility] [place] [address], USAPotassium [Moles/Vol]3.5 mmol/L Normal3.5-5.1The Peoples HospitalComment on above:Order Comment: No: Do not add to previous drawPerformed By: #### 75859, 83535, 03389 ####[facility] [place] [address], [place] Sodium [Moles/Vol]142 mmol/FAazrfs124-548Xbk [facility] Comment on above:Order Comment: No: Do not add to previous drawPerformed By: #### 95376, 43392, 24664 ####[facility] [place] [address], R[facility]AL HOSPITALUrea nitrogen [Mass/Vol]5 mg/dLLow7-25The Peoples HospitalComment on above:Order Comment: No: Do not add to previous drawPerformed By: #### 24656, 83455, 64548 ####[facility] [place] [address], [facility] HOSPITALCBC COMPLETE BLOOD COUNTon 07-34-1404Xmyapdicihg distribution width (RBC) [Ratio]13.2 %Rmpewb12.5-15.0The Peoples HospitalComment on above:Order Comment: No: Do not add to previous drawPerformed By: #### 36290 ####[facility] [place] [address], [facility]AL HOSPITALHematocrit (Bld) [Volume fraction] 37.9 %Iftbog77.0-45.0The Peoples HospitalComment on above: Order Comment: No: Do not add to previous drawPerformed By: #### 34888 ####[facility] [facility] [place] [address], [facility] Hemoglobin (Bld) [Mass/Vol]12.1 g/wHVqaxuh13.0-15.0The Peoples HospitalComment on above:Order Comment: No: Do not add to previous draw Performed By: #### 29310 ####[facility] [facility] [place] [address], R[facility] HOSPITALMCH (RBC) [Entitic mass]28.4 vqIldxav46.0-33.0The Peoples HospitalComment on above:Order Comment: No: Do not add to previous drawPerformed By: #### 23565 ####[facility] [place] [address], [place] [facility] CITYHC (RBC) [Mass/Vol]31.9 g/dLLow 32.0-35.0The Peoples HospitalComment on above:Order Comment: No: Do not add to previous drawPerformed By: #### 27450 ####[facility] [facility] [place] [address], R[facility] HOSPITALMCV (RBC) [Entitic vol] 89.0 wDEtlejf09.0-98.0The Peoples HospitalComment on above: Order Comment: No: Do not add to previous drawPerformed By: #### 79309 ####[facility] [place] [address], [facility] Nucleated RBC/100 WBC (Bld) [Ratio]0 %Normal0-0The Peoples HospitalComment on above:Order Comment: No: Do not add to previous drawPerformed By: #### 72425 ####[facility] [place] [address], ROO[facility]VEL[facility] GENERAL HOSPITALPLAT SQE884 10*3/yZQxpmes474-049Yjd Peoples HospitalComment on above:Order Comment: No: Do not add to previous drawPerformed By: #### 70162 ####[place] [address] [place] [address], ROO[facility]EL[facility] GENERAL HOSPITALRBC (Bld) [#/Vol]4.26 10*6/uLNormal3.80-5.00The Peoples HospitalComment on above:Order Comment: No: Do not add to previous drawPerformed By: #### 72704 ####[facility] [place] [address].[place] [address], R[facility]AL HOSPITALWBC (Bld) [#/Vol]8.68 10*3/uLNormal4.00-10.60 The Peoples HospitalComment on above:Order Comment: No: Do not add to previous drawPerformed By: #### 68418 ####[address] [place] [address], USAMAGNESIUM BLOODon 91-28-1786Gbypszcsf [Mass/Vol]1.8 mg/dLLow1.9-2.7The Peoples HospitalComment on above:Order Comment: No: Do not add to previous draw Performed By: #### 32133, 77277, 97024 ####[facility] [place] [address], USAPHOSPHORUS BLOODon 10-13-2020 Phosphate [Mass/Vol]3.5 mg/dLNormal2.5-5.0The Peoples HospitalComment on above:Order Comment: No: Do not add to previous drawPerformed By: #### 65554, 88037, 77023 ####[facility] [place] [address], USABASIC METABOLIC PANELon 25-64-0526Wpivjzq [Mass/Vol]8.5 mg/dLLow8.6-10.3The Peoples HospitalComment on above:Order Comment: No: Do not add to previous drawPerformed By: #### 26834 #### [facility] [address] [place] [address], USAChloride [Moles/Vol]107 mmol/ENpwiai58-677Yhg Peoples HospitalComment on above:Order Comment: No: Do not add to previous drawPerformed By: #### 33543 #### [facility] [address] [place] [address], USACO2 [Moles/Vol]26 mmol/VSghzcn15-06Xiv Peoples HospitalComment on above:Order Comment: No: Do not add to previous draw Performed By: #### 75687 #### [facility] [address] [place] [address], USACreatinine [Mass/Vol]0.40 mg/dLLow0.60-1.20The Peoples HospitalComment on above:Order Comment: No: Do not add to previous drawPerformed By: #### 80947 #### [facility] [address] [place] [address], USAGFR/1.73 sq M.predicted among blacks MDRD (S/P/Bld) [Vol rate/Area]mL/min/{1.73_m2}Normal>60The [facility] Comment on above:Order Comment: No: Do not add to previous drawPerformed By: #### 64377 #### [facility] [address] [place] [address], USAGFR/1.73 sq M.predicted among non-blacks MDRD (S/P/Bld) [Vol rate/Area]mL/min/{1.73_m2}Normal>60The [facility] Comment on above:Order Comment: No: Do not add to previous drawPerformed By: #### 60247 #### [facility] [address] [place] [address], USAGlucose [Mass/Vol]118 mg/bVRkdg93-489Rdy Peoples HospitalComment on above:Order Comment: No: Do not add to previous drawPerformed By: #### 56678 #### [facility] [address] [place] [address], USAPotassium [Moles/Vol]3.3 mmol/LLow3.5-5.1The Peoples HospitalComment on above:Order Comment: No: Do not add to previous drawPerformed By: #### 59044 #### [facility] [address] [place] [address], USASodium [Moles/Vol]139 mmol/RJjkwqk962-809Pkj Peoples HospitalComment on above:Order Comment: No: Do not add to previous drawPerformed By: #### 44073 #### [facility] [address] [place] [address], USAUrea nitrogen [Mass/Vol]6 mg/dLLow7-25The Peoples HospitalComment on above:Order Comment: No: Do not add to previous drawPerformed By: #### 97165 #### [facility] [address] [place] [address], [facility] HOSPITALCBC W/DIFFon 27-99-3878LYF IMM GRANS0.0 10*3/uLNormal 0.0-0.2The Peoples HospitalComment on above:Order Comment: No: Do not add to previous drawPerformed By: #### 67391 ####[facility] [place] [address], USAABS NEUTROPHILS6.3 10*3/uLNormal1.6-7.6The Peoples HospitalComment on above: Order Comment: No: Do not add to previous drawPerformed By: #### 47782 ####[facility] [place] [address], [place] Basophils (Bld) [#/Vol]0.1 10*3/uLNormal0.0-0.2The Peoples HospitalComment on above:Order Comment: No: Do not add to previous drawPerformed By: #### 97575 ####[facility] [place] [address], R[facility] HOSPITALBasophils/100 WBC (Bld)0.8 %Normal0.0-1.0The Peoples HospitalComment on above:Order Comment: No: Do not add to previous draw Performed By: #### 59456 ####[facility] [place] [address], USAEosinophils (Bld) [#/Vol]0.1 10*3/uLNormal0.0-0.5The Peoples HospitalComment on above:Order Comment: No: Do not add to previous drawPerformed By: #### [id number] ####[facility] [place] [address], USAEosinophils/100 WBC (Bld)1.3 % Normal0.0-6.0The Peoples HospitalComment on above:Order Comment: No: Do not add to previous drawPerformed By: #### [id number] ####[facility] [place] [address], USAErythrocyte distribution width (RBC) [Ratio]13.2 %Zjekfd05.5-15.0The Peoples HospitalComment on above:Order Comment: No: Do not add to previous draw Performed By: #### [id number] ####[facility] [place] [address].[place] [address], [facility] HOSPITALHematocrit (Bld) [Volume fraction]37.0 %Rxktzh19.0-45.0 The Peoples HospitalComment on above:Order Comment: No: Do not add to previous drawPerformed By: #### [id number] ####[facility] [place] [address], [facility] HOSPITALHemoglobin (Bld) [Mass/Vol]11.9 g/dLLow12.0-15.0The Peoples HospitalComment on above:Order Comment: No: Do not add to previous drawPerformed By: #### [id number] ####[facility] [place] [address], [place] IMMATURE GRANS0.3 %Normal0.0-1.0The Peoples HospitalComment on above:Order Comment: No: Do not add to previous drawPerformed By: #### [id number] ####[facility] [place] [address].[place] [address], [facility] Lymphocytes (Bld) [#/Vol]2.3 10*3/uLNormal1.2-4.0The Peoples HospitalComment on above:Order Comment: No: Do not add to previous draw Performed By: #### [id number] ####[facility] [facility] [place] [address], [facility] HOSPITALLymphocytes/100 WBC (Bld)23.9 %Tpqzxx83.0-45.0The Peoples HospitalComment on above:Order Comment: No: Do not add to previous drawPerformed By: #### 80340 ####[facility] [place] [address], [place] [facility]H (RBC) [Entitic mass]28.4 pg Tmgamo65.0-33.0The Peoples HospitalComment on above:Order Comment: No: Do not add to previous drawPerformed By: #### 63450 ####[facility] [place] [address], [facility] HOSPITALMCHC (RBC) [Mass/Vol]32.2 g/wYIlonye74.0-35.0The Peoples HospitalComment on above:Order Comment: No: Do not add to previous drawPerformed By: #### 61730 ####[facility] [place] [address], [facility] MCV (RBC) [Entitic vol]88.3 kKYgyrln71.0-98.0The Peoples HospitalComment on above:Order Comment: No: Do not add to previous drawPerformed By: #### 51528 ####[facility] [place] [address], [facility]OSPITALMonocytes (Bld) [#/Vol]0.9 10*3/uLNormal0.1-1.0The Peoples HospitalComment on above:Order Comment: No: Do not add to previous drawPerformed By: #### 03298 ####[facility] [place] [address], [facility] HOSPITALMONOS8.7 %Normal5.0-12.0The Peoples HospitalComment on above:Order Comment: No: Do not add to previous drawPerformed By: #### 06890 ####[facility] [place] [address], [facility] HOSPITALNeutrophils/100 WBC (Bld)65.0 %Normal 40.0-72.0The Peoples HospitalComment on above:Order Comment: No: Do not add to previous drawPerformed By: #### 51163 ####[facility] [id number], USANucleated RBC/100 WBC (Bld) [Ratio]0 %Normal0-0The Peoples HospitalComment on above:Order Comment: No: Do not add to previous drawPerformed By: #### 29629 ####[facility] [facility] CENTERJosé Luis.[place] [id number], [facility] PLAT WLU170 10*3/mRXoxpvo845-775Wkn Peoples HospitalComment on above:Order Comment: No: Do not add to previous drawPerformed By: #### 90511 ####[facility] [place] [address], [facility] RBC (Bld) [#/Vol]4.19 10*6/uLNormal3.80-5.00The Peoples HospitalComment on above:Order Comment: No: Do not add to previous drawPerformed By: #### 20635 ####[facility] [place] [address], [facility] HOSPITALWBC (Bld) [#/Vol]9.75 10*3/uLNormal4.00-10.60The Peoples HospitalComment on above:Order Comment: No: Do not add to previous drawPerformed By: #### 99282 ####[facility] [place] [address], [facility] HOSPITALMAGNESIUM BLOODon 26-38-0722Tnvmhaivj [Mass/Vol]1.8 mg/dLLow1.9-2.7The Peoples HospitalComment on above:Order Comment: PT NOT IN ROOM YETPerformed By: #### 52002 #### [facility] [address] [place] [address], USAPHOSPHORUS BLOODon 70-70-8020Kaezrjohi [Mass/Vol]2.3 mg/dL Low2.5-5.0The Peoples HospitalComment on above:Order Comment: No: Do not add to previous drawPerformed By: #### 16732 #### [facility] [address] [place] [address], USABASIC METABOLIC PANELon 56-45-9176Ycfiqpl [Mass/Vol]8.0 mg/dLLow8.6-10.3The Peoples HospitalComment on above:Order Comment: No: Do not add to previous drawPerformed By: #### 86994, 51585, 05657 ####[facility] [place] [address], [place] Chloride [Moles/Vol]104 mmol/CLtozxl16-799Tzk Peoples HospitalComment on above:Order Comment: No: Do not add to previous drawPerformed By: #### 82741, 26763, 38661 ####[facility] [place] [address], USACO2 [Moles/Vol]28 mmol/BImmlug03-68Xxk Peoples HospitalComment on above:Order Comment: No: Do not add to previous drawPerformed By: #### 91334, 46736, 37800 ####[facility] [place] [address], USACreatinine [Mass/Vol]0.43 mg/dLLow0.60-1.20The Peoples HospitalComment on above:Order Comment: No: Do not add to previous drawPerformed By: #### 33021, 92753, 30107 ####[facility] [place] [address], USAGFR/1.73 sq M.predicted among blacks MDRD (S/P/Bld) [Vol rate/Area] mL/min/{1.73_m2}Normal>60The Peoples HospitalComment on above:Order Comment: No: Do not add to previous drawPerformed By: #### 04848, 77188, 95549 ####[facility] [place] [address], USAGFR/1.73 sq M.predicted among non-blacks MDRD (S/P/Bld) [Vol rate/Area]mL/min/{1.73_m2}Normal>60The [facility] Comment on above:Order Comment: No: Do not add to previous drawPerformed By: #### 85246, 57361, 15467 ####[facility] [place] [address], USAGlucose [Mass/Vol]113 mg/xNUflh97-347Gwq Peoples HospitalComment on above:Order Comment: No: Do not add to previous drawPerformed By: #### 05304, 08249, 95665 ####[facility] [place] [address], USAPotassium [Moles/Vol]3.5 mmol/L Normal3.5-5.1The Peoples HospitalComment on above:Order Comment: No: Do not add to previous drawPerformed By: #### 02713, 81417, 93657 ####[facility] [place] [address], [place] Sodium [Moles/Vol]139 mmol/ILicbkm530-940Hwe [facility] Comment on above:Order Comment: No: Do not add to previous drawPerformed By: #### 76525, 79588, 56862 ####[facility] [place] [address], USAUrea nitrogen [Mass/Vol]13 mg/dLNormal7-25The [facility] [place] Medical CenterComment on above:Order Comment: No: Do not add to previous drawPerformed By: #### 44541, 72095, 89932 ####[facility] [place] [address], [facility] HOSPITALCBC COMPLETE BLOOD COUNTon 86-47-5522Dzakgtjexxq distribution width (RBC) [Ratio]13.3 %Normal 11.5-15.0The Peoples HospitalComment on above:Order Comment: No: Do not add to previous drawPerformed By: #### 51516 ####[facility] [facility] [address], [facility] HOSPITALHematocrit (Bld) [Volume fraction]38.7 %Gaqjzu99.0-45.0The Peoples HospitalComment on above:Order Comment: No: Do not add to previous drawPerformed By: #### 61951 ####[facility] [facility] [place] [address], [facility] Hemoglobin (Bld) [Mass/Vol]12.2 g/sUBhptrc15.0-15.0The Peoples HospitalComment on above:Order Comment: No: Do not add to previous draw Performed By: #### 34097 ####[facility] [facility] [place] [address], [place] [facility] (RBC) [Entitic mass]28.6 obJylakn22.0-33.0The Peoples HospitalComment on above:Order Comment: No: Do not add to previous drawPerformed By: #### 63548 ####[facility] [facility] [place] [address], [facility] HOSPITALMCHC (RBC) [Mass/Vol]31.5 g/dLLow 32.0-35.0The Peoples HospitalComment on above:Order Comment: No: Do not add to previous drawPerformed By: #### 63501 ####[facility] [facility] [place] [address], [facility] HOSPITALMCV (RBC) [Entitic vol] 90.8 nZYbjmdy10.0-98.0The Peoples HospitalComment on above: Order Comment: No: Do not add to previous drawPerformed By: #### 72621 ####[facility] [place] [address], [facility] Nucleated RBC/100 WBC (Bld) [Ratio]0 %Normal0-0The Peoples HospitalComment on above:Order Comment: No: Do not add to previous drawPerformed By: #### 79196 ####[facility] [facility] [place] [address], USAPLAT UMG281 10*3/oWMowicj922-338Yub Peoples HospitalComment on above:Order Comment: No: Do not add to previous drawPerformed By: #### 60410 ####[facility] [facility] [place] [address], [facility] HOSPITALRBC (Bld) [#/Vol]4.26 10*6/uLNormal3.80-5.00The Peoples HospitalComment on above:Order Comment: No: Do not add to previous drawPerformed By: #### 18609 ####[facility] [place] [address], [facility] HOSPITALWBC (Bld) [#/Vol]11.47 10*3/uLHigh4.00-10.60 The Peoples HospitalComment on above:Order Comment: No: Do not add to previous drawPerformed By: #### 55585 ####[facility] [place] [address], USAMAGNESIUM BLOODon 00-31-6883Inmzqdguz [Mass/Vol]1.8 mg/dLLow1.9-2.7The Peoples HospitalComment on above:Order Comment: No: Do not add to previous draw Performed By: #### 44443, 89346, 10937 ####[facility] [place] [address], USAPHOSPHORUS BLOODon 10-11-2020 Phosphate [Mass/Vol]1.3 mg/dLLow2.5-5.0[facility] Comment on above:Order Comment: No: Do not add to previous drawPerformed By: #### 52426, 79075, 79576 ####[facility] [place] [address], USABASIC METABOLIC PANELon 94-88-1561Gucxkew [Mass/Vol]8.0 mg/dLLow8.6-10.3The Peoples HospitalComment on above:Order Comment: No: Do not add to previous drawPerformed By: #### 33039, 03408, 42575, 95363, 32030 ####[facility] [place] [address], USAChloride [Moles/Vol]106 mmol/XMqtmsa19-547Wyd Peoples HospitalComment on above:Order Comment: No: Do not add to previous draw Performed By: #### 03905, 49297, 42724, 72794, 51380 ####[facility] [place] [address], USACO2 [Moles/Vol]26 mmol/L Lzpemi12-55Bdo Peoples HospitalComment on above:Order Comment: No: Do not add to previous drawPerformed By: #### 08888, 59984, 54818, 37604, 43479 ####[facility] [place] [address], USACreatinine [Mass/Vol]0.54 mg/dLLow0.60-1.20The Peoples HospitalComment on above:Order Comment: No: Do not add to previous draw Performed By: #### 62796, 85158, 74706, 06316, 32692 ####[facility] [place] [address], USAGFR/1.73 sq M.predicted among blacks MDRD (S/P/Bld) [Vol rate/Area]mL/min/{1.73_m2}Normal>60The Peoples HospitalComment on above:Order Comment: No: Do not add to previous drawPerformed By: #### 86703, 00472, 59216, 93276, 11517 ####[facility] [place] [address], [place] GFR/1.73 sq M.predicted among non-blacks MDRD (S/P/Bld) [Vol rate/Area] mL/min/{1.73_m2}Normal>60The Peoples HospitalComment on above:Order Comment: No: Do not add to previous drawPerformed By: #### 92360, 86318, 64948, 81246, 82596 ####[facility] [place] [address], USAGlucose [Mass/Vol]157 mg/oZSfea94-883Pdo Peoples HospitalComment on above:Order Comment: No: Do not add to previous drawPerformed By: #### 51126, 22423, 78685, 98634, 27266 ####[facility] [place] [address], USAPotassium [Moles/Vol]3.8 mmol/LNormal3.5-5.1The Peoples HospitalComment on above:Order Comment: No: Do not add to previous drawPerformed By: #### 09143, 87964, 96055, 58383, 27008 ####[facility] [place] [address], USASodium [Moles/Vol]138 mmol/FAehsfz554-431Nxe Peoples HospitalComment on above:Order Comment: No: Do not add to previous drawPerformed By: #### 69070, 88044, 90107, 65894, 80558 ####[facility] [place] [address], [place] Urea nitrogen [Mass/Vol]10 mg/dLNormal7-25The Peoples HospitalComment on above:Order Comment: No: Do not add to previous drawPerformed By: #### 94447, 03153, 97937, 11990, 91099 ####[facility] [place] [address], [facility]OSPITALCBC COMPLETE BLOOD COUNTon 11-28-6771Axsgpkbawqq distribution width (RBC) [Ratio]13.6 %Spdwij27.5-15.0The Peoples HospitalComment on above:Order Comment: Yes: Add to Previous draw if ablePerformed By: #### 22150, 21424, 19306, 78862, 31376 #### [facility] [address] [place] [address], [facility] HOSPITALHematocrit (Bld) [Volume fraction]39.3 %Qleppf54.0-45.0The Peoples HospitalComment on above:Order Comment: Yes: Add to Previous draw if ablePerformed By: #### 37314, 22821, 50740, 90471, 38473 #### [facility] [address] [place] [address], [facility] HOSPITALHemoglobin (Bld) [Mass/Vol]12.6 g/rJBrsgil15.0-15.0The Peoples HospitalComment on above:Order Comment: Yes: Add to Previous draw if ablePerformed By: #### 97139, 27310, 57499, 60660, 15831 #### [facility] [address] [place] [address], [place] [facility] (RBC) [Entitic mass]28.4 rwIddgxc43.0-33.0The Peoples HospitalComment on above:Order Comment: Yes: Add to Previous draw if ablePerformed By: #### 47730, 31198, 04315, 33246, 65212 #### [facility] [address] [place] [address], USAMCHC (RBC) [Mass/Vol]32.1 g/cQCwapmf69.0-35.0The Peoples HospitalComment on above:Order Comment: Yes: Add to Previous draw if ablePerformed By: #### 71386, 44493, 12048, 12840, 89503 #### [facility] [address] [place] [id number], [facility]V (RBC) [Entitic vol]88.7 kRWqzmmh22.0-98.0The Peoples HospitalComment on above:Order Comment: Yes: Add to Previous draw if ablePerformed By: #### 74869, 83888, 09446, 52333, 04538 #### [facility] [address] [place] [address], USANucleated RBC/100 WBC (Bld) [Ratio]0 %Normal0-0The Peoples HospitalComment on above:Order Comment: Yes: Add to Previous draw if ablePerformed By: #### 46852, 66086, 06627, 54552, 30465 #### [facility] [address] [place] [address], USAPLAT EOQ858 10*3/qUWxztal512-610Tpz Peoples HospitalComment on above:Order Comment: Yes: Add to Previous draw if able Performed By: #### 20777, 19691, 54856, 52139, 07553 #### [facility] [address] [place] [address], USARBC (Bld) [#/Vol]4.43 10*6/uLNormal3.80-5.00The Peoples HospitalComment on above:Order Comment: Yes: Add to Previous draw if ablePerformed By: #### 72308, 87916, 94052, 28099, 42669 #### [facility] [address] [place] [address], USAWBC (Bld) [#/Vol]10.36 10*3/uLNormal4.00-10.60The Peoples HospitalComment on above:Order Comment: Yes: Add to Previous draw if ablePerformed By: #### 55732, 65049, 80371, 12386, 25174 #### [facility] [address] [place] [address], USALIVER BATTERYon 65-63-5876Azqozxc [Mass/Vol]3.6 g/dLNormal 3.5-5.7The Peoples HospitalComment on above:Order Comment: No: Do not add to previous drawPerformed By: #### 74442, 74927, 38861, 14958, 56294 ####[facility] [place] [address], USAALKALINE BXSVPW15 IU/OZfqrur30-965Mcz Peoples HospitalComment on above:Order Comment: No: Do not add to previous drawPerformed By: #### 05023, 72949, 65311, 05199, 22759 ####[facility] [place] [address], USAALT [Catalytic activity/Vol]20 U/L Normal7-52The Peoples HospitalComment on above:Order Comment: No: Do not add to previous drawPerformed By: #### 45274, 42088, 90596, 06603, 93421 ####[facility] [place] [address], USAAST [Catalytic activity/Vol]30 U/IVydedl41-58Weg Peoples HospitalComment on above:Order Comment: No: Do not add to previous draw Performed By: #### 61958, 92052, 77873, 46350, 96060 ####[facility] [place] [address], USABilirubin [Mass/Vol]0.4 mg/dLNormal0.3-1.0The Peoples HospitalComment on above:Order Comment: No: Do not add to previous drawPerformed By: #### 22498, 57924, 53874, 75863, 52474 ####[facility] [place] [address], USABilirubin.direct [Mass/Vol]0.1 mg/dLNormal0.0-0.2The Peoples HospitalComment on above:Order Comment: No: Do not add to previous drawPerformed By: #### 19848, 43315, 78520, 54672, 90085 ####[facility] [place] [address], [facility] HOSPITALProtein [Mass/Vol] 5.9 g/dLLow6.0-8.3The Peoples HospitalComment on above:Order Comment: No: Do not add to previous drawPerformed By: #### 03425, 58376, 37303, 44802, 35381 ####[facility] [facility] [address], [facility] HOSPITALMAGNESIUM BLOODon 01-96-4070Vvqshqnjr [Mass/Vol]1.6 mg/dLLow1.9-2.7 The Peoples HospitalComment on above:Order Comment: No: Do not add to previous drawPerformed By: #### 63026, 46942, 05416, 34067, 73828 ####[facility] [place] [address], [facility] Operative Reporton 01-82-6062Fuictzmho ReportMR#: [id number] I [facility] Pt. Name: Shelia Brito Room #: 5AB [id number] Discharge Date: Birthdate: 1970 OPERATIVE REPORT DATE [...] in 2 layers using 3-0 Vicryl running Lawrence suture followed by Lembert 3-0 silk suture. The staple line was reinforced with multiple Lembert 3-0 silk suture. The area was irrigated and the NG tube was placed under EGD visualization. The fascia was closed with #1 PDS interrupted anpabc-lc-jsdfr sutures. The skin was closed with 3-0 [...] entire procedure. D (more content not included)...NormalThe [facility] PHOSPHORUS BLOODon 50-78-9616Jbzhtqlgb [Mass/Vol]3.1 mg/dLNormal2.5-5.0The Peoples HospitalComment on above:Order Comment: No: Do not add to previous drawPerformed By: #### 82539, 83185, 34132, 27924, 92037 ####[facility] [place] [address], [facility] PREALBUMINon 07-05-3655Vxwgdxsisz [Mass/Vol]15.7 mg/dLLow17.0-34.0The Peoples HospitalComment on above:Order Comment: No: Do not add to previous drawPerformed By: #### 97061, 22762, 29261, 50393, 75586 ####[facility] [place] [address], [facility] HOSPITALPOC GLUCOSE LAB on 14-94-3688Tbqvnxq [Mass/Vol]85 mg/lCPluyxp21-414Ebf Pe[facility] HospitalComment on above:Performed By: #### 35905, 81863, 98712, 35245, 30387 #### [facility] [address]*SARS-CoV-2 COVID-19on 18-52-0637TSZD-CoV-2 (COVID-19) RNA KYLEIGH+probe Ql (Unsp spec)Not detectedNormalNot DetectedThe Peoples HospitalComment on above:Order Comment: Yes: Add to Previous draw if able Performed By: #### 69485, 40884, 76507, 42469, 71440 #### [facility] [address] [place] [address], [facility] HOSPITALOperative Reporton 87-15-4474Zjocbbazs Report [id number]#1.00CD:127NormalTransylvania Regional Hospitaler Johns Hopkins HospitalLab Reportson 66-61-1035Kmm Reports [id number]#1.00CD:[address] Mary HospitalHistorical Records Officeon 39-26-6923Aqyjuukwhr Records Office [id number]#1.00CD:[address]Mount [address] Mary HospitalProvider Letter FTMCon 37-27-5587Dqbddhkl Letter [facility] [place], [address] [place] [address] Re: SHELIA BRITO Date of : 1970 Thank you for your referral of Shelia Brito who was seen on consultation on 07/29/2020, for decrease in appetite, nausea and vomiting. A future EGD is planned. I have enclosed my consultation notes for your review and will be happy to follow Shelia should her symptoms persist. Sincerely, Jazz Fortune MD General SurgeryMedina HospitalConsent for Procedure/Surgeryon 40-15-6233Bqtkejk for Procedure/Surgery [id number]#1.00CD:127Medina HospitalAmbulatory Clinical Summaryon 68-67-9496Risqoljklx Clinical Summary {fb-7u-h9-ji-w6-p1-76-o4-ew-py-21-58-eb-d5-18-d0}CD:[id number] HospitalGeneral Surgery Office/Clinic Noteon 22-11-3717Gzknzrf Surgery Office/Clinic NoteChief Complaint referral for decrease appetite, N/V HPI Staff 50 year old female presents on consultation from Denise Poe [employer] for dysphagia, nausea and vomiting. Saw Dr. [...] Diabetes mellitus type 2: Father. Heart failure: Mother.Medina HospitalComment on above:Result Comment: Electronically Signed By: MIREYA DENTON, Jazz Watson\Date and Time Signed: 07/29/20 16:16 EDTHistorical Records Officeon 54-57-0828Bbwnwfjgpz Records [id number]#1.00CD:127NoWadsworth-Rittman HospitalPatient Educationon 96-61-0851Lgfqqts EducationFamily Medicine Esophagogastroduodenoscopy Esophagogastroduodenoscopy (EGD) is a [...] are taking, including vitamins, herbs, eyedrops, and izur-rmr-rdwelqh medicinesand creams. ? Use of steroids (by [...] Document Reviewed: 08/21/2013 ExitCare? Patient Information ?2013 [employer].Medina HospitalProvider Letter FTon 11-91-3288Lbhfuytl Letter [facility] July [place], 2020 SHELIA BRITO [address] [place] [address] SHELIA BRITO 1970 To Whom It May Concern, Please excuse the above named person from work on 08/18/20-08/19/20. Sincerely, Dr. Jazz Fortune MD General SurgeryMedina HospitalPhysician Referralon 07-22-2020 Physician [id number]#1.00CD:127[facility] HospitalCNOVon 02-56-7951TBNNNqxvoz Visit (GENALFONSO) --------SHELIA BRITO ([id number]) 1970 FDate Time Provider Department05/03/17 11:00 AM Freddie HERNANDEZ During your visit today, we recorded the following information about you:David Thornton MD 05/22/2017 12:26 PM SignedHISTORY AND PHYSICAL EXAMINATIONPLEASE DO NOT REMOVE FROM THE CHART OR MODIFY PRINTED COPYPatient Name: Shelia YorkRN: [id number] CARE PHYSICIAN: SHANTELL Montgomery COMPLAINT: Epigastric pain [...] of SERVICE: 12:07 PMReferring Provider: SEMAJ ERNST [[id number]]Allergies As of Date: 05/03/2017(No Known A llergies)Date Reviewed: 05/03/2017Reviewed by: Earlene (Rn) ED Linton - Fully AssessedPrimary Visit Diagnosis:Duodenal stricture [K31.5]Order(s):GASTRIN BLD [SQGAST] Order #: [id number] FUTURE CT ABD/PEL W IVCON [[id number]] Order #: [id number] FUTURE [] iv contrast (radiology procedure)CT ABD/PEL [...] 1 EachRfl: 0 EGD DILATION GEN ANES [[id number]] Order #: [id number] FUTUREPrescriptions as of 05/03/2017 Sig: PANTOPRAZOLE ORAL [...] as designated per enteric contrast guidelinesEncounter Number: [id number] Status:Closed by Freddie HERNANDEZ MD, FACS on 05/22/17NoFairfield Medical Centerice Visit ([facility]) --------SHELIA BRITO ([id number]) 1970 FDate Time Provider Department05/03/17 8:40 AM SEMAJ ERNST During your visit today, we recorded the following information about you: Temperature Pulse Blood pressure Weight 98.3 degrees 110/minute 135/87 42.2 kg Height 1.473 Luz Elena Ernst MD FACS 05/03/2017 10:10 AM SignedNew Patient ConsultREASON FOR VISITShelia Brito is a 46 year old female who is scheduled for a consult at [facility] for Consult. [...] for this visit.CURRENT ALLERGIESALLERGIESNo Known AllergiesREVIEW OF [facility] ASSESSMENT:General: + weight losNeuro: No history of TIA's, stroke, [employer]IST[employer] tumor, impaired sensorium, hemiplegia,paraplegia or quadraplegia. No neurological symptoms or problems.Respiratory: No history of current cough or dyspnea, or pneumonia in the past 6weeks. No history of respiratory/pulmonary symptoms or problemsCardiovascular: No history of HTN r equiring medication, no history of angina,CHF, NV, cardiac surgery or stents. Denies rest pain, [...] 8:51 AMReferring Provider: SAVANA PARDO, DEONTE RIVERA [[id number]]AllergiesAs of Date: 05/03/2017(No Known Allergies)Date Reviewed: 05/03/2017Reviewed by: Earlene (Ed) ED Linton - Fully AssessedReason for Visit: Consult [[id number]]Primary Visit Diagnosis:Duodenal stricture [K31.5]Prescriptions as of 05/03/2017 Sig: PANTOPRAZOLE ORAL Take 40 mg by mouth twice marcela* CARAFATE ORAL Take by mouth.Problem List As Of Date: 05/03/2017(None) Status:Closed by SEMAJ ERNST MD, FACS on 05/03/17Normal [facility] HospitalHISTORY PHYSICALon [id number] PHYSICALHNO ID: [id number]: David (Shaka) KaragkounisService: (none)Author Type: ResidentType: HANDPFiled: 05/22/2017 12:26 PMNote Text:HISTORY AND PHYSICAL EXAMINATIONPLEASE DO NOT REMOVE FROM THE CHART OR MODIFY PRINTED COPYPatient Name: Shelia WaymakenziereMRN: [id number] CARE PHYSICIAN: SHANTELL Montgomery COMPLAINT: Epigastric pain [...] DawsonATE of SERVICE: 05/03/2017TIME of SERVICE: 12:07 PMNormalWhite HospitalTORY PHYSICALHNO ID: [id number]: Semaj Almonte: (none)Author Type: PhysicianType: HANDPFiled: 05/03/2017 10:10 AMNote Text:New Patient ConsultREASON FOR Cailin Brito is a 46 year old female [...] for this visit.CURRENT ALLERGIESALLERGIESNo Known AllergiesREVIEW OF [facility] ASSESSMENT:General: + weight losNeuro: No history ofTIA's, stroke, ACQUISITIONS ASSISTANT tumor, impaired sensorium,hemiplegia, paraplegia or quadraplegia. No neurological symptoms orproblems.Respiratory: No history of current cough or dyspnea, or pneumonia in thepast 6weeks. No history of respiratory/pulmonary symptoms or problemsCardiovascular: No history of HTN req uiring medication, no history ofangina, CHF, NV, cardiac surgery or stents. Denies rest pain, [...] his opinion.Semaj Ernst MD FACSDATE: 05/03/17TIME: 8:[address] [facility] HospitalDX-XR ABD FLAT UP/PA CH IMPORTon 98-75-9142NZ-XR ABD FLAT UP/PA CH IMPORTImages were obtained outside of [facility] SystemNormalCBu[facility] Encounters Encounter DateEncounter TypeCare ProviderFacilityStart: 12-09-2022 End: 31-83-3769vjqesmukyeSULNLQ RUSSELLMERFacility:Y6Dnpjn: 31-38-4472hlygncwzem MOON WELLSMERFacility:Z9Giogr: 03-17-2022 End: 96-09-9108kwziifppocABLRRF RUSSELLMERFacility:C6Ffpdv: 86-05-2829mufcmidati MOON CRAMERFacility:V1Oxglj: 01-12-2022 End: 87-89-8413riztfbelzpHWRSBC CRAMERFacility:C5Ipack: 01-19-2021 End: 72-57-6467Magnqxvhfw and management of inpatientDAVID JONESFacility:[facility] Start: 10-15-2020 End: 28-64-2636Usyoumcqdh and management of inpatientJIANLIN TANGFacility:[facility] Start: 10-09-2020 End: 32-18-9241Kfmmlggmfg and management of inpatientDOUGLAS HOYFacility:[facility] Start: 88-48-9195RphgnezrrdI MATTHEW WALSHMercy Health St. Elizabeth Boardman HospitalStart: 05-03-2017 End: 24-40-1644YjtovuxhvcABI C LAVERYMercy Health St. [facility] Procedures DateProcedureProcedure DetailPerforming ClinicianStart: 68-55-2661TNKFRSZC OF RIGHT MIDDLE LUNG LOBE, ENDO, DIAGNMOHAMED OMBALLIStart: 52-49-4087FOLQHVASML OF RIGHT LOWER LUNG LOBE, ENDO, DIAGNMOHAMED OMBALLIStart: 54-18-0510VRATUVTH OF LUNG LINGULA, ENDO, DIAGNMOHAMMAD TALEBStart: 19-64-3035ZMMLCBY OF CARDIAC SAMPL \T\ PRESSURE, R HEART, PERC APPROACHGEORGE V MOUKARBELStart: 75-56-8598MPJBS RADIOGRAPHY OF L PULM ART USING OTH CONTRASTGEORGE V MOUKARBELStart: 01-20-2021 PLAIN RADIOGRAPHY OF R PULM ART USING OTH CONTRASTGEORGE V MOUKARBELStart: 05-87-2557RMCVL RADIOGRAPHY OF RIGHT HEART USING OTHER CONTRASTGEORGE V MOUKARBELStart: 00-89-3082CKHGPIJQAZWL OF OTHER GAS INTO RESP TRACT, VIA OPENING BLANCA AHMEDStart: 08-04-5548MONXI RADIOGRAPHY OF MULT COR ART USING OTH CONTRASTEHAB A ELTAHAWYStart: 73-58-4776SFBHBEVBYUEAJWI OF RIGHT AND LEFT HEART JADA LOWEOURIStart: 16-54-8073Wpjpzvje screenDOUGLAS HOYComment on above: Performed By: #### [id number] ####[facility] [place] [address], USAStart: 43-37-7545DYICAJACHW WITH RESPIRATORY VENTILATION, <24 HRS, CPAPLATONYA MCCLUREStart: 74-93-3303JCSRZB DUODENUM, OPEN APPROACHLUCIAPROMEDICA CHARLES AND [facility] RENStart: 75-40-2318KYPERP STOMACH TO JEJUNUM, OPEN APPROACH LATONYA TANGStart: 27-62-2167NJMZUAVR OF VAGUS NERVE, OPEN APPROACHROLLYPENOBSCOT VALLEY H[facility]PITAL MCCLURE Start: 54-99-8500NRSZMPZX OF STOMACH, PYLORUS, OPEN APPROACHLUCIABHARAT PAGE HOSPITALStart: 09-63-6253JKDDUWRKRNMD OF NUTRITIONAL INTO UP GI, VIA OPENINGLATONYA MCCLUREStart: 91-06-9216HGEHBMA ASSISTED PROCEDURE OF [place], OPEN APPROACHVILMAPENOBSCOT VALLEY HOSPITAL MCCLURE Payers DatePayer CategoryPayerPolicy [id number] [id number] [id number] 2.16.840.1.465068.3.57[id number] 2.16.840.1.372836.3.57[id number] 2.16.840.1.891267.3.57[id number] 2.16.840.1.030589.3.57[id number] 2.16.840.1.583200.3.579.2.04307-60-2029Pjzj-[id number] Discharge summary note 01-26-2021 Note Date & WigcJyrqDoxywstu25-41-4414 NoteMR#: [id number] [facility] Pt. Name: Shelia Brito Admitted: 01/18/2021 [...] Li MD Date Trans: 01/26/2021 01:35 P/mmo DN_JN:[id number] cc: Yue Funez M.D. [address] [facility] [place] [address]Cdf [facility] Discharge summary note 10-23-2020 Note Date & PfcxFbovZmjdbiqe15-28-2861 NoteMR#: [id number] [facility] Pt. Name: Shelia Brito Admitted: 10/15/2020 [...] coverage and could follow up with a chicken dresser in her area. Home health was set [...] from me. Date Dict: 10/22/2020/06:40 P/Sabiha Ontiveros [facility] Date Trans: 10/23/2020 03:41 A/oliva DN_JN:[id number] cc: Yue Funez M.D. [place] [address] [facility] [address]Tal [facility] Discharge summary note 10-14-2020 Note Date & WfioJagmLiuehmds20-30-8328 NoteMR#: [id number] [facility] Pt. Name: Shelia Brito Admitted: 10/09/2020 [...] Ontiveros CNP Date Trans: 10/14/2020 02:13 P/oliva DN_JN:[id number] cc: Yue Funez M.D. [address], [facility] [place] [facility] [address]Ykj[facility] Summary Purpose Family History No Family History Records FoundNo Family History Records FoundNo Family History Records FoundNo Family History Records Found Advance Directives No Advanced Directives Records FoundNo Advanced Directives Records FoundNo Advanced Directives Records FoundNo Advanced Directives Records Found Additional Source Comments INFORMATION SOURCE (unrecogn ized section and content) DATE CREATED AUTHOR 03/28/[address] [facility] DATE CREATED AUTHOR AUTHOR'S ORGANIZ ATION 09/09/[address] [facility] DATE CREATED AUTHOR AUTHOR'S ORGANIZ ATION 03/06/2021 [facility] DATE CREATED AUTHOR AUTHOR'S ORGANIZ ATION 12/14/2022 [facility] FOR RECORDS PERTAINING TO PATIENTS WHO ARE [...] BE BASED ON THE PRIMARY CLINICAL RECORDS. [facility]. provides no warranty or guarantee of the accuracy or completeness of information in this document.
--- OUTSIDE RECORDS SUMMARY | 2025-07-26 11:36 | XMS_ITS | Clinical Summary ---
Author Organization [facility] Address [address] [place], [place] [address] Care Team Providers Care Foundry Melt Supervisor Name Role Phone House Sr., DO Deonte [...] InformationValueDate RecordedSex Assigned at BirthNot on fileLegal EatWowfxl07/25/2017 5:46 AM EDTGender Identity Not on fileSexual OrientationNot on file Last Filed Vital Signs Vital SignReadingTime TakenCommentsBlood Nqbspxxq914/8708 8:43 AM EDT Aubyn45920/02/2017 8:43 AM RZXNkgzyjaianb89.8 ??C (98.3 ??F)05/03/2017 8:43 AM EDTRespiratory Rate--Oxygen Fsmylpkemh59%05/03/2017 8:43 AM EDTInhaled Oxygen Concentration--Ssumjn33.2 kg (93 lb)05/03/2017 8:43 AM UXUPompkd615.3 cm (4' 10 )05/03/2017 8:43 AM EDTBody Mass Index19.4408 8:43 AM EDT Plan of Treatment Health MaintenanceDue DateLast DoneCommentsAnxiety Tltwpvxsh48/08/1988Depression Hwgahiyit48/08/1988HIV Olxqtobdx38/08/1988Hepatitis C Qsasawcio11/08/1988 DTaP,Tdap,Td Vaccine (1 - Tdap)1989Hepatitis B Vaccine (1 of 3 - 19+ 3- dose series)1989Cervical Cancer Rpsjjcfkh18/08/1991Mammogram Screening 2010CT Sdzqchpulgfe77/08/2015Cologuard (FIT-DNA)2015Colonoscopy 2015Colorectal Cancer Vvqikyjkt59/08/2015Diabetes Fiadqgivn83/08/2015Fecal Occult Blood2015Lipid Xyupyybbv22/08/5026Vurtorrxyzdms84/08/2015 Pneumococcal Vaccine: 50+ (1 of 1 - PCV)2020Shingrix Vaccine (1 of 2) 2020Covid-19 Vaccine (1 - 2024- season)2025Influenza Vaccine (#1) 2025 Insurance Care Teams Team MemberRelationshipSpecialtyStart DateEnd Deonte Garcia Sr., DO PCP - GeneralFamily Medicine04/25/17
--- OUTSIDE RECORDS SUMMARY | 2025-07-26 11:36 | XMS_ITS | Patient Health Record ---
Author Organization [facility] [place] Address [address] [place] [address] Care Team Providers Care Commercial Roofing Estimator Name Role Phone Patricia Burton Primary Care Provider [phone] Allergies No Known Allergies Results Component Value Reference Range Notes COVID-19, Flu A+B IH Reviewed date:11/22/2024 11:42:02 AM Interpretation: Performing Lab: Notes/Report: COVID - FLU A-FLU B-Control+UA (Urinalysis, Dipstix only - w/o micro) Reviewed date:07/24/2025 03:07:45 PM Interpretation: Performing Lab: Notes/Report: COLORyellowYellow - Fern -CLARITYclearClear - ClearGLUCOSE-0 - 133 MG/DLALBUMIN -NEG - NEG MG/DLBILIRUBIN-NEG - NEG MG/DLSPECIFIC GRAVITY1.0151.001 - 1.035 KETONES+NEG - NEG MG/DLBLOOD, UR+PH, UR6.05 - 9UROBILNOGEN-0.2 - 1 MG/DLNITRITE- NEG - NEGESTERASE (DAVE)-NEG - NEG MG/DL Reason For Referral No Information Medications Medication [...] Status Risk Notes Problem disorder of stomach (26647196) O ther diseases of stomach and duodenum (K31.89) ActiveconfirmedProblemPain in throat (665685572)Pain in throat (R07.0)Active confirmedProblemCoronary artery disease (99923297)CAD (coronary artery disease) (I25.10)ActiveconfirmedProblemAnxiety (36492832)Anxiety (F41.9)Activeconfirmed ProblemDyspnea on exertion (66763984)Dyspnea on exertion (R06.09)Activeconfirmed ProblemHyperglycemia (55091578)Hyperglycemia (R73.9)ActiveconfirmedProblem Arthritis (7340032)Arthritis (M19.90)ActiveconfirmedProblemInsomnia (990948004) Insomnia (G47.00)ActiveconfirmedProblemIrritable bowel syndrome (60187493) Irritable bowel syndrome (K58.9)ActiveconfirmedProblemMixed anxiety and depressive disorder (357897320)Depression with anxiety (F41.8)Activeconfirmed ProblemFlank pain (257586233)Flank pain (R10.9)ActiveconfirmedProblemParoxysmal tachycardia (44286851)Tachycardia, paroxysmal (I47.9)ActiveconfirmedProblem Current smoker (02111183)Current smoker (F17.200)ActiveconfirmedProblemAcquired hypertrophic pyloric stenosis (61552397)Gastric outlet obstruction (K31.1)Active confirmedProblemAnnual wellness visit (043432975582474)Wellness examination (Z00.00)ActiveconfirmedProblemGastro-esophageal reflux disease (401524554) Gastro-esophageal reflux disease (K21.9)ActiveconfirmedProblemAcquired hypertrophic pyloric stenosis (11136129)Pyloric stricture (K31.1)Activeconfirmed Vital Signs Heart Rate 100 /min 11/22/2024 Dpuwbffopid96.3 degrees Ozljimycba33/21/6865Meubrtvy93 %11/22/2024lood pressure rgpltleqi56 mm Hg07/24/20259611Wxknyc12.5 in07/24/2025lood pressure rbfkkgep749 mm Hg07/24/20252054Zcqxee08.4 lbs1MI19.6 kg/m207/24/2025 Encounters Encounter Location Date Provider Diagnosis [address] [place] [address] 11/22/2024 Patricia Burton Cough R05.9 and Wellness examination Z00.[address] [address] 07/18/2025 Patricia Burton Depression with anxiety F41.8 and Current smoker F17.[address] [address] 07/24/2025 Patricia Burton Flank pain R10.9 and Lightheaded R42 [address] [place] [address] 11/22/2024 Patricia Burton Viral illness B34.[address] [address] 11/22/2024 Patricia Burton [address] [address] 01/15/2025Patricia Burton Assessments Encounter Date Diagnosis (ICD Code) Assessment Notes Treatment Notes Treatment Clinical Notes Section Notes 11/22/2024 Cough (ICD-10 - R05.9) COVID and flu neg smoker 11/22/2024Wellness examination (ICD-10 - Z00.00)resarting meds including effexor for mood07/18/2025Depression with anxiety (ICD-10 - F41.8) job stress working 70 hrs week moved into [facility] house, finances better 07/24/2025Flank pain (ICD-10 - R10.9)07/24/2025Lightheaded (ICD-10 - R42) increase fluids, electrolytes rest 11/22/2024Viral illness (ICD-10 - B34.9)07/18/2025urrent smoker (ICD-10 - F17.200)encouraged /17/2025Othercontinue monitor bp, can stop here for bp [...] PCR (CVDTBH) 05/03/2024 THYROID PANEL (T4/TSH/FREE T3) 5 THYROID PANEL (T4/TSH/FREE T3) CMP (COMP MET CABRERA) w/eGFR CKD-EPI 2024 CMP (COMP MET CABRERA) w/eGFR CKD-EPI 2024 CBC WITH DIFF 07/24/2025 Insurance Providers Payer Name Payer Address Payer Phone Subscriber Number Group Number Insured Name Patient Relationship to Insured Coverage Start Date Coverage End Date ANTHEM ACCESS PPO PLUS LOCAL PLAN [address] [place] [address] [id number] Ana Rosa Brito Self - patient is [...] Date(Month/Year) Partial Stomach Removal- Dr. Camarillo 10/22 Hernia repar CholecystectomyTonsillectomyHysterectomy
[2025-07-26 12:03] LABS: Hematocrit 41.5 % (36.0-48.0); Hemoglobin 13.1 g/dL (12.0-16.0); Immature Granulocytes Abs Auto 0.03 10^3/uL (0.00-0.03); Immature Granulocytes Pct Auto 0.4 % (0.0-0.5); Lymphocytes Absolute Auto 2.7 10^3/uL (1.2-3.8); Mean Corpuscular HGB Conc 31.6 g/dL (29.9-35.2); Mean Corpuscular Hemoglobin 28.1 pg (26.7-34.0); Mean Corpuscular Volume 88.9 fL (81.0-99.0); Platelet Count 353 10^3/uL (150-450); Red Blood Count 4.67 10^6/uL (4.20-5.40); White Blood Count 7.4 10^3/uL (4.0-11.0)
[2025-07-26 12:10] LABS: Glucose Urine UA NEGATIVE (NEGATIVE)
[2025-07-26 12:30] LABS: Cast Seen? NONE SEEN #/LPF (NONE SEEN); Crystals Seen? None Seen #/HPF (None Seen)
[2025-07-26 12:32] LABS: Alanine Aminotransferase 17 U/L (14-59); Albumin Globulin Ratio 1.3; Albumin Level 4.0 g/dL (3.4-5.0); Alkaline Phosphatase 101 U/L (46-116); Anion Gap 11.0; Aspartate Amino Transferase 12 U/L (15-37); Blood Urea Nitrogen 13.0 mg/dL (7.0-18.0); Calcium 8.3 mg/dL (8.5-10.1); Carbon Dioxide 29.8 mmol/L (21.0-32.0); Chloride 103 mmol/L (98-107); Cholesterol 180 mg/dL (<=200); Estimated GFR (African America >60 (>=60 mL/min/1.73m^2); Estimated GFR (Non-African Ame >60 (>=60 mL/min/1.73m^2); Free T3 2.39 pg/mL (2.18-3.98); Globulin 3.0 g/dL; Glucose 91 mg/dL (74-106); HDL Cholesterol 58 mg/dL (40-60); Potassium 3.8 mmol/L (3.5-5.1); Sodium 140 mmol/L (136-145); Thyroid Stimulating Hormone 1.800 uIU/mL (0.358-3.740); Total Protein 7.0 g/dL (6.4-8.2); Triglycerides 81 mg/dL (<=150); VLDL CHOLESTEROL 16.2 mg/dL
[2025-07-26 12:51] LABS: Iron 49.0 ug/dL (50.0-170.0)
== END 2025-07-26 11:33 | disposition home or self-care (01) ==
LOC: LAB 11:32
PROVIDERS: PCP Nurse Practitioner Family; Visit Provider Nurse Practitioner Family
DX: R10.9 Unspecified abdominal pain (principal); R42 Dizziness and giddiness
CPT/HCPCS: 36415; 80053; 80061; 81001; 82306; 83036; 83525; 83540; 84436; 84443; 84481; 85025; 87086

== ENCOUNTER 2025-09-13 11:00 | Outpatient (OUT) | payer BC, SELFPAY ==
--- NOTE | 2025-09-13 | US_ITS ---
The [address] [address] Patient Name: SHELIA CARRILLO MRN: [id number] date: 1970 Sex: F Assigned Patient Location: [place] Current Patient Location: [place] Accession/Order Number: [id number] Exam Date: 09/13/2025 11:10 Report Date: 09/13/2025 14:12 At the request of: MOON POE Procedure: US renal bladder US renal bladder 09/13/2025 11:48 AM SIGNS AND SYMPTOMS: ^FLANK PAIN R10.9 COMPARISON: None. FINDINGS: Right kidney measures 8.6 x 3.5 x 4.3 cm . The right renal cortex measures 9 mm in thickness. Echogenic foci are noted measuring up to 5 mm in greatest dimension. Left kidney measures 9.3 x 4.5 x 3.8 cm . The left renal cortex measures 9 mm in thickness. Echogenic foci are noted measuring up to 4 mm. No hydronephrosis or mass. The urinary bladder is morphologically normal. No free fluid is seen in the pelvis. Before voiding, the bladder has a prevoid volume of 161 mL with a postvoid volume of 8 mL. US/US renal bladder IMPRESSION: No hydronephrosis or mass. Echogenic stones are noted measuring up to 5 mm in greatest dimension on the right and 4 mm in greatest dimension on the left. Impression dictated by: Brian Alfaro M.D. 09/13/2025 2:12 PM Dictation Location: [place] [address] Electronically authenticated by: [id number] Y Date: 09/13/2025 14:12
--- OUTSIDE RECORDS SUMMARY | 2025-09-13 11:05 | XMS_ITS | Clinical Summary ---
Author Organization [facility] Address [address] [place] [address] Care Team Providers Care Traveling Construction Superintendent Name Role Phone Unavailable Primary Care Provider Unavailabl e Social History Tobacco UseTypesPacks/DayYears UsedDateSmoking Tobacco: Never Assessed CommentsUnknownSex and Gender InformationValueDate RecordedSex Assigned at Not on fileLegal NcuJftfvx54/15/2023 7:23 PM EDTGender IdentityNot on fileSexual OrientationNot on file Plan of Treatment Not on file Insurance
--- OUTSIDE RECORDS SUMMARY | 2025-09-13 11:05 | XMS_ITS | Clinical Summary ---
Author Organization [facility] Address [address] [place] [address] Care Team Providers Care District Fire Chief Name Role Phone Unavailable Primary Care Provider Unavailabl e Social History Tobacco UseTypesPacks/DayYears UsedDateSmoking Tobacco: Never AssessedUT Safety & EnvironmentAnswerDate RecordedFear of Current or Ex-PartnerNot on file 11/23/2023Emotionally AbusedNot on file11/23/2023hysically AbusedNot on file 11/23/2023Sexually AbusedNot on file11/23/2023hysically or Sexually AbusedNot on file11/23/2023CommentsUnknownSex and Gender InformationValueDate RecordedSex Assigned at BirthNot on fileLegal OujVieikm44/29/2022 10:13 PM EDT Gender IdentityNot on fileSexual OrientationNot on file Last Filed Vital Signs Vital SignReadingTime TakenCommentsBlood Nztarvfz028/8406 2:07 PM EDT Uxjuj653003/16/2022 2:07 PM SXKMzldawxyboc46 ??C (98.6 ??F)03/16/2022 2:06 PM EDT Respiratory Pjoh175411/09/2019 3:12 PM ESTOxygen Xrehqqdtej02%04/19/2021 3:02 PM EDTInhaled Oxygen Concentration--Rbjntv22 kg (101 lb 6.4 oz)03/16/2022 2:03 PM PUVSrjynx914.3 cm (4' 10 )03/16/2022 2:02 PM EDTBody Mass Index21.19003/16/2022 2:02 PM EDT Plan of Treatment Health MaintenanceDue DateLast DoneCommentsCT Ddrsctsvkmob1970Colonoscopy 1970Colorectal Cancer Cmzuzljjp1970FIT-DNA1970FIT1970 FOBT1970 7861Bjjrvhaomvklm1970Depression Ekfyufbkz82/08/1982Hepatitis B Vaccines (1 of 3 - 19+ 3-dose series)1989Pap Smear1991Adult Tetanus 1992Cervical Cancer Jinswubpj65/08/2000HPV/Iwzbbb5607/09/2000Mammogram 2010Zoster Vaccines (1 of 2)2020Pneumococcal Vaccine: Pediatrics [...]
== END 2025-09-13 11:01 | disposition home or self-care (01) ==
LOC: US 11:01
PROVIDERS: PCP Nurse Practitioner Family; Visit Provider Nurse Practitioner Family
DX: R10.9 Unspecified abdominal pain (principal)
CPT/HCPCS: 76770